=== PATIENT | female | born 2000 | race Caucasian/White ===

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

== ENCOUNTER 2021-07-29 11:03 | Emergency (ER) | payer MEDICAID, SELFPAY ==
[2021-07-29 11:08] VITALS: BP 126/81; PULSE 68; RESP 16; TEMP 36.6; O2SAT 97
--- NOTE | 2021-07-29 11:23 | ED.GENADUL_ITS ---
Discharge Plan Disposition Patient Disposition: HOME Condition: Stable Discharge Details Clinical Impression: Vomiting during Primary Care Provider: Lindsay Miranda V ED Provider: Oscar Beltran Home Meds and New Rx's Prescriptions: New doxylamine-pyridoxine (vit B6) [Diclegis] 10-10 mg tablet,delayed release (DR/EC) 1 tab PO BID PRN (Reason: nausea and vomiting) Qty: 10 RF: 0 Continued PreTAB 29-1 mg tablet 1 tab PO DAILY Qty: 90 RF: 4 venlafaxine [Effexor XR] 75 mg capsule,extended release 24hr 75 mg PO DAILY Qty: 90 RF: 0 albuterol sulfate [ProAir HFA] 200 PUFF HFA aerosol inhaler 2 puff Inhalation PRN PRNRF: 0 Discharge Instructions Instructions: Hyperemesis Gravidarum (ED) Additional Instructions: Please return if you have any new or worsening of your symptoms. otherwise keep you appt with OB next week. Medical Decision Making Patient here with N/V/D and states abdominal cramping type pain . Pt is aprox 9weeks and reported LMP 04/21/21 and CORINNA 03/06/22 reported by US results done on last OB visit with ongoing N/V x 3 weeks with no stated treatment. Pt nontoxic in appearance, vital signsWNL, and not tolerating PO. Pt?s presentation unlikely aortic in etiology as inconsistent with location or history, nonsmoker and no HTN. Cholecystitis inconsistent with history; not related to meals, negative espino?s, and no hx gall stones previously. SBO unlikely given no prior abd surgery and normal BMs. The location of pain is difuse and not typical of appendicitis, the patient has no rebound tenderness, mild anorexia due to nausea/vomiting. No history of renal stones, no CVA tenderness, and no hematuria. . Labs, including CBC, CMP, and urine were preformed Pending results patient was give NS bolus 1000ml and ODT zofran after discussion of risk vs benefits. Labs reviewed and show elevation of WBC and neutrophils otherwise no emergent findings. I feel the abnormalities are secondary to vomiting Pt reassessed after fluids and states some reduced nausea and overall improvement. With further discussion pt does state that this occurred during last and is the same. pt also states that BM only occurs with vomiting. Pt PO challenged. Review of UA shows Ketones. Reassessed patient and she continues to improve. Discussed further fluids and D5NS and pt states that she would rather continue home PO intake and hydration. Given that patient is improving and tolerating PO I am fine with DC to home with strict return precations. Pt states understanding of return and F/U precautions. Medical Records Medical records reviewed: Yes I reviewed the patient's medical records. Medical records narrative: Reviewed notes from last OB visit HPI General Mode of arrival: ambulatory . Date/Time Provider Initiated Documentation: 07/29/21 11:05 . Limitations to Documentation: no limitations . Information obtained by: patient . History of Present Illness 20 year old F presents to the emergency department with the chief complaint of Nausea and vomitting X 3 weeks and now worse over last 2 days, described as moderate and similar to prior episodes, with intensity rated at 7. Quality is described as other (Cramping), and is localized to the abdomen. Patient reports no radiation. Patient started experiencing this week(s) and it has been constant. No relieving factors improve symptom(s), No exacerbating factors reported . Patient notes no other symptoms.. Patient did receive the following treatments prior to arrival, none Related Data Home Medications Medication Instructions Recorded Confirmed albuterol sulfate [ProAir HFA] 2 puff INHALATION PRN PRN 06/11/15 07/29/21 vits,calcium no.78-iron 1 tab PO DAILY #90 tab 06/29/21 07/29/21 fumarate-folic acid 29 mg-1 mg tablet venlafaxine 75 mg capsule,extended 75 mg PO DAILY #90 cap 06/29/21 07/29/21 release 24 hr doxylamine-pyridoxine (vit B6) 1 tab PO BID PRN #10 tab 07/29/21 [Diclegis] Previous Rx's Medication Instructions Recorded vits,calcium no.78-iron 1 tab PO DAILY #90 tab 06/29/21 fumarate-folic acid 29 mg-1 mg tablet venlafaxine 75 mg capsule,extended 75 mg PO DAILY #90 cap 06/29/21 release 24 hr doxylamine-pyridoxine (vit B6) 1 tab PO BID PRN #10 tab 07/29/21 [Diclegis] Allergies Allergy/AdvReac Type Severity Reaction Status Date / Time sertraline Allergy Intermediate Verified 07/29/21 11:15 black flies Allergy Intermediate Uncoded 07/29/21 11:15 cats Allergy Intermediate Uncoded 07/29/21 11:15 General Stated Complaint: Nausea/Vomit/Diar ETHAN: 3 Review of Systems Constitutional Constitutional: Denies chills, Denies fever(s) and Reports poor appetite ENT Ears, Nose, Mouth, and Throat: Denies dizziness Cardiovascular Cardiovascular: Denies chest pain, Denies syncope and Denies dyspnea Respiratory Respiratory: Denies cough and Denies dyspnea Gastrointestinal Gastrointestinal: Reports as per HPI, Denies abdominal pain, Denies melena, Denies change in bowel habits, Denies constipation, Reports cramping, Reports diarrhea, Reports nausea, Reports vomiting and Denies hematemesis Genitourinary Genitourinary: Denies hematuria, Denies pelvic pain, Denies urinary incontinence, Denies urinary hesitancy, Denies urinary urgency and Denies vaginal discharge Comments: Currently LMP 04/21/21 Integumentary/Breasts Skin/Breast: Denies rash Neurologic Neurologic: Denies dizziness and Denies syncope PFSH All Active Problems Vomiting during (Acute) Posttraumatic stress disorder (Acute) History of migraine (Acute) (Acute) Depressed (Acute) Cannabis abuse (Acute) Amenorrhea (Acute) Medical History Adjustment reaction of adolescence Allergic rhinitis, unspecified Amenorrhea Asthma Attention deficit disorder with hyperactivity Bipolar disorder Chlamydia contact Chlamydia vaginitis/cervicitis Concussion without loss of consciousness, sequela Dizziness Exercise-induced asthma Headache Mood disorder due to known physiological condition with depressive features Pain of right hand RAD (reactive airway disease) Seasonal allergies Sleep disturbance Subacute thyroiditis Suicidal ideation Urinary tract infection Surgical History History of tonsillectomy Family History Paternal Grandfather Diabetes Maternal Grandfather Heart disease mi w/ double bypass Hypertension Mother Hypothyroid Social History Smoking/Tobacco Use Status: Never Smoking risk assessment performed?: Yes Alcohol Intake: never Substance use type: former substance user Date of last use: nanette Counseling provided: treatment program Details: pt. denies marijuana use at this time Sexually active: Yes Do you feel safe at home: Yes Do you feel safe in your relationship?: Yes Female Reproductive History Menstrual Age of Menarche: 12 Duration of menses: 3-5 days control method: pills History History 1 Para 1 Hx # Term Pregnancies 1 Multiple births 0 Hx # Pregnancies 0 Ectopic pregnancies 0 AB induced 0 Hx Number of Living Children 1 AB spontaneous 0 Past Pregnancies Del. Date GA/Weeks # Outcome Route Wgt Sex Labor Lgth Anesthes ia Location Prov [facility] 08/30/19 39 No Successful vaginal 2976.7 g Female Soledad Rodney CNM Delivery Date: 08/30/19 1st degree perineal laceration, repaired Ramona Soto Exam Const General: cooperative Orientation: alert, awake and oriented x3 Eyes General: appearance normal, both eyes and all related structures Resp Effort & Inspection: normal respiratory effort and able to speak in complete sentences Auscultation: clear to auscultation bilaterally Cardio Rate: regular rate Rhythm: regular rhythm Heart Sounds: S1 normal and S2 normal GI Palpation: soft, no hepatosplenomegaly, not firm, no guarding, no masses, no pulsatile masses, not rigid, no splenomegaly and tender other (difuse ); not at McBurney's point, not suprapubicly, Espino's sign negative, psoas sign negative and with no rebound tenderness Auscultation: normal bowel sounds Back/Spine/Pelvis Back: no CVA tenderness Neuro General: patient alert, patient awake, patient oriented x3, gait normal and moves all extremities Course Vital Signs Vital signs: Vital Signs Temperature 36.6 C 07/29/21 11:08 Pulse 68 07/29/21 11:08 Respiratory Rate 16 07/29/21 11:08 Blood Pressure 126/81 07/29/21 11:08 Pulse Oximetry 97 07/29/21 11:08 Temperature 36.6 C 07/29/21 11:08 Temperature Source Temporal Artery Scan 07/29/21 11:08 Pulse 68 07/29/21 11:08 Respiratory Rate 16 07/29/21 11:08 Respiratory Effort Non-Labored 07/29/21 11:13 Blood Pressure 126/81 07/29/21 11:08 Blood Pressure Position Sitting 07/29/21 11:08 Pulse Oximetry 97 07/29/21 11:08 Oxygen Delivery Method Room Air 07/29/21 11:08 Oxygen Flow Rate 0 07/29/21 11:08 Pain Level 0 07/29/21 11:08
[2021-07-29] MEDS: Normal Saline 1,000 ML 1000 ML IV (11:31)
[2021-07-29 11:36] LABS: Abs Immature Grans 0.05 10^3/uL (0.0-0.06); Absolute Basophil Count 0.04 10^3/uL (0.0-0.2); Absolute Lymphocyte Count 0.88 10^3/uL (1.2-3.4); Absolute Monocyte Count 0.54 10^3/uL (0.1-0.8); Basophils % 0.3; Eosinophils % 0.2; HCT 38.5 % (36.0-46.0); HGB 12.8 g/dL (11.2-15.7); Immature Grans % 0.4; Lymphocytes % 6.8; MCHC 33.2 % (32.0-36.0); MCV 87.1 fL (80-95); MPV 10.8 fL (8.0-11.0); Monocytes % 4.2; Neutrophils % 88.1; Nucleated RBC 0 %; Platelet Count 248 10^3/uL (130-400); RBC 4.42 10^6/uL (3.93-5.22); RDW 12.5 % (11.7-14.6); RDW-SD 40.2 fL; WBC 12.91 10^3/uL (4.4-10.8)
[2021-07-29] MEDS: Ondansetron O.D.T. 4 MG TABEF PO (11:36)
[2021-07-29 11:37] LABS: Absolute Eosinophil Count 0.03 10^3/uL (0.0-0.7); Absolute Neutrophil Count 11.37 10^3/uL (1.2-6.7)
[2021-07-29 11:48] LABS: ALT 37 U/L (14-59); AST 14 U/L (15-37); Albumin 4.5 g/dL (3.4-5.0); Alkaline Phosphatase 34 U/L (46-116); Anion Gap 11.7 mmol/L (3-11); BUN 6 mg/dL (7-18); Bilirubin, Total 0.4 mg/dL (0.2-1.0); CO2 25.3 mmol/L (21.0-32.0); CREATININE 0.6 mg/dL (0.55-1.02); Calcium 9.3 mg/dL (8.5-10.1); Chloride 103 mmol/L (98-107); Glucose 124 mg/dL (74-106); Magnesium 1.9 mg/dL (1.8-2.4); Potassium 3.5 mmol/L (3.5-5.1); Sodium 140 mmol/L (136-145); Total Protein 8.1 g/dL (6.4-8.2)
[2021-07-29 12:56] LABS: Bilirubin Negative (Negative); Blood Negative (Negative); Clarity Sl Cloudy (Clear); Glucose Negative (Negative); Ketones 80 mg/dL (Negative); Leukocyte Esterase Negative (Negative); Nitrite Negative (Negative); Specific Gravity 1.025 (1.005-1.025); Urobilinogen 0.2 EU/dL (Up TO 0.2)
[2021-07-29 13:13] VITALS: BP 138/88; PULSE 73; RESP 18; O2SAT 96
== END 2021-07-29 13:19 | disposition home or self-care (01) ==
PROVIDERS: Emergency Provider Nurse Practitioner Family; PCP Family Medicine
DX: O21.8 Other vomiting complicating pregnancy (principal); Z3A.09 9 weeks gestation of pregnancy; R10.9 Unspecified abdominal pain; O28.8 Other abnormal findings on antenatal screening of mother
CPT/HCPCS: 36415; 80053; 96360; 99284; 81003; 83735; 85025; 99283

== ENCOUNTER 2021-07-30 04:49 | Emergency (ER) | payer MEDICAID, SELFPAY ==
[2021-07-30 04:56] VITALS: BP 138/77; PULSE 73; RESP 18; TEMP 36.3; O2SAT 97
--- NOTE | 2021-07-30 05:11 | ED.GENADUL_ITS ---
Discharge Plan Disposition Patient Disposition: HOME Condition: Good Discharge Details Clinical Impression: Vomiting during , Acute hypokalemia, Hypomagnesemia Primary Care Provider: Lindsay Miranda V ED Provider: David Caceres Home Meds and New Rx's Prescriptions: Continued PreTAB 29-1 mg tablet 1 tab PO DAILY Qty: 90 RF: 4 venlafaxine [Effexor XR] 75 mg capsule,extended release 24hr 75 mg PO DAILY Qty: 90 RF: 0 albuterol sulfate [ProAir HFA] 200 PUFF HFA aerosol inhaler 2 puff Inhalation PRN PRNRF: 0 doxylamine-pyridoxine (vit B6) [Diclegis] 10-10 mg tablet,delayed release (DR/EC) 1 tab PO BID PRN (Reason: nausea and vomiting) Qty: 10 RF: 0 Discharge Instructions Instructions: Hyperemesis Gravidarum (ED) Additional Instructions: Please continue to take your Diclegis at home. Drink plenty of fluids. Follow- up closely with your OB doctor. If you notice any worsening of your symptoms, or any new symptoms such as vomiting, diarrhea, fever, chills, shortness of breath, chest pain, numbness, weakness, or fainting , please return immediately to the emergency department for reevaluation. Please follow up with your primary care provider as soon as possible for reassessment and reevaluation. As always, it was a pleasure participating in your medical care today. Referrals: Lindsay Miranda MD [Primary Care Provider] - Medical Decision Making <Alessandro Singh DO - Last Filed: 07/30/21 07:55> This is a 20-year-old female who is currently 9 weeks who is a G2, P1 who presents today for nausea and vomiting. Patient had notable morning sickness during her first , during this she has as well. Her symptoms got particularly worse about 18 to 20 hours ago, and she came to the ER, was rehydrated, had a reassuring work-up, and was discharged. She returns again today at 5 in the morning for continued vomiting and nausea. She denies any fever or chills. She admits to mild epigastric discomfort but no other pain. She states this feels similar to previous episodes of morning sickness. She denies any other complaints at this time. No other modifying factors. Physical exam demonstrates dry mucous membranes, mild epigastric tenderness. No evidence of an acute surgical abdomen. Negative Espino sign. Symptoms at this time appear consistent with mild morning sickness. We will treat with Zofran which she has had in the past, give pyridoxine, rehydrate, monitor closely and reassess. 7:24 AM Laboratory work-up is returned, potassium is 3.1, magnesium is slightly low at 1.7. Liver function is normal. Lipase is normal. On reassessment patient is feeling somewhat better. Still has some mild epigastric achiness. Mild nausea but has been able to tolerate ice chips. We will replace potassium and magnesium. Will give 20 mEq of IV potassium and 2 g of magnesium. Patient will be signed out to my colleague Dr. David Caceres for reassessment after medications. <David Caceres MD - Last Filed: 07/30/21 09:59> Received signout from Dr. Singh. Please see his note regarding details of the initial presentation, exam and plan of care. Following fluids and electrolyte replacement, the patient is improved and feeling better. She is stable and appropriate for outpatient management. HPI <Alessandro Singh DO - Last Filed: 07/30/21 07:55> General Date/Time Provider Initiated Documentation: 07/30/21 04:58 . HPI Narrative: This is a 20-year-old female who is currently 9 weeks who is a G2, P1 who presents today for nausea and vomiting. Patient had notable mo rning sickness during her first , during this she has as well. Her symptoms got particularly worse about 18 to 20 hours ago, and she came to the ER, was rehydrated, had a reassuring work-up, and was discharged. She returns again today at 5 in the morning for continued vomiting and nausea. She denies any fever or chills. She admits to mild epigastric discomfort but no other pain. She states this feels similar to previous episodes of morning sickness. She denies any other complaints at this time. No other modifying factors. Related Data Home Medications Medication Instructions Recorded Confirmed albuterol sulfate [ProAir HFA] 2 puff INHALATION PRN PRN 06/11/15 07/30/21 vits,calcium no.78-iron 1 tab PO DAILY #90 tab 11/09/21 12/10/21 fumarate-folic acid 29 mg-1 mg tablet venlafaxine 75 mg capsule,extended 75 mg PO DAILY #90 cap 06/29/21 07/30/21 release 24 hr doxylamine-pyridoxine (vit B6) 1 tab PO BID PRN #10 tab 07/29/21 07/30/21 [Diclegis] Previous Rx's Medication Instructions Recorded vits,calcium no.78-iron 1 tab PO DAILY #90 tab 06/29/21 fumarate-folic acid 29 mg-1 mg tablet venlafaxine 75 mg capsule,extended 75 mg PO DAILY #90 cap 06/29/21 release 24 hr doxylamine-pyridoxine (vit B6) 1 tab PO BID PRN #10 tab 07/29/21 [Diclegis] Allergies Allergy/AdvReac Type Severity Reaction Status Date / Time sertraline Allergy Intermediate Verified 07/30/21 04:59 black flies Allergy Intermediate Uncoded 07/30/21 04:59 cats Allergy Intermediate Uncoded 07/30/21 04:59 General Stated Complaint: Nausea/Vomit/Diar ETHAN: 3 Review of Systems <Alessandro Singh DO - Last Filed: 07/30/21 07:55> All systems reviewed & are unremarkable except as noted in HPI and below PFSH <Alessandro Singh DO - Last Filed: 07/30/21 07:55> All Active Problems (Updated 07/30/21 @ 07:26 by Alessandro Singh DO) Vomiting during (Acute) Acute hypokalemia (Acute) Hypomagnesemia (Acute) Posttraumatic stress disorder (Acute) History of migraine (Acute) (Acute) Depressed (Acute) Cannabis abuse (Acute) Amenorrhea (Acute) Medical History Adjustment reaction of adolescence Allergic rhinitis, unspecified Amenorrhea Asthma Attention deficit disorder with hyperactivity Bipolar disorder Chlamydia contact Chlamydia vaginitis/cervicitis Concussion without loss of consciousness, sequela Dizziness Exercise-induced asthma Headache Mood disorder due to known physiological condition with depressive features Pain of right hand RAD (reactive airway disease) Seasonal allergies Sleep disturbance Subacute thyroiditis Suicidal ideation Urinary tract infection Surgical History History of tonsillectomy Family History Paternal Grandfather Diabetes Maternal Grandfather Heart disease mi w/ double bypass Hypertension Mother Hypothyroid Social History Smoking/Tobacco Use Status: Never Smoking risk assessment performed?: Yes Alcohol Intake: never Substance use type: former substance user Date of last use: nanette Counseling provided: treatment program Details: pt. denies marijuana use at this time Sexually active: Yes Do you feel safe at home: Yes Do you feel safe in your relationship?: Yes Female Reproductive History Menstrual Age of Menarche: 12 Duration of menses: 3-5 days control method: pills History History 1 Para 1 Hx # Term Pregnancies 1 Multiple births 0 Hx # Pregnancies 0 Ectopic pregnancies 0 AB induced 0 Hx Number of Living Children 1 AB spontaneous 0 Past Pregnancies Del. Date GA/Weeks # Outcome Route Wgt Sex Labor Lgth Anesthes ia Location Prov [facility] 08/30/19 39 No Successful vaginal 2976.7 g Female Soledad Rodney CNM Delivery Date: 08/30/19 1st degree perineal laceration, repaired IsaelRamona giordano Exam <Alessandro Singh DO - Last Filed: 07/30/21 07:55> Narrative Exam Narrative: 1.Const: Well-nourished, Well-developed, appearing stated age 2.Eyes: PERRL, no conjunctival injection, and symmetrical lids. 3.ENT: Atraumatic external nose and ears. Notably dry MM. Neck: Symmetric, trachea midline, No thyromegaly. 4.CVS: +S1/S2, No murmurs or gallops. Peripheral pulses 2+ and equal in all extremities. Brisk capillary refill in all extremities. 5.RESP: Unlabored respiratory effort. Clear to auscultation bilaterally. No wheezes rales or rhonchi 6.GI: Soft, nondistended. Minimal epigastric tenderness, negative Espino sign, no pain at McBurney's point. 7.MSK: Normocephalic/Atraumatic, Extremities w/o deformity or ttp No cyanosis or clubbing, Normal movement of all extremities 8.Skin: Warm, Dry. No rashes or lesions. 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 Sensation grossly intact, no focal neurologic deficits. 10.Psych: (AAO) x3. Appropriate mood and affect Course <Alessandro Singh DO - Last Filed: 07/30/21 07:55> Vital Signs Vital signs: Vital Signs Temperature 36.3 C L 07/30/21 04:56 Pulse 73 07/30/21 04:56 Respiratory Rate 18 07/30/21 04:56 Blood Pressure 138/77 07/30/21 04:56 Pulse Oximetry 97 07/30/21 04:56 Temperature 36.3 C L 07/30/21 04:56 Temperature Source Skin 07/30/21 04:56 Pulse 73 07/30/21 04:56 Respiratory Rate 18 07/30/21 04:56 Respiratory Effort Non-Labored 07/30/21 05:00 Blood Pressure 138/77 07/30/21 04:56 Pulse Oximetry 97 07/30/21 04:56 Pain Level 6 07/30/21 04:56 Sign Out <Alessandro Singh DO - Last Filed: 07/30/21 07:55> Sign Out Data: Sign Out Comment: , morning sickness, reassess after potassium magnesium have been administered. Last updated by Alessandro Singh DO at 07/30/21 07:31
[2021-07-30] MEDS: Normal Saline 1,000 ML 1000 ML IV (05:16)
[2021-07-30] MEDS: Ondansetron 4 MG/2 ML VIAL IVP (05:16)
[2021-07-30 05:17] LABS: Abs Immature Grans 0.06 10^3/uL (0.0-0.06); Absolute Basophil Count 0.03 10^3/uL (0.0-0.2); Absolute Eosinophil Count 0.04 10^3/uL (0.0-0.7); Absolute Lymphocyte Count 1.11 10^3/uL (1.2-3.4); Absolute Monocyte Count 0.63 10^3/uL (0.1-0.8); Absolute Neutrophil Count 9.33 10^3/uL (1.2-6.7); Basophils % 0.3; Eosinophils % 0.4; HCT 34.5 % (36.0-46.0); HGB 11.8 g/dL (11.2-15.7); Immature Grans % 0.5; Lymphocytes % 9.9; MCH 29.1 pg (27.0-33.0); MCHC 34.2 % (32.0-36.0); MCV 85.2 fL (80-95); MPV 10.8 fL (8.0-11.0); Monocytes % 5.6; Neutrophils % 83.3; Nucleated RBC 0 %; Platelet Count 218 10^3/uL (130-400); RBC 4.05 10^6/uL (3.93-5.22); RDW 12.5 % (11.7-14.6); RDW-SD 38.6 fL
[2021-07-30 05:30] LABS: ALT 28 U/L (14-59); AST 12 U/L (15-37); Albumin 4.1 g/dL (3.4-5.0); Alkaline Phosphatase 31 U/L (46-116); Anion Gap 14.3 mmol/L (3-11); BUN 6 mg/dL (7-18); Bilirubin, Total 0.3 mg/dL (0.2-1.0); CO2 21.7 mmol/L (21.0-32.0); CREATININE 0.6 mg/dL (0.55-1.02); Calcium 8.7 mg/dL (8.5-10.1); Chloride 103 mmol/L (98-107); Glucose 124 mg/dL (74-106); Lipase 44 U/L (73-393); Potassium 3.1 mmol/L (3.5-5.1); Sodium 139 mmol/L (136-145); Total Protein 7.4 g/dL (6.4-8.2)
[2021-07-30 06:33] LABS: Magnesium 1.7 mg/dL (1.8-2.4)
[2021-07-30] MEDS: POTASSIUM CHLORIDE 20 MEQ/100 ML BAG 50 MEQ IVPB (06:57)
[2021-07-30] MEDS: MAGNESIUM SULFATE 2 GM/50 ML BAG IVPB (07:54)
[2021-07-30 10:00] VITALS: BP 133/75; PULSE 97; RESP 20; TEMP 37.1; O2SAT 100
[2021-07-30 10:10] VITALS: BP 133/75; PULSE 97; RESP 20; TEMP 37.1; O2SAT 100
== END 2021-07-30 10:10 | disposition home or self-care (01) ==
PROVIDERS: Student in an Organized Health Care Education/Training Program; Emergency Provider Emergency Medicine; PCP Family Medicine
DX: O21.8 Other vomiting complicating pregnancy (principal); E87.6 Hypokalemia; E83.42 Hypomagnesemia
CPT/HCPCS: 36415; 80048; 80053; 83690; 96361; 96365; 96366; 96368; 96374; 96375; 99284; 83735; 85025; 99283; J1200; J2405; J2765; J3480

== ENCOUNTER 2021-07-30 11:03 | Emergency (ER) | payer MEDICAID, SELFPAY ==
[2021-07-30 11:07] VITALS: BP 139/92; PULSE 75; RESP 18; TEMP 36.6; O2SAT 99
[2021-07-30] MEDS: Ondansetron O.D.T. 4 MG TABEF PO (11:17)
[2021-07-30] MEDS: Normal Saline 1,000 ML 1000 ML IV (12:44)
[2021-07-30] MEDS: Metoclopramide 10 MG/2 ML VIAL IVP (12:45)
[2021-07-30] MEDS: diphenhydrAMINE 50 MG/ML VIAL 25 MG IVP (12:45)
[2021-07-30] MEDS: FAMOTIDINE 20 MG/50 ML BAG 200 MG IVPB (12:46)
--- NOTE | 2021-07-30 12:52 | ED.GENADUL_ITS ---
Discharge Plan Disposition Patient Disposition: HOME Condition: Stable Discharge Details Clinical Impression: Acute hypokalemia, Vomiting during Primary Care Provider: Lindsay Miranda V ED Provider: Brielle Renee Home Meds and New Rx's Prescriptions: New ondansetron HCl [Zofran] 4 mg tablet 4 mg PO Q8H PRNQty: 10 RF: 0 Continued PreTAB 29-1 mg tablet 1 tab PO DAILY Qty: 90 RF: 4 venlafaxine [Effexor XR] 75 mg capsule,extended release 24hr 75 mg PO DAILY Qty: 90 RF: 0 albuterol sulfate [ProAir HFA] 200 PUFF HFA aerosol inhaler 2 puff Inhalation PRN PRNRF: 0 doxylamine-pyridoxine (vit B6) [Diclegis] 10-10 mg tablet,delayed release (DR/EC) 1 tab PO BID PRN (Reason: nausea and vomiting) Qty: 10 RF: 0 Discharge Instructions Instructions: Hypokalemia (ED) Additional Instructions: avoid an empty stomach, snack in AM (banana, saltines, toast, pretzels) peppermint tea or candies after small snack night snack of crackers and peanutbutter or cheese eat very small, frequent snacks fluids 30 min before eating, cold, clear, carbonated like lemonade, gingerale, and popsicles do not lay down after eating as this may worsening your nausea no iron containing vitamins while nauseous gustavo tea or lollipops may help vitamin B6 10-25 mg every 6 hours, you may purchase this otc (max dose of 200 mg/day) take 1/2 tablet of unisom (25 mg) (doxylamine tablet, 3-4 times a day) as needed for nausea Referrals: Lindsay Miranda MD [Primary Care Provider] - Medical Decision Making Patient is well in appearance Gave her ODT Zofran in an attempt to alleviate patient's symptoms but persistently nauseous and so 10 mg of Reglan and 25 mg of Benadryl was administered She is feeling marked improvement I rechecked a BMP which actually shows improvement in patient's have potassium at home Potassium 3.4 Gap has improved prior assessment Able to tolerate gustavo mckenzie in the emergency room Prescribed Zofran ODT for home and will take half a tablet of Unisom and 10 mg of B6 as discussed Have an appointment with WELL DRILL OPERATOR [facility] on Monday No abdominal tenderness on assessment Given low threshold to return should she have new or worsening complaints While this patient has had 3 visits, she has not taken any prescribed medications and I think giving patient a trial of home medication is important at this point She is discharged home in stable condition with stable vitals Patient feels comfortable discharge home Return precautions discussed Will need blood pressure rechecked by primary physician and WE[employer] DRILL OPERATOR [employer]RILL mildly elevated at this time Urinalysis without proteinuria Medical Records Medical records reviewed: Yes I reviewed the patient's medical records. Lab Data Lab results reviewed: Yes I reviewed the patient's lab results. HPI General Mode of arrival: ambulatory . Date/Time Provider Initiated Documentation: 07/30/21 11:09 . Limitations to Documentation: no limitations . Information obtained by: patient . HPI Narrative: This 20-year-old female presents for her third evaluation of nausea and vomiting in . She is approximately 9 weeks . She denies any blood in vomitus or stool. She states that she did not fill her not fill her prescription for Diclegis that was prescribed as it required a prior authorization. She denies any abdominal pain. She denies any chest pain or shortness of breath. She denies any dizziness or weakness. Related Data Home Medications Medication Instructions Recorded Confirmed albuterol sulfate [ProAir HFA] 2 puff INHALATION PRN PRN 06/11/15 07/30/21 vits,calcium no.78-iron 1 tab PO DAILY #90 tab 06/29/21 07/30/21 fumarate-folic acid 29 mg-1 mg tablet venlafaxine 75 mg capsule,extended 75 mg PO DAILY #90 cap 06/29/21 07/30/21 release 24 hr doxylamine-pyridoxine (vit B6) 1 tab PO BID PRN #10 tab 07/29/21 07/30/21 [Diclegis] ondansetron HCl [Zofran] 4 mg PO Q8H PRN #10 tab 07/30/21 Previous Rx's Medication Instructions Recorded vits,calcium no.78-iron 1 tab PO DAILY #90 tab 06/29/21 fumarate-folic acid 29 mg-1 mg tablet venlafaxine 75 mg capsule,extended 75 mg PO DAILY #90 cap 06/29/21 release 24 hr doxylamine-pyridoxine (vit B6) 1 tab PO BID PRN #10 tab 07/29/21 [Diclegis] ondansetron HCl [Zofran] 4 mg PO Q8H PRN #10 tab 07/30/21 Allergies Allergy/AdvReac Type Severity Reaction Status Date / Time sertraline Allergy Intermediate Verified 07/30/21 11:09 black flies Allergy Intermediate Uncoded 07/30/21 11:09 cats Allergy Intermediate Uncoded 07/30/21 11:09 General Stated Complaint: Nausea/Vomit/Diar ETHAN: 3 Review of Systems All systems reviewed & are unremarkable except as noted in HPI and below PFSH All Active Problems (Updated 07/30/21 @ 14:11 by RIKY Lassiter) Vomiting during (Acute) Acute hypokalemia (Acute) Hypomagnesemia (Acute) Posttraumatic stress disorder (Acute) History of migraine (Acute) (Acute) Depressed (Acute) Cannabis abuse (Acute) Amenorrhea (Acute) Medical History Adjustment reaction of adolescence Allergic rhinitis, unspecified Amenorrhea Asthma Attention deficit disorder with hyperactivity Bipolar disorder Chlamydia contact Chlamydia vaginitis/cervicitis Concussion without loss of consciousness, sequela Dizziness Exercise-induced asthma Headache Mood disorder due to known physiological condition with depressive features Pain of right hand RAD (reactive airway disease) Seasonal allergies Sleep disturbance Subacute thyroiditis Suicidal ideation Urinary tract infection Surgical History History of tonsillectomy Family History Paternal Grandfather Diabetes Maternal Grandfather Heart disease mi w/ double bypass Hypertension Mother Hypothyroid Social History Smoking/Tobacco Use Status: Never Smoking risk assessment performed?: Yes Alcohol Intake: never Substance use type: former substance user Date of last use: [place] Counseling provided: treatment program Details: pt. denies marijuana use at this time Sexually active: Yes Do you feel safe at home: Yes Do you feel safe in your relationship?: Yes Female Reproductive History Menstrual Age of Menarche: 12 Duration of menses: 3-5 days control method: pills History History 1 Para 1 Hx # Term Pregnancies 1 Multiple births 0 Hx # Pregnancies 0 Ectopic pregnancies 0 AB induced 0 Hx Number of Living Children 1 AB spontaneous 0 Past Pregnancies Del. Date GA/Weeks # Outcome Route Wgt Sex Labor Lgth Anesthes ia Location Prov Complic 08/30/19 39 No Successful vaginal 2976.7 g Female Soledad Rodney CNM Delivery Date: 08/30/19 1st degree perineal laceration, repaired Ramona Soto Exam Const General: cooperative and comfortable HENMT Other: Moist mucous membrane Eyes Pupils: PERRL Resp Effort & Inspection: normal respiratory effort Cardio Rate: regular rate GI Other: Nontender abdominal exam Skin General skin exam: no rashes or lesions noted Neuro General: patient alert Extrem Other: No peripheral edema Course Vital Signs Vital signs: Vital Signs Temperature 36.6 C 07/30/21 11:07 Pulse 75 07/30/21 11:07 Respiratory Rate 18 07/30/21 11:07 Blood Pressure 139/92 H 07/30/21 11:07 Pulse Oximetry 99 07/30/21 11:07 Temperature 36.6 C 07/30/21 11:07 Temperature Source Temporal Artery Scan 07/30/21 11:07 Pulse 75 07/30/21 11:07 Respiratory Rate 18 07/30/21 11:07 Respiratory Effort Non-Labored 07/30/21 11:11 Blood Pressure 139/92 H 07/30/21 11:07 Blood Pressure Position Sitting 07/30/21 11:07 Pulse Oximetry 99 07/30/21 11:07 Oxygen Delivery Method Room Air 07/30/21 11:07 Oxygen Flow Rate 0 07/30/21 11:07
[2021-07-30 12:56] LABS: Anion Gap 8.8 mmol/L (3-11); BUN 4 mg/dL (7-18); CO2 26.2 mmol/L (21.0-32.0); CREATININE 0.5 mg/dL (0.55-1.02); Calcium 8.2 mg/dL (8.5-10.1); Chloride 105 mmol/L (98-107); Glucose 103 mg/dL (74-106); Potassium 3.4 mmol/L (3.5-5.1); Sodium 140 mmol/L (136-145)
[2021-07-30 12:57] LABS: Lipase 39 U/L (73-393)
== END 2021-07-30 14:21 | disposition home or self-care (01) ==
PROVIDERS: Emergency Provider Physician Assistant; PCP Family Medicine
DX: O21.8 Other vomiting complicating pregnancy (principal); E87.6 Hypokalemia
CPT/HCPCS: 36415; 80048; 83690; 96361; 96374; 96375; 99284; 99283; J1200; J2765

== ENCOUNTER 2021-08-02 18:32 | Outpatient (REF) | payer MEDICAID, SELFPAY ==
[2021-08-02 20:44] LABS: *AMPHETAMINES SCREEN URINE Negative (Negative); *BARBITURATES SCREEN URINE Negative (Negative); *BENZODIAZEPINES SCREEN URINE Negative (Negative); Cannabinoids THC Positive (Negative); Cocaine Screen,Urine Negative (Negative); METHADONE URINE SCREEN Negative (Negative); OPIATES URINE SCREEN Negative (Negative)
[2021-08-02 20:57] LABS: Tricyclic Antidepressants Negative (Negative)
[2021-08-05 11:09] LABS: Chlamydia Result Negative (Negative); GC Result Negative (Negative)
[2021-08-06 14:21] LABS: Buprenorphine Negative ng/mL (Cutoff: 5.0); Norbuprenorphine Negative ng/mL (Cutoff: 2.5)
== END 2021-08-02 18:33 | disposition home or self-care (01) ==
LOC: NCHCN 18:32
PROVIDERS: PCP Family Medicine; Visit Provider Advanced Practice Midwife
DX: Z34.91 Encounter for supervision of normal pregnancy, unspecified, first trimester (principal)
CPT/HCPCS: 80307; 87491; 87591; 87086

== ENCOUNTER 2021-08-09 03:27 | Outpatient (CLI) | payer MEDICAID, SELFPAY ==
[2021-08-09 08:28] LABS: Abs Immature Grans 0.04 10^3/uL (0.0-0.06); Absolute Basophil Count 0.04 10^3/uL (0.0-0.2); Absolute Eosinophil Count 0.34 10^3/uL (0.0-0.7); Absolute Lymphocyte Count 1.91 10^3/uL (1.2-3.4); Absolute Monocyte Count 0.76 10^3/uL (0.1-0.8); Absolute Neutrophil Count 6.46 10^3/uL (1.2-6.7); Basophils % 0.4; Eosinophils % 3.6; HGB 12.1 g/dL (11.2-15.7); Immature Grans % 0.4; MCHC 32.7 % (32.0-36.0); MCV 88.7 fL (80-95); MPV 10.8 fL (8.0-11.0); Neutrophils % 67.6; Nucleated RBC 0 %; Platelet Count 197 10^3/uL (130-400); RBC 4.17 10^6/uL (3.93-5.22); RDW 12.5 % (11.7-14.6); WBC 9.55 10^3/uL (4.4-10.8)
[2021-08-09 08:38] LABS: Glucose,1 Hr (Glucola) 78 mg/dL (80-140)
[2021-08-09 09:04] LABS: TSH (W/Ref FT4) 0.82 uIU/mL (0.52-4.13)
[2021-08-10 09:41] LABS: Varicella IgG Antibody Negative (See Note)
[2021-08-10 09:46] LABS: Rubella IgG Ab (UVM) Positive (See Note)
[2021-08-10 10:31] LABS: Hepatitis B Surface Ag Negative (Negative)
[2021-08-10 10:44] LABS: HIV-1/2 Ag & Ab Screen Negative (Negative)
[2021-08-10 11:08] LABS: Hepatitis C Ab w Rflx HCV PCR Negative (Negative)
[2021-08-11 13:46] LABS: Syphilis Total Ab w/Reflex Nonreactive (Nonreactive)
== END 2021-08-09 03:28 | disposition home or self-care (01) ==
LOC: LBO 03:28
PROVIDERS: PCP Family Medicine; Visit Provider Advanced Practice Midwife
DX: Z34.91 Encounter for supervision of normal pregnancy, unspecified, first trimester (principal)
CPT/HCPCS: 36415; 82950; 86787; 86803; 86850; 86900; 86901; 87340; 87389; 84443; 85025; 86762; 86780

== ENCOUNTER 2021-08-14 16:20 | Emergency (ER) | payer MEDICAID, SELFPAY ==
[2021-08-14 16:30] VITALS: BP 117/75; PULSE 92; RESP 18; TEMP 36.7; O2SAT 97
--- NOTE | 2021-08-14 16:50 | W.ED.GENAD ---
Discharge Plan Disposition Patient Disposition: HOME Condition: Improving Discharge Details Clinical Impression: Vomiting during Primary Care Provider: Lindsay Miranda V ED Provider: Elif Barrios Home Meds and New Rx's Prescriptions: New metoclopramide HCl [Reglan] 5 mg tablet 5 mg PO Q4H PRN (Reason: nausea and vomiting) Qty: 14 RF: 0 No Action PreTAB 29-1 mg tablet 1 tab PO DAILY Qty: 90 RF: 4 venlafaxine [Effexor XR] 75 mg capsule,extended release 24hr 75 mg PO DAILY Qty: 90 RF: 0 ondansetron HCl [Zofran] 4 mg tablet 4 mg PO Q8H PRN (Reason: nausea and vomiting) Qty: 60 RF: 1 albuterol sulfate [ProAir HFA] 200 PUFF HFA aerosol inhaler 2 puff Inhalation PRN PRNRF: 0 doxylamine-pyridoxine (vit B6) [Diclegis] 10-10 mg tablet,delayed release (DR/EC) 1 tab PO BID PRN (Reason: nausea and vomiting) Qty: 10 RF: 0 Discharge Instructions Instructions: Hyperemesis Gravidarum (ED) Additional Instructions: Small frequent meals. Take the nausea medication 20 to 30 minutes prior to eating or drinking anything. Try lemon and gustavo. Peppermint helps. Cool compresses to the back of your neck. Follow-up with your women's wellness DIRECTOR STRATEGIC PLANNING within the next 3 to 5 days. Try to stay hydrated with electrolyte drinks, water, and or Sprite. Follow up with primary care provider in 3-5 days. Return to ED sooner if any worsening or concerns. Increase oral fluids. Referrals: Delmis Green NP [NURSE PRACTITIONER] - 5 days Medical Decision Making 20-year-old female 3 para 1 who is approximately 11 weeks presents to the ER with nausea vomiting diarrhea worse over the last 48 hours. She does endorse some lower abdominal cramping which is intermittent. She was seen for similar here in the emergency department on 07/30 and prescribed Zofran 4 mg tablet. She reports taking 8 mg approximately 2 PM today however was unable to keep them down. She reports intermittent constipation and loose stools. Denies any dysuria or trouble urinating no fever no chills. No back pain. She denies any vaginal bleeding. Patient has a past medical history of asthma, ADHD, bipolar, reactive airway disease. Labs including CBC, CMP,, magnesium, 1 L normal saline, 4 mg Zofran, and heart tones ordered. FHT 152 CBC shows no leukocytosis white blood cell count 10.64, absolute neutrophils 8.02, CMP shows sodium of 138, potassium 3.7, anion gap 11 6, GFR greater than 60, alk phos 28, urinalysis shows greater than 160 ketones. No leukocytes no nitrates. Covid is negative. 1807: Patient reevaluation, she reports still feeling poorly. Will order another liter of saline and some Reglan and attempt a p.o. challenge prior to discharge. Patient able to hold down liquids prior to discharge. Patient feels better. Sent with to go Zofran oral dissolvable tablets. Discussed follow-up and strict return instructions. This text was generated using [employer] system, please disregard any oddities of phrase or misspellings. HPI General Mode of arrival: ambulatory. Date/Time Provider Initiated Documentation: 08/14/21 16:28. Limitations to Documentation: no limitations. Information obtained by: patient, RN notes reviewed and old records reviewed. HPI Narrative: 20-year-old female 3 para 1 who is approximately 11 weeks presents to the ER with nausea vomiting diarrhea worse over the last 48 hours. She does endorse some lower abdominal cramping which is intermittent. She was seen for similar here in the emergency department on 07/30 and prescribed Zofran 4 mg tablet. She reports taking 8 mg approximately 2 PM today however was unable to keep them down. She reports intermittent constipation and loose stools. Denies any dysuria or trouble urinating no fever no chills. No back pain. She denies any vaginal bleeding. Patient has a past medical history of asthma, ADHD, bipolar, reactive airway disease. Related Data Home Medications Medication Instructions Recorded Confirmed albuterol sulfate [ProAir HFA] 2 puff INHALATION PRN PRN 06/11/15 08/14/21 vits,calcium no.78-iron 1 tab PO DAILY #90 tab 06/29/21 08/14/21 fumarate-folic acid 29 mg-1 mg tablet venlafaxine 75 mg capsule,extended 75 mg PO DAILY #90 cap 06/29/21 08/14/21 release 24 hr doxylamine-pyridoxine (vit B6) 1 tab PO BID PRN #10 tab 07/29/21 08/14/21 [Diclegis] ondansetron HCl 4 mg tablet 4 mg PO Q8H PRN #60 tab 08/05/21 08/14/21 metoclopramide HCl [Reglan] 5 mg PO Q4H PRN #14 tab 08/14/21 Previous Rx's Medication Instructions Recorded vits,calcium no.78-iron 1 tab PO DAILY #90 tab 06/29/21 fumarate-folic acid 29 mg-1 mg tablet venlafaxine 75 mg capsule,extended 75 mg PO DAILY #90 cap 06/29/21 release 24 hr doxylamine-pyridoxine (vit B6) 1 tab PO BID PRN #10 tab 07/29/21 [Diclegis] ondansetron HCl 4 mg tablet 4 mg PO Q8H PRN #60 tab 08/05/21 metoclopramide HCl [Reglan] 5 mg PO Q4H PRN #14 tab 08/14/21 Allergies Allergy/AdvReac Type Severity Reaction Status Date / Time sertraline Allergy Intermediate Verified 08/14/21 16:35 black flies Allergy Intermediate Uncoded 08/14/21 16:35 cats Allergy Intermediate Uncoded 08/14/21 16:35 General Stated Complaint: Nausea/Vomit/Diar ETHAN: 3 Review of Systems All systems reviewed & are unremarkable except as noted in HPI and below Gastrointestinal Gastrointestinal: Reports abdominal pain (Abdominal cramping), Reports loose stools, Reports nausea and Reports vomiting PFSH All Active Problems (Updated 08/14/21 @ 18:19 by Elif Barrios) Maternal varicella, non-immune (Acute) Vomiting during (Acute) Acute hypokalemia (Acute) Hypomagnesemia (Acute) Posttraumatic stress disorder (Acute) History of migraine (Acute) (Acute) Depressed (Acute) Cannabis abuse (Acute) Amenorrhea (Acute) Medical History Adjustment reaction of adolescence Allergic rhinitis, unspecified Amenorrhea Asthma Attention deficit disorder with hyperactivity Bipolar disorder Chlamydia contact Chlamydia vaginitis/cervicitis Concussion without loss of consciousness, sequela Dizziness Exercise-induced asthma Headache Mood disorder due to known physiological condition with depressive features Pain of right hand RAD (reactive airway disease) Seasonal allergies Sleep disturbance Subacute thyroiditis Suicidal ideation Urinary tract infection Surgical History History of tonsillectomy Family History Paternal Grandfather Diabetes Maternal Grandfather Heart disease mi w/ double bypass Hypertension Mother Hypothyroid Social History Smoking/Tobacco Use Status: Never Smoking risk assessment performed?: Yes Alcohol Intake: never Substance use type: former substance user Date of last use: nanette Counseling provided: treatment program Details: pt. denies marijuana use at this time Sexually active: Yes Do you feel safe at home: Yes Do you feel safe in your relationship?: Yes Female Reproductive History Menstrual Age of Menarche: 12 Duration of menses: 3-5 days control method: pills History History 3 Para 1 Hx # Term Pregnancies 1 Multiple births 0 Hx # Pregnancies 0 Ectopic pregnancies 0 AB induced 0 Hx Number of Living Children 1 AB spontaneous 1 Past Pregnancies Del. Date GA/Weeks # Outcome Route Wgt Sex Labor Lgth Anesthesia Location Prov Complic 08/30/19 39 No Successful vaginal 2976.7 g Female 5 [facility] Delivery Date: 08/30/19 1st degree perineal laceration, repaired Ramona Soto Exam Narrative Exam Narrative: Constitutional: Alert and oriented x3. Appears stated age. Normal body habitus. Head: Normocephalic, no trauma. Eyes: Pupils PERRL, Red reflex noted, EOM's intact. Eyelids symmetrical without lesions, discharge, or swelling. ENT: Bilateral TM's WNL, External ear normal to inspection, no mastoid TTP, swelling, or erythema, Nasal turbinates WNL, no nasal discharge. Normal dentition, Posterior pharynx WNL, no exudate. Chest: RRR, Normal S1, S2, distal pulses intact. Resp: Lungs clear to auscultation bilaterally, no wheezes, rales, or rhonchi. Abdomen: Soft, non-distended, Normoactive bowel sounds all 4 quads. Musculoskeletal: Normal gait, 5/5 strength to all four extremities. Skin: No suspicious rashes or lesions. Capillary refill less than 2 sec. Neurologic: Cranial nerves II-XII intact. Alert and oriented x 3. Motor: No deficits noted. Sensory: Intact bilaterally all 4 extremities. Reflexes: DTR's intact bilaterally.. Hematologic/Lymphatic: No ecchymosis, no lymphadenopathy. Course Vital Signs Vital signs: Vital Signs Temperature 36.7 C 08/14/21 16:30 Pulse 92 H 08/14/21 16:30 Respiratory Rate 18 08/14/21 16:30 Blood Pressure 117/75 08/14/21 16:30 Pulse Oximetry 97 08/14/21 16:30 Temperature 36.7 C 08/14/21 16:30 Temperature Source Temporal Artery Scan 08/14/21 16:30 Pulse 92 H 08/14/21 16:30 Respiratory Rate 18 08/14/21 16:30 Respiratory Effort Non-Labored 08/14/21 16:34 Blood Pressure 117/75 08/14/21 16:30 Blood Pressure Position Supine 08/14/21 16:30 Pulse Oximetry 97 08/14/21 16:30 Oxygen Delivery Method Room Air 08/14/21 16:30 Oxygen Flow Rate 0 08/14/21 16:30 Pain Level 4 08/14/21 16:30
[2021-08-14 16:52] LABS: Source Nasal/Nares
[2021-08-14] MEDS: Ondansetron 4 MG/2 ML VIAL IVP (17:01)
[2021-08-14] MEDS: Normal Saline 1,000 ML 1000 ML IV ×2 (17:01→18:08)
[2021-08-14 17:08] LABS: Abs Immature Grans 0.03 10^3/uL (0.0-0.06); Absolute Basophil Count 0.06 10^3/uL (0.0-0.2); Absolute Eosinophil Count 0.18 10^3/uL (0.0-0.7); Absolute Lymphocyte Count 1.44 10^3/uL (1.2-3.4); Absolute Monocyte Count 0.91 10^3/uL (0.1-0.8); Absolute Neutrophil Count 8.02 10^3/uL (1.2-6.7); Basophils % 0.6; Eosinophils % 1.7; HCT 35.3 % (36.0-46.0); HGB 11.8 g/dL (11.2-15.7); Immature Grans % 0.3; Lymphocytes % 13.5; MCH 29.1 pg (27.0-33.0); MCHC 33.4 % (32.0-36.0); MCV 86.9 fL (80-95); MPV 10.8 fL (8.0-11.0); Monocytes % 8.6; Neutrophils % 75.3; Nucleated RBC 0 %; Platelet Count 228 10^3/uL (130-400); RBC 4.06 10^6/uL (3.93-5.22); RDW 12.4 % (11.7-14.6); RDW-SD 39.5 fL; WBC 10.64 10^3/uL (4.4-10.8)
[2021-08-14 17:29] LABS: ALT 29 U/L (14-59); AST 16 U/L (15-37); Albumin 4.3 g/dL (3.4-5.0); Alkaline Phosphatase 28 U/L (46-116); Anion Gap 11.6 mmol/L (3-11); BUN 4 mg/dL (7-18); Bilirubin, Total 0.4 mg/dL (0.2-1.0); CO2 25.4 mmol/L (21.0-32.0); CREATININE 0.6 mg/dL (0.55-1.02); Chloride 101 mmol/L (98-107); Glucose 89 mg/dL (74-106); Potassium 3.7 mmol/L (3.5-5.1); Sodium 138 mmol/L (136-145); Total Protein 7.7 g/dL (6.4-8.2)
[2021-08-14 17:38] LABS: Bilirubin Negative (Negative); Blood Negative (Negative); Clarity Clear (Clear); Glucose Negative (Negative); Ketones >=160 mg/dL (Negative); Leukocyte Esterase Negative (Negative); Nitrite Negative (Negative); Specific Gravity >= 1.030 (1.005-1.025); Urobilinogen 0.2 EU/dL (Up TO 0.2); pH 6.5 (5-8)
[2021-08-14 17:54] LABS: COVID-19 PCR Negative (Negative)
[2021-08-14] MEDS: Metoclopramide 10 MG/2 ML VIAL IVP (18:09)
[2021-08-14] MEDS: Ondansetron O.D.T. 4 MG TABEF, 3 TABS/BTL PO (18:33)
[2021-08-14 19:04] VITALS: BP 113/72; PULSE 83; TEMP 36.6; O2SAT 97
== END 2021-08-14 19:07 | disposition home or self-care (01) ==
PROVIDERS: Emergency Provider Registered Nurse Emergency; PCP Family Medicine
DX: O21.8 Other vomiting complicating pregnancy (principal); Z3A.11 11 weeks gestation of pregnancy; R10.30 Lower abdominal pain, unspecified; R19.7 Diarrhea, unspecified
CPT/HCPCS: 36415; 80053; 87635; 96361; 96374; 96375; 99284; 81003; 83735; 85025; 99283; J2405; J2765

== ENCOUNTER 2021-08-29 08:41 | Emergency (ER) | payer MEDICAID, SELFPAY ==
--- NOTE | 2021-08-29 08:46 | W.ED.GENAD ---
Discharge Plan Disposition Patient Disposition: HOME Condition: Improving Discharge Details Clinical Impression: Vomiting during Primary Care Provider: Lindsay Miranda V ED Provider: Rupert Hedrick Home Meds and New Rx's Prescriptions: New metoclopramide HCl [Reglan] 5 mg tablet 5 mg PO Q6H Qty: 10 RF: 0 Continued PreTAB 29-1 mg tablet 1 tab PO DAILY Qty: 90 RF: 4 venlafaxine [Effexor XR] 75 mg capsule,extended release 24hr 75 mg PO DAILY Qty: 90 RF: 0 ondansetron HCl [Zofran] 4 mg tablet 4 mg PO Q8H PRN (Reason: nausea and vomiting) Qty: 60 RF: 1 albuterol sulfate [ProAir HFA] 200 PUFF HFA aerosol inhaler 2 puff Inhalation PRN PRNRF: 0 doxylamine-pyridoxine (vit B6) [Diclegis] 10-10 mg tablet,delayed release (DR/EC) 1 tab PO BID PRN (Reason: nausea and vomiting) Qty: 10 RF: 0 metoclopramide HCl [Reglan] 5 mg tablet 5 mg PO Q4H PRN (Reason: nausea and vomiting) Qty: 14 RF: 0 Discharge Instructions Instructions: Hyperemesis Gravidarum (ED) Additional Instructions: Laboratory values did not reveal any obvious emergent process. Zofran and Reglan as. Plenty of fluids to avoid dehydration. Please watch for new or worsening symptoms and return to the ER for any concerns. I strongly recommend that you contact your [facility] team tomorrow discuss your ongoing symptoms, multiple ER visits, need for outpatient reevaluation. Medical Decision Making This is a 20-year-old female G3, P1 approximately 13 weeks presenting for ongoing nausea and vomiting in her . Patient states that this is very typical for her. She took her Zofran but no other antiemetics that she is prescribed. Symptoms began around this morning. Denies any recent illness or trauma, abdominal pain, vaginal bleeding or discharge. Patient is concerned of dehydration. Clinically she appears well, nontoxic, hemodynamically stable. heart tones 152 Plan is to obtain IV access, give IV Reglan and IV fluid. Will obtain routine screening laboratory values. Laboratory values do not reveal any obvious emergent process. Minimal nonspecific leukocytosis of 11.09 which can be completely normal in . Electrolytes unremarkable. Renal function normal. Lipase 79. Urinalysis reveals 80 ketones but no signs of infection. Upon reevaluation patient reports that she is feeling significantly improved. Was able to tolerate p.o. gustavo mckenzie and crackers. Patient states that she still has plenty of Zofran at home but is running well on the other medication. She is comfortable with discharge. The plan is to provide her a prescription of Reglan, discussed the importance of adequate hydration and contacting her [facility] team tomorrow for her ongoing symptoms during . Standard discharge and return precautions were provided. This documentation was generated using [employer] system, please disregard any oddities of phrase or misspellings. Medical Records Medical records reviewed: Yes I reviewed the patient's medical records. Lab Data Lab results reviewed: Yes I reviewed the patient's lab results. Labs: Laboratory Tests Range/Units 08/29/21 08/29/21 08/29/21 09:06 09:06 09:30 WBC (4.4-10.8) 10^3/uL 11.09 H RBC (3.93-5.22) 10^6/uL 4.40 Hgb (11.2-15.7) g/dL 12.7 Hct (36.0-46.0) % 38.3 MCV (80-95) fL 87.0 MCH (27.0-33.0) pg 28.9 MCHC (32.0-36.0) % 33.2 RDW (11.7-14.6) % 12.2 Plt Count (130-400) 10^3/uL 216 MPV (8.0-11.0) fL 10.9 Immature Gran % 0.4 Neutrophils % 82.2 Lymphocytes % 10.7 Monocytes % 5.1 Eosinophils % 1.2 Basophils % 0.4 Nucleated RBC % % 0 Absolute Neutrophils (1.2-6.7) 10^3/uL 9.12 H Absolute Lymphocytes (1.2-3.4) 10^3/uL 1.19 L Absolute Monocytes (0.1-0.8) 10^3/uL 0.57 Absolute Eosinophils (0.0-0.7) 10^3/uL 0.13 Absolute Basophils (0.0-0.2) 10^3/uL 0.04 Sodium (136-145) mmol/L 139 Potassium (3.5-5.1) mmol/L 3.6 Chloride (98-107) mmol/L 102 Carbon Dioxide (21.0-32.0) mmol/L 26.7 Anion Gap (3-11) mmol/L 10.3 BUN (7-18) mg/dL 5 L Creatinine (0.55-1.02) mg/dL 0.7 Estimated GFR/1.73 m2 (mL/min/1.73m2) >= 60.00 Glucose (74-106) mg/dL 103 Calcium (8.5-10.1) mg/dL 9.2 Total Bilirubin (0.2-1.0) mg/dL 0.3 AST (15-37) U/L 11 L ALT (14-59) U/L 21 Alkaline Phosphatase (46-116) U/L 35 L Total Protein (6.4-8.2) g/dL 8.2 Albumin (3.4-5.0) g/dL 4.3 Lipase (73-393) U/L 79 Urine Color (Yellow) Yellow Urine Clarity (Clear) Cloudy Urine pH (5-8) 7.0 Ur Specific [place] (1.005-1.025) >= 1.030 H Urine Protein (Negative) mg/dL 30 H Urine Ketones (Negative) mg/dL 80 H Urine Blood (Negative) Negative Urine Nitrite (Negative) Negative Urine Bilirubin (Negative) Negative Urine Urobilinogen (Up TO 0.2) EU/dL 0.2 Ur Leukocyte Esterase (Negative) Negative Urine RBC (0-2) HPF 0-2 Urine WBC (0-5) HPF Negative Ur Epithelial Cells (Negative) HPF Few Urine Crystals (Negative) HPF Many Amorphous Urine Bacteria (Negative) HPF Few Urine Mucus (Negative) Trace Ur Culture Indicated? No Urine Glucose (Negative) mg/dL Negative HPI General Mode of arrival: ambulatory. Date/Time Provider Initiated Documentation: 08/29/21 08:44. Limitations to Documentation: no limitations. Information obtained by: patient. HPI Narrative: This is a 20-year-old female, G 3P1, approximately 13 weeks , past medical history that includes asthma, bipolar disorder, presenting to the ER for nausea and vomiting that began around 3:00 this morning. Patient states that she took a single Zofran without relief. She has another antiemetic but is unsure of the name and did not take this. She has no additional questions or concerns at this time. She denies recent illness or trauma, fever, chest pain, shortness of breath, abdominal pain, back pain, dysuria, vaginal bleeding or discharge, constipation or diarrhea. Patient states that she has been to the ER multiple times for this and she typically needs IV fluids to be sure that she is hydrated. Related Data Home Medications Medication Instructions Recorded Confirmed albuterol sulfate [ProAir HFA] 2 puff INHALATION PRN PRN 06/11/15 08/29/21 vits,calcium no.78-iron 1 tab PO DAILY #90 tab 06/29/21 08/29/21 fumarate-folic acid 29 mg-1 mg tablet venlafaxine 75 mg capsule,extended 75 mg PO DAILY #90 cap 06/29/21 08/29/21 release 24 hr doxylamine-pyridoxine (vit B6) 1 tab PO BID PRN #10 tab 07/29/21 08/29/21 [Diclegis] ondansetron HCl 4 mg tablet 4 mg PO Q8H PRN #60 tab 08/05/21 08/29/21 metoclopramide HCl [Reglan] 5 mg PO Q4H PRN #14 tab 08/14/21 08/29/21 metoclopramide HCl [Reglan] 5 mg PO Q6H #10 tab 08/29/21 Previous Rx's Medication Instructions Recorded vits,calcium no.78-iron 1 tab PO DAILY #90 tab 06/29/21 fumarate-folic acid 29 mg-1 mg tablet venlafaxine 75 mg capsule,extended 75 mg PO DAILY #90 cap 06/29/21 release 24 hr doxylamine-pyridoxine (vit B6) 1 tab PO BID PRN #10 tab 07/29/21 [Diclegis] ondansetron HCl 4 mg tablet 4 mg PO Q8H PRN #60 tab 08/05/21 metoclopramide HCl [Reglan] 5 mg PO Q4H PRN #14 tab 08/14/21 metoclopramide HCl [Reglan] 5 mg PO Q6H #10 tab 08/29/21 Allergies Allergy/AdvReac Type Severity Reaction Status Date / Time sertraline Allergy Intermediate Verified 08/29/21 08:57 black flies Allergy Intermediate Uncoded 08/29/21 08:57 cats Allergy Intermediate Uncoded 08/29/21 08:57 General ETHAN: 3 Review of Systems Constitutional Constitutional: Denies fever(s) and Denies weakness Cardiovascular Cardiovascular: Denies chest pain and Denies dyspnea Respiratory Respiratory: Denies dyspnea Gastrointestinal Gastrointestinal: Denies abdominal pain, Denies constipation, Denies diarrhea, Reports nausea and Reports vomiting Genitourinary Genitourinary: Denies abnormal vaginal bleeding, Denies dysuria and Denies vaginal discharge Musculoskeletal Musculoskeletal: Denies back pain Integumentary/Breasts Skin/Breast: Denies rash Neurologic Neurologic: Denies weakness PFSH All Active Problems (Updated 08/29/21 @ 10:32 by RIKY Blanco) Maternal varicella, non-immune (Acute) Vomiting during (Acute) Acute hypokalemia (Acute) Hypomagnesemia (Acute) Posttraumatic stress disorder (Acute) History of migraine (Acute) (Acute) Depressed (Acute) Cannabis abuse (Acute) Amenorrhea (Acute) Medical History Adjustment reaction of adolescence Allergic rhinitis, unspecified Amenorrhea Asthma Attention deficit disorder with hyperactivity Bipolar disorder Chlamydia contact Chlamydia vaginitis/cervicitis Concussion without loss of consciousness, sequela Dizziness Exercise-induced asthma Headache Mood disorder due to known physiological condition with depressive features Pain of right hand RAD (reactive airway disease) Seasonal allergies Sleep disturbance Subacute thyroiditis Suicidal ideation Urinary tract infection Surgical History History of tonsillectomy Family History Paternal Grandfather Diabetes Maternal Grandfather Heart disease mi w/ double bypass Hypertension Mother Hypothyroid Social History Smoking/Tobacco Use Status: Never Smoking risk assessment performed?: Yes Alcohol Intake: never Substance use type: former substance user Date of last use: nanette Counseling provided: treatment program Details: pt. denies marijuana use at this time Sexually active: Yes Do you feel safe at home: Yes Do you feel safe in your relationship?: Yes Female Reproductive History Menstrual Age of Menarche: 12 Duration of menses: 3-5 days control method: pills History History 3 Para 1 Hx # Term Pregnancies 1 Multiple births 0 Hx # Pregnancies 0 Ectopic pregnancies 0 AB induced 0 Hx Number of Living Children 1 AB spontaneous 1 Past Pregnancies Del. Date GA/Weeks # Outcome Route Wgt Sex Labor Lgth Anesthesia Location Prov Complic 08/30/19 39 No Successful vaginal 2976.7 g Female 5 Aneberry Rodney CNM Delivery Date: 08/30/19 1st degree perineal laceration, repaired Ramona Soto Exam Const General: cooperative, healthy appearing, comfortable and no acute distress Orientation: alert, awake and oriented x3 HENMT Head: normal to inspection, normocephalic and atraumatic Face and sinus: normal facial exam Mouth: moist mucous membranes Eyes General: appearance normal, both eyes and all related structures Conjunctivae: conjunctivae normal Neck Neck: normal visual inspection, trachea midline and supple Resp Effort & Inspection: normal respiratory effort and able to speak in complete sentences Auscultation: clear to auscultation bilaterally Cardio Rate: regular rate Rhythm: regular rhythm GI Inspection: normal to inspection Palpation: soft, not firm, no guarding, no pulsatile masses and nontender Auscultation: normal bowel sounds Other: Examination consistent with approximately 13 weeks Back/Spine/Pelvis Back: No back tenderness Skin General skin exam: no rashes or lesions noted Neuro General: patient alert, patient awake, moves all extremities and no focal motor deficits Cognition: normal cognition Speech: speech normal Gait: normal gait Sensory Exam: no sensory deficits noted Psych Appearance: grossly normal Mental Status: mental status grossly normal
[2021-08-29 08:51] VITALS: BP 130/79; PULSE 72; RESP 18; TEMP 36.4; O2SAT 100
[2021-08-29] MEDS: Normal Saline 1,000 ML 1000 ML IV (09:06)
[2021-08-29] MEDS: Metoclopramide 10 MG/2 ML VIAL IVP (09:07)
[2021-08-29 09:21] LABS: Abs Immature Grans 0.04 10^3/uL (0.0-0.06); Absolute Basophil Count 0.04 10^3/uL (0.0-0.2); Absolute Eosinophil Count 0.13 10^3/uL (0.0-0.7); Absolute Lymphocyte Count 1.19 10^3/uL (1.2-3.4); Absolute Monocyte Count 0.57 10^3/uL (0.1-0.8); Absolute Neutrophil Count 9.12 10^3/uL (1.2-6.7); Basophils % 0.4; Eosinophils % 1.2; HCT 38.3 % (36.0-46.0); HGB 12.7 g/dL (11.2-15.7); Immature Grans % 0.4; Lymphocytes % 10.7; MCH 28.9 pg (27.0-33.0); MCHC 33.2 % (32.0-36.0); MPV 10.9 fL (8.0-11.0); Monocytes % 5.1; Neutrophils % 82.2; Nucleated RBC 0 %; Platelet Count 216 10^3/uL (130-400); RDW 12.2 % (11.7-14.6); RDW-SD 39.2 fL; WBC 11.09 10^3/uL (4.4-10.8)
[2021-08-29 09:33] LABS: ALT 21 U/L (14-59); AST 11 U/L (15-37); Albumin 4.3 g/dL (3.4-5.0); Alkaline Phosphatase 35 U/L (46-116); Anion Gap 10.3 mmol/L (3-11); BUN 5 mg/dL (7-18); Bilirubin, Total 0.3 mg/dL (0.2-1.0); CO2 26.7 mmol/L (21.0-32.0); CREATININE 0.7 mg/dL (0.55-1.02); Calcium 9.2 mg/dL (8.5-10.1); Chloride 102 mmol/L (98-107); Glucose 103 mg/dL (74-106); Lipase 79 U/L (73-393); Potassium 3.6 mmol/L (3.5-5.1); Sodium 139 mmol/L (136-145); Total Protein 8.2 g/dL (6.4-8.2)
[2021-08-29 09:37] LABS: Bilirubin Negative (Negative); Blood Negative (Negative); Clarity Cloudy (Clear); Glucose Negative (Negative); Ketones 80 mg/dL (Negative); Leukocyte Esterase Negative (Negative); Nitrite Negative (Negative); Specific Gravity >= 1.030 (1.005-1.025); Urobilinogen 0.2 EU/dL (Up TO 0.2)
[2021-08-29 09:56] LABS: Bacteria Few HPF (Negative); C & S Indicated? No; Crystals Many Amorphous HPF (Negative); Epithelial Cells Few HPF (Negative); Mucus Trace (Negative); RBC 0-2 HPF (0-2); WBC Negative HPF (0-5)
[2021-08-29 10:40] VITALS: BP 106/68; PULSE 89; RESP 17; TEMP 36.8; O2SAT 98
== END 2021-08-29 10:44 | disposition home or self-care (01) ==
PROVIDERS: Emergency Provider Physician Assistant; PCP Family Medicine
DX: O21.8 Other vomiting complicating pregnancy (principal)
CPT/HCPCS: 36415; 80053; 83690; 96361; 96374; 99284; 81003; 81015; 85025; 99283; J2765

== ENCOUNTER 2021-08-29 23:37 | Observation (INO) | payer MEDICAID, SELFPAY ==
[2021-08-29 23:42] VITALS: BP 150/83; PULSE 77; RESP 18; TEMP 36.1; O2SAT 97
--- NOTE | 2021-08-29 23:52 | ED.GENADUL_ITS ---
Discharge Plan Disposition Patient Disposition: [facility] INPATIENT Condition: Stable Discharge Details Chief Complaint: Nausea/Vomit/Diar Clinical Impression: Vomiting during Primary Care Provider: Lindsay Miranda V ED Provider: Matt Green Home Meds and New Rx's Prescriptions: No Action PreTAB 29-1 mg tablet 1 tab PO DAILY Qty: 90 RF: 4 venlafaxine [Effexor XR] 75 mg capsule,extended release 24hr 75 mg PO DAILY Qty: 90 RF: 0 ondansetron HCl [Zofran] 4 mg tablet 4 mg PO Q8H PRN (Reason: nausea and vomiting) Qty: 60 RF: 1 albuterol sulfate [ProAir HFA] 200 PUFF HFA aerosol inhaler 2 puff Inhalation PRN PRNRF: 0 doxylamine-pyridoxine (vit B6) [Diclegis] 10-10 mg tablet,delayed release (DR/EC) 1 tab PO BID PRN (Reason: nausea and vomiting) Qty: 10 RF: 0 metoclopramide HCl [Reglan] 5 mg tablet 5 mg PO Q6H Qty: 10 RF: 0 metoclopramide HCl [Reglan] 5 mg tablet 5 mg PO Q4H PRN (Reason: nausea and vomiting) Qty: 14 RF: 0 Medical Decision Making 20 yo female with estimated date of deliver of 03/02 comes in with chief complaint of continued n/v. She has been having issues with n/v for about a month and was seen earlier today in the ED. Was given fluids and reglan and improved and was d/c'd. She states tonight n/v returned and could not keep the reglan or zofran down so came here. She is intermittently dry heaving during exam. She has no abdominal tenderness on exam. She states when she does vomit she has pain in the epigastric area. No chest pain or dyspnea, denies vaginal bleeding or discharge. Suspect n/v from , will treat with iv fluids and antiemetics and evaluate for electrolyte disorders and reasesss. mildly low K and mag, continued mild leukocytosis likely stress response. Does have bacteria in urine but has squamous contamination, will order urine culture. She is still not tolerating po and doesn't feel comfortable going home, will discuss with licensed midwife quotation clerk about observing in center and continued IVF until she can tolerate po Differential Diagnosis Differential Diagnosis: n/v of , hyperemesis gravidarum Medical Records Medical records reviewed: Yes I reviewed the patient's medical records. Lab Data Lab results reviewed: Yes I reviewed the patient's lab results. HPI General Mode of arrival: ambulatory . Date/Time Provider Initiated Documentation: 08/29/21 23:38 . Limitations to Documentation: no limitations . Information obtained by: patient . History of Present Illness 20 year old F presents to the emergency department with the chief complaint of nausea and vomit, described as moderate, Patient started experiencing this month(s) (1) and it has been intermittent. No relieving factors improve symptom(s), No exacerbating factors reported . Patient notes denies chest pain and fever/chills. Related Data Home Medications Medication Instructions Recorded Confirmed albuterol sulfate [ProAir HFA] 2 puff INHALATION PRN PRN 06/11/15 08/29/21 vits,calcium no.78-iron 1 tab PO DAILY #90 tab 06/29/21 08/29/21 fumarate-folic acid 29 mg-1 mg tablet venlafaxine 75 mg capsule,extended 75 mg PO DAILY #90 cap 06/29/21 08/29/21 release 24 hr doxylamine-pyridoxine (vit B6) 1 tab PO BID PRN #10 tab 07/29/21 08/29/21 [Diclegis] ondansetron HCl 4 mg tablet 4 mg PO Q8H PRN #60 tab 08/05/21 08/29/21 metoclopramide HCl [Reglan] 5 mg PO Q4H PRN #14 tab 08/14/21 08/29/21 metoclopramide HCl [Reglan] 5 mg PO Q6H #10 tab 08/29/21 08/29/21 Previous Rx's Medication Instructions Recorded vits,calcium no.78-iron 1 tab PO DAILY #90 tab 06/29/21 fumarate-folic acid 29 mg-1 mg tablet venlafaxine 75 mg capsule,extended 75 mg PO DAILY #90 cap 06/29/21 release 24 hr doxylamine-pyridoxine (vit B6) 1 tab PO BID PRN #10 tab 07/29/21 [Diclegis] ondansetron HCl 4 mg tablet 4 mg PO Q8H PRN #60 tab 08/05/21 metoclopramide HCl [Reglan] 5 mg PO Q4H PRN #14 tab 08/14/21 metoclopramide HCl [Reglan] 5 mg PO Q6H #10 tab 08/29/21 Allergies Allergy/AdvReac Type Severity Reaction Status Date / Time sertraline Allergy Intermediate Verified 08/29/21 23:55 black flies Allergy Intermediate Uncoded 08/29/21 23:55 cats Allergy Intermediate Uncoded 08/29/21 23:55 General Stated Complaint: Nausea/Vomit/Diar ETHAN: 3 Review of Systems All systems reviewed & are unremarkable except as noted in HPI and below Constitutional Constitutional: Denies chills and Denies fever(s) Cardiovascular Cardiovascular: Denies chest pain and Denies dyspnea Respiratory Respiratory: Denies cough and Denies dyspnea Musculoskeletal Musculoskeletal: Denies joint swelling PFSH All Active Problems (Updated 08/30/21 @ 00:51 by Matt Green MD) Maternal varicella, non-immune (Acute) Vomiting during (Acute) Acute hypokalemia (Acute) Hypomagnesemia (Acute) Posttraumatic stress disorder (Acute) History of migraine (Acute) (Acute) Depressed (Acute) Cannabis abuse (Acute) Amenorrhea (Acute) Medical History Adjustment reaction of adolescence Allergic rhinitis, unspecified Amenorrhea Asthma Attention deficit disorder with hyperactivity Bipolar disorder Chlamydia contact Chlamydia vaginitis/cervicitis Concussion without loss of consciousness, sequela Dizziness Exercise-induced asthma Headache Mood disorder due to known physiological condition with depressive features Pain of right hand RAD (reactive airway disease) Seasonal allergies Sleep disturbance Subacute thyroiditis Suicidal ideation Urinary tract infection Surgical History History of tonsillectomy Family History Paternal Grandfather Diabetes Maternal Grandfather Heart disease mi w/ double bypass Hypertension Mother Hypothyroid Social History Smoking/Tobacco Use Status: Never Smoking risk assessment performed?: Yes Alcohol Intake: never Substance use type: former substance user Date of last use: nanette Counseling provided: treatment program Details: pt. denies marijuana use at this time Sexually active: Yes Do you feel safe at home: Yes Do you feel safe in your relationship?: Yes Female Reproductive History Menstrual Age of Menarche: 12 Duration of menses: 3-5 days control method: pills History History 3 Para 1 Hx # Term Pregnancies 1 Multiple births 0 Hx # Pregnancies 0 Ectopic pregnancies 0 AB induced 0 Hx Number of Living Children 1 AB spontaneous 1 Past Pregnancies Del. Date GA/Weeks # Outcome Route Wgt Sex Labor Lgth Anesthes ia Location Prov Complic 08/30/19 39 No Successful vaginal 2976.7 g Female 5 Soledad Rodney CNM Delivery Date: 08/30/19 1st degree perineal laceration, repaired MelindaradhagiulianaRamona Exam Const General: no acute distress Orientation: alert HENAR Head: normal to inspection Ears: external ears normal General nose exam: external nose normal Mouth: moist mucous membranes Eyes General: appearance normal, both eyes and all related structures Neck Neck: normal visual inspection Resp Effort & Inspection: normal respiratory effort and able to speak in complete sentences Cardio Rate: regular rate GI Palpation: soft and nontender Skin General skin exam: no rashes or lesions noted Neuro General: patient alert and patient oriented x3 Extrem General: normal to inspection Psych Mental Status: mental status grossly normal Course Vital Signs Vital signs: Vital Signs Temperature 36.1 C L 08/29/21 23:42 Pulse 77 08/29/21 23:42 Respiratory Rate 18 08/29/21 23:42 Blood Pressure 150/83 H 08/29/21 23:42 Pulse Oximetry 97 08/29/21 23:42 Temperature 36.1 C L 08/29/21 23:42 Pulse 77 08/29/21 23:42 Respiratory Rate 18 08/29/21 23:42 Blood Pressure 150/83 H 08/29/21 23:42 Pulse Oximetry 97 08/29/21 23:42 Pain Level 6 08/29/21 23:42
[2021-08-29] MEDS: Metoclopramide 10 MG/2 ML VIAL 20 MG IVP (23:57)
[2021-08-29] MEDS: Normal Saline 1,000 ML 1000 ML IV (23:57)
[2021-08-29 23:59] LABS: Abs Immature Grans 0.05 10^3/uL (0.0-0.06); Absolute Basophil Count 0.03 10^3/uL (0.0-0.2); Absolute Eosinophil Count 0.05 10^3/uL (0.0-0.7); Absolute Lymphocyte Count 1.37 10^3/uL (1.2-3.4); Absolute Monocyte Count 0.83 10^3/uL (0.1-0.8); Basophils % 0.2; Eosinophils % 0.4; HCT 34.6 % (36.0-46.0); HGB 11.9 g/dL (11.2-15.7); Immature Grans % 0.4; Lymphocytes % 10.5; MCH 29.1 pg (27.0-33.0); MCHC 34.4 % (32.0-36.0); MCV 84.6 fL (80-95); MPV 10.7 fL (8.0-11.0); Monocytes % 6.4; Neutrophils % 82.1; Nucleated RBC 0 %; Platelet Count 242 10^3/uL (130-400); RBC 4.09 10^6/uL (3.93-5.22); RDW 12.2 % (11.7-14.6); RDW-SD 37.3 fL; WBC 13.03 10^3/uL (4.4-10.8)
[2021-08-30 00:17] LABS: Lipase 65 U/L (73-393)
[2021-08-30 00:21] LABS: ALT 17 U/L (14-59); AST 10 U/L (15-37); Albumin 4.2 g/dL (3.4-5.0); Alkaline Phosphatase 34 U/L (46-116); Anion Gap 14.2 mmol/L (3-11); BUN 4 mg/dL (7-18); Bilirubin, Total 0.3 mg/dL (0.2-1.0); CO2 21.8 mmol/L (21.0-32.0); CREATININE 0.6 mg/dL (0.55-1.02); Calcium 9.2 mg/dL (8.5-10.1); Chloride 103 mmol/L (98-107); Glucose 120 mg/dL (74-106); Magnesium 1.7 mg/dL (1.8-2.4); Potassium 3.3 mmol/L (3.5-5.1); Sodium 139 mmol/L (136-145); Total Protein 7.6 g/dL (6.4-8.2)
[2021-08-30 00:29] LABS: Bilirubin Negative (Negative); Blood Negative (Negative); Clarity Sl Cloudy (Clear); Glucose Negative (Negative); Ketones 80 mg/dL (Negative); Leukocyte Esterase Negative (Negative); Nitrite Negative (Negative); Specific Gravity >= 1.030 (1.005-1.025); Urobilinogen 0.2 EU/dL (Up TO 0.2)
[2021-08-30 00:38] LABS: Bacteria Moderate HPF (Negative); C & S Indicated? No/Sq. Contamination; Casts Negative LPF (Negative); Crystals Negative HPF (Negative); Epithelial Cells Many HPF (Negative); Mucus Moderate (Negative); RBC 0-2 HPF (0-2)
[2021-08-30 01:05] VITALS: BP 134/90; PULSE 78; RESP 18; O2SAT 99
[2021-08-30] MEDS: DEXTROSE 5%-0.9% SALINE 1,000 ML 150 ML IV ×2 (01:08→07:28)
[2021-08-30 01:12] LABS: Source Nasal/Nares
[2021-08-30 01:39] VITALS: BP 125/60; PULSE 84; RESP 16; TEMP 37.6; O2SAT 97
[2021-08-30 01:43] VITALS: BP 125/60; PULSE 84; RESP 16; TEMP 37.6; O2SAT 97
[2021-08-30 01:50] LABS: COVID-19 PCR Negative (Negative)
[2021-08-30] MEDS: Pantoprazole 40 MG VIAL IVP (02:38)
--- NOTE | 2021-08-30 07:41 | W.PM.OBHPL1 ---
Date of service: 08/30/21 Time of Service: 07:41 Assessment and Plan Assessment and plan (1) Vomiting during : Start date: 08/30/21 Start time: 07:48 Status: Acute Assessment and plan: 1. outpatient observation 2. IV hydration and IV antiemetic as well as IV Protonix 3. will monitor for tolerating PO hydration and diet 4. will consult with MD in relation to mild hypokalemia and hypomagnesemia. 5. Will get FHR by doppler daily.KH OB-HPI Labor/Delivery History of Present Illness Reason for Visit: Nausea/Vomiting in Chief Complaint: Other (antepartum admit to observation for N&V at 13 weeks). CORINNA Calculator Estimated Delivery Date Method Current WG Current Estimate 03/06/22 Ultrasound #1 13w 1d Other Estimates 01/26/22 LMP (Certain) 18w 5d Comments: Patient was seen in ED times 2 in 24 hours for nausea and vomiting at 13 weeks gestation. She was successfully treated in am of 08/29 with IV fluids and medications and was discharged to home. Symptoms returned quickly and patient was seen again in ED at 2300 on 08/29 and then admitted to outpatient observation for continued rest and hydration. She has slept well overnight with one episode of emesis. She is not having pain or bleeding. WU History of Present Expected Delivery Route/Plan - CNM FOB - Mitul (his first child) Varicella Non-Immune, offer vaccine Specific Issues/Plan 1. H/O suicidal ideation, PTSD and depression. 1a. Enrolled in [employer] 2. History of marijuana use; UDS is THC+, repeat @ 28 wks, may need POSC____ 3. History Migraine 4. History of gestational HTN; advised to start low dose ASA @ 12 wks 5. Declines flu vaccine 6. Varicella Non-Immune, offer vaccine Assessment: History Reviewed & Current Review of Systems All systems reviewed & are unremarkable except as noted in HPI and below PFSH All Active Problems (Updated 08/30/21 @ 00:51 by Matt Green MD) Maternal varicella, non-immune (Acute) Vomiting during (Acute) Acute hypokalemia (Acute) Hypomagnesemia (Acute) Posttraumatic stress disorder (Acute) History of migraine (Acute) (Acute) Depressed (Acute) Cannabis abuse (Acute) Amenorrhea (Acute) Medical History Adjustment reaction of adolescence Allergic rhinitis, unspecified Amenorrhea Asthma Attention deficit disorder with hyperactivity Bipolar disorder Chlamydia contact Chlamydia vaginitis/cervicitis Concussion without loss of consciousness, sequela Dizziness Exercise-induced asthma Headache Mood disorder due to known physiological condition with depressive features Pain of right hand RAD (reactive airway disease) Seasonal allergies Sleep disturbance Subacute thyroiditis Suicidal ideation Urinary tract infection Surgical History History of tonsillectomy Family History Paternal Grandfather Diabetes Maternal Grandfather Heart disease mi w/ double bypass Hypertension Mother Hypothyroid Social History Smoking/Tobacco Use Status: Never Smoking risk assessment performed?: Yes Alcohol Intake: never Substance use type: former substance user Date of last use: nanette Counseling provided: treatment program Details: pt. denies marijuana use at this time Sexually active: Yes Do you feel safe at home: Yes Do you feel safe in your relationship?: Yes Female Reproductive History Menstrual Age of Menarche: 12 Duration of menses: 3-5 days control method: pills History History 3 Para 1 Hx # Term Pregnancies 1 Multiple births 0 Hx # Pregnancies 0 Ectopic pregnancies 0 AB induced 0 Hx Number of Living Children 1 AB spontaneous 1 Past Pregnancies Del. Date GA/Weeks # Outcome Route Wgt Sex Labor Lgth Anesthesia Location Prov Complic 08/30/19 39 No Successful vaginal 6 lb 9 oz Female 5 Aneberry Rodney CNM Delivery Date: 08/30/19 1st degree perineal laceration, repaired Ramona Soto Allergies and Home Medications Allergies Allergy/AdvReac Type Severity Reaction Status Date / Time sertraline Allergy Intermediate Verified 08/30/21 07:45 black flies Allergy Intermediate Uncoded 08/30/21 07:45 cats Allergy Intermediate Uncoded 08/30/21 07:45 Home Medications Medication Instructions Recorded Confirmed Type albuterol sulfate [ProAir HFA] 2 puff INHALATION PRN PRN 06/11/15 08/29/21 History vits,calcium no.78-iron 1 tab PO DAILY #90 tab 06/29/21 08/29/21 Rx fumarate-folic acid 29 mg-1 mg tablet venlafaxine 75 mg capsule,extended 75 mg PO DAILY #90 cap 06/29/21 08/29/21 Rx release 24 hr doxylamine-pyridoxine (vit B6) 1 tab PO BID PRN #10 tab 07/29/21 08/29/21 Rx [Diclegis] ondansetron HCl 4 mg tablet 4 mg PO Q8H PRN #60 tab 08/05/21 08/29/21 Rx metoclopramide HCl [Reglan] 5 mg PO Q4H PRN #14 tab 08/14/21 08/29/21 Rx metoclopramide HCl [Reglan] 5 mg PO Q6H #10 tab 08/29/21 08/29/21 Rx Exam Physical Exam Vital signs: Temp Pulse Resp BP Pulse Ox 99.7 F H 84 16 125/60 97 08/30/21 01:43 08/30/21 01:43 08/30/21 01:43 08/30/21 01:43 08/30/21 01:43 Vital Signs Reviewed: Yes Constitutional Constitutional: no acute distress and obese Detailed Labor and Delivery Exam Ng Score: Cervical Points Exam 0 1 2 3 Dilation Closed 1-2cm 3-4 cm 5-6cm Effacement 0-30% 40-50% 60-70% 80% Consistency Firm Medium Soft Station -3 -2 -1,0 +1,+2 Position Posterior Mid Anterior Comments: labor exam deferred as it is not indicated by patient presenting concern. HEENT Exam HEENT Exam: Normal Neck Exam Neck Exam: Not Done Chest/Brest/Axilla Exam Chest Exam: Not Done Breast Exam Breast Exam: Not Done Respiratory Exam Respiratory Exam: Normal Cardiovascular Exam Cardiovascular Exam: Normal Abdominal Exam Abdominal Exam: Normal Rectal Exam Rectal Exam: Not Done Exam Exam: Not Done Extremities Exam Extremities Exam: Normal Back/Spine/Pelvis Exam Back Exam: Not Done Skin Exam Skin Exam: Normal Neurological Exam Neurological Exam: Normal Psychiatric Exam Psychiatric Exam: Normal Results Results Group Beta Strep: N/A Blood Type: A+ Rubella Status: Immune Varicella Immunity: Nonimmune Abnormal Lab Findings: Abnormal Labs 08/29/21 08/29/21 08/30/21 23:55 23:55 00:20 WBC 13.03 H Hct 34.6 L Absolute Neutrophils 10.70 H Absolute Monocytes 0.83 H Potassium 3.3 L Anion Gap 14.2 H BUN 4 L Glucose 120 H Magnesium 1.7 L AST 10 L Alkaline Phosphatase 34 L Ur Specific [place] >= 1.030 H Urine Protein 30 H Urine Ketones 80 H Risk Assessment Risk for Shoulder Dystocia Historical/Initial OB: POSITIVE FOR: Pre- BMI>30; NEGATIVE FOR: Pelvic Abnormality, Previous Shoulder Dystocia or Previous Macrosomia Date/Initial: 08/02/21 WU Risk for Pre-Eclampsia Date Initiated/Initials: 01/22/19 al Yes, if one or more: POSTIVE FOR: Hx Pre-E/Gest HTN; NEGATIVE FOR: Chronic HTN, Multiple Gestation, Pre-gestational DM, Renal Disease, Systemic Lupus or APA Syndrome Yes, if 2 or more: POSITIVE FOR: BMI>30; NEGATIVE FOR: Nulliparity, Age>= 35 yrs, >10yr btwn pregnancies, ethinicty, Mother/Sister w/ Pre-E or Previous IUGR Risk for Post- Hemorrhage Initial: NEGATIVE FOR: Multiple Gestation, Previous PPH, Known Clotting Deficiency, Grand Multiparity or Anticoagulation Interventions: at first ob low risk al Date/Initials: 08/02/21: WU Risks Reviewed Risks Reviewed Upon Admission: Yes (due to antepartum status, 13 weeks, no labor risks identified.WU)
[2021-08-30 08:23] VITALS: BP 109/68; PULSE 81; RESP 18; TEMP 37.5; O2SAT 98
[2021-08-30] MEDS: Lactated Ringers 1,000 ML 150 ML IV (08:30)
[2021-08-30] MEDS: Ondansetron 4 MG/2 ML VIAL IVP (08:35)
[2021-08-30] MEDS: Metoclopramide 10 MG/2 ML VIAL 20 MG IVP (08:39)
--- NOTE | 2021-08-30 09:50 | PGE_ITS ---
Date of Service Date of service: 08/30/21 Time of Service: 09:51 Assessment and Plan Assessment and plan (1) Vomiting during : Status: Acute Assessment and plan: 1. Will allow patient to take effexor and discontinue Reglan at this time. Dr. Rob has been consulted and if patient is responding better to IV Reglan we can continue that medication but we will try to change back to PO. 2. Will reassess this afternoon for potential discharge vs admission for further treatment. Subjective Subjective Patient reports: tolerating liquids well Interval history since last seen: was able to eat some crackers and keep gingerale down. She is resting at this time. Will try to change to Ondansteron ODT and discontinue IV medication Reglan at this time. Will add back her Effexor as she may have some N&V from withdrawal if she is unable to tolerate that. If able to eat well and can be controlled on PO medications will allow discharge to home later today. Exam Narrative Exam Narrative: No additional exam at this time, patient is sleeping and has not had emesis this morning. Objective Last Vital Signs Temp 99.5 F 08/30/21 08:23 Pulse 81 08/30/21 08:23 Resp 18 08/30/21 08:23 BP 109/68 08/30/21 08:23 Pulse Ox 98 08/30/21 08:23 Laboratory Results - last 24 hr 08/29/21 08/29/21 08/29/21 23:55 23:55 23:55 WBC 13.03 H RBC 4.09 Hgb 11.9 Hct 34.6 L MCV 84.6 MCH 29.1 MCHC 34.4 RDW 12.2 Plt Count 242 MPV 10.7 Immature Gran % 0.4 Neutrophils % 82.1 Lymphocytes % 10.5 Monocytes % 6.4 Eosinophils % 0.4 Basophils % 0.2 Nucleated RBC % 0 Absolute Neutrophils 10.70 H Absolute Lymphocytes 1.37 Absolute Monocytes 0.83 H Absolute Eosinophils 0.05 Absolute Basophils 0.03 Sodium 139 Potassium 3.3 L Chloride 103 Carbon Dioxide 21.8 Anion Gap 14.2 H BUN 4 L Creatinine 0.6 Estimated GFR/1.73 m2 >= 60.00 Glucose 120 H Calcium 9.2 Magnesium 1.7 L Total Bilirubin 0.3 AST 10 L ALT 17 Alkaline Phosphatase 34 L Total Protein 7.6 Albumin 4.2 Lipase 65 Urine Color Urine Clarity Urine pH Ur Specific [place] Urine Protein Urine Ketones Urine Blood Urine Nitrite Urine Bilirubin Urine Urobilinogen Ur Leukocyte Esterase Urine RBC Urine WBC Ur Epithelial Cells Urine Crystals Urine Bacteria Urine Casts Urine Mucus Ur Culture Indicated? Urine Glucose COVID-19 Source SARS-CoV-2 (PCR) 08/30/21 08/30/21 00:20 01:05 WBC RBC Hgb Hct MCV MCH MCHC RDW Plt Count MPV Immature Gran % Neutrophils % Lymphocytes % Monocytes % Eosinophils % Basophils % Nucleated RBC % Absolute Neutrophils Absolute Lymphocytes Absolute Monocytes Absolute Eosinophils Absolute Basophils Sodium Potassium Chloride Carbon Dioxide Anion Gap BUN Creatinine Estimated GFR/1.73 m2 Glucose Calcium Magnesium Total Bilirubin AST ALT Alkaline Phosphatase Total Protein Albumin Lipase Urine Color Yellow Urine Clarity Sl Cloudy Urine pH 6.0 Ur Specific [place] >= 1.030 H Urine Protein 30 H Urine Ketones 80 H Urine Blood Negative Urine Nitrite Negative Urine Bilirubin Negative Urine Urobilinogen 0.2 Ur Leukocyte Esterase Negative Urine RBC 0-2 Urine WBC 3-5 Ur Epithelial Cells Many Urine Crystals Negative Urine Bacteria Moderate Urine Casts Negative Urine Mucus Moderate Ur Culture Indicated? No/Sq. Contamination Urine Glucose Negative COVID-19 Source Nasal/Nares SARS-CoV-2 (PCR) Negative
[2021-08-30] MEDS: Venlafaxine 37.5 MG CAPCR 75 MG PO (11:18)
--- NOTE | 2021-08-30 14:19 | W.PM.OBDISCH ---
Date of service: 08/30/21 Time of Service: 14:19 DS: Diagnosis Discharge Diagnosis (1) Vomiting during : Status: Acute Asessment and Plan: stable at this time with PO intake and PO medications for management. Discharge Plan Disposition Patient Disposition: HOME Condition: Stable Discharge Details Reason For Visit: Nausea/Vomiting in Admit Date/Time: 08/30/21 01:19 Admit Provider: Brenda Medrano Attending Provider: Brenda Medrano Primary Care Provider: Lindsay Miranda V Hospital Course Hospital Course: ED to for observation for nausea and vomiting in first trimester at 13 weeks. Vomiting stopped after Reglan and Protonix IV. She has been able to tolerate ondansterone 8 mg ODT and PO intake this afternoon without difficulty. She requests discharge to home. Home Meds and New Rx's Prescriptions: Continued PreTAB 29-1 mg tablet 1 tab PO DAILY Qty: 90 RF: 4 venlafaxine [Effexor XR] 75 mg capsule,extended release 24hr 75 mg PO DAILY Qty: 90 RF: 0 albuterol sulfate [ProAir HFA] 200 PUFF HFA aerosol inhaler 2 puff Inhalation PRN PRNRF: 0 doxylamine-pyridoxine (vit B6) [Diclegis] 10-10 mg tablet,delayed release (DR/EC) 1 tab PO BID PRN (Reason: nausea and vomiting) Qty: 10 RF: 0 Discontinued ondansetron HCl [Zofran] 4 mg tablet 4 mg PO Q8H PRN (Reason: nausea and vomiting) Qty: 60 RF: 1 metoclopramide HCl [Reglan] 5 mg tablet 5 mg PO Q6H Qty: 10 RF: 0 metoclopramide HCl [Reglan] 5 mg tablet 5 mg PO Q4H PRN (Reason: nausea and vomiting) Qty: 14 RF: 0 Discharge Instructions Activity:: Activity as Tolerated Equipment/Supplies:: No Equipment Needed Diet:: As Tolerated Discharge Orders Discharge Orders: Discharge Order (Routine); Ordered 08/30/21 Ordered By: Brenda Medrano OB:DS Summary Contraception Discussed Contraception Discussed: No, Status at Discharge Functional status at discharge: independent ambulation Overall status at discharge: patient is back to baseline Mental Status: mental status grossly normal Speech and Movement: speech and movement normal Mood: congruent mood Affect: normal affect Exam Physical Exam Vital signs: Temp Pulse Resp BP Pulse Ox 99.5 F 81 18 109/68 98 08/30/21 08:23 08/30/21 08:23 08/30/21 08:23 08/30/21 08:23 08/30/21 08:23 Vital Signs Reviewed: Yes Constitutional Constitutional: no acute distress HEENT Exam HEENT Exam: Normal Neck Exam Neck Exam: Not Done Respiratory Exam Respiratory Exam: Normal Cardiovascular Exam Cardiovascular Exam: Normal Abdominal Exam Comments: antepartum patient at 13 weeks gestation, fundus above symphisis, FHR auscultated by doppler, see RN record. KH Rectal Exam Rectal Exam: Not Done Extremities Exam Extremity Exam: Normal Back/Spine/Pelvis Exam Back Exam: Not Done Skin Exam Skin Exam: Normal Neurological Exam Neurological Exam: Normal Psychiatric Exam Psychiatric Exam: Normal PFSH All Active Problems Maternal varicella, non-immune (Acute) Vomiting during (Acute) Acute hypokalemia (Acute) Hypomagnesemia (Acute) Posttraumatic stress disorder (Acute) History of migraine (Acute) (Acute) Depressed (Acute) Cannabis abuse (Acute) Amenorrhea (Acute) Medical History Adjustment reaction of adolescence Allergic rhinitis, unspecified Amenorrhea Asthma Attention deficit disorder with hyperactivity Bipolar disorder Chlamydia contact Chlamydia vaginitis/cervicitis Concussion without loss of consciousness, sequela Dizziness Exercise-induced asthma Headache Mood disorder due to known physiological condition with depressive features Pain of right hand RAD (reactive airway disease) Seasonal allergies Sleep disturbance Subacute thyroiditis Suicidal ideation Urinary tract infection Surgical History History of tonsillectomy Family History Paternal Grandfather Diabetes Maternal Grandfather Heart disease mi w/ double bypass Hypertension Mother Hypothyroid Social History Smoking/Tobacco Use Status: Never Smoking risk assessment performed?: Yes Alcohol Intake: never Substance use type: former substance user Date of last use: nanette Counseling provided: treatment program Details: pt. denies marijuana use at this time Sexually active: Yes Do you feel safe at home: Yes Do you feel safe in your relationship?: Yes Female Reproductive History Menstrual Age of Menarche: 12 Duration of menses: 3-5 days control method: pills History History 3 Para 1 Hx # Term Pregnancies 1 Multiple births 0 Hx # Pregnancies 0 Ectopic pregnancies 0 AB induced 0 Hx Number of Living Children 1 AB spontaneous 1 Past Pregnancies Del. Date GA/Weeks # Outcome Route Wgt Sex Labor Lgth Anesthesia Location Prov Complic 08/30/19 39 No Successful vaginal 6 lb 9 oz Female 5 [place] [facility] Delivery Date: 08/30/19 1st degree perineal laceration, repaired Ramona Soto DS: Data Vitals/I&O Vitals and I&O: Vital Signs Temperature 99.5 F 08/30/21 08:23 Pulse 81 08/30/21 08:23 Pulse Rhythm Regular 08/30/21 08:24 Respiratory Rate 18 08/30/21 08:23 Respiratory Effort Non-Labored 08/30/21 01:43 Respiratory Depth Normal 08/30/21 01:43 Respiratory Pattern Normal 08/30/21 01:43 Blood Pressure 109/68 08/30/21 08:23 Blood Pressure Mean 81 08/30/21 08:23 Pulse Oximetry 98 08/30/21 08:23 Oxygen Delivery Method Room Air 08/30/21 01:43 Oxygen Flow Rate 0 08/30/21 01:43 Pain Level 7 08/30/21 01:05 Intake & Output 08/29/21 08/30/21 08/30/21 23:59 11:59 23:59 Intake Total 2104 Output Total 50 / 50 Balance 2054 Weight 176 lb 9.444 oz 185 lb Intake: IV 2104 Output: Urine 50 / 50 Other: Urine Color Yellow Light Brianne Urine Appearance Cloudy Urine Odor None Emesis Description Retching Bile Data Completed and Pending Labs on day of discharge: Labs from last 24 hours 08/30/21 08/30/21 08/29/21 01:05 00:20 23:55 WBC RBC Hgb Hct MCV MCH MCHC RDW Plt Count MPV Immature Gran % Neutrophils % Lymphocytes % Monocytes % Eosinophils % Basophils % Nucleated RBC % Absolute Neutrophils Absolute Lymphocytes Absolute Monocytes Absolute Eosinophils Absolute Basophils Sodium Potassium Chloride Carbon Dioxide Anion Gap BUN Creatinine Estimated GFR/1.73 m2 Glucose Calcium Magnesium Total Bilirubin AST ALT Alkaline Phosphatase Total Protein Albumin Lipase 65 Urine Color Yellow Urine Clarity Sl Cloudy Urine pH 6.0 Ur Specific [place] >= 1.030 H Urine Protein 30 H Urine Ketones 80 H Urine Blood Negative Urine Nitrite Negative Urine Bilirubin Negative Urine Urobilinogen 0.2 Ur Leukocyte Esterase Negative Urine RBC 0-2 Urine WBC 3-5 Ur Epithelial Cells Many Urine Crystals Negative Urine Bacteria Moderate Urine Casts Negative Urine Mucus Moderate Ur Culture Indicated? No/Sq. Contamination Urine Glucose Negative COVID-19 Source Nasal/Nares SARS-CoV-2 (PCR) Negative 08/29/21 08/29/21 23:55 23:55 WBC 13.03 H RBC 4.09 Hgb 11.9 Hct 34.6 L MCV 84.6 MCH 29.1 MCHC 34.4 RDW 12.2 Plt Count 242 MPV 10.7 Immature Gran % 0.4 Neutrophils % 82.1 Lymphocytes % 10.5 Monocytes % 6.4 Eosinophils % 0.4 Basophils % 0.2 Nucleated RBC % 0 Absolute Neutrophils 10.70 H Absolute Lymphocytes 1.37 Absolute Monocytes 0.83 H Absolute Eosinophils 0.05 Absolute Basophils 0.03 Sodium 139 Potassium 3.3 L Chloride 103 Carbon Dioxide 21.8 Anion Gap 14.2 H BUN 4 L Creatinine 0.6 Estimated GFR/1.73 m2 >= 60.00 Glucose 120 H Calcium 9.2 Magnesium 1.7 L Total Bilirubin 0.3 AST 10 L ALT 17 Alkaline Phosphatase 34 L Total Protein 7.6 Albumin 4.2 Lipase Urine Color Urine Clarity Urine pH Ur Specific [place] Urine Protein Urine Ketones Urine Blood Urine Nitrite Urine Bilirubin Urine Urobilinogen Ur Leukocyte Esterase Urine RBC Urine WBC Ur Epithelial Cells Urine Crystals Urine Bacteria Urine Casts Urine Mucus Ur Culture Indicated? Urine Glucose COVID-19 Source SARS-CoV-2 (PCR)
== END 2021-08-30 15:05 | disposition home or self-care (01) ==
LOC: ER 08-30 01:24 → OBS 08-30 01:27
PROVIDERS: Admitting Provider Advanced Practice Midwife; Emergency Provider Emergency Medicine; PCP Family Medicine; Visit Provider Advanced Practice Midwife
DX: O21.8 Other vomiting complicating pregnancy (principal); O99.321 Drug use complicating pregnancy, first trimester; F12.90 Cannabis use, unspecified, uncomplicated; O99.341 Other mental disorders complicating pregnancy, first trimester; O99.511 Diseases of the respiratory system complicating pregnancy, first trimester; Z3A.13 13 weeks gestation of pregnancy; J45.990 Exercise induced bronchospasm; F31.9 Bipolar disorder, unspecified; F90.9 Attention-deficit hyperactivity disorder, unspecified type
CPT/HCPCS: 80053; 83690; 87635; 96360; 96361; 96374; 99285; 81003; 81015; 83735; 85025; 87086; G0378; J2405; J2765; J7042

== ENCOUNTER 2021-09-08 14:49 | Observation (INO) | payer MEDICAID, SELFPAY ==
--- NOTE | 2021-09-08 14:56 | HPE_ITS ---
Date of service: 09/08/21 Time of Service: 14:56 Assessment and Plan Assessment and plan (1) Vomiting during : Status: Acute Assessment and plan: A: 14+3 wks 20 yo dehydration and ketonuria Hx multiple ED visits for nausea/vomiting & dehydration P: Rehydrate with D5LR IVF until ketones are cleared COVID swab (negative) Anti-emetics & antacids IV route that she usually takes daily Plan for discharge when can tolerate PO fluid intake OB-HPI Labor/Delivery History of Present Illness Reason for Visit: NST? Chief Complaint: Illness , Associated Signs and Symptoms of Illness: nausea with uncontrolled vomiting since 299 today, no diarrhea. Has not been able to keep her meds down, nor food or water. Indicates pain in epigastric area of upper abd quadrants.. CORINNA Calculator Estimated Delivery Date Method Current WG Current Estimate 03/06/22 Ultrasound #1 14w 3d Other Estimates 01/26/22 LMP (Certain) 20w 0d History of Present Expected Delivery Route/Plan - CNM FOB - Mitul (his first child) Varicella Non-Immune, offer vaccine Specific Issues/Plan 1. H/O suicidal ideation, PTSD and depression. 1a. Enrolled in [employer] 2. History of marijuana use; UDS is THC+, repeat @ 28 wks, may need POSC____ 3. History Migraine 4. History of gestational HTN; advised to start low dose ASA @ 12 wks 5. Declines flu vaccine 6. Varicella Non-Immune, offer vaccine Assessment: History Reviewed & Current Review of Systems All systems reviewed & are unremarkable except as noted in HPI and below Constitutional Constitutional: Reports as per HPI and Reports poor appetite Cardiovascular Cardiovascular: Reports system reviewed and no additional complaints, except as documented Respiratory Respiratory: Reports system reviewed and no additional complaints, except as documented Gastrointestinal Gastrointestinal: Reports abdominal pain, Reports bloating, Reports cramping, Reports dyspepsia, Reports heartburn, Reports nausea and Reports vomiting Genitourinary Genitourinary: Reports system reviewed and no additional complaints, except as documented Musculoskeletal Musculoskeletal: Reports system reviewed and no additional complaints, except as documented Integumentary/Breasts Skin/Breast: Reports system reviewed and no additional complaints, except as documented Neurologic Neurologic: Reports system reviewed and no additional complaints, except as documented Psychiatric Psychiatric: Reports depression PFSH All Active Problems (Updated 09/08/21 @ 14:54 by Ros Fagan) Maternal varicella, non-immune (Acute) Vomiting during (Acute) Acute hypokalemia (Acute) Hypomagnesemia (Acute) Posttraumatic stress disorder (Acute) History of migraine (Acute) (Acute) Depressed (Acute) Cannabis abuse (Acute) Medical History (Updated 09/08/21 @ 14:54 by Ros Fagan) Adjustment reaction of adolescence Allergic rhinitis, unspecified Amenorrhea Amenorrhea Asthma Attention deficit disorder with hyperactivity Bipolar disorder Chlamydia contact Chlamydia vaginitis/cervicitis Concussion without loss of consciousness, sequela Dizziness Exercise-induced asthma Headache Mood disorder due to known physiological condition with depressive features Pain of right hand RAD (reactive airway disease) Seasonal allergies Sleep disturbance Subacute thyroiditis Suicidal ideation Urinary tract infection Surgical History History of tonsillectomy Family History Paternal Grandfather Diabetes Maternal Grandfather Heart disease mi w/ double bypass Hypertension Mother Hypothyroid Social History Smoking/Tobacco Use Status: Never Smoking risk assessment performed?: Yes Alcohol Intake: never Substance use type: former substance user Date of last use: nanette and kalani hortensia Counseling provided: treatment program Details: pt. denies marijuana use at this time Sexually active: Yes Do you feel safe at home: Yes Do you feel safe in your relationship?: Yes Additional Social history: Apartment issues -hole in ceiling with black mold Female Reproductive History Menstrual Age of Menarche: 12 Duration of menses: 3-5 days control method: pills History History 3 Para 1 Hx # Term Pregnancies 1 Multiple births 0 Hx # Pregnancies 0 Ectopic pregnancies 0 AB induced 0 Hx Number of Living Children 1 AB spontaneous 1 Past Pregnancies Del. Date GA/Weeks # Outcome Route Wgt Sex Labor Lgth Anesthes ia Location Prov Complic 08/30/19 39 No Successful vaginal 6 lb 9 oz Female 5 Soledad Rodney CNM Delivery Date: 08/30/19 1st degree perineal laceration, repaired Ramona Soto Allergies and Home Medications Allergies Allergy/AdvReac Type Severity Reaction Status Date / Time sertraline Allergy Intermediate Verified 08/30/21 07:45 black flies Allergy Intermediate Uncoded 08/30/21 07:45 cats Allergy Intermediate Uncoded 08/30/21 07:45 Home Medications Medication Instructions Recorded Confirmed Type albuterol sulfate [ProAir HFA] 2 puff INHALATION PRN PRN 06/11/15 08/29/21 History vits,calcium no.78-iron 1 tab PO DAILY #90 tab 06/29/21 08/29/21 Rx fumarate-folic acid 29 mg-1 mg tablet venlafaxine 75 mg capsule,extended 75 mg PO DAILY #90 cap 06/29/21 08/29/21 Rx release 24 hr doxylamine-pyridoxine (vit B6) 1 tab PO BID PRN #10 tab 07/29/21 08/29/21 Rx [Diclegis] ondansetron 8 mg disintegrating 8 mg PO Q8H #90 tab 08/30/21 Rx tablet pantoprazole 40 mg tablet,delayed 40 mg PO DAILY #30 tab 08/30/21 Rx release Exam Physical Exam Vital Signs Reviewed: Yes Constitutional Constitutional: mild distress Detailed Labor and Delivery Exam Ng Score: Cervical Points Exam 0 1 2 3 Dilation Closed 1-2cm 3-4 cm 5-6cm Effacement 0-30% 40-50% 60-70% 80% Consistency Firm Medium Soft Station -3 -2 -1,0 +1,+2 Position Posterior Mid Anterior Amniotic Membrane Status: Intact Fetus A Heart Rate Baseline: 140 HEENT Exam HEENT Exam: Normal Neck Exam Neck Exam: Normal Chest/Brest/Axilla Exam Chest Exam: Normal Breast Exam Breast Exam: Not Done Respiratory Exam Respiratory Exam: Normal Cardiovascular Exam Cardiovascular Exam: Normal Abdominal Exam Abdominal Exam: Normal Rectal Exam Rectal Exam: Not Done Exam Exam: Not Done Extremities Exam Extremities Exam: Normal Back/Spine/Pelvis Exam Back Exam: Normal Skin Exam Skin Exam: Normal Neurological Exam Neurological Exam: Normal Psychiatric Exam Psychiatric Exam: Normal Risk Assessment Risk for Shoulder Dystocia Historical/Initial OB: POSITIVE FOR: Pre- BMI>30; NEGATIVE FOR: Pelvic Abnormality, Previous Shoulder Dystocia or Previous Macrosomia Date/Initial: 08/02/21 Risk for Pre-Eclampsia Yes, if one or more: POSTIVE FOR: Hx Pre-E/Gest HTN; NEGATIVE FOR: Chronic HTN, Multiple Gestation, Pre-gestational DM, Renal Disease, Systemic Lupus or APA Syndrome Yes, if 2 or more: POSITIVE FOR: BMI>30; NEGATIVE FOR: Nulliparity, Age>= 35 yrs, >10yr btwn pregnancies, ethinicty, Mother/Sister w/ Pre-E or Previous IUGR Risk for Post- Hemorrhage Initial: NEGATIVE FOR: Multiple Gestation, Previous PPH, Known Clotting Deficiency, Grand Multiparity or Anticoagulation Interventions: at first ob low risk al Date/Initials: 08/02/21: [facility] Risks Reviewed Risks Reviewed Upon Admission: Yes
[2021-09-08 15:05] VITALS: BP 117/71; PULSE 75; RESP 20; TEMP 36.9; O2SAT 98
[2021-09-08 15:06] LABS: Source Nasal/Nares
[2021-09-08] MEDS: Normal Saline Flush 10 ML SYR IVP ×4 (15:25→18:20)
[2021-09-08] MEDS: DEXTROSE 5%-LACTATED RINGERS 1,000 ML 999 ML IV ×2 (15:39→16:46)
[2021-09-08 15:42] VITALS: BP 117/71; PULSE 75; RESP 20; TEMP 36.9; O2SAT 98
[2021-09-08 15:45] LABS: COVID-19 PCR Negative (Negative)
[2021-09-08] MEDS: Ondansetron 4 MG/2 ML VIAL 8 MG IVP (16:47)
[2021-09-08] MEDS: Pantoprazole 40 MG VIAL IVP (17:06)
[2021-09-08] MEDS: Metoclopramide 10 MG/2 ML VIAL IVP (18:20)
[2021-09-08 19:14] VITALS: BP 119/76; PULSE 73; RESP 18; TEMP 36.8; O2SAT 100
--- NOTE | 2021-09-10 10:52 | DSE_ITS ---
Date of service: 09/08/21 Time of Service: 20:30 DS: Diagnosis Discharge Diagnosis (1) Vomiting during : Status: Acute Discharge Plan Disposition Patient Disposition: HOME Condition: Good Discharge Details Reason For Visit: Dehydration,Ketonuria Admit Date/Time: 09/08/21 14:49 Admit Provider: Ros Fagan Attending Provider: Ros Fagan Primary Care Provider: Lindsay Miranda V Hospital Course Hospital Course: rehydration with 2 liters D5LR IV until ketones were clear Home Meds and New Rx's Prescriptions: No Action PreTAB 29-1 mg tablet 1 tab PO DAILY Qty: 90 RF: 4 venlafaxine [Effexor XR] 75 mg capsule,extended release 24hr 75 mg PO DAILY Qty: 90 RF: 0 ondansetron 8 mg tablet,disintegrating 8 mg PO Q8H Qty: 90 RF: 0 pantoprazole [Protonix] 40 mg tablet,delayed release (DR/EC) 40 mg PO DAILY Qty: 30 RF: 1 metoclopramide HCl [Reglan] 10 mg tablet 10 mg PO Q6H PRN (Reason: nausea and vomiting) Qty: 60 RF: 1 albuterol sulfate [ProAir HFA] 200 PUFF HFA aerosol inhaler 2 puff Inhalation PRN PRNRF: 0 doxylamine-pyridoxine (vit B6) [Diclegis] 10-10 mg tablet,delayed release (DR/EC) 1 tab PO BID PRN (Reason: nausea and vomiting) Qty: 10 RF: 0 Discharge Instructions Additional Instructions: Take medications on time as scheduled, focus on drinking fluids, eat only foods that you really want to eat. Activity:: Activity as Tolerated Equipment/Supplies:: No Equipment Needed Diet:: Normal Diet Discharge Orders Discharge Orders: Discharge Order (Routine); Ordered 09/08/21 Ordered By: Ros Fagan Discharge Data Discharge Date/Time-TO BE ENTERED AT DEPARTURE: 09/08/21 19:40 OB:DS Summary Contraception Discussed Contraception Discussed: No, Status at Discharge Functional status at discharge: independent ambulation Overall status at discharge: patient is back to baseline Mental Status: mental status grossly normal Speech and Movement: speech and movement normal and speech clear Mood: congruent mood Affect: normal affect Exam Physical Exam Vital signs: Temp Pulse Resp BP Pulse Ox 98.2 F 73 18 119/76 100 09/08/21 19:14 09/08/21 19:14 09/08/21 19:14 09/08/21 19:14 09/08/21 19:14 Vital Signs Reviewed: Yes Constitutional Constitutional: no acute distress HEENT Exam HEENT Exam: Normal Neck Exam Neck Exam: Normal Respiratory Exam Respiratory Exam: Normal Cardiovascular Exam Cardiovascular Exam: Normal Abdominal Exam Abdomen: Other (soft) Rectal Exam Rectal Exam: Not Done Extremities Exam Extremity Exam: Normal Back/Spine/Pelvis Exam Back Exam: Normal Skin Exam Skin Exam: Normal Neurological Exam Neurological Exam: Normal Psychiatric Exam Psychiatric Exam: Normal PFSH All Active Problems (Updated 09/08/21 @ 14:54 by Ros Fagan) Maternal varicella, non-immune (Acute) Vomiting during (Acute) Acute hypokalemia (Acute) Hypomagnesemia (Acute) Posttraumatic stress disorder (Acute) History of migraine (Acute) (Acute) Depressed (Acute) Cannabis abuse (Acute) Medical History (Updated 09/08/21 @ 14:54 by Ros Fagan) Adjustment reaction of adolescence Allergic rhinitis, unspecified Amenorrhea Amenorrhea Asthma Attention deficit disorder with hyperactivity Bipolar disorder Chlamydia contact Chlamydia vaginitis/cervicitis Concussion without loss of consciousness, sequela Dizziness Exercise-induced asthma Headache Mood disorder due to known physiological condition with depressive features Pain of right hand RAD (reactive airway disease) Seasonal allergies Sleep disturbance Subacute thyroiditis Suicidal ideation Urinary tract infection Surgical History History of tonsillectomy Family History Paternal Grandfather Diabetes Maternal Grandfather Heart disease mi w/ double bypass Hypertension Mother Hypothyroid Social History Smoking/Tobacco Use Status: Never Smoking risk assessment performed?: Yes Alcohol Intake: never Substance use type: former substance user Date of last use: marajuana and marijuana Counseling provided: treatment program Details: pt. denies marijuana use at this time Sexually active: Yes Do you feel safe at home: Yes Do you feel safe in your relationship?: Yes Additional Social history: Apartment issues -hole in ceiling with black mold Female Reproductive History Menstrual Age of Menarche: 12 Duration of menses: 3-5 days control method: pills History History 3 Para 1 Hx # Term Pregnancies 1 Multiple births 0 Hx # Pregnancies 0 Ectopic pregnancies 0 AB induced 0 Hx Number of Living Children 1 AB spontaneous 1 Past Pregnancies Del. Date GA/Weeks # Outcome Route Wgt Sex Labor Lgth Anesthes ia Location Prov Complic 08/30/19 39 No Successful vaginal 6 lb 9 oz Female 5 Anea Zoraidang, CNM Delivery Date: 08/30/19 1st degree perineal laceration, repaired Ramona Soto DS: Data Vitals/I&O Vitals and I&O: Vital Signs Temperature 98.2 F 09/08/21 19:14 Pulse 73 09/08/21 19:14 Pulse Rhythm Regular 09/08/21 19:13 Respiratory Rate 18 09/08/21 19:14 Blood Pressure 119/76 09/08/21 19:14 Blood Pressure Mean 90 09/08/21 19:14 Pulse Oximetry 100 09/08/21 19:14 Oxygen Delivery Method Room Air 09/08/21 15:42 Oxygen Flow Rate 0 09/08/21 15:42 Pain Level 6 09/08/21 15:05
== END 2021-09-08 19:40 | disposition home or self-care (01) ==
LOC: OBS 15:05 → BCD 17:25
PROVIDERS: Admitting Provider Advanced Practice Midwife; PCP Family Medicine; Visit Provider Advanced Practice Midwife
DX: O21.1 Hyperemesis gravidarum with metabolic disturbance (principal); Z3A.14 14 weeks gestation of pregnancy; Z20.822 Contact with and (suspected) exposure to COVID-19; E87.6 Hypokalemia; E83.42 Hypomagnesemia
CPT/HCPCS: 87635; G0378; J2405; J2765

== ENCOUNTER 2021-09-23 03:09 | Outpatient (CLI) | payer MEDICAID, SELFPAY ==
[2021-09-23 13:22] LABS: Glucose,1 Hr (Glucola) 110 mg/dL (80-140)
== END 2021-09-23 03:10 | disposition home or self-care (01) ==
LOC: LBO 03:09
PROVIDERS: PCP Family Medicine; Visit Provider Advanced Practice Midwife
DX: Z34.92 Encounter for supervision of normal pregnancy, unspecified, second trimester (principal); Z87.59 Personal history of other complications of pregnancy, childbirth and the puerperium
CPT/HCPCS: 36415; 82950

== ENCOUNTER 2021-09-29 10:29 | Emergency (ER) | payer MEDICAID, SELFPAY ==
[2021-09-29] VITALS (21 sets, daily range): BP systolic 104–150; BP diastolic 57–112; PULSE 69–126; RESP 12–42; TEMP 36.8; O2SAT 98–100
--- NOTE | 2021-09-29 10:30 | RT.EKG_ITS ---
APPROVED REPORT Exam: Resting ECG Reason for Exam: chest pain Patient Location: E HR:111 bpm ECG Measurements Heart Rate 111 AXIS IN 139 P 56 QRSd 86 QRS 43 QT 334 T 48 QTc 455 Conclusion Sinus tachycardia...rate> 99 Physician: Rate 111, sinus tachycardia, intervals unremarkable, no significant ST elevations or depre ssions. No T wave inversions. No [id number]. No signs of heart strain. No STEMI
[2021-09-29] MEDS: Normal Saline 1,000 ML 1000 ML IV (10:46)
--- NOTE | 2021-09-29 10:46 | ED.GENADUL_ITS ---
Discharge Plan Disposition Patient Disposition: HOME Condition: Good Discharge Details Clinical Impression: Acute dehydration Primary Care Provider: Lindsay Miranda V ED Provider: Alessandro Singh Home Meds and New Rx's Prescriptions: Continued PreTAB 29-1 mg tablet 1 tab PO DAILY Qty: 90 RF: 4 venlafaxine [Effexor XR] 75 mg capsule,extended release 24hr 75 mg PO DAILY Qty: 90 RF: 0 aspirin 81 mg tablet,delayed release (DR/EC) 81 mg PO DAILY Qty: 90 RF: 4 ondansetron 8 mg tablet,disintegrating 8 mg PO Q8H Qty: 90 RF: 0 pantoprazole [Protonix] 40 mg tablet,delayed release (DR/EC) 40 mg PO DAILY Qty: 30 RF: 1 metoclopramide HCl [Reglan] 10 mg tablet 10 mg PO Q6H PRN (Reason: nausea and vomiting) Qty: 60 RF: 1 albuterol sulfate [ProAir HFA] 200 PUFF HFA aerosol inhaler 2 puff Inhalation PRN PRNRF: 0 doxylamine-pyridoxine (vit B6) [Diclegis] 10-10 mg tablet,delayed release (DR/EC) 1 tab PO BID PRN (Reason: nausea and vomiting) Qty: 10 RF: 0 Discharge Instructions Instructions: Chest Pain (ED), Dehydration (ED) Additional Instructions: At this time. Laboratory work-up is very reassuring. Your electrolyte are stable. Your heart markers are normal. Your thyroid function is excellent. Your ultrasound shows no evidence of lungs. Your EKG shows no signs of heart problems. I suspect that a component of your symptoms may be from dehydration, and potentially worsened with . Please continue to drink plenty of fluids, rest and relax for the next 24 hours. If you notice any worsening of your symptoms, or any new symptoms such as vomiting, diarrhea, fever, chills, shortness of breath, chest pain, numbness, weakness, or fainting , please return immediately to the emergency department for reevaluation. Please follow up with your primary care provider as soon as possible for reassessment and reevaluation. As always, it was a pleasure participating in your medical care today. Referrals: Lindsay Miranda MD [Primary Care Provider] - Medical Decision Making 20-year-old female who is 17 weeks with a past medical history of notable morning sickness during , as well as ADHD, asthma, bipolar, previous tonsillectomy who presents today for evaluation of chest pain shortness of breath. Patient states that when she woke up this morning she was somewhat short of breath, but denied any chest pain. She states that when she was going up a flight of stairs at about 10 AM she suddenly felt more short of breath, noted that her heart rate went up, and had some mild generalized chest pain somewhat more focal to the left. Pain was made worse with breathing. She came to the ER for further assessment. She denies any recent vomiting or diarrhea. She denies any history of blood clots or PEs or family history of blood clot or PEs. She denies any recent long trips, surgeries or procedures. She denies any trauma to the chest. She did have intercourse last night, and denies any unexpected tachycardia, pain, bleeding or discomfort. She has no other complaints at this time. No other modifying factors Physical exam demonstrates a well-appearing female. Patient does have mild tachycardia, blood pressure is stable. EKG shows sinus rhythm, no evidence of STEMI or heart strain. Mucous membranes are dry. Bedside ultrasound demonstrates no signs of significant right heart strain, no pericardial effusion. Lungs demonstrate excellent lung sliding bilaterally. No evidence of pneumothorax. Lung sounds are notably clear. Bedside ultrasound demonstrates good movements. Differential at this time includes dehydration, mild bronchitis, but PE is on the differential though less likely. We will evaluate for signs of heart strain via labs, D-dimer, rehydrate, monitor closely and reassess. We will hold off on imaging for the time being secondary to the 12:38 PM Laboratory work-up is returned, CBC unremarkable and stable. Electrolytes stable, anion gap minimally elevated at 12. Thyroid function normal, proBNP normal suggesting no signs of heart strain, troponin normal. Covid test negative. D-dimer is slightly elevated at 619, however adjusted D- dimer level as noted in the emergency pulmonary embolism prior to diagnostic approach, does place this within normal limits for this stage of . On reassessment the patient's heart rate is in the 80s, her chest pain is notably improved without intervention aside for IV fluids. Blood pressure remained stable. On reassessment the patient shows no signs of respiratory distress whatsoever, no significant chest pain, no signs of duress. Patient feels well comfortable going home. I did discuss imaging options for the patient and at this time through notable discussion, weighing the risks and benefits, and a shared decision making process the patient has requested to hold off on imaging at this time. Patient is of an appropriate age to make decisions. The patient is of sound mind, appears clinically sober, and has capacity to make decisions by my clinical exam. Respecting the patient's wishes we will hold off on imaging. I also had a long discussion with the patient regarding the importance of close OB follow-up, as well as the importance of prompt return if she has any worsening of her symptom. Suspect symptoms are likely secondary to precordial catch syndrome, mild asthma, or other nonlife-threatening etiology at this time based on clinical assessment approach. Symptoms at this time appear clinically inconsistent for massive PE with a normal proBNP, normal adjusted D- dimer, a stable EKG, no other signs of abnormality including a stable bedside lung ultrasound and stable bedside limited cardiac echo. I have extensively reviewed the treatment plan and discharge instructions with the patient. I have addressed all patient concerns at this time. The patient was made aware of what symptoms to monitor for that would warrant a return to the emergency department. Discussed the plan with the patient, they demonstrate verbal understanding and agreement with our assessment and plan at this time. The documentation in this chart was dictated using [employer] dictation software. Please excuse any dictation errors. EKG 10: 42 Rate 111, sinus tachycardia, intervals unremarkable, no significant ST elevations or depressions. No T wave inversions. No S1Q3T3. No signs of heart strain. No STEMI. HPI General Date/Time Provider Initiated Documentation: 09/29/21 10:30 . HPI Narrative: 20-year-old female who is 17 weeks with a past medical history of notable morning sickness during , as well as ADHD, asthma, bipolar, previous tonsillectomy who presents today for evaluation of chest pain shortness of breath. Patient states that when she woke up this morning she was somewhat short of breath, but denied any chest pain. She states that when she was going up a flight of stairs at about 10 AM she suddenly felt more short of breath, noted that her heart rate went up, and had some mild generalized chest pain somewhat more focal to the left. Pain was made worse with breathing. She came to the ER for further assessment. She denies any recent vomiting or diarrhea. She denies any history of blood clots or PEs or family history of blood clot or PEs. She denies any recent long trips, surgeries or procedures. She denies any trauma to the chest. She did have intercourse last night, and denies any unexpected tachycardia, pain, bleeding or discomfort. She has no other complaints at this time. No other modifying factors Related Data Home Medications Medication Instructions Recorded Confirmed albuterol sulfate [ProAir HFA] 2 puff INHALATION PRN PRN 06/11/15 09/29/21 vits,calcium no.78-iron 1 tab PO DAILY #90 tab 06/29/21 09/29/21 fumarate-folic acid 29 mg-1 mg tablet venlafaxine 75 mg capsule,extended 75 mg PO DAILY #90 cap 06/29/21 09/29/21 release 24 hr doxylamine-pyridoxine (vit B6) 1 tab PO BID PRN #10 tab 07/29/21 09/29/21 [Diclegis] ondansetron 8 mg disintegrating 8 mg PO Q8H #90 tab 08/30/21 09/29/21 tablet pantoprazole 40 mg tablet,delayed 40 mg PO DAILY #30 tab 08/30/21 09/29/21 release metoclopramide HCl 10 mg tablet 10 mg PO Q6H PRN #60 tab 09/10/21 09/29/21 aspirin 81 mg tablet,delayed 81 mg PO DAILY #90 tab 09/17/21 09/29/21 release Previous Rx's Medication Instructions Recorded vits,calcium no.78-iron 1 tab PO DAILY #90 tab 06/29/21 fumarate-folic acid 29 mg-1 mg tablet venlafaxine 75 mg capsule,extended 75 mg PO DAILY #90 cap 06/29/21 release 24 hr doxylamine-pyridoxine (vit B6) 1 tab PO BID PRN #10 tab 07/29/21 [Diclegis] ondansetron 8 mg disintegrating 8 mg PO Q8H #90 tab 08/30/21 tablet pantoprazole 40 mg tablet,delayed 40 mg PO DAILY #30 tab 08/30/21 release metoclopramide HCl 10 mg tablet 10 mg PO Q6H PRN #60 tab 09/10/21 aspirin 81 mg tablet,delayed 81 mg PO DAILY #90 tab 09/17/21 release Allergies Allergy/AdvReac Type Severity Reaction Status Date / Time sertraline Allergy Intermediate Verified 09/29/21 10:44 black flies Allergy Intermediate Uncoded 09/29/21 10:44 cats Allergy Intermediate Uncoded 09/29/21 10:44 General Stated Complaint: SOB ETHAN: 2 Review of Systems All systems reviewed & are unremarkable except as noted in HPI and below PFSH All Active Problems (Updated 09/29/21 @ 11:46 by Alessandro Singh DO) Acute dehydration (Acute) History of gestational hypertension (Acute) Maternal varicella, non-immune (Acute) Vomiting during (Acute) Posttraumatic stress disorder (Acute) History of migraine (Acute) (Acute) Depressed (Acute) Cannabis abuse (Acute) Medical History Acute hypokalemia Adjustment reaction of adolescence Allergic rhinitis, unspecified Amenorrhea Amenorrhea Asthma Attention deficit disorder with hyperactivity Bipolar disorder Chlamydia contact Chlamydia vaginitis/cervicitis Concussion without loss of consciousness, sequela Dizziness Exercise-induced asthma Headache Hypomagnesemia Laceration of labia minora Mood disorder due to known physiological condition with depressive features Pain of right hand RAD (reactive airway disease) Seasonal allergies Sleep disturbance Subacute thyroiditis Suicidal ideation Urinary tract infection Surgical History History of tonsillectomy Family History Paternal Grandfather Diabetes Maternal Grandfather Heart disease mi w/ double bypass Hypertension Mother Hypothyroid Social History Smoking/Tobacco Use Status: Never Smoking risk assessment performed?: Yes Alcohol Intake: never Substance use type: former substance user Date of last use: marajuana and marijuana Counseling provided: treatment program Details: pt. denies marijuana use at this time Sexually active: Yes Do you feel safe at home: Yes Do you feel safe in your relationship?: Yes Additional Social history: Apartment issues -hole in ceiling with black mold Female Reproductive History Menstrual Age of Menarche: 12 Duration of menses: 3-5 days control method: pills History History 3 Para 1 Hx # Term Pregnancies 1 Multiple births 0 Hx # Pregnancies 0 Ectopic pregnancies 0 AB induced 0 Hx Number of Living Children 1 AB spontaneous 1 Past Pregnancies Del. Date GA/Weeks # Outcome Route Wgt Sex Labor Lgth Anesthes ia Loc ation Prov Complic 08/30/19 39 No Successful vaginal 2976.7 g Female 5 hr labor the day before scheduled induction for gHTN Soledad Rodney CNM Delivery Date: 08/30/19 No meds in labor, stayed in tub. Nitrous for 1st degree lac repair. gHTN, BP improved after . Heavy bleeding per pt. Ros Fagan Exam Narrative Exam Narrative: 1.Const: Well-nourished, Well-developed, appearing stated age 2.Eyes: PERRL, no conjunctival injection, and symmetrical lids. 3.ENT: Atraumatic external nose and ears. Dry MM. Neck: Symmetric, trachea midline, No thyromegaly. 4.CVS: +S1/S2, No murmurs or gallops. Peripheral pulses 2+ and equal in all extremities. Brisk capillary refill in all extremities. 5.RESP: Unlabored respiratory effort. Clear to auscultation bilaterally. No wheezes rales or rhonchi 6.GI: Soft, Nontender/Nondistended, No hepatosplenomegaly. No guarding or rebound. 7.MSK: Normocephalic/Atraumatic, Extremities w/o deformity or ttp No cyanosis or clubbing, Normal movement of all extremities 8.Skin: Warm, Dry. No rashes or lesions. 9.Neuro: canal structure operator II-XII grossly intact. Sensation grossly intact, no focal neurologic deficits. 10.Psych: (AAO) x3. Appropriate mood and affect Course Vital Signs Vital signs: Vital Signs Temperature 36.8 C 09/29/21 10:37 Pulse 111 H 09/29/21 10:37 Respiratory Rate 16 09/29/21 10:37 Blood Pressure 150/112 H 09/29/21 10:37 Pulse Oximetry 100 09/29/21 10:37 Temperature 36.8 C 09/29/21 10:37 Pulse 111 H 09/29/21 10:37 Respiratory Rate 16 09/29/21 10:37 Respiratory Effort 09/29/21 10:37 Blood Pressure 150/112 H 09/29/21 10:37 Blood Pressure Position Supine 09/29/21 10:37 Pulse Oximetry 100 09/29/21 10:37 Oxygen Delivery Method Room Air 09/29/21 10:37 Oxygen Flow Rate 0 09/29/21 10:37 Pain Level 8 09/29/21 10:37
[2021-09-29 10:56] LABS: Abs Immature Grans 0.04 10^3/uL (0.0-0.06); Absolute Basophil Count 0.05 10^3/uL (0.0-0.2); Absolute Eosinophil Count 0.35 10^3/uL (0.0-0.7); Absolute Lymphocyte Count 2.02 10^3/uL (1.2-3.4); Absolute Monocyte Count 0.85 10^3/uL (0.1-0.8); Absolute Neutrophil Count 6.42 10^3/uL (1.2-6.7); Basophils % 0.5; Eosinophils % 3.6; HCT 37.9 % (36.0-46.0); HGB 12.8 g/dL (11.2-15.7); Immature Grans % 0.4; Lymphocytes % 20.8; MCHC 33.8 % (32.0-36.0); MCV 85.9 fL (80-95); MPV 10.8 fL (8.0-11.0); Monocytes % 8.7; Nucleated RBC 0 %; Platelet Count 235 10^3/uL (130-400); RBC 4.41 10^6/uL (3.93-5.22); RDW 12.5 % (11.7-14.6); RDW-SD 39.2 fL; WBC 9.73 10^3/uL (4.4-10.8)
[2021-09-29 10:56] LABS: Source Nasal/Nares
[2021-09-29 11:17] LABS: ALT 30 U/L (14-59); AST 15 U/L (15-37); Albumin 3.9 g/dL (3.4-5.0); Alkaline Phosphatase 39 U/L (46-116); BUN 4 mg/dL (7-18); Bilirubin, Total 0.3 mg/dL (0.2-1.0); CREATININE 0.6 mg/dL (0.55-1.02); Calcium 9.5 mg/dL (8.5-10.1); Chloride 103 mmol/L (98-107); Glucose 81 mg/dL (74-106); NT-proBNP 11 pg/mL (<300); Potassium 3.5 mmol/L (3.5-5.1); Sodium 137 mmol/L (136-145)
[2021-09-29 11:18] LABS: Troponin I < 50 ng/L (<or=60)
[2021-09-29 11:30] LABS: D-Dimer 619 ng/mlFEU (<500)
[2021-09-29 11:39] LABS: COVID-19 PCR Negative (Negative)
[2021-09-29] MEDS: Normal Saline 500 ML IV (11:53)
[2021-09-29] MEDS: Acetaminophen 500 MG TAB 1000 MG PO (12:40)
== END 2021-09-29 12:45 | disposition home or self-care (01) ==
PROVIDERS: Emergency Provider Student in an Organized Health Care Education/Training Program; PCP Family Medicine
DX: O26.892 Other specified pregnancy related conditions, second trimester (principal); E86.0 Dehydration; Z3A.17 17 weeks gestation of pregnancy
CPT/HCPCS: 36415; 80053; 87635; 93005; 96360; 96361; 99283; 99284; 83880; 84443; 84484; 85025; 85379; 93010

== ENCOUNTER 2021-10-06 02:01 | Outpatient (CLI) | payer MEDICAID, SELFPAY ==
--- NOTE | 2021-10-06 | DI.US_ITS ---
Exam(s) US OB 2-3 TRIMESTER EXAM: US OB 2-3 TRIMESTER CLINICAL HISTORY: anatomy,Z34.92. TECHNIQUE: Transabdominal obstetrical ultrasound performed. COMPARISON: No previous for comparison. FINDINGS: Transabdominal obstetrical ultrasound performed. FINDINGS: Number of fetuses: One. position: Breech heart rate: 139 bpm. Placental location: There is a grade 1 posterior placenta. The placental tip is 1.3 cm from the inte rnal os. No evidence of previa. Amniotic fluid index: Amount of fluid is within normal limits. ANATOMICAL SURVEY: Within normal limits. BIOMETRIC DATA: BPD: 4.2cm consistent with 18 weeks 5 days. HC: 16cm consistent with 18 weeks 6 days. AC: 12.5cm consistent with 18 weeks 1 day. FL: 2.7cm consistent with 18 weeks 1 day. Cisterna Magna: 4.6 mm Cerebellum: 1.82 cm EFW: 230 grms 33% Composite Age: 18 weeks 3 days EDC by US: 03/06/2022 Heart Rate: 139BPM IMPRESSION: 1. Single live intrauterine gestation as above. 2. Low-lying placenta. No evidence of previa. 3. Normal anatomic survey. DATA REPOSITORY:
== END 2021-10-06 02:21 ==
PROVIDERS: PCP Family Medicine; Visit Provider Advanced Practice Midwife
DX: Z34.92 Encounter for supervision of normal pregnancy, unspecified, second trimester (principal)
CPT/HCPCS: 76805

== ENCOUNTER 2021-10-14 09:47 | Emergency (ER) | payer MEDICAID, SELFPAY ==
[2021-10-14] VITALS (14 sets, daily range): BP systolic 114–133; BP diastolic 67–86; PULSE 66–92; RESP 14–30; TEMP 36.3–36.8; O2SAT 97–100
--- NOTE | 2021-10-14 09:45 | RT.EKG_ITS ---
APPROVED REPORT Exam: Resting ECG Reason for Exam: chest pain Patient Location: E HR:77 bpm ECG Measurements Heart Rate 77 AXIS UT 142 P 48 QRSd 87 QRS 43 QT 398 T 45 QTc 449 Conclusion Sinus rhythm...normal P axis, V-rate 60- 99. Sinus. Normal axis. No STEMI. I have reviewed and interpreted ECG and agree with software generated interpretation.
--- NOTE | 2021-10-14 09:52 | ED.GENADUL_ITS ---
Discharge Plan Disposition Patient Disposition: HOME Condition: Improving Discharge Details Clinical Impression: Vomiting during Primary Care Provider: Lindsay Miranda V ED Provider: Ester Ramirez Home Meds and New Rx's Prescriptions: New ondansetron 4 mg tablet,disintegrating 4 mg PO TID PRN (Reason: nausea and vomiting) Qty: 6 0RF Continued PreTAB 29-1 mg tablet 1 tab PO DAILY Qty: 90 4RF venlafaxine [Effexor XR] 75 mg capsule,extended release 24hr 75 mg PO DAILY Qty: 90 0RF aspirin 81 mg tablet,delayed release (DR/EC) 81 mg PO DAILY Qty: 90 4RF Rx Instructions: take one tablet daily, alternating with two tablets every other day ondansetron 8 mg tablet,disintegrating 8 mg PO Q8H Qty: 90 0RF pantoprazole [Protonix] 40 mg tablet,delayed release (DR/EC) 40 mg PO DAILY Qty: 30 1RF metoclopramide HCl [Reglan] 10 mg tablet 10 mg PO Q6H PRN (Reason: nausea and vomiting) Qty: 60 1RF albuterol sulfate [ProAir HFA] 200 PUFF HFA aerosol inhaler 2 puff Inhalation PRN PRN0RF doxylamine-pyridoxine (vit B6) [Diclegis] 10-10 mg tablet,delayed release (DR /EC) 1 tab PO BID PRN (Reason: nausea and vomiting) Qty: 10 0RF Discharge Instructions Instructions: Nausea and Vomiting in (ED) Additional Instructions: Drink plenty of fluids and get plenty of rest. Continue to alternate your Zofran and Reglan as needed and directed for nausea and vomiting. You are being sent home with an additional prescription for Zofran as needed. Call women's wellness today to schedule a follow-up appointment for reevaluation and for continued management of your nausea and vomiting. Return immediately to the emergency department if you develop any worsening or new concerning symptoms. Referrals: [facility] [Provider Group] Discharge Data Discharge Date/Time-TO BE ENTERED AT DEPARTURE: 10/14/21 12:07 Discharge Physician: Ester Ramirez Medical Decision Making 20-year-old female G3, L1 currently 18 weeks presents for vomiting since 2 AM. Review of records note that patient has been seen in the ED 8 times for vomiting during this . She was also admitted twice to OB last month for vomiting. ED records from 2 weeks ago note that she complained of shortness of breath at that time with a age-adjusted D-dimer which was reported to be within normal range. Her vitals are within normal limits on my exam. Her left chest is tender to palpation. Her lung sounds are clear. She has normal heart and respiratory rate and oxygen saturation on my evaluation. Her EKG notes a rate 77, sinus, normal axis and no STEMI. Suspect her chest tightness is likely secondary to heartburn and chest wall strain with vomiting. Considering the patient has felt the symptoms with her previous episodes of vomiting, history does not appear consistent with PE. Will hold on obtaining a D-dimer as it would likely be elevated in addition to holding on CT imaging due to risk of radiation and patient is agreeable. Will check screening labs, place an IV, give bolus IV fluids, IV Pepcid, IV Zofran and GI cocktail and reassess. Labs reviewed and unremarkable. White blood cell count 12 which is likely a stress response in the setting of nausea and vomiting. Normal electrolytes. Normal troponin and lipase. Urinalysis negative for infection. Patient reassessed and she feels much better. She was able to take p.o. without any further nausea or vomiting. She denies any abdominal pain. Her heart rate and oxygen saturation were monitored and remained within normal limits and she denies any significant chest pain or shortness of breath. Case discussed with OB on-call --as her symptoms are consistent with her usual vomiting with an unremarkable work-up and EKG, would rather hold on CT imaging as the likelihood of PE is low --plan will be for discharge with follow-up with women's wellness. Patient advised to call women's wellness with any further nausea and vomiting as she can be treated with IV fluids there to avoid potential Covid exposure during in the ED. Patient was given a prescription for Zofran to go. Usual and customary return precautions given prior to discharge. Medical Records Medical records reviewed: Yes I reviewed the patient's medical records. Lab Data Lab results reviewed: Yes I reviewed the patient's lab results. Labs: Laboratory Tests Range/Units 10/14/21 10/14/21 10/14/21 10:20 10:20 10:20 WBC (4.4-10.8) 10^3/uL 12.78 H RBC (3.93-5.22) 10^6/uL 4.18 Hgb (11.2-15.7) g/dL 12.2 Hct (36.0-46.0) % 36.7 MCV (80-95) fL 87.8 MCH (27.0-33.0) pg 29.2 MCHC (32.0-36.0) % 33.2 RDW (11.7-14.6) % 12.7 Plt Count (130-400) 10^3/uL 231 MPV (8.0-11.0) fL 10.3 Immature Gran % 0.6 Neutrophils % 80.6 Lymphocytes % 10.9 Monocytes % 6.0 Eosinophils % 1.6 Basophils % 0.3 Nucleated RBC % % 0 Absolute Neutrophils (1.2-6.7) 10^3/uL 10.30 H Absolute Lymphocytes (1.2-3.4) 10^3/uL 1.39 Absolute Monocytes (0.1-0.8) 10^3/uL 0.77 Absolute Eosinophils (0.0-0.7) 10^3/uL 0.20 Absolute Basophils (0.0-0.2) 10^3/uL 0.04 Sodium (136-145) mmol/L 138 Potassium (3.5-5.1) mmol/L 3.7 Chloride (98-107) mmol/L 102 Carbon Dioxide (21.0-32.0) mmol/L 26.0 Anion Gap (3-11) mmol/L 10.0 BUN (7-18) mg/dL 5 L Creatinine (0.55-1.02) mg/dL 0.6 Estimated GFR/1.73 m2 (mL/min/1.73m2) >= 60.00 Glucose (74-106) mg/dL 90 Calcium (8.5-10.1) mg/dL 9.0 Magnesium (1.8-2.4) mg/dL 1.9 Total Bilirubin (0.2-1.0) mg/dL 0.2 AST (15-37) U/L 16 ALT (14-59) U/L 37 Alkaline Phosphatase (46-116) U/L 44 L Troponin I (<or=60) ng/L < 50 Total Protein (6.4-8.2) g/dL 8.1 Albumin (3.4-5.0) g/dL 3.7 Lipase (73-393) U/L 78 Urine Color (Yellow) Yellow Urine Clarity (Clear) Cloudy Urine pH (5-8) 7.5 Ur Specific [place] (1.005-1.025) 1.020 Urine Protein (Negative) mg/dL Trace H Urine Ketones (Negative) mg/dL Negative Urine Blood (Negative) Negative Urine Nitrite (Negative) Negative Urine Bilirubin (Negative) Negative Urine Urobilinogen (Up TO 0.2) EU/dL 0.2 Ur Leukocyte Esterase (Negative) Negative Urine RBC (0-2) HPF Negative Urine WBC (0-5) HPF 0-2 Ur Epithelial Cells (Negative) HPF Rare Urine Crystals (Negative) HPF Many Amorphous Urine Bacteria (Negative) HPF Negative Urine Mucus (Negative) Negative Ur Culture Indicated? No Urine Glucose (Negative) mg/dL Negative HPI General Mode of arrival: ambulatory . Date/Time Provider Initiated Documentation: 10/14/21 09:47 . Limitations to Documentation: no limitations . Information obtained by: patient . HPI Narrative: Patient is a 20-year-old female G 3P1 a 1 L1 currently 18 weeks presents for vomiting since 2 AM. Patient states she has had vomiting throughout this and with her previous . She states she has b een prescribed Reglan and Zofran and took both of these at home this morning at 4 AM without relief. Patient states the vomitus is mainly bile. She last vomited in the car on the way here. She states she did not call women's wellness this morning for her symptoms. Patient states after an episode of vomiting today started substernal chest tightness. She does admit to occasional shortness of breath that occurs at the time of her vomiting. She denies any fever, abdominal pain, urinary symptoms, vaginal bleeding or diarrhea. Of note, patient's daughter was seen here yesterday for vomiting in the ED and also states her daughter is feeling better. Related Data Home Medications Medication Instructions Recorded Confirmed albuterol sulfate 90 mcg/actuation 2 puff INHALATION PRN PRN 06/11/15 10/14/21 aerosol inhaler (ProAir HFA) vits,calcium no.78-iron 1 tab PO DAILY #90 tab 06/29/21 10/14/21 fumarate-folic acid 29 mg-1 mg tablet (PreTAB) venlafaxine 75 mg capsule,extended 75 mg PO DAILY #90 cap 06/29/21 10/14/21 release 24 hr (Effexor XR) doxylamine 10 mg-pyridoxine (vit 1 tab PO BID PRN #10 tab 07/29/21 10/14/21 B6) 10 mg tablet,delayed release (Diclegis) ondansetron 8 mg disintegrating 8 mg PO Q8H #90 tab 08/30/21 10/14/21 tablet pantoprazole 40 mg tablet,delayed 40 mg PO DAILY #30 tab 08/30/21 10/14/21 release (Protonix) metoclopramide HCl 10 mg tablet 10 mg PO Q6H PRN #60 tab 09/10/21 10/14/21 (Reglan) aspirin 81 mg tablet,delayed 81 mg PO DAILY #90 tab 09/17/21 10/14/21 release ondansetron 4 mg disintegrating 4 mg PO TID PRN #6 tab 10/14/21 tablet Previous Rx's Medication Instructions Recorded vits,calcium no.78-iron 1 tab PO DAILY #90 tab 06/29/21 fumarate-folic acid 29 mg-1 mg tablet (PreTAB) venlafaxine 75 mg capsule,extended 75 mg PO DAILY #90 cap 06/29/21 release 24 hr (Effexor XR) doxylamine 10 mg-pyridoxine (vit 1 tab PO BID PRN #10 tab 07/29/21 B6) 10 mg tablet,delayed release (Diclegis) ondansetron 8 mg disintegrating 8 mg PO Q8H #90 tab 08/30/21 tablet pantoprazole 40 mg tablet,delayed 40 mg PO DAILY #30 tab 08/30/21 release (Protonix) metoclopramide HCl 10 mg tablet 10 mg PO Q6H PRN #60 tab 09/10/21 (Reglan) aspirin 81 mg tablet,delayed 81 mg PO DAILY #90 tab 09/17/21 release ondansetron 4 mg disintegrating 4 mg PO TID PRN #6 tab 10/14/21 tablet Allergies Allergy/AdvReac Type Severity Reaction Status Date / Time sertraline Allergy Intermediate Verified 10/14/21 09:58 black flies Allergy Intermediate Uncoded 10/14/21 09:58 cats Allergy Intermediate Uncoded 10/14/21 09:58 General ETHAN: 2 Review of Systems All systems reviewed & are unremarkable except as noted in HPI and below Constitutional Constitutional: Reports as per HPI, Denies chills and Denies fever(s) Eyes Eyes: Denies blurry vision ENT Ears, Nose, Mouth, and Throat: Denies dizziness, Denies sore throat and Denies throat swelling Cardiovascular Cardiovascular: Reports chest pain (chest tightness) and Denies dyspnea Respiratory Respiratory: Denies cough and Denies dyspnea Gastrointestinal Gastrointestinal: Denies abdominal pain, Denies diarrhea and Reports vomiting Genitourinary Genitourinary: Denies hematuria and Denies dysuria Musculoskeletal Musculoskeletal: Denies back pain and Denies numbness Integumentary/Breasts Skin/Breast: Denies lesions and Denies rash Neurologic Neurologic: Denies dizziness, Denies localized weakness and Denies numbness Allergic/Immunologic Allergic/Immunologic: Denies throat swelling PFSH All Active Problems (Updated 10/14/21 @ 11:54 by Ester Ramirez DO) Vomiting during (Acute) Low lying placenta nos or without hemorrhage, second trimester (Acute) Acute dehydration (Acute) History of gestational hypertension (Acute) Maternal varicella, non-immune (Acute) Vomiting during (Acute) Posttraumatic stress disorder (Acute) History of migraine (Acute) (Acute) Depressed (Acute) Cannabis abuse (Acute) Medical History Acute hypokalemia Adjustment reaction of adolescence Allergic rhinitis, unspecified Amenorrhea Amenorrhea Asthma Attention deficit disorder with hyperactivity Bipolar disorder Chlamydia contact Chlamydia vaginitis/cervicitis Concussion without loss of consciousness, sequela Dizziness Exercise-induced asthma Headache Hypomagnesemia Laceration of labia minora Mood disorder due to known physiological condition with depressive features Pain of right hand RAD (reactive airway disease) Seasonal allergies Sleep disturbance Subacute thyroiditis Suicidal ideation Urinary tract infection Surgical History History of tonsillectomy Family History Paternal Grandfather Diabetes Maternal Grandfather Heart disease mi w/ double bypass Hypertension Mother Hypothyroid Social History (Reviewed 09/29/21 @ 10:46 by JUAN Aleman Smoking/Tobacco Use Status: Never Smoking risk assessment performed?: Yes Alcohol Intake: never Substance use type: former substance user Date of last use: [place] and m fredo Counseling provided: treatment program Details: pt. denies marijuana use at this time Sexually active: Yes Do you feel safe at home: Yes Do you feel safe in your relationship?: Yes Additional Social history: Apartment issues -hole in ceiling with black mold state came to visit today Female Reproductive History Menstrual Age of Menarche: 12 Duration of menses: 3-5 days control method: pills History History 3 Para 1 Hx # Term Pregnancies 1 Multiple births 0 Hx # Pregnancies 0 Ectopic pregnancies 0 AB induced 0 Hx Number of Living Children 1 AB spontaneous 1 Past Pregnancies Del. Date GA/Weeks # Outcome Route Wgt Sex Labor Lgth Anesthes ia Location Prov Compl 08/30/19 39 No Successful vaginal 2976.7 g Female 5 hr labor the day before scheduled induction for gHTN Soledad Rodney CNM Delivery Date: 08/30/19 Last Updated by: Ros Fagan No meds in labor, stayed in tub. Nitrous for 1st degree lac repair. gHTN, BP improved after . Heavy bleeding per pt. Exam Const General: cooperative, healthy appearing and no acute distress Orientation: alert, awake and oriented x3 HENMT Head: normal to inspection Mouth: oral mucosae normal Eyes General: appearance normal, both eyes and all related structures Neck Neck: normal visual inspection Chest Chest/axillae images: 1. Reproducible tenderness to palpation to left medial chest wall. There is no crepitus, rash, lesions, erythema or ecchymoses. Resp Effort & Inspection: normal respiratory effort and able to speak in complete sentences Cardio Rate: regular rate Rhythm: regular rhythm GI Inspection: normal to inspection and obesity Palpation: soft, not firm, no guarding, not rigid and nontender Skin General skin exam: no rashes or lesions noted Neuro General: patient alert, patient awake and patient oriented x3 Motor: muscle tone normal throughout Extrem General: normal to inspection and full ROM Psych Appearance: grossly normal Affect: normal affect
[2021-10-14] MEDS: Normal Saline 1,000 ML 1000 ML IV (10:20)
[2021-10-14 10:29] LABS: Bilirubin Negative (Negative); Blood Negative (Negative); Clarity Cloudy (Clear); Glucose Negative (Negative); Ketones Negative (Negative); Leukocyte Esterase Negative (Negative); Nitrite Negative (Negative); Urobilinogen 0.2 EU/dL (Up TO 0.2); pH 7.5 (5-8)
[2021-10-14 10:31] LABS: Abs Immature Grans 0.08 10^3/uL (0.0-0.06); Absolute Basophil Count 0.04 10^3/uL (0.0-0.2); Absolute Lymphocyte Count 1.39 10^3/uL (1.2-3.4); Absolute Monocyte Count 0.77 10^3/uL (0.1-0.8); Basophils % 0.3; Eosinophils % 1.6; HCT 36.7 % (36.0-46.0); HGB 12.2 g/dL (11.2-15.7); Immature Grans % 0.6; Lymphocytes % 10.9; MCH 29.2 pg (27.0-33.0); MCHC 33.2 % (32.0-36.0); MCV 87.8 fL (80-95); MPV 10.3 fL (8.0-11.0); Neutrophils % 80.6; Nucleated RBC 0 %; Platelet Count 231 10^3/uL (130-400); RBC 4.18 10^6/uL (3.93-5.22); RDW 12.7 % (11.7-14.6); RDW-SD 40.8 fL; WBC 12.78 10^3/uL (4.4-10.8)
[2021-10-14 10:36] LABS: RBC Negative HPF (0-2); WBC 0-2 HPF (0-5)
[2021-10-14 10:37] LABS: Bacteria Negative HPF (Negative); C & S Indicated? No; Crystals Many Amorphous HPF (Negative); Epithelial Cells Rare HPF (Negative); Mucus Negative (Negative)
[2021-10-14] MEDS: Ondansetron 4 MG/2 ML VIAL IVP (10:40)
[2021-10-14] MEDS: Normal Saline 50 ML 200 ML (10:43)
[2021-10-14] MEDS: Famotidine 20 MG/2 ML VIAL IVP (10:43)
[2021-10-14 10:47] LABS: ALT 37 U/L (14-59); AST 16 U/L (15-37); Albumin 3.7 g/dL (3.4-5.0); Alkaline Phosphatase 44 U/L (46-116); BUN 5 mg/dL (7-18); Bilirubin, Total 0.2 mg/dL (0.2-1.0); CREATININE 0.6 mg/dL (0.55-1.02); Chloride 102 mmol/L (98-107); Glucose 90 mg/dL (74-106); Lipase 78 U/L (73-393); Magnesium 1.9 mg/dL (1.8-2.4); Potassium 3.7 mmol/L (3.5-5.1); Sodium 138 mmol/L (136-145); Total Protein 8.1 g/dL (6.4-8.2); Troponin I < 50 ng/L (<or=60)
--- NOTE | 2021-10-14 11:22 | NUR.NOTE ---
pt feel somewhat better, PO challenge gustavo mckenzie and saltine crackers Nursing Note:
== END 2021-10-14 12:07 | disposition home or self-care (01) ==
PROVIDERS: Emergency Provider Physician Assistant; PCP Family Medicine
DX: O21.8 Other vomiting complicating pregnancy (principal); Z3A.18 18 weeks gestation of pregnancy; R07.89 Other chest pain
CPT/HCPCS: 80053; 83690; 93005; 96361; 96374; 96375; 99284; 81003; 81015; 83735; 84484; 85025; 93010; 99283; J2405

== ENCOUNTER 2021-10-18 07:04 | Emergency (ER) | payer MEDICAID, SELFPAY ==
[2021-10-18 07:10] VITALS: BP 135/86; PULSE 83; RESP 16; TEMP 37; O2SAT 99
[2021-10-18] MEDS: Normal Saline 1,000 ML 1000 ML IV ×2 (07:13→08:04)
--- NOTE | 2021-10-18 07:30 | W.ED.GENAD ---
Discharge Plan Disposition Patient Disposition: HOME Condition: Improving Discharge Details Clinical Impression: Vomiting during Primary Care Provider: Lindsay Miranda V ED Provider: Ester Ramirez Home Meds and New Rx's Prescriptions: Continued PreTAB 29-1 mg tablet 1 tab PO DAILY Qty: 90 4RF venlafaxine [Effexor XR] 75 mg capsule,extended release 24hr 75 mg PO DAILY Qty: 90 0RF aspirin 81 mg tablet,delayed release (DR/EC) 81 mg PO DAILY Qty: 90 4RF Rx Instructions: take one tablet daily, alternating with two tablets every other day ondansetron 8 mg tablet,disintegrating 8 mg PO Q8H Qty: 90 0RF pantoprazole [Protonix] 40 mg tablet,delayed release (DR/EC) 40 mg PO DAILY Qty: 30 1RF metoclopramide HCl [Reglan] 10 mg tablet 10 mg PO Q6H PRN (Reason: nausea and vomiting) Qty: 60 1RF albuterol sulfate [ProAir HFA] 200 PUFF HFA aerosol inhaler 2 puff Inhalation PRN PRN0RF doxylamine-pyridoxine (vit B6) [Diclegis] 10-10 mg tablet,delayed release (DR/EC) 1 tab PO BID PRN (Reason: nausea and vomiting) Qty: 10 0RF ondansetron 4 mg tablet,disintegrating 4 mg PO TID PRN (Reason: nausea and vomiting) Qty: 6 0RF Discharge Instructions Instructions: Nausea and Vomiting in (ED) Additional Instructions: Drink plenty of fluids and get plenty of rest. Continue to alternate your Zofran and Reglan that you have at home as needed and directed for nausea and vomiting. [facility] 1 PM. Return immediately to the emergency department if you develop any worsening or new concerning symptoms. Referrals: [facility] [place]] Discharge Data Discharge Physician: Ester Ramirez Medical Decision Making 20yo F [id number] at 20-weeks of who presents for nausea and vomiting since 3 AM. This is patient's 9th visit to the ED for this for nausea and vomiting. Vitals within normal limits. Patient appears uncomfortable and she admits to nausea at this time but otherwise nontoxic appearing. Her abdomen is soft and nontender. Screening labs, urinalysis, Zofran and fluids started on arrival. She admits to continued nausea, will give another liter of fluids and a dose of Reglan IV and reassess. Labs reviewed. White blood cell count 12. Anion gap 13. Urinalysis notes trace, 3-5 wbc, negative nitrite, with moderate epis and appears contaminated. Case discussed with Roslyn from [facility]. As she has negative nitrites in UA, will hold on treating with antibiotics. Patient has a 1 PM appointment at [facility] today. If she is able to tolerate p.o. and has no abdominal pain or vaginal symptoms, can plan for discharge to to home with follow-up with [facility] at 1 PM. They can recheck UA with another clean catch urine today. Patient reassessed and she feels much better. She was able to take p.o. with no further nausea and vomiting. She denies any abdominal pain. She has her Zofran and Reglan at home. Advised to follow-up with her scheduled appointment with [facility] at 1 PM today. Medical Records Medical records reviewed: Yes I reviewed the patient's medical records. Lab Data Lab results reviewed: Yes I reviewed the patient's lab results. Labs: Laboratory Tests Range/Units 10/18/21 10/18/21 10/18/21 07:13 07:13 07:38 WBC (4.4-10.8) 10^3/uL 12.25 H RBC (3.93-5.22) 10^6/uL 3.92 L Hgb (11.2-15.7) g/dL 11.4 Hct (36.0-46.0) % 33.7 L MCV (80-95) fL 86.0 MCH (27.0-33.0) pg 29.1 MCHC (32.0-36.0) % 33.8 RDW (11.7-14.6) % 12.8 Plt Count (130-400) 10^3/uL 222 MPV (8.0-11.0) fL 10.8 Immature Gran % 0.5 Neutrophils % 74.5 Lymphocytes % 14.0 Monocytes % 7.3 Eosinophils % 3.2 Basophils % 0.5 Nucleated RBC % % 0 Absolute Neutrophils (1.2-6.7) 10^3/uL 9.13 H Absolute Lymphocytes (1.2-3.4) 10^3/uL 1.72 Absolute Monocytes (0.1-0.8) 10^3/uL 0.89 H Absolute Eosinophils (0.0-0.7) 10^3/uL 0.39 Absolute Basophils (0.0-0.2) 10^3/uL 0.06 Sodium (136-145) mmol/L 138 Potassium (3.5-5.1) mmol/L 3.5 Chloride (98-107) mmol/L 103 Carbon Dioxide (21.0-32.0) mmol/L 22.0 Anion Gap (3-11) mmol/L 13.0 H BUN (7-18) mg/dL 5 L Creatinine (0.55-1.02) mg/dL 0.5 L Estimated GFR/1.73 m2 (mL/min/1.73m2) >= 60.00 Glucose (74-106) mg/dL 103 Calcium (8.5-10.1) mg/dL 8.6 Total Bilirubin (0.2-1.0) mg/dL 0.3 AST (15-37) U/L 12 L ALT (14-59) U/L 27 Alkaline Phosphatase (46-116) U/L 38 L Total Protein (6.4-8.2) g/dL 7.4 Albumin (3.4-5.0) g/dL 3.5 Urine Color (Yellow) Yellow Urine Clarity (Clear) Sl Cloudy Urine pH (5-8) 7.0 Ur Specific Brandon (1.005-1.025) 1.020 Urine Protein (Negative) mg/dL Negative Urine Ketones (Negative) mg/dL Negative Urine Blood (Negative) Negative Urine Nitrite (Negative) Negative Urine Bilirubin (Negative) Negative Urine Urobilinogen (Up TO 0.2) EU/dL 0.2 Ur Leukocyte Esterase (Negative) Trace H Urine RBC (0-2) HPF 0-2 Urine WBC (0-5) HPF 3-5 Ur Epithelial Cells (Negative) HPF Moderate Urine Crystals (Negative) HPF Moderate Amorphous Urine Bacteria (Negative) HPF Few Urine Casts (Negative) LPF Negative Urine Mucus (Negative) Negative Ur Culture Indicated? No/Sq. Contamination Urine Glucose (Negative) mg/dL Negative HPI General Mode of arrival: ambulatory. Date/Time Provider Initiated Documentation: 10/18/21 07:05. Limitations to Documentation: no limitations. Information obtained by: patient. HPI Narrative: Patient is a [id number] at 20-weeks of who presents for nausea and vomiting since 3 AM. This is patient's ninth visit for this for nausea and vomiting. She was last seen here 4 days ago for the same complaint. She states she has been taking Zofran and Reglan at 4am without relief. Patient states she called [facility] and was advised to come here for evaluation of fluids. She has also been admitted twice for IV fluids to [facility] last month. She denies any fever, chest pain, shortness of breath, abdominal pain, diarrhea or urinary symptoms. Related Data Home Medications Medication Instructions Recorded Confirmed albuterol sulfate 90 mcg/actuation 2 puff INHALATION PRN PRN 06/11/15 10/18/21 aerosol inhaler (ProAir HFA) vits,calcium no.78-iron 1 tab PO DAILY #90 tab 06/29/21 10/18/21 fumarate-folic acid 29 mg-1 mg tablet (PreTAB) venlafaxine 75 mg capsule,extended 75 mg PO DAILY #90 cap 06/29/21 10/18/21 release 24 hr (Effexor XR) doxylamine 10 mg-pyridoxine (vit 1 tab PO BID PRN #10 tab 07/29/21 10/18/21 B6) 10 mg tablet,delayed release (Diclegis) ondansetron 8 mg disintegrating 8 mg PO Q8H #90 tab 08/30/21 10/18/21 tablet pantoprazole 40 mg tablet,delayed 40 mg PO DAILY #30 tab 08/30/21 10/18/21 release (Protonix) metoclopramide HCl 10 mg tablet 10 mg PO Q6H PRN #60 tab 09/10/21 10/18/21 (Reglan) aspirin 81 mg tablet,delayed 81 mg PO DAILY #90 tab 09/17/21 10/18/21 release ondansetron 4 mg disintegrating 4 mg PO TID PRN #6 tab 10/14/21 10/18/21 tablet Previous Rx's Medication Instructions Recorded vits,calcium no.78-iron 1 tab PO DAILY #90 tab 06/29/21 fumarate-folic acid 29 mg-1 mg tablet (PreTAB) venlafaxine 75 mg capsule,extended 75 mg PO DAILY #90 cap 06/29/21 release 24 hr (Effexor XR) doxylamine 10 mg-pyridoxine (vit 1 tab PO BID PRN #10 tab 07/29/21 B6) 10 mg tablet,delayed release (Diclegis) ondansetron 8 mg disintegrating 8 mg PO Q8H #90 tab 08/30/21 tablet pantoprazole 40 mg tablet,delayed 40 mg PO DAILY #30 tab 08/30/21 release (Protonix) metoclopramide HCl 10 mg tablet 10 mg PO Q6H PRN #60 tab 09/10/21 (Reglan) aspirin 81 mg tablet,delayed 81 mg PO DAILY #90 tab 09/17/21 release ondansetron 4 mg disintegrating 4 mg PO TID PRN #6 tab 10/14/21 tablet Allergies Allergy/AdvReac Type Severity Reaction Status Date / Time sertraline Allergy Intermediate Verified 10/18/21 07:12 black flies Allergy Intermediate Uncoded 10/18/21 07:12 cats Allergy Intermediate Uncoded 10/18/21 07:12 General Stated Complaint: Nausea/Vomit/Diar ETHAN: 3 Review of Systems All systems reviewed & are unremarkable except as noted in HPI and below Constitutional Constitutional: Reports as per HPI, Denies chills and Denies fever(s) Eyes Eyes: Denies blurry vision ENT Ears, Nose, Mouth, and Throat: Denies dizziness, Denies sore throat and Denies throat swelling Cardiovascular Cardiovascular: Denies chest pain and Denies dyspnea Respiratory Respiratory: Denies cough and Denies dyspnea Gastrointestinal Gastrointestinal: Denies abdominal pain, Denies diarrhea, Reports nausea and Reports vomiting Genitourinary Genitourinary: Denies hematuria and Denies dysuria Musculoskeletal Musculoskeletal: Denies back pain and Denies numbness Integumentary/Breasts Skin/Breast: Denies lesions and Denies rash Neurologic Neurologic: Denies dizziness, Denies localized weakness and Denies numbness Allergic/Immunologic Allergic/Immunologic: Denies throat swelling PFSH All Active Problems (Updated 10/18/21 @ 09:31 by Ester Ramirez DO) Vomiting during (Acute) Vomiting during (Acute) Low lying placenta nos or without hemorrhage, second trimester (Acute) Acute dehydration (Acute) History of gestational hypertension (Acute) Maternal varicella, non-immune (Acute) Vomiting during (Acute) Posttraumatic stress disorder (Acute) History of migraine (Acute) (Acute) Depressed (Acute) Cannabis abuse (Acute) Medical History Acute hypokalemia Adjustment reaction of adolescence Allergic rhinitis, unspecified Amenorrhea Amenorrhea Asthma Attention deficit disorder with hyperactivity Bipolar disorder Chlamydia contact Chlamydia vaginitis/cervicitis Concussion without loss of consciousness, sequela Dizziness Exercise-induced asthma Headache Hypomagnesemia Laceration of labia minora Mood disorder due to known physiological condition with depressive features Pain of right hand RAD (reactive airway disease) Seasonal allergies Sleep disturbance Subacute thyroiditis Suicidal ideation Urinary tract infection Surgical History History of tonsillectomy Family History Paternal Grandfather Diabetes Maternal Grandfather Heart disease mi w/ double bypass Hypertension Mother Hypothyroid Social History Smoking/Tobacco Use Status: Never Smoking risk assessment performed?: Yes Alcohol Intake: never Substance use type: former substance user Date of last use: marajuana and marijuana Counseling provided: treatment program Details: pt. denies marijuana use at this time Sexually active: Yes Do you feel safe at home: Yes Do you feel safe in your relationship?: Yes Additional Social history: Apartment issues -hole in ceiling with black mold state came to visit today Female Reproductive History Menstrual Age of Menarche: 12 Duration of menses: 3-5 days control method: pills History History 3 Para 1 Hx # Term Pregnancies 1 Multiple births 0 Hx # Pregnancies 0 Ectopic pregnancies 0 AB induced 0 Hx Number of Living Children 1 AB spontaneous 1 Past Pregnancies Del. Date GA/Weeks # Outcome Route Wgt Sex Labor Lgth Anesthesia Location Prov Complic 08/30/19 39 No Successful vaginal 2976.7 g Female 5 hr labor the day before scheduled induction for gHTN Soledad Rodney CNM Delivery Date: 08/30/19 Last Updated by: Ros Fagan No meds in labor, stayed in tub. Nitrous for 1st degree lac repair. gHTN, BP improved after . Heavy bleeding per pt. Exam Const General: cooperative, healthy appearing and no acute distress Orientation: alert, awake and oriented x3 HENMT Head: normal to inspection Mouth: oral mucosae normal Eyes General: appearance normal, both eyes and all related structures Neck Neck: normal visual inspection Resp Effort & Inspection: normal respiratory effort and able to speak in complete sentences Auscultation: clear to auscultation bilaterally Cardio Rate: regular rate Rhythm: regular rhythm GI Inspection: normal to inspection Palpation: soft, not firm, no guarding, not rigid and nontender Auscultation: no hypoactive bowel sounds Other: Uterus palpable just below umbilicus. Skin General skin exam: no rashes or lesions noted Neuro General: patient alert, patient awake and patient oriented x3 Motor: muscle tone normal throughout Extrem General: normal to inspection and full ROM Psych Appearance: grossly normal Affect: normal affect Course Vital Signs Vital signs: Vital Signs Temperature 98.6 F 10/18/21 07:10 Pulse 83 10/18/21 07:10 Respiratory Rate 16 10/18/21 07:10 Blood Pressure 135/86 10/18/21 07:10 Pulse Oximetry 99 10/18/21 07:10 Temperature 98.6 F 10/18/21 07:10 Temperature Source Skin 10/18/21 07:10 Pulse 83 10/18/21 07:10 Respiratory Rate 16 10/18/21 07:10 Respiratory Effort 10/18/21 07:10 Blood Pressure 135/86 10/18/21 07:10 Blood Pressure Position Supine 10/18/21 07:10 Pulse Oximetry 99 10/18/21 07:10 Oxygen Delivery Method Room Air 10/18/21 07:10 Oxygen Flow Rate 0 10/18/21 07:10 Pain Level 5 10/18/21 07:10
[2021-10-18 07:37] LABS: Abs Immature Grans 0.06 10^3/uL (0.0-0.06); Absolute Basophil Count 0.06 10^3/uL (0.0-0.2); Absolute Eosinophil Count 0.39 10^3/uL (0.0-0.7); Absolute Lymphocyte Count 1.72 10^3/uL (1.2-3.4); Basophils % 0.5; Eosinophils % 3.2; HCT 33.7 % (36.0-46.0); HGB 11.4 g/dL (11.2-15.7); Immature Grans % 0.5; MCH 29.1 pg (27.0-33.0); MCHC 33.8 % (32.0-36.0); MPV 10.8 fL (8.0-11.0); Monocytes % 7.3; Neutrophils % 74.5; Nucleated RBC 0 %; Platelet Count 222 10^3/uL (130-400); RBC 3.92 10^6/uL (3.93-5.22); RDW 12.8 % (11.7-14.6); RDW-SD 39.7 fL; WBC 12.25 10^3/uL (4.4-10.8)
[2021-10-18] MEDS: Ondansetron 4 MG/2 ML VIAL IVP (07:37)
[2021-10-18 07:38] LABS: Absolute Monocyte Count 0.89 10^3/uL (0.1-0.8); Absolute Neutrophil Count 9.13 10^3/uL (1.2-6.7)
[2021-10-18 07:51] LABS: Bilirubin Negative (Negative); Blood Negative (Negative); Clarity Sl Cloudy (Clear); Glucose Negative (Negative); Ketones Negative (Negative); Leukocyte Esterase Trace (Negative); Nitrite Negative (Negative); Urobilinogen 0.2 EU/dL (Up TO 0.2)
[2021-10-18 07:57] LABS: Bacteria Few HPF (Negative); C & S Indicated? No/Sq. Contamination; Casts Negative LPF (Negative); Crystals Moderate Amorphous HPF (Negative); Epithelial Cells Moderate HPF (Negative); Mucus Negative (Negative); RBC 0-2 HPF (0-2)
[2021-10-18] MEDS: Metoclopramide 10 MG/2 ML VIAL IVP (08:04)
[2021-10-18 08:11] LABS: ALT 27 U/L (14-59); AST 12 U/L (15-37); Albumin 3.5 g/dL (3.4-5.0); Alkaline Phosphatase 38 U/L (46-116); BUN 5 mg/dL (7-18); Bilirubin, Total 0.3 mg/dL (0.2-1.0); CREATININE 0.5 mg/dL (0.55-1.02); Calcium 8.6 mg/dL (8.5-10.1); Chloride 103 mmol/L (98-107); Glucose 103 mg/dL (74-106); Potassium 3.5 mmol/L (3.5-5.1); Sodium 138 mmol/L (136-145); Total Protein 7.4 g/dL (6.4-8.2)
[2021-10-18 09:09] LABS: Anion Gap 8.5 mmol/L (3-11); BUN 4 mg/dL (7-18); CO2 23.5 mmol/L (21.0-32.0); CREATININE 0.4 mg/dL (0.55-1.02); Calcium 7.5 mg/dL (8.5-10.1); Chloride 106 mmol/L (98-107); Glucose 93 mg/dL (74-106); Potassium 3.6 mmol/L (3.5-5.1); Sodium 138 mmol/L (136-145)
[2021-10-18 09:26] VITALS: BP 116/58; PULSE 71; RESP 16; TEMP 36.5; O2SAT 100
[2021-10-18 09:31] VITALS: BP 116/58; PULSE 71; RESP 16; TEMP 36.5; O2SAT 100
== END 2021-10-18 09:35 | disposition home or self-care (01) ==
PROVIDERS: Emergency Provider Physician Assistant; PCP Family Medicine
DX: O21.8 Other vomiting complicating pregnancy (principal); Z3A.20 20 weeks gestation of pregnancy
CPT/HCPCS: 36415; 80048; 80053; 96361; 96374; 96375; 99284; 81003; 81015; 85025; 99283; J2405; J2765

== ENCOUNTER 2021-11-09 06:27 | Observation (INO) | payer MEDICAID, SELFPAY ==
[2021-11-09 10:20] VITALS: BP 124/79; PULSE 76; RESP 16; TEMP 36.7; O2SAT 98
[2021-11-09] MEDS: Ondansetron O.D.T. 4 MG TABEF 8 MG PO (10:30)
[2021-11-09 10:38] LABS: Source Nasal/Nares
--- NOTE | 2021-11-09 10:50 | W.PM.OBHPL1 ---
Date of service: 11/09/21 Time of Service: 10:50 Assessment and Plan Assessment and plan (1) Vomiting during : Status: Acute Assessment and plan: Admit to the center. IV hydration x 500 cc LR. PO zofran 8 mg ODT. Consider additional medications if vomiting persists. OB-HPI Labor/Delivery History of Present Illness Reason for Visit: Nauseau and Vomiting Chief Complaint: Other (nausea and vomiting). CORINNA Calculator Estimated Delivery Date Method Current WG Current Estimate 03/06/22 Ultrasound #1 23w 2d Other Estimates 01/26/22 LMP (Certain) 28w 6d Comments: Mynor called at 0600 this morning and reported vomiting x 2 hours. She has had repeated admissions to the ED for this. She has prescriptions for reglan and zofran ODT. She took the reglan this morning and vomited it. She also reported diarrhea this morning. Mynor did not have a ride to the hospital and arrived at 1030. She reported on arrival that she did not take the zofran as prescribed because she couldn't find the box of zofran. When I asked her where it might be she said , I don't know, maybe my two year old has the box. She was given zofran 8 mg ODT on admission and we discussed starting an IV for hydration due to the large ketones in her urine. She also reports that she has swollen ankles. History of Present Expected Delivery Route/Plan - CNM FOB/byfrnd - Mitul Kelly (his first child) BB yes to circ Dandre Varicella Non-Immune, offer vaccine Specific Issues/Plan 1. H/O suicidal ideation, PTSD and depression. Enrolled in [employer] 1a. Takes Effexor 75 ER, needs q-visit check in on mood 1b. Has hx of housing issues, offer resources via [facility] if needed 1c. Enrolled in [employer], discussed pt situation 3/3; will be referred for home visits, & appt's w/[facility] 2. History of marijuana use; UDS is THC+, repeat @ 28 wks ____ 3. History Migraine 4. History of gestational HTN; advised to start low dose ASA @ 12 wks 4a. recommended pt do early glucola d/t hx gHTN: done 2=110 5. Declines flu vaccine; declines COVID vaccine. FOB had first vaccine 08/22/21, 2nd one for 10/02 6. Varicella Non-Immune, offer vaccine 7. Declines genetic screening tests 8. Low lying placenta, consider follow up 32 weeks (1.3cm from OS at 19 weeks) PFSH All Active Problems (Updated 11/09/21 @ 12:13 by Brenda Mcmullen CNM) Vomiting during (Acute) Low lying placenta nos or without hemorrhage, second trimester (Acute) History of gestational hypertension (Acute) Maternal varicella, non-immune (Acute) Posttraumatic stress disorder (Acute) History of migraine (Acute) (Acute) Depressed (Acute) Cannabis abuse (Acute) Medical History (Updated 11/09/21 @ 12:13 by Brenda Mcmullen CNM) Allergic rhinitis, unspecified Asthma Attention deficit disorder with hyperactivity Bipolar disorder Concussion without loss of consciousness, sequela Dizziness Exercise-induced asthma Headache Laceration of labia minora Mood disorder due to known physiological condition with depressive features RAD (reactive airway disease) Seasonal allergies Sleep disturbance Subacute thyroiditis Suicidal ideation Surgical History History of tonsillectomy Family History Paternal Grandfather Diabetes Maternal Grandfather Heart disease mi w/ double bypass Hypertension Mother Hypothyroid Social History Smoking/Tobacco Use Status: Never Smoking risk assessment performed?: Yes Alcohol Intake: never Substance use type: former substance user Date of last use: marajuana and marijuana Counseling provided: treatment program Details: pt. denies marijuana use at this time Sexually active: Yes Do you feel safe at home: Yes Do you feel safe in your relationship?: Yes Additional Social history: Apartment issues -hole in ceiling with black mold state came to visit today Female Reproductive History Menstrual Age of Menarche: 12 Duration of menses: 3-5 days control method: pills History History 3 Para 1 Hx # Term Pregnancies 1 Multiple births 0 Hx # Pregnancies 0 Ectopic pregnancies 0 AB induced 0 Hx Number of Living Children 1 AB spontaneous 1 Past Pregnancies Del. Date GA/Weeks # Outcome Route Wgt Sex Labor Lgth Anesthesia Location Prov Complic 08/30/19 39 No Successful vaginal 6 lb 9 oz Female 5 hr labor the day before scheduled induction for gHTN Soledad Rodney CNM Delivery Date: 08/30/19 Last Updated by: Ros Fagan No meds in labor, stayed in tub. Nitrous for 1st degree lac repair. gHTN, BP improved after . Heavy bleeding per pt. Meds Allergies and Home Medications Allergies Allergy/AdvReac Type Severity Reaction Status Date / Time sertraline Allergy Intermediate Verified 10/18/21 13:11 black flies Allergy Intermediate Uncoded 10/18/21 13:11 cats Allergy Intermediate Uncoded 10/18/21 13:11 Home Medications Medication Instructions Recorded Confirmed Type albuterol sulfate 90 mcg/actuation 2 puff INHALATION PRN PRN 06/11/15 10/18/21 History aerosol inhaler (ProAir HFA) vits,calcium no.78-iron 1 tab PO DAILY #90 tab 06/29/21 10/18/21 Rx fumarate-folic acid 29 mg-1 mg tablet (PreTAB) venlafaxine 75 mg capsule,extended 75 mg PO DAILY #90 cap 06/29/21 10/18/21 Rx release 24 hr (Effexor XR) ondansetron 8 mg disintegrating 8 mg PO Q8H #90 tab 08/30/21 10/18/21 Rx tablet pantoprazole 40 mg tablet,delayed 40 mg PO DAILY #30 tab 08/30/21 10/18/21 Rx release (Protonix) metoclopramide HCl 10 mg tablet 10 mg PO Q6H PRN #60 tab 09/10/21 10/18/21 Rx (Reglan) aspirin 81 mg tablet,delayed 81 mg PO DAILY #90 tab 09/17/21 10/18/21 Rx release Exam Physical Exam Vital signs: Temp Pulse Resp BP Pulse Ox 98.1 F 76 16 124/79 98 11/09/21 10:20 11/09/21 10:20 11/09/21 10:20 11/09/21 10:20 11/09/21 10:20 Detailed Labor and Delivery Exam Ng Score: Cervical Points Exam 0 1 2 3 Dilation Closed 1-2cm 3-4 cm 5-6cm Effacement 0-30% 40-50% 60-70% 80% Consistency Firm Medium Soft Station -3 -2 -1,0 +1,+2 Position Posterior Mid Anterior Fetus A Assessment Note: Heart tones 145 by doppler Respiratory Exam Respiratory Exam: Normal Cardiovascular Exam Cardiovascular Exam: Normal Extremities Exam Extremities Exam: Normal (no edema. ) Risk Assessment Risk for Shoulder Dystocia Historical/Initial OB: POSITIVE FOR: Pre- BMI>30; NEGATIVE FOR: Pelvic Abnormality, Previous Shoulder Dystocia or Previous Macrosomia Date/Initial: 08/02/21 [facility]U Risk for Pre-Eclampsia Date Initiated/Initials: is indicated, as of 15 wks had not started, re-counseled to begin 09/17 Yes, if one or more: POSTIVE FOR: Hx Pre-E/Gest HTN; NEGATIVE FOR: Chronic HTN, Multiple Gestation, Pre-gestational DM, Renal Disease, Systemic Lupus or APA Syndrome Yes, if 2 or more: POSITIVE FOR: BMI>30; NEGATIVE FOR: Nulliparity, Age>= 35 yrs, >10yr btwn pregnancies, ethinicty, Mother/Sister w/ Pre-E or Previous IUGR Risk for Post- Hemorrhage Initial: NEGATIVE FOR: Multiple Gestation, Previous PPH, Known Clotting Deficiency, Grand Multiparity or Anticoagulation Interventions: at first ob low risk al Date/Initials: 08/02/21: [facility] Risks Reviewed Risks Reviewed Upon Admission: Yes
[2021-11-09] MEDS: Lactated Ringers 500 ML IV (11:05)
[2021-11-09 11:23] LABS: *AMPHETAMINES SCREEN URINE Negative (Negative); *BARBITURATES SCREEN URINE Negative (Negative); *BENZODIAZEPINES SCREEN URINE Negative (Negative); Cannabinoids THC Positive (Negative); Cocaine Screen,Urine Negative (Negative); METHADONE URINE SCREEN Negative (Negative); OPIATES URINE SCREEN Negative (Negative); Tricyclic Antidepressants Negative (Negative)
[2021-11-09 12:15] LABS: COVID-19 PCR Negative (Negative)
--- NOTE | 2021-11-09 12:17 | NUTRITION ---
pt sleeping, 500 cc bolus done. When pt wakes up will have her try to take sips of gingerale.
--- NOTE | 2021-11-09 12:44 | NUR.NOTE ---
pt awake from nap, states she's feeling better, taking sips of gingerale Nursing Note:
--- NOTE | 2021-11-09 13:00 | DSE_ITS ---
DS: Diagnosis Discharge Diagnosis (1) Vomiting during : Status: Acute Asessment and Plan: Mynor took ondansetron 8 mg ODT and slept for a few hours. When she awoke, she felt well and had gustavo mckenzie and berhane crackers. Wendy called her boyfriend who located her zofran prescription on her bureau. Mynor has not been taking it because she doen't feel nauseated during the day. She reports that she only takes reglan when she feels ill and it makes her feel drowsy. We discussed taking zofran 8 mg ODT every night at bedtime and again in the morning if she awakes feeling nauseated. She agreed to try that. We discussed side effect of constipation with zofran and she would like to try colace and that was ordered. She requests to go home and is discharged at this time. Discharge Plan Discharge Details Reason For Visit: [place] and Vomiting Admit Date/Time: 11/09/21 06:27 Admit Provider: Brenda Mcmullen Attending Provider: Brenda Mcmullen Primary Care Provider: Lindsay Miranda V Home Meds and New Rx's Prescriptions: New docusate sodium [Colace] 100 mg capsule 100 mg PO BID Qty: 30 4RF Continued venlafaxine [Effexor XR] 75 mg capsule,extended release 24hr 75 mg PO DAILY Qty: 90 0RF aspirin 81 mg tablet,delayed release (DR/EC) 81 mg PO DAILY Qty: 90 4RF Rx Instructions: take one tablet daily, alternating with two tablets every other day ondansetron 8 mg tablet,disintegrating 8 mg PO Q8H Qty: 90 0RF pantoprazole [Protonix] 40 mg tablet,delayed release (DR/EC) 40 mg PO DAILY Qty: 30 1RF metoclopramide HCl [Reglan] 10 mg tablet 10 mg PO Q6H PRN (Reason: nausea and vomiting) Qty: 60 1RF albuterol sulfate [ProAir HFA] 200 PUFF HFA aerosol inhaler 2 puff Inhalation PRN PRN0RF No Action PreTAB 29-1 mg tablet 1 tab PO DAILY Qty: 90 4RF Discharge Instructions Activity:: Activity as Tolerated Activity:: Activity as Tolerated Equipment/Supplies:: No Equipment Needed Diet:: As Tolerated OB:DS Summary Contraception Discussed Contraception Discussed: No, Status at Discharge Functional status at discharge: independent ambulation Overall status at discharge: patient is back to baseline Mental Status: mental status grossly normal Speech and Movement: speech and movement normal Mood: congruent mood Affect: normal affect Exam Physical Exam Vital signs: Temp Pulse Resp BP Pulse Ox 98.1 F 76 16 124/79 98 11/09/21 10:20 11/09/21 10:20 11/09/21 10:20 11/09/21 10:20 11/09/21 10:20 PFSH All Active Problems (Updated 11/09/21 @ 12:13 by Brenda Mcmullen CNM) Vomiting during (Acute) Low lying placenta nos or without hemorrhage, second trimester (Acute) History of gestational hypertension (Acute) Maternal varicella, non-immune (Acute) Posttraumatic stress disorder (Acute) History of migraine (Acute) (Acute) Depressed (Acute) Cannabis abuse (Acute) Medical History (Updated 11/09/21 @ 12:13 by Brenda Mcmullen CNM) Allergic rhinitis, unspecified Asthma Attention deficit disorder with hyperactivity Bipolar disorder Concussion without loss of consciousness, sequela Dizziness Exercise-induced asthma Headache Laceration of labia minora Mood disorder due to known physiological condition with depressive features RAD (reactive airway disease) Seasonal allergies Sleep disturbance Subacute thyroiditis Suicidal ideation Surgical History History of tonsillectomy Family History Paternal Grandfather Diabetes Maternal Grandfather Heart disease mi w/ double bypass Hypertension Mother Hypothyroid Social History Smoking/Tobacco Use Status: Never Smoking risk assessment performed?: Yes Alcohol Intake: never Substance use type: former substance user Date of last use: marajuana and marijuana Counseling provided: treatment program Details: pt. denies marijuana use at this time Sexually active: Yes Do you feel safe at home: Yes Do you feel safe in your relationship?: Yes Additional Social history: Apartment issues -hole in ceiling with black mold state came to visit today Female Reproductive History Menstrual Age of Menarche: 12 Duration of menses: 3-5 days control method: pills History History 3 Para 1 Hx # Term Pregnancies 1 Multiple births 0 Hx # Pregnancies 0 Ectopic pregnancies 0 AB induced 0 Hx Number of Living Children 1 AB spontaneous 1 Past Pregnancies Del. Date GA/Weeks # Outcome Route Wgt Sex Labor Lgth Anesthes ia Location [facility] 08/30/19 39 No Successful vaginal 6 lb 9 oz Female 5 hr labor the day before scheduled induction for gHTN Soledad Rodney CNM Delivery Date: 08/30/19 Last Updated by: Ros Fagan No meds in labor, stayed in tub. Nitrous for 1st degree lac repair. gHTN, BP improved after . Heavy bleeding per pt. DS: Data Vitals/I&O Vitals and I&O: Vital Signs Temperature 98.1 F 11/09/21 10:20 Pulse 76 11/09/21 10:20 Pulse Rhythm Regular 11/09/21 10:20 Respiratory Rate 16 11/09/21 10:20 Blood Pressure 124/79 11/09/21 10:20 Blood Pressure Mean 94 11/09/21 10:20 Pulse Oximetry 98 11/09/21 10:20 Oxygen Delivery Method Room Air 11/09/21 10:20 Oxygen Flow Rate 0 11/09/21 10:20 Pain Level 2 11/09/21 10:20 Intake & Output 11/08/21 11/09/21 11/09/21 23:59 11:59 23:59 Output Total 150 / 150 Balance -150 / -150 Output: Urine 150 / 150 Data Completed and Pending Labs on day of discharge: Labs from last 24 hours 11/09/21 11/09/21 10:31 10:25 Urine Opiates Screen Negative Urine Methadone Screen Negative Ur Barbiturates Screen Negative Ur Tricyclics Screen Negative Ur Amphetamines Screen Negative U Benzodiazepines Scrn Negative Urine Cocaine Screen Negative Ur THC Screen Positive A COVID-19 Source Nasal/Nares SARS-CoV-2 (PCR) Negative
== END 2021-11-09 13:14 | disposition home or self-care (01) ==
LOC: OBS 10:24
PROVIDERS: Admitting Provider Advanced Practice Midwife; PCP Family Medicine; Visit Provider Advanced Practice Midwife
DX: O21.2 Late vomiting of pregnancy (principal); O44.42 Low lying placenta NOS or without hemorrhage, second trimester; O99.322 Drug use complicating pregnancy, second trimester; O99.342 Other mental disorders complicating pregnancy, second trimester; F32.A Depression, unspecified; O99.352 Diseases of the nervous system complicating pregnancy, second trimester; Z3A.23 23 weeks gestation of pregnancy; G43.909 Migraine, unspecified, not intractable, without status migrainosus; F43.10 Post-traumatic stress disorder, unspecified; F12.10 Cannabis abuse, uncomplicated; Z20.822 Contact with and (suspected) exposure to COVID-19
CPT/HCPCS: 80307; 87635; 96360; G0378

== ENCOUNTER 2021-12-13 05:02 | Outpatient (CLI) | payer MEDICAID, SELFPAY ==
[2021-12-13 14:02] LABS: HCT 31.3 % (36.0-46.0); HGB 10.2 g/dL (11.2-15.7); MCH 27.8 pg (27.0-33.0); MCHC 32.6 % (32.0-36.0); MCV 85.3 fL (80-95); MPV 10.7 fL (8.0-11.0); Platelet Count 222 10^3/uL (130-400); RBC 3.67 10^6/uL (3.93-5.22); RDW 13.2 % (11.7-14.6); RDW-SD 41.2 fL; WBC 12.65 10^3/uL (4.4-10.8)
[2021-12-13 14:11] LABS: Glucose,1 Hr (Glucola) 88 mg/dL (80-140)
== END 2021-12-13 05:03 | disposition home or self-care (01) ==
LOC: LBO 05:02
PROVIDERS: PCP Family Medicine; Visit Provider Advanced Practice Midwife
DX: Z34.93 Encounter for supervision of normal pregnancy, unspecified, third trimester (principal); Z3A.28 28 weeks gestation of pregnancy
CPT/HCPCS: 36415; 82950; 85027

== ENCOUNTER 2021-12-13 19:18 | Outpatient (REF) | payer MEDICAID, SELFPAY | END 2021-12-13 19:19 | disposition home or self-care (01) | LOC: LBN 19:18 | PROVIDERS: PCP Family Medicine; Visit Provider Advanced Practice Midwife | DX: N89.8 Other specified noninflammatory disorders of vagina (principal) | CPT/HCPCS: 87480; 87510; 87660 ==

== ENCOUNTER 2021-12-27 18:25 | Outpatient (REF) | payer MEDICAID, SELFPAY ==
[2021-12-27 17:18] LABS: *AMPHETAMINES SCREEN URINE Negative (Negative); *BARBITURATES SCREEN URINE Negative (Negative); *BENZODIAZEPINES SCREEN URINE Negative (Negative); Cannabinoids THC Positive (Negative); Cocaine Screen,Urine Negative (Negative); METHADONE URINE SCREEN Negative (Negative); OPIATES URINE SCREEN Negative (Negative)
[2021-12-27 17:20] LABS: Tricyclic Antidepressants Negative (Negative)
[2022-01-01 13:05] LABS: Buprenorphine Negative ng/mL (Cutoff: 5.0); Norbuprenorphine Negative ng/mL (Cutoff: 2.5)
== END 2021-12-27 18:26 | disposition home or self-care (01) ==
LOC: LBN 18:25
PROVIDERS: PCP Family Medicine; Visit Provider Advanced Practice Midwife
DX: Z34.93 Encounter for supervision of normal pregnancy, unspecified, third trimester (principal); Z3A.30 30 weeks gestation of pregnancy
CPT/HCPCS: 80307

== ENCOUNTER 2022-01-02 10:18 | Outpatient (CLI) | payer MEDICAID, SELFPAY ==
[2022-01-02 10:54] VITALS: BP 126/73; PULSE 122; TEMP 36.9
[2022-01-02 10:55] VITALS: BP 126/73; PULSE 122
[2022-01-02 12:17] LABS: ROM Plus Negative
[2022-01-02 12:32] VITALS: BP 126/73; PULSE 122; TEMP 36.9
--- NOTE | 2022-01-02 12:37 | PDOC.NST_ITS ---
Date of service: 01/02/22 Time of Service: 12:20 NST Evaluation Reason for NST Reasons for Nonstress Test: FALSE LABOR Gestational Age Gestational Age in Weeks and Days: 31 Weeks and 0Days Test and Monitor Explained Test/Monitor Explained: Test Explained, Monitor Explained and Patient Verbalized Understanding Vital Signs Blood Pressure: 126/73 Pulse: 122 Temperature: 98.5 F Urine Results Urine Protein: Negative Urine Ketones: Negative Urine Glucose: Negative Urine Blood: Negative NST Information Date on Monitor: 01/02/22 Time on Monitor: 10:51 Date off Monitor: 01/02/22 Time off Monitor: 11:48 Total Time on Monitor: 57 NST Interventions: PO Hydration Contraction Frequency: 0 NST Evaluation Patient States Movement: Present FHR Baseline: 140 Variability: Moderate 6-25 bpm Accelerations: 15x15 Decelerations: None NST Results: Reactive Note NST Note Note: 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 No bright red bleeding or active contractions. She brought picture of discharge that was consistent with o ld blood. SSE done and is negative for ferning, nitrazine negative and ROM plus negative. She denies having had recent intercourse. She reports that once she was here and resting she was feeling much better. Cervix thick and closed. Patient is reassured. NST is reactive and reassuring. We reviewed signs or ROM or labor to report. Has next appointment and US on 01/10/22. Discharged to home in satisfactory condition. WU NST Reviewed and Verified by: Brenda Medrano
[2022-01-02 12:40] VITALS: BP 126/73; PULSE 122; TEMP 36.9
== END 2022-01-02 12:36 | disposition home or self-care (01) ==
LOC: BCD 10:20 → OBS 10:24
PROVIDERS: PCP Family Medicine; Visit Provider Advanced Practice Midwife
DX: O47.03 False labor before 37 completed weeks of gestation, third trimester (principal)
CPT/HCPCS: 59025; 84112

== ENCOUNTER 2022-01-09 09:08 | Outpatient (CLI) | payer MEDICAID, SELFPAY ==
[2022-01-09] VITALS (18 sets, daily range): BP systolic 111–117; BP diastolic 70–74; PULSE 108–153; RESP 18; TEMP 36.6–36.7; O2SAT 96–98
--- NOTE | 2022-01-09 11:22 | W.PM.OBHPL1 ---
Date of service: 01/09/22 Time of Service: :22 Assessment and Plan Assessment and plan (1) Encounter for suspected PROM, with rupture of membranes not found: Status: Acute Assessment and plan: Mynor' urine was very concentrated. trace of blood. No ketones. UDS sent and GBS swab. ROM plus pending. Await ROM plus results OB-HPI Labor/Delivery History of Present Illness Reason for Visit: NST Chief Complaint: Suspected Rupture of Membranes , Associated Signs and Symptoms of Suspected ROM: pain in abdomen. CORINNA Calculator Estimated Delivery Date Method Current WG Current Estimate 03/06/22 Ultrasound #1 32w 0d Other Estimates 01/26/22 LMP (Certain) 37w 4d Comments: Mynor called yesterday and reported that she thought she might have heat stroke. She was outside in 80 degree weather and she became dizzy and vomited. I encourage her to rest and drink fluids and try ice packs for comfort . When i called her back she was feeling better and drinking powerade without difficulty. She called back at 2130 to say that she had gotten out of a chair and experienced a small amount of leaking fluid. She did not have a ride to the hospital at that time. I encourahge her to come in this morning. I cole her at 0950 and she was at home but said she would come in. Upon arrival, her heart rate was elevated but it did come down with rest. FHTs 130 with average variability. She also complains of a sharp pain in her lower right quadrant of her abdomen which she has had for 3 days. It is worse with movement and rolling over in bed History of Present Expected Delivery Route/Plan - CNM FOB/byfrnd - Mitul Leticia (his first child) BB yes to circ Dandre Varicella Non-Immune, offer vaccine IUD 6 weeks PP had expulsion with last one done immediately PP Specific Issues/Plan 1. H/O suicidal ideation, PTSD and depression. Enrolled in [employer] 1a. Takes Effexor 75 ER, needs q-visit check in on mood 1b. Has hx of housing issues, offer resources via [facility] if needed 1c. Enrolled in [employer], discussed pt situation 3/3; will be referred for home visits, & appt's w/ [facility] 2. History of marijuana use; UDS is THC+, THC remains + at 23 weeks and @ 28 wks, complete POSC ____ 3. History Migraine 4. History of gestational HTN; advised to start low dose ASA @ 12 wks 4a. recommended pt do early glucola d/t hx gHTN: done 2=110 5. Declines flu vaccine; declines COVID vaccine. FOB had first vaccine 08/22/21, 2nd one for 10/02 6. Varicella Non-Immune, offer vaccine 7. Declines genetic screening tests 8. Low lying placenta, consider follow up 32 weeks (1.3cm from OS at 19 weeks) PFSH All Active Problems (Updated 01/09/22 @ 11:37 by Brenda Mcmullen CNM) Encounter for suspected PROM, with rupture of membranes not found (Acute) Vaginal discharge (Acute) Mild anemia (Acute) related hip pain, antepartum (Acute) Low lying placenta nos or without hemorrhage, second trimester (Acute) History of gestational hypertension (Acute) Maternal varicella, non-immune (Acute) Posttraumatic stress disorder (Acute) History of migraine (Acute) (Acute) Depressed (Acute) Cannabis abuse (Acute) Medical History (Updated 01/09/22 @ 11:37 by Brenda Mcmullen CNM) Allergic rhinitis, unspecified Asthma Attention deficit disorder with hyperactivity Bipolar disorder Concussion without loss of consciousness, sequela Dizziness Exercise-induced asthma Headache Laceration of labia minora Mood disorder due to known physiological condition with depressive features RAD (reactive airway disease) Seasonal allergies Sleep disturbance Subacute thyroiditis Suicidal ideation Surgical History History of tonsillectomy Family History Paternal Grandfather Diabetes Maternal Grandfather Heart disease mi w/ double bypass Hypertension Mother Hypothyroid Social History Smoking/Tobacco Use Status: Never Smoking risk assessment performed?: Yes Alcohol Intake: never Substance use type: former substance user Date of last use: marajuana and marijuana Counseling provided: treatment program Details: pt. denies marijuana use at this time Sexually active: Yes Do you feel safe at home: Yes Do you feel safe in your relationship?: Yes Additional Social history: Apartment issues -hole in ceiling with black mold state came to visit today Female Reproductive History Menstrual Age of Menarche: 12 Duration of menses: 3-5 days control method: pills History History 3 Para 1 Hx # Term Pregnancies 1 Multiple births 0 Hx # Pregnancies 0 Ectopic pregnancies 0 AB induced 0 Hx Number of Living Children 1 AB spontaneous 1 Past Pregnancies Del. Date GA/Weeks # Outcome Route Wgt Sex Labor Lgth Anesthesia Location Prov Complic 08/30/19 39 No Successful vaginal 6 lb 9 oz Female 5 hr labor the day before scheduled induction for gHTN Soledad Rodney CNM Delivery Date: 08/30/19 Last Updated by: Ros Fagan No meds in labor, stayed in tub. Nitrous for 1st degree lac repair. gHTN, BP improved after . Heavy bleeding per pt. Meds Allergies and Home Medications Allergies Allergy/AdvReac Type Severity Reaction Status Date / Time sertraline Allergy Intermediate Verified 12/27/21 12:53 black flies Allergy Intermediate Uncoded 12/27/21 12:53 cats Allergy Intermediate Uncoded 12/27/21 12:53 Home Medications Medication Instructions Recorded Confirmed Type albuterol sulfate 90 mcg/actuation 2 puff inhalation PRN PRN 06/11/15 12/27/21 History aerosol inhaler (ProAir HFA) vits,calcium no.78-iron 1 tab PO DAILY #90 tabs 06/29/21 12/27/21 Rx fumarate-folic acid 29 mg-1 mg tablet (PreTAB) ondansetron 8 mg disintegrating 8 mg PO Q8H #90 tabs 08/30/21 12/27/21 Rx tablet aspirin 81 mg tablet,delayed 81 mg PO DAILY #90 tabs 09/17/21 12/27/21 Rx release docusate sodium 100 mg capsule 100 mg PO BID #30 caps 11/09/21 12/27/21 Rx (Colace) pantoprazole 40 mg tablet,delayed 40 mg PO DAILY #30 tabs 11/15/21 12/27/21 Rx release (Protonix) venlafaxine 75 mg capsule,extended See Rx Instructions .Route 11/16/21 12/27/21 Rx release 24 hr .COMPLEX #90 caps ferrous sulfate 324 mg (65 mg 324 mg PO DAILY #90 tabs 12/13/21 12/27/21 Rx iron) tablet,delayed release Exam Physical Exam Vital signs: Pulse BP Pulse Ox 117 H 114/70 96 01/09/22 10:47 01/09/22 10:12 01/09/22 10:47 Constitutional Comments: Mynor appears to be in no distress after resting for a few minutes, Her HR came down to 100-120, Detailed Labor and Delivery Exam Ng Score: Cervical Points Exam 0 1 2 3 Dilation Closed 1-2cm 3-4 cm 5-6cm Effacement 0-30% 40-50% 60-70% 80% Consistency Firm Medium Soft Station -3 -2 -1,0 +1,+2 Position Posterior Mid Anterior Contraction Frequency(min): none Comments: cervical exam deferred Fetus A Heart Rate Baseline: 130 Monitor Accelerations: 15 X 15 Monitor Decelerations: None Variability: Moderate (6-25 BPM) Presentation: Cephalic Categories: Category I Respiratory Exam Respiratory Exam: Normal Cardiovascular Exam Cardiovascular Exam: Normal Abdominal Exam Abdominal Exam: Normal Exam Exam: Normal Extremities Exam Extremities Exam: Normal Skin Exam Skin Exam: Normal Psychiatric Exam Psychiatric Exam: Normal Risk Assessment Risk for Shoulder Dystocia Historical/Initial OB: POSITIVE FOR: Pre- BMI>30; NEGATIVE FOR: Pelvic Abnormality, Previous Shoulder Dystocia or Previous Macrosomia Date/Initial: 08/02/21 WU Risk for Pre-Eclampsia Date Initiated/Initials: is indicated, as of 15 wks had not started, re-counseled to begin 09/17 Yes, if one or more: POSTIVE FOR: Hx Pre-E/Gest HTN; NEGATIVE FOR: Chronic HTN, Multiple Gestation, Pre-gestational DM, Renal Disease, Systemic Lupus or APA Syndrome Yes, if 2 or more: POSITIVE FOR: BMI>30; NEGATIVE FOR: Nulliparity, Age>= 35 yrs, >10yr btwn pregnancies, ethinicty, Mother/Sister w/ Pre-E or Previous IUGR Risk for Post- Hemorrhage Initial: NEGATIVE FOR: Multiple Gestation, Previous PPH, Known Clotting Deficiency, Grand Multiparity or Anticoagulation Interventions: at first ob low risk al Date/Initials: 08/02/21: Risks Reviewed Risks Reviewed Upon Admission: Yes
[2022-01-09 11:27] LABS: Bilirubin Negative (Negative); Blood Trace-intact (Negative); Clarity Sl Cloudy (Clear); Glucose Negative (Negative); Ketones Negative (Negative); Leukocyte Esterase Small (Negative); Nitrite Negative (Negative)
--- NOTE | 2022-01-09 11:43 | DSE_ITS ---
Date of service: 01/09/22 Time of Service: 10:44 DS: Diagnosis Discharge Diagnosis (1) Encounter for suspected PROM, with rupture of membranes not found: Status: Acute Asessment and Plan: Mynor rested comfortably. The tracing is category 1. She has had a snack and 3 glasses of fluid. ROM plus is neg. She is living in a motel without AC and it is very hot today. She was encouraged to stay in the shade and continue drinking fluids. UDS sent and urine culture. Mynor has an US tomorrow and will add a renal US. Follow up at [facility] tomorrow. reviewed sign of labor. Discharge Plan Discharge Details Reason For Visit: NST Attending Provider: Brenda Mcmullen Primary Care Provider: Lindsay Miranda V Home Meds and New Rx's Prescriptions: No Action PreTAB 29-1 mg tablet 1 tab PO DAILY Qty: 90 4RF aspirin 81 mg tablet,delayed release (DR/EC) 81 mg PO DAILY Qty: 90 4RF Rx Instructions: take one tablet daily, alternating with two tablets every other day pantoprazole [Protonix] 40 mg tablet,delayed release (DR/EC) 40 mg PO DAILY Qty: 30 1RF ondansetron 8 mg tablet,disintegrating 8 mg PO Q8H Qty: 90 0RF venlafaxine 75 mg capsule,extended release 24hr See Rx Instructions .ROUTE .COMPLEX Qty: 90 0RF Dose Instruction: TAKE ONE CAPSULE BY MOUTH EVERY DAY Rx Instructions: TAKE ONE CAPSULE BY MOUTH EVERY DAY ferrous sulfate 324 mg (65 mg iron) tablet,delayed release (DR/EC) 324 mg PO DAILY Qty: 90 0RF albuterol sulfate [ProAir HFA] 200 PUFF HFA aerosol inhaler 2 puff Inhalation PRN PRN docusate sodium [Colace] 100 mg capsule 100 mg PO BID Qty: 30 4RF OB:DS Summary Contraception Discussed Contraception Discussed: No, Status at Discharge Functional status at discharge: independent ambulation Overall status at discharge: patient is back to baseline Mental Status: mental status grossly normal Speech and Movement: speech and movement normal Mood: congruent mood Affect: normal affect Exam Physical Exam Vital signs: Pulse BP Pulse Ox 117 H 114/70 96 01/09/22 10:47 01/09/22 10:12 01/09/22 10:47 PFSH All Active Problems (Updated 01/09/22 @ 11:52 by Brenda Mcmullen CNM) Abdominal pain (Acute) Hematuria (Acute) Encounter for suspected PROM, with rupture of membranes not found (Acute) Vaginal discharge (Acute) Mild anemia (Acute) related hip pain, antepartum (Acute) Low lying placenta nos or without hemorrhage, second trimester (Acute) History of gestational hypertension (Acute) Maternal varicella, non-immune (Acute) Posttraumatic stress disorder (Acute) History of migraine (Acute) (Acute) Depressed (Acute) Cannabis abuse (Acute) Medical History (Updated 01/09/22 @ 11:52 by Brenda Mcmullne CNM) Allergic rhinitis, unspecified Asthma Attention deficit disorder with hyperactivity Bipolar disorder Concussion without loss of consciousness, sequela Dizziness Exercise-induced asthma Headache Laceration of labia minora Mood disorder due to known physiological condition with depressive features RAD (reactive airway disease) Seasonal allergies Sleep disturbance Subacute thyroiditis Suicidal ideation Surgical History History of tonsillectomy Family History Paternal Grandfather Diabetes Maternal Grandfather Heart disease mi w/ double bypass Hypertension Mother Hypothyroid Social History Smoking/Tobacco Use Status: Never Smoking risk assessment performed?: Yes Alcohol Intake: never Substance use type: former substance user Date of last use: marajuana and marijuana Counseling provided: treatment program Details: pt. denies marijuana use at this time Sexually active: Yes Do you feel safe at home: Yes Do you feel safe in your relationship?: Yes Additional Social history: Apartment issues -hole in ceiling with black mold state came to visit today Female Reproductive History Menstrual Age of Menarche: 12 Duration of menses: 3-5 days control method: pills History History 3 Para 1 Hx # Term Pregnancies 1 Multiple births 0 Hx # Pregnancies 0 Ectopic pregnancies 0 AB induced 0 Hx Number of Living Children 1 AB spontaneous 1 Past Pregnancies Del. Date GA/Weeks # Outcome Route Wgt Sex Labor Lgth Anesthes ia Location Prov Complic 08/30/19 39 No Successful vaginal 6 lb 9 oz Female 5 hr labor the day before scheduled induction for gHTN Soledad Rodney CNM Delivery Date: 08/30/19 Last Updated by: Ros Fagan No meds in labor, stayed in tub. Nitrous for 1st degree lac repair. gHTN, BP improved after . Heavy bleeding per pt. DS: Data Vitals/I&O Vitals and I&O: Vital Signs Pulse 117 H 01/09/22 10:47 Blood Pressure 114/70 01/09/22 10:12 Pulse Oximetry 96 01/09/22 10:47 Data Completed and Pending Labs on day of discharge: Labs from last 24 hours 01/09/22 01/09/22 01/09/22 11:00 10:55 10:55 Urine Color Yellow Urine Clarity Sl Cloudy Urine pH 7.0 Ur Specific [place] 1.020 Urine Protein Negative Urine Ketones Negative Urine Blood Trace-intact H Urine Nitrite Negative Urine Bilirubin Negative Urine Urobilinogen 1.0 H Ur Leukocyte Esterase Small H Urine Glucose Negative Membranes Rupture Pending Urine Opiates Screen Pending Ur Barbiturates Screen Pending Ur Tricyclics Screen Pending Ur Amphetamines Screen Pending U Benzodiazepines Scrn Pending Urine Cocaine Screen Pending Ur THC Screen Pending 01/09/22 11:17 Vaginal/Rectal Group B Streptococcus Culture - Pending Preliminary micro results at discharge 01/09/22 11:17 Group B Streptococcus Culture - Pending Vaginal/Rectal
[2022-01-09 11:47] LABS: ROM Plus Negative
[2022-01-09 11:47] LABS: *AMPHETAMINES SCREEN URINE Negative (Negative); *BARBITURATES SCREEN URINE Negative (Negative); *BENZODIAZEPINES SCREEN URINE Negative (Negative); Cannabinoids THC Positive (Negative); Cocaine Screen,Urine Negative (Negative); METHADONE URINE SCREEN Negative (Negative); OPIATES URINE SCREEN Negative (Negative); Tricyclic Antidepressants Negative (Negative)
--- NOTE | 2022-01-11 08:37 | W.OBNST ---
Date of service: 01/09/22 Time of Service: 12:00 NST Evaluation Reason for NST Reasons for Nonstress Test: LABOR Gestational Age Gestational Age in Weeks and Days: 32 Weeks and 0Days Test and Monitor Explained Test/Monitor Explained: Test Explained, Monitor Explained and Patient Verbalized Understanding Vital Signs Blood Pressure: 117/74 Pulse: 108 Temperature: 98.1 F Urine Results Urine Protein: Negative Urine Ketones: Negative Urine Glucose: Negative Urine Blood: Positive NST Information Date on Monitor: 01/09/22 Time on Monitor: 11:01 Date off Monitor: 01/09/22 Time off Monitor: 11:48 Total Time on Monitor: 47 NST Interventions: PO Hydration, Meal Given and Notify Provider Contraction Frequency: 0 NST Evaluation Patient States Movement: Present FHR Baseline: 140 Variability: Moderate 6-25 bpm Accelerations: 15x15 Decelerations: None NST Results: Reactive Note NST Note Note: Seeen for possible ROM. reactive NST. See note re: admission NST Reviewed and Verified by: Brenda Mcmullen
[2022-01-11 08:40] VITALS: BP 117/74; PULSE 108; TEMP 36.7
== END 2022-01-09 11:55 | disposition home or self-care (01) ==
LOC: BCD 09:09 → OBS 09:26
PROVIDERS: PCP Family Medicine; Visit Provider Advanced Practice Midwife
DX: O60.14X0 Preterm labor third trimester with preterm delivery third trimester, not applicable or unspecified (principal)
CPT/HCPCS: 59025; 80307; 84112; 81003; 87081; 87086

== ENCOUNTER 2022-01-10 02:19 | Outpatient (CLI) | payer MEDICAID, SELFPAY ==
--- NOTE | 2022-01-10 10:45 | DI.US_ITS ---
Exam(s) US RENAL EXAM: US RENAL CLINICAL HISTORY: LRQ pain, , hematuria, R31.9, R10.0. TECHNIQUE: Huertas scale, color and spectral Doppler were used. COMPARISON: No exams were available for comparison FINDINGS: Renal size in cm: Right: 11.6 left: 10.6 Echogenicity: Normal Hydronephrosis: No Cyst or mass: No Nephrolithiasis: Question 5 millimeter stone versus artifact lower pole left kidney. Bladder:Normal. Both ureteral jets were seen. Prevoid vol: 58 Postvoid vol:0 IMPRESSION: Question 5 millimeter stone lower pole left kidney versus artifact. DATA REPOSITORY:
--- NOTE | 2022-01-10 10:45 | DI.US_ITS ---
Exam(s) US OB LUCY WEIGHT EXAM: US OB LUCY WEIGHT CLINICAL HISTORY: f/up placenta, rt lower abd pain eval,O44.42,R10.9,wt/lucy, include ovaries. TECHNIQUE: Transabdominal obstetrical ultrasound performed. COMPARISON: US US OB 2-3 TRIMESTER from 10/06/2021 FINDINGS:: Number of fetuses: One. position: Vertex. Placental location: Posterior. No evidence of previa. BIOMETRIC DATA: BPD: 81mm = 32+2 weeks HC: 300mm = 33+1 weeks AC: 280mm = 32+1 weeks FL: 62 mm = 32 weeks EFW: 1924 Gms = 41 % Composite Age: 32+3 weeks EDC: 04 March 2022 Heart Rate: 141BPM Amniotic fluid: Amount of fluid is visually within normal limits. Ovaries normal in size and appearance. No cyst, mass or evidence of torsion. IMPRESSION: size and weight are within the expected range. Normal ovaries. DATA REPOSITORY:
== END 2022-01-10 02:39 ==
PROVIDERS: PCP Family Medicine; Visit Provider Advanced Practice Midwife
DX: O44.43 Low lying placenta NOS or without hemorrhage, third trimester (principal); R10.32 Left lower quadrant pain; R31.9 Hematuria, unspecified; R10.31 Right lower quadrant pain; N28.89 Other specified disorders of kidney and ureter; O26.893 Other specified pregnancy related conditions, third trimester
CPT/HCPCS: 76770; 76816

== ENCOUNTER 2022-01-23 02:27 | Observation (INO) | payer MEDICAID, SELFPAY ==
[2022-01-23 02:47] VITALS: BP 126/78; PULSE 105
[2022-01-23 02:56] VITALS: BP 126/78; PULSE 105; RESP 16; TEMP 36.8
--- NOTE | 2022-01-23 03:23 | HPE_ITS ---
Date of service: 01/23/22 Time of Service: 03:15 Assessment and Plan Assessment and plan (1) Vaginal discharge: Status: Acute Assessment and plan: 1. SSE done and there is no pooling or ferning observed on slide. Normal appearing vaginal discharge. 2. Low risk for STI as she has not been sexually active since early . (2) Abdominal pain: Status: Acute Assessment and plan: 1. Observing Mynor while she has pain, she is holding in lower right abdomen for quick stabbing pain that appears to be coordinated with audible movement. She denies active contractions. 2. No cervical dilation, cervix is 70% effaced and anterior in position but only fingertip can be inserted into external os, does not go through internal os. 3. I obtained ROM+ and GBS. 4. I reviewed with Mynor that if she were to go into labor under 35 weeks gestation that we would do our best to get her to [facility] [place] for delivery due to status. I do not believe she is in labor today and she appears relieved that she is not but is also uncomfortable and ready to be done 5. I will defer any further interventions such as betamethasone at this time. OB-HPI Labor/Delivery History of Present Illness Reason for Visit: Rule out labor Chief Complaint: Suspected Rupture of Membranes (had discharge but unsure if just urinating) , Associated Signs and Symptoms of Suspected ROM: reported fluid leaking while having BM but was unsure if it was urine ; Other (intermittent pain in lower right quad of abdomen). CORINNA Calculator Estimated Delivery Date Method Current WG Current Estimate 03/06/22 Ultrasound #1 34w 0d Other Estimates 01/26/22 LMP (Certain) 39w 4d Comments: Mynor reports that she was in the bathroom at 2030 on 01/22/22 and voided but then had BM and voided more so she wasn't sure if she might be leaking fluid. She has not had to wear a pad or change her underwear due to this since that time. She is feeling sharp pain in lower right quadrant of abdomen which appears to coincide with movement audible on monitor. Fundus is soft and there are no palpable contractions but there is frequent movement. SSE done no pooling or fluid in vaginal, Ferning negative. ROM + and GBS obtained as precaution. Patient has not had intercourse in over 4 months and denies any vaginal bleeding. Cervix appeared closed on speculum exam and confirmed to be fingertip/70%/-3 cephalic on digital exam. We discussed that if she were to have SROM confirmed or had labor in the next 1-2 weeks she is at risk for needing to be delivered at [facility] [place] due to status. Verbalizes understanding. WU History of Present Expected Delivery Route/Plan - CNM FOB/byfrnd - Miutl Kelly (his first child) BB yes to circ Dandre Varicella Non-Immune, offer vaccine IUD 6 weeks PP had expulsion with last one done immediately PP GBS pos. - prophylaxis in labor Specific Issues/Plan 1. H/O suicidal ideation, PTSD and depression. Enrolled in [employer] 1a. Takes Effexor 75 ER, needs q-visit check in on mood 1b. Has hx of housing issues, offer resources via [facility] if needed 1c. Enrolled in [employer], discussed pt situation 3/3; will be referred for home visits, & appt's w/ [facility] 2. History of marijuana use; UDS is THC+, THC remains + at 23 weeks and @ 28 wks, complete POSC ____ 3. History Migraine 4. History of gestational HTN; advised to start low dose ASA @ 12 wks 4a. recommended pt do early glucola d/t hx gHTN: done 09/23=110 5. Declines flu vaccine; declines COVID vaccine. FOB had first vaccine 08/22/21, 2nd one for 10/02 6. Varicella Non-Immune, offer vaccine 7. Declines genetic screening tests 8. Low lying placenta, consider follow up 32 weeks (1.3cm from OS at 19 weeks) 8a. resolved >7 cm from OS 01/10 9. US demonstrates possible 5mm non obstructing stone in left kidney vs artifact. Patient had right side pain 01/09. Assessment: History Reviewed & Current Informed Consent Informed Consent: Other (Sterile speculum exam) Review of Systems All systems reviewed & are unremarkable except as noted in HPI and below PFSH All Active Problems (Updated 01/10/22 @ 00:05 by SANDRA COLEMAN) Abdominal pain (Acute) Hematuria (Acute) Vaginal discharge (Acute) Mild anemia (Acute) related hip pain, antepartum (Acute) Low lying placenta nos or without hemorrhage, second trimester (Acute) History of gestational hypertension (Acute) Maternal varicella, non-immune (Acute) Posttraumatic stress disorder (Acute) History of migraine (Acute) (Acute) Depressed (Acute) Cannabis abuse (Acute) Medical History (Updated 01/10/22 @ 00:05 by SANDRA COLEMAN) Allergic rhinitis, unspecified Asthma Attention deficit disorder with hyperactivity Bipolar disorder Concussion without loss of consciousness, sequela Dizziness Exercise-induced asthma Headache Laceration of labia minora Mood disorder due to known physiological condition with depressive features RAD (reactive airway disease) Seasonal allergies Sleep disturbance Subacute thyroiditis Suicidal ideation Surgical History History of tonsillectomy Family History Paternal Grandfather Diabetes Maternal Grandfather Heart disease mi w/ double bypass Hypertension Mother Hypothyroid Social History Smoking/Tobacco Use Status: Never Smoking risk assessment performed?: Yes Alcohol Intake: never Substance use type: former substance user Date of last use: marajuana and marijuana Counseling provided: treatment program Details: pt. denies marijuana use at this time Sexually active: Yes Do you feel safe at home: Yes Do you feel safe in your relationship?: Yes Additional Social history: Apartment issues -hole in ceiling with black mold state came to visit today Female Reproductive History Menstrual Age of Menarche: 12 Duration of menses: 3-5 days control method: pills History History 3 Para 1 Hx # Term Pregnancies 1 Multiple births 0 Hx # Pregnancies 0 Ectopic pregnancies 0 AB induced 0 Hx Number of Living Children 1 AB spontaneous 1 Past Pregnancies Del. Date GA/Weeks # Outcome Route Wgt Sex Labor Lgth Anesthes ia Location Prov Complic 08/30/19 39 No Successful vaginal 6 lb 9 oz Female 5 hr labor the day before scheduled induction for gHTN Soledad Rodney CNM Delivery Date: 08/30/19 Last Updated by: Ros Fagan No meds in labor, stayed in tub. Nitrous for 1st degree lac repair. gHTN, BP improved after . Heavy bleeding per pt. Meds Allergies and Home Medications Allergies Allergy/AdvReac Type Severity Reaction Status Date / Time sertraline Allergy Intermediate Verified 01/10/22 14:48 black flies Allergy Intermediate Uncoded 01/10/22 14:48 cats Allergy Intermediate Uncoded 01/10/22 14:48 Home Medications Medication Instructions Recorded Confirmed Type albuterol sulfate 90 mcg/actuation 2 puff inhalation PRN PRN 06/11/15 01/10/22 History aerosol inhaler (ProAir HFA) vits,calcium no.78-iron 1 tab PO DAILY #90 tabs 06/29/21 01/10/22 Rx fumarate-folic acid 29 mg-1 mg tablet (PreTAB) ondansetron 8 mg disintegrating 8 mg PO Q8H #90 tabs 08/30/21 01/10/22 Rx tablet aspirin 81 mg tablet,delayed 81 mg PO DAILY #90 tabs 09/17/21 01/10/22 Rx release docusate sodium 100 mg capsule 100 mg PO BID #30 caps 11/09/21 01/10/22 Rx (Colace) pantoprazole 40 mg tablet,delayed 40 mg PO DAILY #30 tabs 11/15/21 01/10/22 Rx release (Protonix) venlafaxine 75 mg capsule,extended See Rx Instructions .Route 11/16/21 01/10/22 Rx release 24 hr .COMPLEX #90 caps ferrous sulfate 324 mg (65 mg 324 mg PO DAILY #90 tabs 12/13/21 01/10/22 Rx iron) tablet,delayed release Exam Physical Exam Vital signs: Temp Pulse Resp BP 98.2 F 105 H 16 126/78 01/23/22 02:56 01/23/22 02:56 01/23/22 02:56 01/23/22 02:56 Vital Signs Reviewed: Yes Constitutional Constitutional: no acute distress and obese Detailed Labor and Delivery Exam Dilation: 0 Effacement (%): 70 station: -3 Cervix position: anterior Consistency: medium Cerrato Score: Cervical Points Exam 0 1 2 3 Dilation Closed 1-2cm 3-4 cm 5-6cm Effacement 0-30% 40-50% 60-70% 80% Consistency Firm Medium Soft Station -3 -2 -1,0 +1,+2 Position Posterior Mid Anterior CERRATO Score(Cervical Ripeness Score): 5 Pooling: Negative Ferning: Absent Monitor Mode: External Contraction Frequency(min): none Fetus A Heart Rate Baseline: 125 Monitor Accelerations: 15 X 15 Monitor Decelerations: None Variability: Moderate (6-25 BPM) Categories: Category I HEENT Exam HEENT Exam: Normal Neck Exam Neck Exam: Normal Chest/Brest/Axilla Exam Chest Exam: Not Done Breast Exam Breast Exam: Not Done Respiratory Exam Respiratory Exam: Normal Cardiovascular Exam Cardiovascular Exam: Normal Abdominal Exam Abdominal Exam: Normal (non tender to palpation, no uterine contractions) Rectal Exam Rectal Exam: Not Done Exam Exam: Normal (no fluid in vagina or on bed or underwear, no blood, cervix closed) Back/Spine/Pelvis Exam Pelvis Adequate: Yes Skin Exam Skin Exam: Normal Neurological Exam Neurological Exam: Normal Psychiatric Exam Psychiatric Exam: Normal Risk Assessment Risk for Shoulder Dystocia Historical/Initial OB: POSITIVE FOR: Pre- BMI>30; NEGATIVE FOR: Pelvic Abnormality, Previous Shoulder Dystocia or Previous Macrosomia Date/Initial: 08/02/21 WU Risk for Pre-Eclampsia Date Initiated/Initials: is indicated, as of 15 wks had not started, re- counseled to begin 09/17 Yes, if one or more: POSTIVE FOR: Hx Pre-E/Gest HTN; NEGATIVE FOR: Chronic HTN, Multiple Gestation, Pre-gestational DM, Renal Disease, Systemic Lupus or APA Syndrome Yes, if 2 or more: POSITIVE FOR: BMI>30; NEGATIVE FOR: Nulliparity, Age>= 35 yrs, >10yr btwn pregnancies, ethinicty, Mother/Sister w/ Pre-E or Previous IUGR Risk for Post- Hemorrhage Initial: NEGATIVE FOR: Multiple Gestation, Previous PPH, Known Clotting Deficiency, Grand Multiparity or Anticoagulation Interventions: at first ob low risk al Date/Initials: 08/02/21: WU Risks Reviewed Risks Reviewed Upon Admission: Yes
[2022-01-23 03:34] LABS: ROM Plus Negative
--- NOTE | 2022-01-23 03:56 | DSE_ITS ---
Date of service: 01/23/22 Time of Service: 02:56 DS: Diagnosis Discharge Diagnosis (1) Vaginal discharge: Status: Acute Asessment and Plan: 1. ROM + and ferning negative and there is no observed signs or ROM with SSE 2. Reviewed signs of ROM and PTL and to call 3. Will follow up in office 01/24 as scheduled. 4. I reviewed that GBS would need to be repeated at 39 weeks if she is still at that time. (2) Abdominal pain: Status: Acute Asessment and Plan: 1. Mynor is aware that her pain in her lower right abdomen is occurring with movement and is reassured that she is not having active labor contractions. Feels she can go home and sleep a this point. I offered continued observation due to status and she declines. 2. Reviewed signs of PTL. 3. RTO 01/24/22 as scheduled. Discharge Plan Disposition Patient Disposition: HOME Condition: Good Discharge Details Reason For Visit: Rule out labor Admit Date/Time: 01/23/22 02:27 Admit Provider: Brenda Medrano Attending Provider: Brenda Medrano Primary Care Provider: Lindsay Miranda V Hospital Course Hospital Course: SSE and assessment done. Negative for rupture of membranes and dilation. She is requesting to go home vs. staying for observation. She has appointment in office 01/24/22. Home Meds and New Rx's Prescriptions: Continued PreTAB 29-1 mg tablet 1 tab PO DAILY Qty: 90 4RF aspirin 81 mg tablet,delayed release (DR/EC) 81 mg PO DAILY Qty: 90 4RF Rx Instructions: take one tablet daily, alternating with two tablets every other day pantoprazole [Protonix] 40 mg tablet,delayed release (DR/EC) 40 mg PO DAILY Qty: 30 1RF ondansetron 8 mg tablet,disintegrating 8 mg PO Q8H Qty: 90 0RF venlafaxine 75 mg capsule,extended release 24hr See Rx Instructions .ROUTE .COMPLEX Qty: 90 0RF Dose Instruction: TAKE ONE CAPSULE BY MOUTH EVERY DAY Rx Instructions: TAKE ONE CAPSULE BY MOUTH EVERY DAY ferrous sulfate 324 mg (65 mg iron) tablet,delayed release (DR/EC) 324 mg PO DAILY Qty: 90 0RF albuterol sulfate [ProAir HFA] 200 PUFF HFA aerosol inhaler 2 puff Inhalation PRN PRN docusate sodium [Colace] 100 mg capsule 100 mg PO BID Qty: 30 4RF Discharge Instructions Activity:: Activity as Tolerated Equipment/Supplies:: No Equipment Needed Diet:: As Tolerated Discharge Orders Discharge Orders: Discharge Order (Routine); Ordered 01/23/22 Ordered By: Brenda Medrano OB:DS Summary Contraception Discussed Contraception Discussed: No (antepartum patient), Status at Discharge Functional status at discharge: independent ambulation Overall status at discharge: patient is back to baseline Mental Status: mental status grossly normal Speech and Movement: speech and movement normal Mood: congruent mood Affect: normal affect Exam Physical Exam Vital signs: Temp Pulse Resp BP 98.2 F 105 H 16 126/78 01/23/22 02:56 01/23/22 02:56 01/23/22 02:56 01/23/22 02:56 PFSH All Active Problems (Updated 01/10/22 @ 00:05 by SANDRA COLEMAN) Abdominal pain (Acute) Hematuria (Acute) Vaginal discharge (Acute) Mild anemia (Acute) related hip pain, antepartum (Acute) Low lying placenta nos or without hemorrhage, second trimester (Acute) History of gestational hypertension (Acute) Maternal varicella, non-immune (Acute) Posttraumatic stress disorder (Acute) History of migraine (Acute) (Acute) Depressed (Acute) Cannabis abuse (Acute) Medical History (Updated 01/10/22 @ 00:05 by SANDRA COLEMAN) Allergic rhinitis, unspecified Asthma Attention deficit disorder with hyperactivity Bipolar disorder Concussion without loss of consciousness, sequela Dizziness Exercise-induced asthma Headache Laceration of labia minora Mood disorder due to known physiological condition with depressive features RAD (reactive airway disease) Seasonal allergies Sleep disturbance Subacute thyroiditis Suicidal ideation Surgical History History of tonsillectomy Family History Paternal Grandfather Diabetes Maternal Grandfather Heart disease mi w/ double bypass Hypertension Mother Hypothyroid Social History Smoking/Tobacco Use Status: Never Smoking risk assessment performed?: Yes Alcohol Intake: never Substance use type: former substance user Date of last use: marajuana and marijuana Counseling provided: treatment program Details: pt. denies marijuana use at this time Sexually active: Yes Do you feel safe at home: Yes Do you feel safe in your relationship?: Yes Additional Social history: Apartment issues -hole in ceiling with black tim state came to visit today Female Reproductive History Menstrual Age of Menarche: 12 Duration of menses: 3-5 days control method: pills History History 3 Para 1 Hx # Term Pregnancies 1 Multiple births 0 Hx # Pregnancies 0 Ectopic pregnancies 0 AB induced 0 Hx Number of Living Children 1 AB spontaneous 1 Past Pregnancies Del. Date GA/Weeks # Outcome Route Wgt Sex Labor Lgth Anesthes ia Location Prov Complic 08/30/19 39 No Successful vaginal 6 lb 9 oz Female 5 hr labor the day before scheduled induction for gHTN Soledad Rodney CNM Delivery Date: 08/30/19 Last Updated by: Ros Fagan No meds in labor, stayed in tub. Nitrous for 1st degree lac repair. gHTN, BP improved after . Heavy bleeding per pt. DS: Data Vitals/I&O Vitals and I&O: Vital Signs Temperature 98.2 F 01/23/22 02:56 Pulse 105 H 01/23/22 02:56 Respiratory Rate 16 01/23/22 02:56 Blood Pressure 126/78 01/23/22 02:56 Oxygen Delivery Method Room Air 01/23/22 02:56 Oxygen Flow Rate 0 01/23/22 02:56 Data Completed and Pending Labs on day of discharge: Labs from last 24 hours 01/23/22 03:10 Membranes Rupture Negative 01/23/22 03:10 Vaginal/Rectal Group B Streptococcus Culture - Pending Preliminary micro results at discharge 01/23/22 03:10 Group B Streptococcus Culture - Pending Vaginal/Rectal
--- NOTE | 2022-01-23 03:59 | W.OBNST ---
Date of service: 01/23/22 Time of Service: 03:30 NST Evaluation Reason for NST Reasons for Nonstress Test: FALSE LABOR and LABOR Gestational Age Gestational Age in Weeks and Days: 32 Weeks and 0Days Test and Monitor Explained Test/Monitor Explained: Test Explained, Monitor Explained and Patient Verbalized Understanding Vital Signs Blood Pressure: 126/78 Pulse: 98 NST Information Date on Monitor: 01/23/22 Time on Monitor: 02:44 Date off Monitor: 01/23/22 Time off Monitor: 03:52 Total Time on Monitor: 68 NST Interventions: None Contraction Frequency: none NST Evaluation Patient States Movement: Present FHR Baseline: 120 Variability: Moderate 6-25 bpm Accelerations: 15x15 Decelerations: Variable (single variable deceleration during monitoring) NST Results: Reactive Note NST Note Note: See H&P for this visit. Negative for ROM and labor exam. Discharged to home in satisfactory condition. Will follow up in office 01/24/22. NST reactive and reassuring. NST Reviewed and Verified by: Brenda Medrano
[2022-01-23 04:03] VITALS: BP 126/78; PULSE 98
== END 2022-01-23 04:00 | disposition home or self-care (01) ==
PROVIDERS: Admitting Provider Advanced Practice Midwife; PCP Family Medicine; Visit Provider Advanced Practice Midwife
DX: O26.893 Other specified pregnancy related conditions, third trimester (principal); N89.8 Other specified noninflammatory disorders of vagina; O99.343 Other mental disorders complicating pregnancy, third trimester; Z3A.34 34 weeks gestation of pregnancy; O99.013 Anemia complicating pregnancy, third trimester; D64.9 Anemia, unspecified; O99.323 Drug use complicating pregnancy, third trimester; F12.10 Cannabis abuse, uncomplicated; O99.353 Diseases of the nervous system complicating pregnancy, third trimester; O99.513 Diseases of the respiratory system complicating pregnancy, third trimester; O99.213 Obesity complicating pregnancy, third trimester; E66.9 Obesity, unspecified; G43.909 Migraine, unspecified, not intractable, without status migrainosus; J45.990 Exercise induced bronchospasm; F90.9 Attention-deficit hyperactivity disorder, unspecified type; F31.9 Bipolar disorder, unspecified
CPT/HCPCS: 84112; 87081; G0378

== ENCOUNTER 2022-02-10 18:16 | Outpatient (REF) | payer MEDICAID, SELFPAY ==
[2022-02-10 17:44] LABS: *AMPHETAMINES SCREEN URINE Negative (Negative); *BARBITURATES SCREEN URINE Negative (Negative); *BENZODIAZEPINES SCREEN URINE Negative (Negative); Cannabinoids THC Positive (Negative); Cocaine Screen,Urine Negative (Negative); METHADONE URINE SCREEN Negative (Negative); OPIATES URINE SCREEN Negative (Negative)
[2022-02-10 17:45] LABS: Tricyclic Antidepressants Negative (Negative)
[2022-02-17 15:44] LABS: Buprenorphine Negative ng/mL (Cutoff: 5.0); Norbuprenorphine Negative ng/mL (Cutoff: 2.5)
== END 2022-02-10 18:17 | disposition home or self-care (01) ==
LOC: LBN 18:16
PROVIDERS: PCP Family Medicine; Visit Provider Advanced Practice Midwife
DX: Z34.93 Encounter for supervision of normal pregnancy, unspecified, third trimester (principal); Z3A.36 36 weeks gestation of pregnancy
CPT/HCPCS: 80307

== ENCOUNTER 2022-02-21 11:47 | Outpatient (CLI) | payer MEDICAID, SELFPAY ==
[2022-02-21 13:19] VITALS: BP 130/76; PULSE 108
[2022-02-21 13:25] VITALS: BP 130/76; PULSE 108; TEMP 36.6
[2022-02-21 13:36] VITALS: BP 123/70; PULSE 96
--- NOTE | 2022-02-21 19:57 | W.OBNST ---
Date of service: 02/21/22 Time of Service: 16:00 NST Evaluation Reason for NST Reasons for Nonstress Test: DECREASED MOVEMENT Gestational Age Gestational Age in Weeks and Days: 38 Weeks and 1Days Test and Monitor Explained Test/Monitor Explained: Test Explained, Monitor Explained and Patient Verbalized Understanding Vital Signs Blood Pressure: 130/76 Pulse: 108 Temperature: 97.9 F Urine Results Urine Protein: Negative Urine Ketones: Negative Urine Glucose: Negative Urine Blood: Positive NST Information Date on Monitor: 02/21/22 Time on Monitor: 13:12 Date off Monitor: 02/21/22 Time off Monitor: 13:49 Total Time on Monitor: 37 NST Interventions: PO Hydration and Reposition Patient Contraction Frequency: 6-11min NST Evaluation Patient States Movement: Present and Decreased FHR Baseline: 135 Variability: Minimal <6 bpm Decelerations: None NST Results: Reactive Note NST Note Note: Mynor reported contractions every 25 minutes and decreased movement.Fetus active during exam. Cervix 2 cmss/75%. Signs of active labor reviewed. NST Reviewed and Verified by: Brenda Mcmullen
[2022-02-21 19:59] VITALS: BP 130/76; PULSE 108; TEMP 36.6
== END 2022-02-21 14:03 | disposition home or self-care (01) ==
LOC: BCD 11:55 → OBS 12:00
PROVIDERS: PCP Family Medicine; Visit Provider Advanced Practice Midwife
DX: O36.8130 Decreased fetal movements, third trimester, not applicable or unspecified (principal); Z3A.38 38 weeks gestation of pregnancy
CPT/HCPCS: 59025

== ENCOUNTER 2022-02-21 19:55 | Inpatient (IN) | payer MEDICAID, SELFPAY ==
[2022-02-21] VITALS (8 sets, daily range): BP systolic 121–135; BP diastolic 66–88; PULSE 78–94; RESP 18; TEMP 37–37.1; O2SAT 98–99
--- NOTE | 2022-02-21 20:51 | W.PM.OBHPL1 ---
Date of service: 02/21/22 Time of Service: 20:51 Assessment and Plan Assessment and plan (1) Group B streptococcal carriage complicating : Status: Acute Assessment and plan: Will initiate GBS prophylaxis when active labor is confirmed. (2) Spontaneous onset of labor: Status: Acute Assessment and plan: Admit to the center. Will plan to re-examine in 2 hours for cervical change and signs of acive labor. Mynor hopes to use the tub for comfort.Admit to Center. Covid- 19 test. Anticipate . OB-HPI Labor/Delivery History of Present Illness Reason for Visit: Labor Chief Complaint: Uterine Contractions. CORINNA Calculator Estimated Delivery Date Method Current WG Current Estimate 03/06/22 Ultrasound #1 38w 1d Other Estimates 01/26/22 LMP (Certain) 43w 5d Comments: Mynor was evaluated earlier today for decreased movement and contractions. Cervix was 2 cms/75% earlier and she called at 1930 and reported contractions were every 3-5 minutes. She presented for rule out labor. History of Present Expected Delivery Route/Plan - CNM FOB/byfrnd - Mitul Leticia (his first child) BB yes to shirley Amos GBS + done at 34 weeks due to contractions Varicella Non-Immune, offer vaccine IUD 6 weeks PP had expulsion with last one done immediately PP GBS pos. - prophylaxis in labor Hoping to use the tub, support team, her Dad Misael, and Mitul Specific Issues/Plan 1. H/O suicidal ideation, PTSD and depression. Enrolled in [employer] 1a. Takes Effexor 75 ER, needs q-visit check in on mood 1b. Has hx of housing issues, offer resources via [facility] if needed 1c. Enrolled in [employer], discussed pt situation 3/3; will be referred for home visits, & appt's w/[facility] 2. History of marijuana use; UDS is THC+, THC remains + at 23 weeks and @ 28 wks, complete POSC ____ 3. History Migraine 4. History of gestational HTN; advised to start low dose ASA @ 12 wks 4a. recommended pt do early glucola d/t hx gHTN: done 2=110 5. Declines flu vaccine; declines COVID vaccine. FOB had first vaccine 08/22/21, 2nd one for 10/02 6. Varicella Non-Immune, offer vaccine 7. Declines genetic screening tests 8. Low lying placenta, consider follow up 32 weeks (1.3cm from OS at 19 weeks) 8a. resolved >7 cm from OS 01/10 9. US demonstrates possible 5mm non obstructing stone in left kidney vs artifact. Patient had right side pain 01/09. [facility] 10. GBS done at 34 weeks +/ consider repeat at 39 weeks if still , repeated 02/18/22 11. Unvaccinated for covid and does not intend to be. 12. Mild anemia - Hgb 10.6 at 36 weeks - discussed with patient and recommended increasing iron to BID PFSH All Active Problems (Updated 02/21/22 @ 20:55 by Brenda Mcmullen CNM) Spontaneous onset of labor (Acute) Group B streptococcal carriage complicating (Acute) Hematuria (Acute) Mild anemia (Acute) related hip pain, antepartum (Acute) History of gestational hypertension (Acute) Maternal varicella, non-immune (Acute) Posttraumatic stress disorder (Acute) History of migraine (Acute) (Acute) Depressed (Acute) Cannabis abuse (Acute) Medical History (Updated 02/21/22 @ 20:55 by Brenda Mcmullen CNM) Allergic rhinitis, unspecified Asthma Attention deficit disorder with hyperactivity Bipolar disorder Concussion without loss of consciousness, sequela Crushing injury of right middle finger, initial encounter (09/25/15) Dizziness Exercise-induced asthma Headache Laceration of labia minora Low lying placenta nos or without hemorrhage, second trimester Mood disorder due to known physiological condition with depressive features RAD (reactive airway disease) Seasonal allergies Sleep disturbance Subacute thyroiditis Suicidal ideation Surgical History History of tonsillectomy Family History Paternal Grandfather Diabetes Maternal Grandfather Heart disease mi w/ double bypass Hypertension Mother Hypothyroid Social History Smoking/Tobacco Use Status: Never Smoking risk assessment performed?: Yes Alcohol Intake: never Substance use type: former substance user Date of last use: marajuana and marijuana Counseling provided: treatment program Details: pt. denies marijuana use at this time Sexually active: Yes Do you feel safe at home: Yes Do you feel safe in your relationship?: Yes Additional Social history: Apartment issues -hole in ceiling with black mold state came to visit today Female Reproductive History Menstrual Age of Menarche: 12 Duration of menses: 3-5 days control method: pills History History 3 Para 1 Hx # Term Pregnancies 1 Multiple births 0 Hx # Pregnancies 0 Ectopic pregnancies 0 AB induced 0 Hx Number of Living Children 1 AB spontaneous 1 Past Pregnancies Del. Date GA/Weeks # Preg Succ Route Wgt Sex Labor Lgth Anesthesia Location Prov Complic 08/30/19 39 No vaginal 6 lb 9 oz Female 5 hr labor the day before scheduled induction for gHTN Soledad ESTEBAN Rodney Delivery Date: 08/30/19 Last Updated by: Ros Fagan No meds in labor, stayed in tub. Nitrous for 1st degree lac repair. gHTN, BP improved after . Heavy bleeding per pt. Meds Allergies and Home Medications Allergies Allergy/AdvReac Type Severity Reaction Status Date / Time sertraline AdvReac Intermediate pt reports Verified 02/18/22 13:20 she got ugly black flies AdvReac Intermediate red and Uncoded 02/18/22 13:20 swollen cats AdvReac Intermediate sneezing Uncoded 02/18/22 13:20 a lot, runny nose Home Medications Medication Instructions Recorded Confirmed Type albuterol sulfate 90 mcg/actuation 2 puff inhalation PRN PRN 06/11/15 02/18/22 History aerosol inhaler (ProAir HFA) vits,calcium no.78-iron 1 tab PO DAILY #90 tabs 06/29/21 02/18/22 Rx fumarate-folic acid 29 mg-1 mg tablet (PreTAB) ondansetron 8 mg disintegrating 8 mg PO Q8H #90 tabs 08/30/21 02/18/22 Rx tablet aspirin 81 mg tablet,delayed 81 mg PO DAILY #90 tabs 09/17/21 02/18/22 Rx release docusate sodium 100 mg capsule 100 mg PO BID #30 caps 11/09/21 02/18/22 Rx (Colace) loperamide 2 mg capsule 2 mg PO Q6H PRN loose stool #30 01/24/22 02/18/22 Rx caps pantoprazole 40 mg tablet,delayed 40 mg PO DAILY #90 tabs 01/24/22 02/18/22 Rx release (Protonix) ferrous sulfate 324 mg (65 mg 324 mg PO BID #90 tabs 02/10/22 02/18/22 Rx iron) tablet,delayed release venlafaxine 75 mg capsule,extended See Rx Instructions .Route 02/14/22 02/18/22 Rx release 24 hr .COMPLEX #90 caps Exam Physical Exam Vital signs: Temp Pulse Resp BP 98.8 F 90 18 135/77 02/21/22 20:09 02/21/22 20:09 02/21/22 20:09 02/21/22 20:09 Detailed Labor and Delivery Exam Dilation: 3 Effacement (%): 80 station: -1 Cervix position: mid Consistency: soft Ng Score: Cervical Points Exam 0 1 2 3 Dilation Closed 1-2cm 3-4 cm 5-6cm Effacement 0-30% 40-50% 60-70% 80% Consistency Firm Medium Soft Station -3 -2 -1,0 +1,+2 Position Posterior Mid Anterior Monitor Mode: External Contraction Frequency(min): every 4-5 Contraction Duration(sec): 50 Contraction Intensity: Mild Fetus A Heart Rate Baseline: 120 Monitor Accelerations: 15 X 15 Monitor Decelerations: Variable Variability: Moderate (6-25 BPM) Presentation: Vertex Categories: Category I Est. Weight: 7 lb Respiratory Exam Respiratory Exam: Normal Cardiovascular Exam Cardiovascular Exam: Normal Exam Exam: Normal Extremities Exam Extremities Exam: Abnormal (1+ pitting edema) Skin Exam Skin Exam: Normal Psychiatric Exam Psychiatric Exam: Normal Risk Assessment Risk for Shoulder Dystocia Historical/Initial OB: POSITIVE FOR: Pre- BMI>30; NEGATIVE FOR: Pelvic Abnormality, Previous Shoulder Dystocia or Previous Macrosomia Date/Initial: 08/02/21 K[facility] Delivery Plan @ 40 wks: Risk for Pre-Eclampsia Daily Dose ASA Indicated: Yes Date Initiated/Initials: is indicated, as of 15 wks had not started, re-counseled to begin 09/17 Yes, if one or more: POSTIVE FOR: Hx Pre-E/Gest HTN; NEGATIVE FOR: Chronic HTN, Multiple Gestation, Pre-gestational DM, Renal Disease, Systemic Lupus or APA Syndrome Yes, if 2 or more: POSITIVE FOR: BMI>30; NEGATIVE FOR: Nulliparity, Age>= 35 yrs, >10yr btwn pregnancies, ethinicty, Mother/Sister w/ Pre-E or Previous IUGR Risk for Post- Hemorrhage Initial: NEGATIVE FOR: Multiple Gestation, Previous PPH, Known Clotting Deficiency, Grand Multiparity or Anticoagulation At Risk?: No Date/Initials: 08/02/21: [facility] Risks Reviewed Risks Reviewed Upon Admission: Yes
[2022-02-21 21:20] LABS: HCT 30.2 % (36.0-46.0); HGB 9.7 g/dL (11.2-15.7); MCH 25.9 pg (27.0-33.0); MCHC 32.1 % (32.0-36.0); MCV 81 fL (80-95); MPV 11.9 fL (8.0-11.0); Platelet Count 193 10^3/uL (130-400); RBC 3.75 10^6/uL (3.93-5.22); RDW 15.6 % (11.7-14.6); RDW-SD 45.1 fL; WBC 11.64 10^3/uL (4.4-10.8)
[2022-02-21 21:23] LABS: Source Nasal/Nares
[2022-02-21 22:14] LABS: COVID-19 PCR Negative (Negative)
--- NOTE | 2022-02-21 23:25 | W.PM.OBNL1 ---
Date of service: 02/21/22 Time of Service: 23:25 Pelvic Exam Dilation: 5 Effacement (%): 100 station: -1 Cervix Position: mid Consistency: soft Contractions Monitor Mode: External Contraction Frequency(min): evefy 3 minutes Contraction Duration(sec): 60 Intensity: Moderate/Strong Fetus A Monitor: External (US) Heart Rate Baseline: 130 Variability: Moderate (6-25 BPM) Categories: Category I FHR Rhythm: Regular Characteristics: Normal Accelerations: 15 X 15 Decelerations: None Assessment and Plan Assessment and plan (1) Spontaneous onset of labor: Status: Acute Assessment and plan: anticipate . Will prepare the tub. (2) Group B streptococcal carriage complicating : Status: Acute Assessment and plan: IV antibiotic escribed for GBS prophylaxis Objective Abnormal lab results 02/21/22 Range/Units 21:10 WBC 11.64 H (4.4-10.8) 10^3/uL RBC 3.75 L (3.93-5.22) 10^6/uL Hgb 9.7 L (11.2-15.7) g/dL Hct 30.2 L (36.0-46.0) % MCH 25.9 L (27.0-33.0) pg RDW 15.6 H (11.7-14.6) % MPV 11.9 H (8.0-11.0) fL Temp Pulse Resp BP Pulse Ox 98.6 F 83 18 128/88 99 02/21/22 23:24 02/21/22 23:25 02/21/22 23:24 02/21/22 23:25 02/21/22 23:24 Laboratory Results WBC 11.64 10^3/uL (4.4-10.8) H 02/21/22 21:10 RBC 3.75 10^6/uL (3.93-5.22) L 02/21/22 21:10 Hgb 9.7 g/dL (11.2-15.7) L 02/21/22 21:10 Hct 30.2 % (36.0-46.0) L 02/21/22 21:10 MCV 81 fL (80-95) 02/21/22 21:10 MCH 25.9 pg (27.0-33.0) L 02/21/22 21:10 MCHC 32.1 % (32.0-36.0) 02/21/22 21:10 RDW 15.6 % (11.7-14.6) H 02/21/22 21:10 Plt Count 193 10^3/uL (130-400) 02/21/22 21:10 MPV 11.9 fL (8.0-11.0) H 02/21/22 21:10 COVID-19 Source Nasal/Nares 02/21/22 20:50 SARS-CoV-2 (PCR) Negative (Negative) 02/21/22 20:50 Patient ABO/Rh A Positive 02/21/22 21:10 Antibody Screen NEGATIVE 02/21/22 21:10 Subjective Interval history since last seen: Mynor reports that her contractions are stronger. SVE performed and cervix is now 5 cms. She used the shower and now requests to use the tub for comfort Results Hemoglobin/Hematocrit: Hgb 9.7 g/dL (11.2-15.7) L 02/21/22 21:10 Hct 30.2 % (36.0-46.0) L 02/21/22 21:10 Abnormal Lab Findings: Abnormal Labs 02/21/22 21:10 WBC 11.64 H RBC 3.75 L Hgb 9.7 L Hct 30.2 L MCH 25.9 L RDW 15.6 H MPV 11.9 H
[2022-02-21] MEDS: Penicillin G POT. 5,000,000 UNITS in Normal Saline 100 ML 200 UNITS IVPB (23:40)
[2022-02-22] VITALS (10 sets, daily range): BP systolic 120–140; BP diastolic 64–95; PULSE 65–104; RESP 17–18; TEMP 36.6–37.1; O2SAT 97–100
--- NOTE | 2022-02-22 01:22 | OBVDS_ITS ---
Date of service: 02/22/22 Time of Service: : OB Labor/ Delivery Information Baby A Delivery Delivery Method: Spontaneaous Presentation: Vertex Vertex Position: Left Occipital Anterior Amniotic Fluid: Clear Estimated Blood Loss: 350 Delivery Outcome: Liveborn Infant Complications: none Providers Nurse Office Machine Servicer Apprentice: Brenda Mcmullen Nurse: Latanya Tang Nurse: Cami Wan Labor/Delivery Information Steroids Given: None Reason Steroids Not Administered: N/A Group Beta Strep: Positive Antibiotics Administered: Yes Rubella Status: Immune Blood Type: A+ Varicella Immunity: Nonimmune Shoulder Dystocia: No Note: Mynor received one dose of penicillin prior to delivery. she used the tub briefly and began experiencing an urge to push. FHTs 120s during first stage of labor. She left the tub and was examined and was 9 cms dilated with intact bag of water. She began bearing down and SROM occurred, The baby's head was visible at the introitus after bearing down FHTs 110s in second stage. Spontaneous delivery of infant delivered in KENZIE position. Baby was placed on mother's abdomen and dried and stimulated. There was a spontaneous cry. Cord was clamped and cut by the baby's father. The placenta delivered spontaneously and appears to by intact with a three vessel cord. Pitocin 30 units IV was administered after delivery of the placenta. The uterus was massaged after delivery of the placenta and approximately 100 cc of clots were expelled with massage. The perineum was inspected and a small second degree laceration and a right labial laceration were repaired under local anesthetic which Mynor tolerated well. The baby did breastfeed. After delivery, Mother and baby and father of the baby were stable and bonding well in the delivery room and there were no complications. Stages of Labor Onset of Labor Date: 02/21/22 Onset of Labor Time: 05:00 Complete Dilatation Date: 02/22/22 Complete Dilatation Time: 00:15 Labor - Stage 1 Duration: 24 hours and 0 minutes ROM Baby A: 02/22/22 ROM Baby A: 00:31 ROM Total Time- Baby A: [email or web address] Delivery Date-Baby A: 02/22/22 Infant Delivery Time-Baby A: 00:32 Labor Stage 2 Duration: 17 minutes Placenta Delivery Date-Baby A: 02/22/22 Placenta Delivery Time-Baby A: 00:37 Labor-Stage 3 Duration: 5 minutes Total Length of Labor-Baby A: 19 hours and 32 minutes Placenta Status: Delivered Baby A Gender: Male Gestational Status: Early Term (37-38.6 wks) Gestational Age in Weeks/Days: 38 Weeks and 2 Days Score-1 Minute Interval(Baby A) Heart Rate-1 minute: 100 BPM or Greater Respiratory Effort- 1 minute: Spontaneous/Strong Cry Muscle Tone-1 minute: Active Movement Reflex Response-1 minute: Prompt Response Color-1 minute: Bluish Hands or Feet Total Score-1 minute: 9 Score-5 Minute Interval(Baby A) Heart Rate- 5 minute: 100 BPM or Greater Respiratory Effort-5 minute: Spontaneous/Strong Cry Muscle Tone-5 minute: Active Movement Reflex Response-5 minute: Prompt Response Color-5 minute: Bluish Hands or Feet Total Score- 5 minute: 9 Interventions Repair of Laceration (repaired withh 3-0 and 4-0 vicryl suture under local anesthetic. ) Type: Perineal and Other (right labial), Laceration Extension: Second Degree. Sponge Count Correct: No Sponges Placed in Vagina, Sharp Count Correct: Yes.
[2022-02-22] MEDS: Hamamelis Leaf/Glycerin 100 EACH BOX PR (01:55)
[2022-02-22] MEDS: Acetaminophen 325 MG TAB 650 MG PO ×4 (01:56→19:38)
[2022-02-22] MEDS: Ibuprofen 600 MG TAB PO ×3 (01:56→19:38)
[2022-02-22] MEDS: miSOPROStol 200 MCG TAB 400 MCG SL (02:02)
[2022-02-22] MEDS: Docusate Sodium 100 MG CAP PO (13:45)
[2022-02-23 06:00] LABS: HCT 29.4 % (36.0-46.0); HGB 9.4 g/dL (11.2-15.7); MCH 25.8 pg (27.0-33.0); MCV 81 fL (80-95); MPV 11.7 fL (8.0-11.0); Platelet Count 194 10^3/uL (130-400); RBC 3.65 10^6/uL (3.93-5.22); RDW 15.7 % (11.7-14.6); RDW-SD 45.4 fL; WBC 10.69 10^3/uL (4.4-10.8)
[2022-02-23 07:30] VITALS: BP 117/76; PULSE 56; RESP 12; TEMP 37.2
--- NOTE | 2022-02-23 07:57 | W.PM.OBPNV1 ---
Date of service: 02/23/22 Time of Service: 07:58 Assessment and Plan Assessment and plan (1) Term delivered: Status: Acute Assessment and plan: A: Nml PPD#1 off to a good start P: Likely release at 48 hrs (tomorrow) d/t GBS status Circumcision planned Continue support & routine PP care Give Varicella vaccine prior to discharge Continue Effexor XR 75 mg daily Resume Fe supplement daily Medication list updated Pt desires Mirena IUD @ 6 wks (2) Mild anemia: Status: Acute Assessment and plan: Hgb stable at 9.4, pt is asymptomatic, HR <100 Restart oral iron supplement (3) Maternal varicella, non-immune: Status: Acute Assessment and plan: 1st vaccine prior to discharge, 2nd at 6 wks PP Subjective Subjective Patient comments: No complaints, Pain well controlled, Tolerating diet, Flatus present and Bowel Movement Exam Physical Exam Vital signs: Temp Pulse Resp BP Pulse Ox 98.1 F 65 18 129/95 H 97 02/22/22 20:14 02/22/22 20:14 02/22/22 20:14 02/22/22 20:14 02/22/22 20:14 Vital Signs Reviewed: Yes Constitutional Constitutional: no acute distress and obese HEENT Exam HEENT Exam: Normal Neck Exam Neck Exam: Normal Breast Exam Bilateral: Breast Exam: Normal and Soft Nipple Exam: Normal and Uninjured Respiratory Exam Respiratory Exam: Normal Cardiovascular Exam Cardiovascular Exam: Normal Abdominal Exam Abdomen: Other (soft, nontender) Fundal Exam Fundus: Below Umbilicus and Firm Rectal Exam Rectal Exam: Normal Exam Perineum: Normal and Repair Intact Extremities Exam Extremity Exam: Normal, Full ROM, Normal Capillary Refill and Warm to Touch Back/Spine/Pelvis Exam Back Exam: Normal Skin Exam Skin Exam: Normal Neurological Exam Neurological Exam: Normal Psychiatric Exam Psychiatric Exam: Normal Results Hemoglobin/Hematocrit: Hgb 9.4 g/dL (11.2-15.7) L 02/23/22 05:46 Hct 29.4 % (36.0-46.0) L 02/23/22 05:46
[2022-02-23] MEDS: Venlafaxine 75 MG CAPCR PO (08:43)
[2022-02-23] MEDS: Ferrous Sulfate 325 MG TAB PO (08:43)
[2022-02-23] MEDS: Ibuprofen 600 MG TAB PO (12:25)
[2022-02-23] MEDS: Acetaminophen 325 MG TAB 650 MG PO (12:25)
[2022-02-23 16:34] VITALS: BP 119/83; PULSE 56; RESP 18; TEMP 36.8; O2SAT 98
[2022-02-23 19:31] VITALS: BP 114/80; PULSE 88; RESP 18; TEMP 37; O2SAT 97
[2022-02-24 07:45] VITALS: BP 117/80; PULSE 91; RESP 12; TEMP 37
[2022-02-24] MEDS: Varicella Virus Vaccine (Live) 0.5 ML SC (08:39)
--- NOTE | 2022-02-24 08:54 | W.PM.OBPNV1 ---
Date of service: 02/24/22 Time of Service: 08:54 Assessment and Plan Assessment and plan (1) Term delivered: Status: Acute Assessment and plan: A: Nml PPD#2 going well, milk is in P: Discharge today Pt desires Mirena IUD @ 6 wks F/up at 2 & 6 wks 2nd Varicella vaccine to be given at 6 wks Written instructions reviewed and given to pt (2) Mild anemia: Status: Acute Assessment and plan: Hgb stable at 9.4, pt is asymptomatic, HR <100 Restart oral iron supplement (3) Maternal varicella, non-immune: Status: Acute Assessment and plan: 1st vaccine prior to discharge, 2nd at 6 wks PP Subjective Subjective Patient comments: No complaints, Pain well controlled, Tolerating diet and Bowel Movement Patient's Mood: tired, pleased baby status: Nursing well, Rooming in and Strong Bonding Observed feeding status: Exclusively breast feeding Exam Physical Exam Vital signs: Temp Pulse Resp BP Pulse Ox 98.6 F 91 H 12 117/80 97 02/24/22 07:45 02/24/22 07:45 02/24/22 07:45 02/24/22 07:45 02/23/22 19:31 Vital Signs Reviewed: Yes Constitutional Constitutional: no acute distress and obese HEENT Exam HEENT Exam: Normal Neck Exam Neck Exam: Normal Breast Exam Bilateral: Breast Exam: Normal and Soft Respiratory Exam Respiratory Exam: Normal Cardiovascular Exam Cardiovascular Exam: Normal Abdominal Exam Abdomen: Other (soft, nontender) Fundal Exam Fundus: Below Umbilicus and Firm Rectal Exam Rectal Exam: Normal Exam Perineum: Normal and Repair Intact Extremities Exam Extremity Exam: Normal, Full ROM, Normal Capillary Refill and Warm to Touch Back/Spine/Pelvis Exam Back Exam: Normal Skin Exam Skin Exam: Normal Neurological Exam Neurological Exam: Normal Psychiatric Exam Psychiatric Exam: Normal Hemorrrhage Note IV Site Right Antecubital: IV Catheter Gauge: 20
--- NOTE | 2022-02-24 08:57 | DSE_ITS ---
Date of service: 02/24/22 Time of Service: 08:57 DS: Diagnosis Discharge Diagnosis (1) Term delivered: Status: Acute (2) Mild anemia: Status: Acute (3) Maternal varicella, non-immune: Status: Acute Discharge Plan Disposition Patient Disposition: HOME Condition: Good Discharge Details Reason For Visit: Labor Admit Date/Time: 02/22/22 08:50 Admit Provider: Brenda Mcmullen Attending Provider: Brenda Mcmullen Primary Care Provider: Lindsay Miranda V Hospital Course Hospital Course: , nml PP course Home Meds and New Rx's Prescriptions: No Action PreTAB 29-1 mg tablet 1 tab PO DAILY Qty: 90 4RF venlafaxine 75 mg capsule,extended release 24hr See Rx Instructions .ROUTE .COMPLEX Qty: 90 0RF Dose Instruction: TAKE ONE CAPSULE BY MOUTH EVERY DAY Rx Instructions: TAKE ONE CAPSULE BY MOUTH EVERY DAY docusate sodium [Colace] 100 mg capsule 100 mg PO DAILY PRN (Reason: constipation) Qty: 30 4RF ferrous sulfate 324 mg (65 mg iron) tablet,delayed release (DR/EC) 324 mg PO DAILY Qty: 90 0RF albuterol sulfate [ProAir HFA] 200 PUFF HFA aerosol inhaler 2 puff Inhalation PRN PRN Discharge Instructions Additional Instructions: Please keep your 2 & 6 week appointments, plan for a separate IUD insertion visit just before or after the 6 week appointment. Your 2nd Varicella vaccine will be given at your 6 week appointment. Call for any questions or concerns. Stand Alone Forms: Instructions, BC Post Vaginal Deliver Activity:: Activity as Tolerated Equipment/Supplies:: No Equipment Needed Diet:: Normal Diet Discharge Orders Discharge Orders: Discharge Order (Routine); Ordered 02/24/22 Ordered By: Ros Fagan OB:DS Summary Summary Vaginal Delivery Method: Spontaneaous Laceration Description: Perineal and Other (right labial) Laceration Extension: Second Degree Contraception Discussed Contraception Discussed: Yes Contraceptive Plan: IUD, Dexter Gender-Baby A: Male weight: 6 lb 10.527 oz Status at Discharge Functional status at discharge: independent ambulation Overall status at discharge: patient is progressing back to baseline Mental Status: mental status grossly normal Speech and Movement: speech and movement normal and speech clear Mood: congruent mood Affect: normal affect Exam Physical Exam Vital signs: Temp Pulse Resp BP Pulse Ox 98.6 F 91 H 12 117/80 97 02/24/22 07:45 02/24/22 07:45 02/24/22 07:45 02/24/22 07:45 02/23/22 19:31 Vital Signs Reviewed: Yes Constitutional Constitutional: no acute distress and obese HEENT Exam HEENT Exam: Normal Neck Exam Neck Exam: Normal Breast Exam Bilateral: Breast Exam: Normal and Soft Respiratory Exam Respiratory Exam: Normal Cardiovascular Exam Cardiovascular Exam: Normal Abdominal Exam Abdomen: Other (soft, nontender) Fundal Exam Fundus: Below Umbilicus and Firm Rectal Exam Rectal Exam: Normal Exam Perineum: Normal and Repair Intact Extremities Exam Extremity Exam: Normal, Full ROM, Normal Capillary Refill and Warm to Touch Back/Spine/Pelvis Exam Back Exam: Normal Skin Exam Skin Exam: Normal Neurological Exam Neurological Exam: Normal Psychiatric Exam Psychiatric Exam: Normal PFSH All Active Problems (Updated 02/23/22 @ 07:40 by Ros Fagan) Term delivered (Acute) Mild anemia (Acute) Maternal varicella, non-immune (Acute) Posttraumatic stress disorder (Acute) History of migraine (Acute) Depressed (Acute) Cannabis abuse (Acute) Medical History (Updated 02/23/22 @ 07:40 by Ros Fagan) Allergic rhinitis, unspecified Asthma Attention deficit disorder with hyperactivity Bipolar disorder Concussion without loss of consciousness, sequela Crushing injury of right middle finger, initial encounter (09/25/15) Dizziness Exercise-induced asthma Group B streptococcal carriage complicating Headache Hematuria History of gestational hypertension Laceration of labia minora Low lying placenta nos or without hemorrhage, second trimester 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 denies marijuana use at this time Sexually active: Yes Do you feel safe at home: Yes Do you feel safe in your relationship?: Yes Additional Social history: Apartment issues -hole in ceiling with black tim state came to visit today Female Reproductive History Menstrual Age of Menarche: 12 Duration of menses: 3-5 days control method: pills History History 3 Para 1 Hx # Term Pregnancies 1 Multiple births 0 Hx # Pregnancies 0 Ectopic pregnancies 0 AB induced 0 Hx Number of Living Children 1 AB spontaneous 1 Past Pregnancies Del. Date GA/Weeks # Preg Succ Route Wgt Sex Labor Lgth Anesth esia Location Prov Complic 08/30/19 39 No vaginal 6 lb 9 oz Female 5 hr labor th e day before scheduled induction for gHTN Soledad Rodney CNM Delivery Date: 08/30/19 Last Updated by: Ros Fagan No meds in labor, stayed in tub. Nitrous for 1st degree lac repair. gHTN, BP improved after . Heavy bleeding per pt. DS: Data Vitals/I&O Vitals and I&O: Vital Signs Temperature 98.6 F 02/24/22 07:45 Pulse 91 H 02/24/22 07:45 Pulse Rhythm Regular 02/24/22 07:45 Respiratory Rate 12 02/24/22 07:45 Respiratory Depth Normal 02/22/22 07:38 Blood Pressure 117/80 02/24/22 07:45 Blood Pressure Mean 92 02/24/22 07:45 Pulse Oximetry 97 02/23/22 19:31 Oxygen Delivery Method Room Air 02/21/22 20:09 Oxygen Flow Rate 0 02/21/22 20:09 Pain Level 7 02/23/22 12:25 Comment 02/22/22 00:59
[2022-02-24 18:06] VITALS: BP 139/82; PULSE 96
== END 2022-02-24 09:25 | disposition home or self-care (01) | DRG 807 ==
PROVIDERS: Admitting Provider Advanced Practice Midwife; PCP Family Medicine; Visit Provider Advanced Practice Midwife
DX: O99.824 Streptococcus B carrier state complicating childbirth (principal); Z37.0 Single live birth; Z3A.38 38 weeks gestation of pregnancy; O70.1 Second degree perineal laceration during delivery; O99.02 Anemia complicating childbirth; D64.9 Anemia, unspecified; O99.344 Other mental disorders complicating childbirth; O99.324 Drug use complicating childbirth; F12.10 Cannabis abuse, uncomplicated; O99.52 Diseases of the respiratory system complicating childbirth; O99.354 Diseases of the nervous system complicating childbirth; G43.909 Migraine, unspecified, not intractable, without status migrainosus; F31.9 Bipolar disorder, unspecified; J45.909 Unspecified asthma, uncomplicated
CPT/HCPCS: 36415; 85027; 86850; 86900; 86901; 87635; J2540

== ENCOUNTER 2022-04-23 14:20 | Emergency (ER) | payer MEDICAID, SELFPAY ==
[2022-04-23 14:35] VITALS: BP 120/70; PULSE 100; RESP 16; TEMP 36.7; O2SAT 97
--- NOTE | 2022-04-23 14:45 | DI.CT_ITS ---
Exam(s) CT ABDOMEN PELVIS W EXAM: CT ABDOMEN PELVIS W CLINICAL HISTORY: RLQ abd Pain, R/o APPY. TECHNIQUE: Imaging Protocol: Axial computed tomography images with coronal and sagittal reformatted images were created and reviewed CONTRAST MATERIAL: Intravenous: Omnipaque 350 Contrast volume:100 ml Oral: no COMPARISON: No exams were available for comparison FINDINGS: ABDOMEN: Lung Bases: Normal where visualized. Liver: Normal density. No measurable mass. Gallbladder and biliary tract: Gallbladder somewhat contracted. No radiodense calculus or dilation. Pancreas: Normal density, no abnormal calcifications or inflammatory process. Spleen: Normal. Kidneys: Normal size, contour and axis. No radiodense stones or obstructive uropathy. No masses seen. Adrenal glands: No masses seen. Abdominal Aorta: Abdominal portion non-dilated. PELVIS: Bladder: No gross wall thickening. No calculi.No focal mass. Bowel: No obstruction or bowel wall thickening. Appendix normal. Peritoneal cavity: No ascites, collection or mesenteric inflammatory response. Bones: Within normal limits for age. Reproductive organs: IUD noted. Tampon present. Otherwise within normal limits. Lymph nodes: Unremarkable. Impression: Unremarkable CT scan of the abdomen and pelvis. RADIATION DOSE DELIVERED: 1,057.64mGy.cm Total DLP DATA REPOSITORY: All CT scans at this facility are submitted to the National Radiology Data Registry (NRDR) Dose Index Registry (DIR) with the [employer] (A[employer]). RADIATION OPTIMIZATION: All CT scans at this facility use at least one of these dose optimization te chniques: automated exposure control; mA and/or kV adjustment per patient size (includes targeted exa ms where dose is matched to clinical indication); or iterative reconstruction.
--- NOTE | 2022-04-23 14:47 | ED.GENADUL_ITS ---
Discharge Plan Disposition Patient Disposition: HOME Condition: Stable Discharge Details Clinical Impression: Abdominal pain Primary Care Provider: Lindsay Miranda V ED Provider: Oscar Beltran Home Meds and New Rx's Prescriptions: Continued PreTAB 29-1 mg tablet 1 tab PO DAILY Qty: 90 4RF venlafaxine 75 mg capsule,extended release 24hr See Rx Instructions .ROUTE .COMPLEX Qty: 90 0RF Dose Instruction: TAKE ONE CAPSULE BY MOUTH EVERY DAY Rx Instructions: TAKE ONE CAPSULE BY MOUTH EVERY DAY docusate sodium [Colace] 100 mg capsule 100 mg PO DAILY PRN (Reason: constipation) Qty: 30 4RF ferrous sulfate 324 mg (65 mg iron) tablet,delayed release (DR/EC) 324 mg PO DAILY Qty: 90 0RF albuterol sulfate [ProAir HFA] 200 PUFF HFA aerosol inhaler 2 puff Inhalation PRN PRN Discharge Instructions Instructions: Abdominal Pain (ED) Additional Instructions: It is recommended that you start with a clear liquid diet and slowly advance your diet over the next 24 to 48 hours as tolerated. If you develop any new or significant worsening of symptoms as discussed please return immediately to the emergency department for reassessment. Otherwise if you are not improving in the next week please follow-up with your primary care provider for further evaluation and testing as needed. Referrals: Lindsay Miranda MD [Primary Care Provider] - 1 week (If not improving) Medical Decision Making <Elif Barrios NP - Last Filed: 04/23/22 15:39> 21-year-old female presents to the ER with chief complaint of right lower quadrant abdominal pain which is been ongoing for approximately a week. Patient reports originally had some vomiting and diarrhea which has since subsided. She states that starting yesterday the pain returned. CBC, CMP, urinalysis ordered. Will consider CT abdomen pelvis rule out appendicitis. CBC shows no leukocytosis, no chronic appearing anemia noted. Urinalysis negative for UTI. Care is to be handed off to oncoming provider Simon Beltran NP pending lab results and CT abdomen pelvis. <Oscar Beltran NP - Last Filed: 04/23/22 16:23> 21-year-old female presents to the ER with chief complaint of right lower quadrant abdominal pain which is been ongoing for approximately a week. Patient reports originally had some vomiting and diarrhea which has since subsided. She states that starting yesterday the pain returned. CBC, CMP, urinalysis ordered. Will consider CT abdomen pelvis rule out appendicitis. CBC shows no leukocytosis, no chronic appearing anemia noted. Urinalysis negative for UTI. Care is to be handed off to oncoming provider Simon Beltran NP pending lab results and CT abdomen pelvis. 1600-assumed care from Elif Barrios NP. Patient pending review of labs and CT imaging. Reviewed labs and patient has no significant leukocytosis but does show this slight anemia. CMP is also unremarkable, urinalysis also shows no signs of infection. Reviewed CT imaging and radiologist interpretation which shows no acute abnormalities. Discussed findings with patient. Did discuss any additional vaginal symptoms with patient and she states that she has been bleeding since her Mirena was put in but denies any vaginal discharge odor or other symptoms. Patient did state that recently her daughter did come home from daycare with similar GI symptoms so I suspect potential viral etiology. Will discharge patient with close monitoring and follow-up precautions discussed. After discussion of diagnosis and plan of care patient has no further needs, questions, or concerns and states clear understanding to return to the emergency department for any worsening symptoms. This documentation was generated using [employer] dictation system, please disregard any oddities of phrase or misspellings. Imaging Data Radiologic Study: Attestation: I personally reviewed and interpreted this imaging study as follows: Imaging: CT Scan Radiologist's impression: FINDINGS: Liver: Normal. No mass. Gallbladder and bile ducts: Gallbladder partially contracted. Pancreas: Normal. No ductal dilation. Spleen: Normal. No splenomegaly. Adrenal glands: Normal. No mass. Kidneys and ureters: Normal. No hydronephrosis. Stomach and bowel: Unremarkable. No obstruction. No mucosal thickening. Appendix: The appendix is well seen, within normal limits. Intraperitoneal space: Unremarkable. No free air. No significant fluid collection. Vasculature: Unremarkable. No abdominal aortic aneurysm. Lymph nodes: Unremarkable. No enlarged lymph nodes. Urinary bladder: Bladder not well distended. Reproductive: IUD in place. Tampon noted. Bones/joints: Unremarkable. No acute fracture. Soft tissues: Unremarkable. IMPRESSION: No acute abnormality seen to account for symptoms. Lab Data Lab results reviewed: Yes I reviewed the patient's lab results. HPI <Elif Barrios NP - Last Filed: 04/23/22 15:39> General Mode of arrival: ambulatory . Date/Time Provider Initiated Documentation: 04/23/22 14:20 . Limitations to Documentation: no limitations . Information obtained by: patient, RN notes reviewed and old records reviewed . HPI Narrative: 21-year-old female presents to the ER with chief complaint of right lower quadrant abdominal pain which is been ongoing for approximately a week. Patient reports originally had some vomiting and diarrhea which has since subsided. She states that starting yesterday the pain returned. She is 1 month status post vaginal delivery she is no longer breast-feeding. She denies any fever chills denies any vaginal bleeding or dysuria. Past medical history includes PTSD, anemia. She does have an IUD. Related Data Home Medications Medication Instructions Recorded Confirmed albuterol sulfate 90 mcg/actuation 2 puff inhalation PRN PRN 06/11/15 04/23/22 aerosol inhaler (ProAir HFA) vits,calcium no.78-iron 1 tab PO DAILY #90 tabs 06/29/21 04/23/22 fumarate-folic acid 29 mg-1 mg tablet (PreTAB) venlafaxine 75 mg capsule,extended See Rx Instructions .Route 02/14/22 04/23/22 release 24 hr .COMPLEX #90 caps docusate sodium 100 mg capsule 100 mg PO DAILY PRN constipation 02/23/22 0 04/23/22 (Colace) #30 caps ferrous sulfate 324 mg (65 mg 324 mg PO DAILY #90 tabs 02/23/22 04/23/22 iron) tablet,delayed release Previous Rx's Medication Instructions Recorded vits,calcium no.78-iron 1 tab PO DAILY #90 tabs 06/29/21 fumarate-folic acid 29 mg-1 mg tablet (PreTAB) venlafaxine 75 mg capsule,extended See Rx Instructions .Route 02/14/22 release 24 hr .COMPLEX #90 caps docusate sodium 100 mg capsule 100 mg PO DAILY PRN constipation 02/23/22 (Colace) #30 caps ferrous sulfate 324 mg (65 mg 324 mg PO DAILY #90 tabs 02/23/22 iron) tablet,delayed release Allergies Allergy/AdvReac Type Severity Reaction Status Date / Time sertraline AdvReac Intermediate pt reports Verified 04/23/22 14:37 she got ugly black flies AdvReac Intermediate red and Uncoded 04/23/22 14:37 swollen cats AdvReac Intermediate sneezing Uncoded 04/23/22 14:37 a lot, runny nose General Stated Complaint: Abd Prob ETHAN: 3 Review of Systems <Elif Barrios NP - Last Filed: 04/23/22 15:39> All systems reviewed & are unremarkable except as noted in HPI and below Gastrointestinal Gastrointestinal: Reports abdominal pain PFSH <Elif Barrios NP - Last Filed: 04/23/22 15:39> All Active Problems (Updated 04/23/22 @ 16:21 by Oscar Beltran NP) Abdominal pain (Acute) Encounter for insertion of mirena IUD (Acute) care and examination (Acute) Term delivered (Acute) Mild anemia (Acute) Maternal varicella, non-immune (Acute) Posttraumatic stress disorder (Acute) History of migraine (Acute) Depressed (Acute) Cannabis abuse (Acute) Medical History Allergic rhinitis, unspecified Asthma Attention deficit disorder with hyperactivity Bipolar disorder Concussion without loss of consciousness, sequela Crushing injury of right middle finger, initial encounter (09/25/15) Dizziness Exercise-induced asthma Group B streptococcal carriage complicating Headache Hematuria History of gestational hypertension Laceration of labia minora Low lying placenta nos or without hemorrhage, second trimester 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 denies marijuana use at this time Sexually active: Yes Do you feel safe at home: Yes Do you feel safe in your relationship?: Yes Additional Social history: Apartment issues -hole in ceiling with black mold state came to visit today Female Reproductive History Menstrual Age of Menarche: 12 Duration of menses: 3-5 days control method: pills History History 3 Para 2 Hx # Term Pregnancies 2 Multiple births 0 Hx # Pregnancies 0 Ectopic pregnancies 0 AB induced 0 Hx Number of Living Children 2 AB spontaneous 1 Past Pregnancies Del. Date GA/Weeks # Preg Succ Route Wgt Sex Labor Lgth Anesth esia Location Prov Complic 08/30/19 39 No vaginal 2976.7 g Female 5 hr labor the day before scheduled induction for gHTN Soledad Rodney CNM 02/22/22 38 No Yes vaginal 3019.224 g Male 5 hours Helen Mcmullen CNM Delivery Date: 08/30/19 Last Updated by: Ros Fagan No meds in labor, stayed in tub. Nitrous for 1st degree lac repair. gHTN, BP improved after . Heavy bleeding per pt. Delivery Date: 02/22/22 Last Updated by: SONI Ellis;GBS positive, one dose PCN prior to delivery; Small second degree laceration and right labial laceration, repaired under local anesthesia Exam <Elif Barrios NP - Last Filed: 04/23/22 15:39> Narrative Exam Narrative: Constitutional: Alert and oriented x3. Appears stated age. Normal body habitus. Head: Normocephalic, no trauma. Eyes: Pupils PERRL, Red reflex noted, EOM's intact. Eyelids symmetrical without lesions, discharge, or swelling. Chest: RRR, Normal S1, S2, distal pulses intact. Resp: Lungs clear to auscultation bilaterally, no wheezes, rales, or rhonchi. Abdomen: Soft, non-distended, Normoactive bowel sounds all 4 quads. Right lower quadrant abdominal pain with palpation. Musculoskeletal: Normal gait, 5/5 strength to all four extremities. Skin: No suspicious rashes or lesions. Capillary refill less than 2 sec. Neurologic: Cranial nerves II-XII intact. Alert and oriented x 3. Motor: No deficits noted. Sensory: Intact bilaterally all 4 extremities. Reflexes: DTR's intact bilaterally.. Hematologic/Lymphatic: No ecchymosis, no lymphadenopathy. Course <Elif Barrios NP - Last Filed: 04/23/22 15:39> Vital Signs Vital signs: Vital Signs Temperature 36.7 C 04/23/22 14:35 Pulse 100 H 04/23/22 14:35 Respiratory Rate 16 04/23/22 14:35 Blood Pressure 120/70 04/23/22 14:35 Pulse Oximetry 97 04/23/22 14:35 Temperature 36.7 C 04/23/22 14:35 Temperature Source Temporal Artery Scan 04/23/22 14:35 Pulse 100 H 04/23/22 14:35 Respiratory Rate 16 04/23/22 14:35 Respiratory Effort Non-Labored 04/23/22 14:39 Blood Pressure 120/70 04/23/22 14:35 Blood Pressure Position Sitting 04/23/22 14:35 Pulse Oximetry 97 04/23/22 14:35 Oxygen Delivery Method Room Air 04/23/22 14:35 Oxygen Flow Rate 0 04/23/22 14:35 Pain Level 8 04/23/22 14:35 Sign Out <Elif Barrios NP - Last Filed: 04/23/22 15:39> Sign Out Data: Sign Out Comment: 1 month . Pending labs and CT abd/pelvis. R/O Appy versus Ovarian cyst. Last updated by lEif Barrios NP at 04/23/22 15:17
[2022-04-23 15:23] LABS: Abs Immature Grans 0.01 10^3/uL (0.0-0.06); Absolute Basophil Count 0.09 10^3/uL (0.0-0.2); Absolute Eosinophil Count 0.43 10^3/uL (0.0-0.7); Absolute Lymphocyte Count 2.37 10^3/uL (1.2-3.4); Absolute Monocyte Count 0.64 10^3/uL (0.1-0.8); Absolute Neutrophil Count 4.34 10^3/uL (1.2-6.7); Basophils % 1.1; Eosinophils % 5.5; HCT 33.8 % (36.0-46.0); HGB 11.1 g/dL (11.2-15.7); Immature Grans % 0.1; Lymphocytes % 30.1; MCH 25.8 pg (27.0-33.0); MCHC 32.8 % (32.0-36.0); MCV 79 fL (80-95); MPV 11.5 fL (8.0-11.0); Monocytes % 8.1; Neutrophils % 55.1; Platelet Count 226 10^3/uL (130-400); RDW 15.3 % (11.7-14.6); RDW-SD 43.8 fL; WBC 7.88 10^3/uL (4.4-10.8)
[2022-04-23 15:26] LABS: Bilirubin Negative (Negative); Blood Negative (Negative); Clarity Clear (Clear); Glucose Negative (Negative); Ketones Negative (Negative); Leukocyte Esterase Negative (Negative); Nitrite Negative (Negative); Urobilinogen 0.2 EU/dL (Up TO 0.2)
[2022-04-23 15:36] LABS: ALT 46 U/L (14-59); AST 24 U/L (15-37); Albumin 3.9 g/dL (3.4-5.0); Alkaline Phosphatase 57 U/L (46-116); Anion Gap 8.3 mmol/L (3-11); BUN 9 mg/dL (7-18); Bilirubin, Total 0.3 mg/dL (0.2-1.0); CO2 27.7 mmol/L (21.0-32.0); Calcium 8.8 mg/dL (8.5-10.1); Chloride 105 mmol/L (98-107); Estimated GFR 82.71 (mL/min/1.73m2); Glucose 108 mg/dL (74-106); Magnesium 1.9 mg/dL (1.8-2.4); Potassium 4.3 mmol/L (3.5-5.1); Sodium 141 mmol/L (136-145); Total Protein 7.2 g/dL (6.4-8.2)
[2022-04-23] MEDS: Omnipaque 350 MG/ML 100 ML BTL IJ (15:41)
[2022-04-23] MEDS: Normal Saline Flush 10 ML SYR IVP (15:42)
--- NOTE | 2022-04-23 16:05 | DI.VRAD_ITS ---
PROCEDURE INFORMATION: Exam: CT Abdomen And Pelvis With Contrast Exam date and time: 04/23/2022 3:37 PM Age: 21 years old Clinical indication: Other: Rlq abd pain, R/O appy TECHNIQUE: Imaging protocol: Computed tomography of the abdomen and pelvis with contrast. Contrast material: OMNIPAQUE 350; Contrast volume: 100 ml; Contrast route: INTRAVENOUS (IV); COMPARISON: CT ABD PELVIS WITH CONTRAST 05/26/2017 7:41 PM FINDINGS: Liver: Normal. No mass. Gallbladder and bile ducts: Gallbladder partially contracted. Pancreas: Normal. No ductal dilation. Spleen: Normal. No splenomegaly. Adrenal glands: Normal. No mass. Kidneys and ureters: Normal. No hydronephrosis. Stomach and bowel: Unremarkable. No obstruction. No mucosal thickening. Appendix: The appendix is well seen, within normal limits. Intraperitoneal space: Unremarkable. No free air. No significant fluid collection. Vasculature: Unremarkable. No abdominal aortic aneurysm. Lymph nodes: Unremarkable. No enlarged lymph nodes. Urinary bladder: Bladder not well distended. Reproductive: IUD in place. Tampon noted. Bones/joints: Unremarkable. No acute fracture. Soft tissues: Unremarkable. IMPRESSION: No acute abnormality seen to account for symptoms. Dictated and Authenticated by: Nancy Howard MD. Ordering:JUSTINE Asencio MD
== END 2022-04-23 16:37 | disposition home or self-care (01) ==
PROVIDERS: Registered Nurse Emergency; Emergency Provider Nurse Practitioner Family; PCP Family Medicine
DX: O90.89 Other complications of the puerperium, not elsewhere classified (principal); R10.31 Right lower quadrant pain; D64.9 Anemia, unspecified; J45.909 Unspecified asthma, uncomplicated
CPT/HCPCS: 36415; 80053; 81025; 99285; 74177; 81003; 83735; 85025; 99284; J3490

== ENCOUNTER 2022-06-15 15:59 | Emergency (ER) | payer MEDICAID, SELFPAY ==
--- NOTE | 2022-06-15 16:00 | DI.RAD_ITS ---
Exam(s) XR FOOT LT COMPLETE EXAM: XR FOOT LT COMPLETE CLINICAL HISTORY: kicked a chair TECHNIQUE: COMPARISON: CR XR foot LT complete from 12/29/2018 FINDINGS: Three views were obtained. There is no evidence of acute fracture or dislocation. IMPRESSION: RADIATION DOSE DELIVERED: Total DLP
[2022-06-15 16:02] VITALS: BP 134/81; PULSE 98; RESP 17; TEMP 37; O2SAT 97
--- NOTE | 2022-06-15 16:12 | ED.GENADUL_ITS ---
Discharge Plan Disposition Patient Disposition: HOME Condition: Stable Discharge Details Clinical Impression: Contusion of foot, left Primary Care Provider: Lindsay Miranda V ED Provider: Rupert Hedrick Home Meds and New Rx's Prescriptions: Continued PreTAB 29-1 mg tablet 1 tab PO DAILY Qty: 90 4RF venlafaxine 75 mg capsule,extended release 24hr See Rx Instructions .ROUTE .COMPLEX Qty: 90 0RF Dose Instruction: TAKE ONE CAPSULE BY MOUTH EVERY DAY Rx Instructions: TAKE ONE CAPSULE BY MOUTH EVERY DAY docusate sodium [Colace] 100 mg capsule 100 mg PO DAILY PRN (Reason: constipation) Qty: 30 4RF ferrous sulfate 324 mg (65 mg iron) tablet,delayed release (DR/EC) 324 mg PO DAILY Qty: 90 0RF albuterol sulfate [ProAir HFA] 200 PUFF HFA aerosol inhaler 2 puff Inhalation PRN PRN Discharge Instructions Instructions: Foot Contusion (ED) Additional Instructions: Wear postop shoe and use crutches as needed, advance activity as tolerated. Rest, elevate, cool compresses every 2 hours for 20 minutes. [id number] Tylenol and/or Motrin as directed for discomfort. Please watch for new or worsening symptoms and return to the ER for any concerns. If symptoms not impr oving in 1 week with conservative measures then please follow-up with your primary care provider. Medical Decision Making 21-year-old female was wearing soft, got excited, and accidentally kicked a wooden chair. Denies any other injuries. Clinically appears to be a contusion will obtain x-ray to rule out bony involvement X-ray unremarkable. Patient placed into a postop shoe and crutches given with teaching Standard discharge and return precautions were provided. Patient understands, is agreeable to this plan, and has no additional questions or concerns upon discharge. This documentation was generated using [email or web address] dictation system, please disregard any oddities of phrase or misspellings. Medical Records Medical records reviewed: Yes I reviewed the patient's medical records. Imaging Data Radiologic Study: Attestation: I personally reviewed and interpreted this imaging study as follows: Imaging: X-Ray Radiologist's impression: Exam(s) XR FOOT LT COMPLETE EXAM: XR FOOT LT COMPLETE CLINICAL HISTORY: kicked a chair TECHNIQUE: COMPARISON: CR XR foot LT complete from 12/29/2018 FINDINGS: Three views were obtained. There is no evidence of acute fracture or dislocation. HPI General Mode of arrival: ambulatory . Date/Time Provider Initiated Documentation: 06/15/22 16:06 . Limitations to Documentation: no limitations . Information obtained by: patient . History of Present Illness 21 year old F presents to the emergency department with the chief complaint of L foot injury, described as moderate, with intensity rated at 4. Quality is described as aching, and is localized to the left and lower extremity. Patient reports no radiation. Patient started experiencing this hour(s) (2) and it has been constant. Immobilization improves symptom(s), Movement worsens symptoms . Patient notes no other symptoms.. Patient did receive the following treatments prior to arrival, none Related Data Home Medications Medication Instructions Recorded Confirmed albuterol sulfate 90 mcg/actuation 2 puff inhalation PRN PRN 06/11/15 06/15/22 aerosol inhaler (ProAir HFA) vits,calcium no.78-iron 1 tab PO DAILY #90 tabs 06/29/21 06/15/22 fumarate-folic acid 29 mg-1 mg tablet (PreTAB) venlafaxine 75 mg capsule,extended See Rx Instructions .Route 02/14/22 06/15/22 release 24 hr .COMPLEX #90 caps docusate sodium 100 mg capsule 100 mg PO DAILY PRN constipation 02/23/22 06/15/22 (Colace) #30 caps ferrous sulfate 324 mg (65 mg 324 mg PO DAILY #90 tabs 02/23/22 06/15/22 iron) tablet,delayed release Previous Rx's Medication Instructions Recorded vits,calcium no.78-iron 1 tab PO DAILY #90 tabs 06/29/21 fumarate-folic acid 29 mg-1 mg tablet (PreTAB) venlafaxine 75 mg capsule,extended See Rx Instructions .Route 02/14/22 release 24 hr .COMPLEX #90 caps docusate sodium 100 mg capsule 100 mg PO DAILY PRN constipation 02/23/22 (Colace) #30 caps ferrous sulfate 324 mg (65 mg 324 mg PO DAILY #90 tabs 02/23/22 iron) tablet,delayed release Allergies Allergy/AdvReac Type Severity Reaction Status Date / Time sertraline AdvReac Intermediate pt reports Verified 06/15/22 16:06 she got ugly black flies AdvReac Intermediate red and Uncoded 06/15/22 16:06 swollen cats AdvReac Intermediate sneezing Uncoded 06/15/22 16:06 a lot, runny nose General Stated Complaint: Orthopedic ETHAN: 4 Review of Systems Constitutional Constitutional: Denies weakness Musculoskeletal Musculoskeletal: Denies deformity, Reports arthralgias, Denies numbness, Reports stiffness and Reports tingling Integumentary/Breasts Skin/Breast: Denies erythema Neurologic Neurologic: Denies numbness, Reports tingling and Denies weakness PFS All Active Problems (Updated 06/15/22 @ 16:59 by RIKY Blanco) Contusion of foot, left (Acute) Encounter for insertion of mirena IUD (Acute) care and examination (Acute) Term delivered (Acute) Mild anemia (Acute) Maternal varicella, non-immune (Acute) Posttraumatic stress disorder (Acute) History of migraine (Acute) Depressed (Acute) Cannabis abuse (Acute) Medical History Allergic rhinitis, unspecified Asthma Attention deficit disorder with hyperactivity Bipolar disorder Concussion without loss of consciousness, sequela Crushing injury of right middle finger, initial encounter (09/25/15) Dizziness Exercise-induced asthma Group B streptococcal carriage complicating Headache Hematuria History of gestational hypertension Laceration of labia minora Low lying placenta nos or without hemorrhage, second trimester 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 denies marijuana use at this time Sexually active: Yes Do you feel safe at home: Yes Do you feel safe in your relationship?: Yes Additional Social history: Apartment issues -hole in ceiling with black mold state came to visit today Female Reproductive History Menstrual Age of Menarche: 12 Duration of menses: 3-5 days control method: pills History History 3 Para 2 Hx # Term Pregnancies 2 Multiple births 0 Hx # Pregnancies 0 Ectopic pregnancies 0 AB induced 0 Hx Number of Living Children 2 AB spontaneous 1 Past Pregnancies Del. Date GA/Weeks # Preg Succ Route Wgt Sex Labor Lgth Anesth esia Location Prov [facility] 08/30/19 39 No vaginal 2976.7 g Female 5 hr labor the day before scheduled induction for gHTN Soledad Rodney CNM 02/22/22 38 No Yes vaginal 3019.224 g Male 5 hours Helen Mcmullen CNM Delivery Date: 08/30/19 Last Updated by: Ros Fagan No meds in labor, stayed in tub. Nitrous for 1st degree lac repair. gHTN, BP improved after . Heavy bleeding per pt. Delivery Date: 02/22/22 Last Updated by: SONI Ellis;GBS positive, one dose PCN prior to delivery; Small second degree laceration and right labial laceration, repaired under local anesthesia Exam Const General: cooperative, healthy appearing, comfortable and no acute distress Orientation: alert and awake [facility] Head: normal to inspection, normocephalic and atraumatic Eyes Conjunctivae: conjunctivae normal Neck Neck: normal visual inspection, full ROM, trachea midline and supple Resp Effort & Inspection: normal respiratory effort and able to speak in complete sentences Cardio Rate: regular rate Rhythm: regular rhythm Skin General skin exam: no rashes or lesions noted Neuro General: patient alert, patient awake, moves all extremities and no focal motor deficits Cognition: normal cognition Speech: speech normal Gait: antalgic Motor: muscle tone normal throughout Sensory Exam: no sensory deficits noted Extrem General: full ROM and capillary refill normal Ankle/foot/toe images: 1. Diffuse mild tenderness, swelling, ecchymosis, worse over the base of the fourth digit. Skin intact. No deformity. Neuro, vascular, tendon intact. Psych Appearance: grossly normal Mental Status: mental status grossly normal Course Vital Signs Vital signs: Vital Signs Temperature 37.0 C 06/15/22 16:02 Pulse 98 H 06/15/22 16:02 Respiratory Rate 17 06/15/22 16:02 Blood Pressure 134/81 06/15/22 16:02 Pulse Oximetry 97 06/15/22 16:02 Temperature 37.0 C 06/15/22 16:02 Temperature Source Oral 06/15/22 16:02 Pulse 98 H 06/15/22 16:02 Respiratory Rate 17 06/15/22 16:02 Respiratory Effort Non-Labored 06/15/22 16:04 Blood Pressure 134/81 06/15/22 16:02 Blood Pressure Position Sitting 06/15/22 16:02 Pulse Oximetry 97 06/15/22 16:02 Oxygen Delivery Method Room Air 06/15/22 16:02 Oxygen Flow Rate 0 06/15/22 16:02 Pain Level 9 06/15/22 16:04
== END 2022-06-15 17:06 | disposition home or self-care (01) ==
PROVIDERS: Emergency Provider Physician Assistant; PCP Family Medicine
DX: S90.32XA Contusion of left foot, initial encounter (principal); W22.03XA Walked into furniture, initial encounter; Y93.89 Activity, other specified
CPT/HCPCS: 99283; 73630; 99282

== ENCOUNTER 2022-08-01 16:35 | Emergency (ER) | payer MEDICAID, SELFPAY ==
[2022-08-01 16:39] VITALS: BP 137/85; PULSE 133; RESP 16; TEMP 36.4; O2SAT 97
--- NOTE | 2022-08-01 18:15 | DI.RAD_ITS ---
Exam(s) XR HUMERUS RT EXAM: XR HUMERUS RT CLINICAL HISTORY: fall. TECHNIQUE: 2D digital imaging was performed of the right humerus. Two images were obtained. AP and lateral views were obtained. COMPARISON: No exams were available for comparison FINDINGS: BONES: No acute fracture is present. No bony destructive lesion is seen. Visualized portion of elbow and shoulder joints are unremarkable. SOFT TISSUE: Normal. IMPRESSION: Unremarkable radiographs of the right humerus. DATA REPOSITORY: RADIATION DOSE DELIVERED:
--- NOTE | 2022-08-01 18:15 | DI.RAD_ITS ---
Exam(s) XR ELBOW RT COMPLETE EXAM: XR ELBOW RT COMPLETE CLINICAL HISTORY: fall. TECHNIQUE: 2D digital imaging was performed of the left elbow. Three images were obtained. AP, lat eral and oblique views were obtained. COMPARISON: No exams were available for comparison FINDINGS: BONES: No acute fracture is present. No bony destructive lesion is seen. JOINTS: The elbow is normally aligned. No joint effusion is seen. SOFT TISSUE: Normal. IMPRESSION: Unremarkable radiographs of the right elbow. DATA REPOSITORY: RADIATION DOSE DELIVERED:
--- NOTE | 2022-08-01 18:15 | DI.RAD_ITS ---
Exam(s) XR SHOULDER RT COMPLETE 2+V EXAM: XR SHOULDER RT COMPLETE 2+V CLINICAL HISTORY: fall. TECHNIQUE: 2D digital imaging was performed of the right shoulder. Five images were obtained. AP, Grashey, Y-view and axillary views were obtained. COMPARISON: No exams were available for comparison FINDINGS: BONES: No acute fracture is present. No bony destructive lesion is seen. JOINTS: No dislocation present. SOFT TISSUE: Normal. IMPRESSION: Unremarkable radiographs of the right shoulder. DATA REPOSITORY: RADIATION DOSE DELIVERED:
[2022-08-01] MEDS: Ketorolac 30 MG/ML VIAL IM (18:43)
--- NOTE | 2022-08-01 19:25 | DI.VRAD_ITS ---
PROCEDURE INFORMATION: Exam: XR Right Humerus Exam date and time: 08/01/2022 6:46 PM Age: 21 years old Clinical indication: Other: Fall TECHNIQUE: Imaging protocol: Radiologic exam of the Right humerus. Views: 2 or more views. COMPARISON: CR CHEST 2 VIEWS PA,LAT 12/08/2017 4:13 PM FINDINGS: Bones/joints: Normal. Soft tissues: Normal. IMPRESSION: No acute findings. Dictated and Authenticated by: Carlos Enrique Esteban MD. Ordering:VALERIE Moore MD
--- NOTE | 2022-08-01 19:26 | DI.VRAD_ITS ---
PROCEDURE INFORMATION: Exam: XR Right Elbow Exam date and time: 08/01/2022 6:55 PM Age: 21 years old Clinical indication: Other: Fall TECHNIQUE: Imaging protocol: Radiologic exam of the Right elbow. Views: 3 or more views. COMPARISON: CR XR SHOULDER RT COMPLETE 2+V 08/01/2022 6:50 PM FINDINGS: Bones/joints: Normal. Soft tissues: Normal. IMPRESSION: No acute findings. Dictated and Authenticated by: Carlos Enrique Esteban MD. Ordering:VALERIE Moore MD
--- NOTE | 2022-08-01 19:26 | DI.VRAD_ITS ---
PROCEDURE INFORMATION: Exam: XR Right Shoulder Exam date and time: 08/01/2022 6:50 PM Age: 21 years old Clinical indication: Other: Fall TECHNIQUE: Imaging protocol: Radiologic exam of the Right shoulder. Views: 2 or more views. COMPARISON: No relevant prior studies available. FINDINGS: Bones/joints: Normal. Soft tissues: Normal. IMPRESSION: No acute findings. Dictated and Authenticated by: Carlos Enrique Esteban MD. Ordering:VALERIE Moore MD
--- NOTE | 2022-08-01 20:08 | ED.GENADUL_ITS ---
Discharge Plan Disposition Patient Disposition: Home Condition: Stable Discharge Details Clinical Impression: Contusion of multiple sites of right arm Primary Care Provider: Lindsay Miranda V ED Provider: Oscar Beltran Home Meds and New Rx's Prescriptions: Continued venlafaxine 75 mg capsule,extended release 24hr See Rx Instructions .ROUTE .COMPLEX Qty: 90 0RF Dose Instruction: TAKE ONE CAPSULE BY MOUTH EVERY DAY Rx Instructions: TAKE ONE CAPSULE BY MOUTH EVERY DAY ferrous sulfate 324 mg (65 mg iron) tablet,delayed release (DR/EC) 324 mg PO DAILY Qty: 90 0RF albuterol sulfate [ProAir HFA] 200 PUFF HFA aerosol inhaler 2 puff Inhalation PRN PRN Discharge Instructions Instructions: Contusion in Adults (ED) Additional Instructions: At this time we are seeing no acute fracture or injury that was apparent on x- ray imaging. Please continue to use [id number] Tylenol and Motrin as needed for discomfort and if not improving in the next week please follow-up with your primary care provider for reassessment. Referrals: Lindsay Miranda MD [Primary Care Provider] - 1 week (If not improving) Discharge Data Discharge Date/Time-TO BE ENTERED AT DEPARTURE: 08/01/22 20:15 Medical Decision Making Patient presenting to the emergency department for chief complaint of right shoulder and arm injury secondary to fall. Approximately 2 hours prior to arrival patient states that she slipped and fell landing on shoulder arm and elbow. Patient has diffuse tenderness to palpation of right upper extremity. No obvious deformity or contusion is noted but due to diffuse pain and trauma will perform imaging. Pending results we will give patient IM Toradol. Review of imaging shows no acute findings. Patient diagnosed with multiple contusions. Discussed with patient conservative management of symptoms. After discussion of diagnosis and plan of care patient has no further needs, questions, or concerns and states clear understanding to return to the emergency department for any worsening symptoms. This documentation was generated using [employer] system, please disregard any oddities of phrase or misspellings. Sign Out No HPI General Mode of arrival: ambulatory . Date/Time Provider Initiated Documentation: 08/01/22 17:00 . Limitations to Documentation: no limitations . Information obtained by: patient and RN notes reviewed . History of Present Illness 21 year old F presents to the emergency department with the chief complaint of fall with right arm injury, described as moderate, with intensi ty rated at 8. Quality is described as sharp, and is localized to the right and upper extremity. Patient reports no radiation. Patient started experiencing this hour(s) (1) and it has been constant. No relieving factors improve symptom(s), Patient notes no other symptoms.. Patient did receive the following treatments prior to arrival, none Related Data Home Medications Medication Instructions Recorded Confirmed albuterol sulfate 90 mcg/actuation 2 puff inhalation PRN PRN 06/11/15 08/01/22 aerosol inhaler (ProAir HFA) venlafaxine 75 mg capsule,extended See Rx Instructions .Route 02/14/22 08/01/22 release 24 hr .COMPLEX #90 caps ferrous sulfate 324 mg (65 mg 324 mg PO DAILY #90 tabs 02/23/22 08/01/22 iron) tablet,delayed release Previous Rx's Medication Instructions Recorded venlafaxine 75 mg capsule,extended See Rx Instructions .Route 02/14/22 release 24 hr .COMPLEX #90 caps ferrous sulfate 324 mg (65 mg 324 mg PO DAILY #90 tabs 02/23/22 iron) tablet,delayed release Allergies Allergy/AdvReac Type Severity Reaction Status Date / Time sertraline AdvReac Intermediate pt reports Verified 08/01/22 16:42 she got ugly black flies AdvReac Intermediate red and Uncoded 08/01/22 16:42 swollen cats AdvReac Intermediate sneezing Uncoded 08/01/22 16:42 a lot, runny nose General Stated Complaint: Trauma ETHAN: 3 Review of Systems Narrative: 6 systems reviewed and unremarkable except what is marked below. Constitutional Constitutional: Denies headache(s) ENT Ears, Nose, Mouth, and Throat: Denies headache(s) Cardiovascular Cardiovascular: Denies syncope Musculoskeletal Musculoskeletal: Reports as per HPI, Reports arthralgias and Reports limited range of motion Integumentary/Breasts Skin/Breast: Denies wounds Neurologic Neurologic: Denies syncope and Denies headache(s) [facility] All Active Problems (Updated 07/16/22 @ 00:01 by SANDRA COLEMAN) Encounter for insertion of mirena IUD (Acute) care and examination (Acute) Term delivered (Acute) Mild anemia (Acute) Maternal varicella, non-immune (Acute) Posttraumatic stress disorder (Acute) History of migraine (Acute) Depressed (Acute) Cannabis abuse (Acute) Medical History Allergic rhinitis, unspecified Asthma Attention deficit disorder with hyperactivity Bipolar disorder Concussion without loss of consciousness, sequela Crushing injury of right middle finger, initial encounter (09/25/15) Dizziness Exercise-induced asthma Group B streptococcal carriage complicating Headache Hematuria History of gestational hypertension Laceration of labia minora Low lying placenta nos or without hemorrhage, second trimester 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 denies marijuana use at this time Sexually active: Yes Do you feel safe at home: Yes Do you feel safe in your relationship?: Yes Additional Social history: Apartment issues -hole in ceiling with black mold state came to visit today Female Reproductive History Menstrual Age of Menarche: 12 Duration of menses: 3-5 days control method: pills History History 3 Para 2 Hx # Term Pregnancies 2 Multiple births 0 Hx # Pregnancies 0 Ectopic pregnancies 0 AB induced 0 Hx Number of Living Children 2 AB spontaneous 1 Past Pregnancies Del. Date GA/Weeks # Preg Succ Route Wgt Sex Labor Lgth Anesth esia Location Prov Complic 08/30/19 39 No vaginal 2976.7 g Female 5 hr labor the day before scheduled induction for gHTN Soledad Rodney CNM 02/22/22 38 No Yes vaginal 3019.224 g Male 5 hours Helen Mcmullen CNM Delivery Date: 08/30/19 Last Updated by: Ros Fagan No meds in labor, stayed in tub. Nitrous for 1st degree lac repair. gHTN, BP improved after . Heavy bleeding per pt. Delivery Date: 02/22/22 Last Updated by: SONI Ellis;GBS positive, one dose PCN prior to delivery; Small second degree laceration and right labial laceration, repaired under local anesthesia Exam Const General: cooperative, no acute distress and not ill appearing Orientation: alert, awake and oriented x3 HENMT Head: normocephalic and atraumatic Resp Effort & Inspection: normal respiratory effort, able to speak in complete sentences and no respiratory distress Cardio Rate: regular rate Rhythm: regular rhythm Pulses: normal peripheral pulses Skin General skin exam: no rashes or lesions noted Neuro General: patient alert, patient awake, patient oriented x3, moves all extremities and no focal motor deficits Sensory Exam: no sensory deficits noted Extrem General: normal exam except as noted Right upper extremity: shoulder/upper arm Details: normal to inspection, tenderness Location: of the mid-shaft humerus, over the subacromial bursa and over the deltoid bursa, axillary nerve sensory function normal and abnormal ROM Details: pain with active ROM; no crepitus and no deformity, elbow/forearm Details: tenderness Location: of the distal humerus and of the olecranon; Negative for proximal forearm, wrist Details: normal to inspection, normal ROM and radial pulse present; no tenderness and hand Details: normal to inspection Course Vital Signs Vital signs: Vital Signs Temperature 36.4 C L 08/01/22 16:39 Pulse 133 H 08/01/22 16:39 Respiratory Rate 16 08/01/22 16:39 Blood Pressure 137/85 08/01/22 16:39 Pulse Oximetry 97 08/01/22 16:39 Temperature 36.4 C L 08/01/22 16:39 Temperature Source Temporal Artery Scan 08/01/22 16:39 Pulse 133 H 08/01/22 16:39 Respiratory Rate 16 08/01/22 16:39 Respiratory Effort 08/01/22 18:39 Respiratory Depth Normal 08/01/22 18:39 Respiratory Pattern Normal 08/01/22 18:39 Blood Pressure 137/85 08/01/22 16:39 Blood Pressure Position Sitting 08/01/22 16:39 Pulse Oximetry 97 08/01/22 16:39 Oxygen Delivery Method Room Air 08/01/22 16:39 Oxygen Flow Rate 0 08/01/22 16:39 Pain Level 10 08/01/22 18:39 Lab/Test Results Lab/Test Results: POC- Test(urine) Negative
== END 2022-08-01 20:15 | disposition home or self-care (01) ==
PROVIDERS: Emergency Provider Nurse Practitioner Family; PCP Family Medicine
DX: S40.021A Contusion of right upper arm, initial encounter (principal); J45.909 Unspecified asthma, uncomplicated; F31.9 Bipolar disorder, unspecified; W01.0XXA Fall on same level from slipping, tripping and stumbling without subsequent striking against object, initial encounter
CPT/HCPCS: 81025; 96372; 99284; 73030; 73060; 73080; J1885

== ENCOUNTER 2022-11-13 22:17 | Emergency (ER) | payer MEDICAID, SELFPAY ==
[2022-11-13 22:19] VITALS: BP 121/84; PULSE 117; RESP 18; TEMP 36.6; O2SAT 98
--- NOTE | 2022-11-13 22:19 | ED.GENADUL_ITS ---
Discharge Plan Disposition Patient Disposition: Home Condition: Improving Discharge Details Clinical Impression: Colitis Primary Care Provider: Lindsay Miranda V ED Provider: Ester Ramirez Home Meds and New Rx's Prescriptions: Continued venlafaxine 75 mg capsule,extended release 24hr See Rx Instructions .ROUTE .COMPLEX Qty: 90 0RF Dose Instruction: TAKE ONE CAPSULE BY MOUTH EVERY DAY Rx Instructions: TAKE ONE CAPSULE BY MOUTH EVERY DAY ferrous sulfate 324 mg (65 mg iron) tablet,delayed release (DR/EC) 324 mg PO DAILY Qty: 90 0RF albuterol sulfate [ProAir HFA] 200 PUFF HFA aerosol inhaler 2 puff Inhalation PRN PRN Discharge Instructions Instructions: Colitis (ED) Additional Instructions: Your blood work today is reassuring and shows no evidence of acute concerning or significant findings. Your CT scan today showed evidence of colitis which is an inflammation of your bowel wall which is usually viral in nature. Drink plenty of fluids and get plenty of rest. Alternate tylenol and motrin as needed and directed for pain. Take the Zofran as needed and directed for nausea and vomiting. Follow-up with your primary care doctor in 1 week. Return to the emergency department with any worsening or new concerning symptoms such as fever, persistent vomiting, worsening pain or any other concerns. Discharge Data Discharge Date/Time-TO BE ENTERED AT DEPARTURE: 11/14/22 00:35 Discharge Physician: Ester Ramirez Medical Decision Making 2229 -- 22-year-old female with a history of asthma, anxiety, depression, PTSD and cannabis abuse presents for right lower quadrant abdominal pain, nausea and diarrhea since this afternoon. Urine test here negative. Heart rate elevated into the 110s. Remainder of vitals within normal limits. Her abdomen is obese and soft but tender in the right lower quadrant. No rebound or guarding. Positive heel jar sign. Negative obturator sign. Differential diagnosis includes acute appendicitis, ovarian cyst or torsion, colitis, ureterolithiasis. We will place an IV, bolus IV fluids, screening labs, urinalysis, CT abdomen and pelvis and give a dose of IV Toradol, IV Tylenol, IV Zofran and reassess. 0030 --labs and imaging reviewed. Normal white blood cell count. Normal electrolytes. Urinalysis negative. CT reviewed and notes IMPRESSION: 1. ? Normal appendix. 2. ? Apparent mural thickening through the collapsed well evacuated ascending and transverse colonic segment. Artifact of incomplete distention is suspected although acute segmental colitis could probably also have this appearance. Clinical correlation is recommended. If colitis is suspected clinically, infectious or inflammatory causes would be favored in a young patient. Patient reassessed and she is initially sleeping. Patient awoken and she feels much better and feels comfortable going home. Discussed with patient that her symptoms appear likely consistent with colitis which is usually a viral process. She is advised to increase fluids, rest, alternate Tylenol and ibuprofen. She was given Zofran for home for nausea. Advised to follow up with the primary care doctor for re-evaluation. Usual and customary return precautions given prior to discharge. Medical Records Medical records reviewed: Yes I reviewed the patient's medical records. Imaging Data Radiologic Study: Radiologist's impression: CT Abdomen And Pelvis With Contrast Exam date and time: 11/13/2022 11:04 PM Age: 22 years old Clinical indication: Abdominal pain; Localized; Right lower quadrant (rlq); Patient HX: Rlq abd pain, nausea, diarrhea, pushing to urinate; Additional info: R/O appendicitis, kidney stone, ovarian cyst, colitis TECHNIQUE: Imaging protocol: Computed tomography of the abdomen and pelvis with contrast. Radiation optimization: All CT scans at this facility use at least one of these dose optimization techniques: automated exposure control; mA and/or kV adjustment per patient size (includes targeted exams where dose is matched to clinical indication); or iterative reconstruction. Contrast material: OMNIPAQUE 350; Contrast volume: 100 ml; Contrast route: INTRAVENOUS (IV);? COMPARISON: CT ABDOMEN PELVIS W 04/23/2022 3:37 PM FINDINGS: Lungs: Lung bases clear. Liver: Normal appearing liver. Gallbladder and bile ducts: Gallbladder partially collapsed. No calcified gallstones seen. No biliary dilatation. Pancreas: Normal appearing pancreas. Spleen: Normal appearing spleen. Adrenal glands: Normal appearing adrenal glands. Kidneys and ureters: Normal appearing kidneys. No hydronephrosis. Stomach and bowel: No oral contrast. Stomach moderately distended with ingested material. No small bowel dilatation to suggest obstruction. Apparent mural thickening through the collapsed well evacuated distal ascending and proximal transverse colon. Artifact of incomplete distention suspected. Colitis not excluded. No evidence of diverticulitis. Appendix: Normal appendix. Intraperitoneal space: No gross ascites. No free air. Vasculature: Normal caliber abdominal aorta. Lymph nodes: Scattered small mesenteric lymph nodes, nonspecific. Urinary bladder: Urinary bladder partially collapsed but grossly unremarkable, as seen. Reproductive: Anteverted uterus, normal in size. T-shaped intrauterine device in-situ. Normal-sized ovaries, not well evaluated. Bones/joints: No acute fracture seen among the bones of the abdomen or pelvis. Soft tissues: Small fat containing ventral hernia at the umbilicus. IMPRESSION: 1. ? Normal appendix. 2. ? Apparent mural thickening through the collapsed well evacuated ascending and transverse colonic segment. Artifact of incomplete distention is suspected although acute segmental colitis could probably also have this appearance. Clinical correlation is recommended. If colitis is suspected clinically, infectious or inflammatory causes would be favored in a young patient. Lab Data Lab results reviewed: Yes I reviewed the patient's lab results. Labs: Laboratory Tests Range/Units 11/13/22 11/13/22 11/13/22 22:30 22:50 22:50 WBC (4.4-10.8) 10^3/uL 10.12 RBC (3.93-5.22) 10^6/uL 4.26 Hgb (11.2-15.7) g/dL 11.7 Hct (36.0-46.0) % 35.3 L MCV (80-95) fL 83 MCH (27.0-33.0) pg 27.5 MCHC (32.0-36.0) % 33.1 RDW (11.7-14.6) % 14.1 Plt Count (130-400) 10^3/uL 222 MPV (8.0-11.0) fL 11.5 H Immature Gran % 0.3 Neutrophils % 55.2 Lymphocytes % 31.0 Monocytes % 7.8 Eosinophils % 4.9 Basophils % 0.8 Nucleated RBC % (0.0-0.3) % 0.0 Absolute Neutrophils (1.2-6.7) 10^3/uL 5.58 Absolute Lymphocytes (1.2-3.4) 10^3/uL 3.14 Absolute Monocytes (0.1-0.8) 10^3/uL 0.79 Absolute Eosinophils (0.0-0.7) 10^3/uL 0.50 Absolute Basophils (0.0-0.2) 10^3/uL 0.08 Sodium (136-145) mmol/L 139 Potassium (3.5-5.1) mmol/L 3.8 Chloride (98-107) mmol/L 105 Carbon Dioxide (21.0-32.0) mmol/L 26.7 Anion Gap (3-11) mmol/L 7.3 BUN (7-18) mg/dL 14 Creatinine (0.55-1.02) mg/dL 0.8 Est GFR (CKD-EPI 2020) (mL/min/1.73m2) 107.44 Glucose (74-106) mg/dL 106 Calcium (8.5-10.1) mg/dL 8.8 Total Bilirubin (0.2-1.0) mg/dL 0.2 AST (15-37) U/L 18 ALT (14-59) U/L 37 Alkaline Phosphatase (46-116) U/L 48 Total Protein (6.4-8.2) g/dL 7.0 Albumin (3.4-5.0) g/dL 3.8 Lipase (16-77) U/L 26 Urine Color (Yellow) Yellow Urine Clarity (Clear) Clear Urine pH (5-8) 6.5 Ur Specific Taylor (1.005-1.025) 1.010 Urine Protein (Negative) mg/dL Negative Urine Ketones (Negative) mg/dL Negative Urine Blood (Negative) Negative Urine Nitrite (Negative) Negative Urine Bilirubin (Negative) Negative Urine Urobilinogen (Up to 0.2) mg/dL 0.2 Ur Leukocyte Esterase (Negative) Negative Urine Glucose (Negative) mg/dL Negative HPI General Mode of arrival: ambulatory . Date/Time Provider Initiated Documentation: 11/13/22 22:18 . Limitations to Documentation: no limitations . Information obtained by: patient . HPI Narrative: Patient is a 22-year-old female with a history of cannabis abuse, anxiety, depression, PTSD presents for complaint of lower abdominal pain since this afternoon. Patient states she was walking around when she noted sharp and crampy right lower quadrant abdominal pain. She states that initially was i ntermittent and has now become more constant. She states she took 400 mg of ibuprofen within the last few hours without relief. Patient admits to nausea and dry heaving but denies any vomiting. She states she is also noted that she has been needing to push to urinate but denies any urinary frequency, urgency, hesitancy, dysuria or hematuria. Patient also admits to 1 episode of watery brown diarrhea this morning. She denies any fever, vaginal discharge, genital lesions. She states she has not been sexually active for the past month and denies any known exposure to STDs. She denies any known history of and states her last menstrual period was 6 days ago. She states her period has been regular and is usually short in duration. She also states she has a Mirena. Related Data Home Medications Medication Instructions Recorded Confirmed albuterol sulfate 90 mcg/actuation 2 puff inhalation PRN PRN 06/11/15 08/01/22 aerosol inhaler (ProAir HFA) venlafaxine 75 mg capsule,extended See Rx Instructions .Route 02/14/22 08/01/22 release 24 hr .COMPLEX #90 caps ferrous sulfate 324 mg (65 mg 324 mg PO DAILY #90 tabs 02/23/22 08/01/22 iron) tablet,delayed release Previous Rx's Medication Instructions Recorded venlafaxine 75 mg capsule,extended See Rx Instructions .Route 02/14/22 release 24 hr .COMPLEX #90 caps ferrous sulfate 324 mg (65 mg 324 mg PO DAILY #90 tabs 02/23/22 iron) tablet,delayed release Allergies Allergy/AdvReac Type Severity Reaction Status Date / Time sertraline AdvReac Intermediate pt reports Verified 08/01/22 16:42 she got ugly black flies AdvReac Intermediate red and Uncoded 08/01/22 16:42 swollen cats AdvReac Intermediate sneezing Uncoded 08/01/22 16:42 a lot, runny nose General Stated Complaint: Abd Prob ETHAN: 3 Review of Systems All systems reviewed & are unremarkable except as noted in HPI and below Constitutional Constitutional: Reports as per HPI, Denies chills and Denies fever(s) Eyes Eyes: Denies blurry vision ENT Ears, Nose, Mouth, and Throat: Denies dizziness, Denies sore throat and Denies throat swelling Cardiovascular Cardiovascular: Denies chest pain and Denies dyspnea Respiratory Respiratory: Denies cough and Denies dyspnea Gastrointestinal Gastrointestinal: Reports abdominal pain, Reports diarrhea, Reports nausea and Denies vomiting Genitourinary Genitourinary: Denies hematuria and Denies dysuria Musculoskeletal Musculoskeletal: Denies back pain and Denies numbness Integumentary/Breasts Skin/Breast: Denies lesions and Denies rash Neurologic Neurologic: Denies dizziness, Denies localized weakness and Denies numbness Allergic/Immunologic Allergic/Immunologic: Denies throat swelling PFSH All Active Problems (Updated 11/14/22 @ 00:19 by Ester Ramirez DO) Colitis (Acute) Encounter for insertion of mirena IUD (Acute) care and examination (Acute) Term delivered (Acute) Mild anemia (Acute) Maternal varicella, non-immune (Acute) Posttraumatic stress disorder (Acute) History of migraine (Acute) Depressed (Acute) Cannabis abuse (Acute) Medical History Allergic rhinitis, unspecified Asthma Attention deficit disorder with hyperactivity Bipolar disorder Concussion without loss of consciousness, sequela Crushing injury of right middle finger, initial encounter (09/25/15) Dizziness Exercise-induced asthma Group B streptococcal carriage complicating Headache Hematuria History of gestational hypertension Laceration of labia minora Low lying placenta nos or without hemorrhage, second trimester 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 denies marijuana use at this time Sexually active: Yes Do you feel safe at home: Yes Do you feel safe in your relationship?: Yes Additional Social history: Apartment issues -hole in ceiling with black mold state came to visit today Female Reproductive History Menstrual Age of Menarche: 12 Duration of menses: 3-5 days control method: pills History History 3 Para 2 Hx # Term Pregnancies 2 Multiple births 0 Hx # Pregnancies 0 Ectopic pregnancies 0 AB induced 0 Hx Number of Living Children 2 AB spontaneous 1 Past Pregnancies Del. Date GA/Weeks # Preg Succ Route Wgt Sex Labor Lgth Anesth esia Location Prov [facility] 08/30/19 39 No vaginal 2976.7 g Female 5 hr labor the day before scheduled induction for gHTN Soledad Rodney CNM 02/22/22 38 No Yes vaginal 3019.224 g Male 5 hours Helen Mcmullen CNM Delivery Date: 08/30/19 Last Updated by: Ros Fagan No meds in labor, stayed in tub. Nitrous for 1st degree lac repair. gHTN, BP improved after . Heavy bleeding per pt. Delivery Date: 02/22/22 Last Updated by: SONI Ellis;GBS positive, one dose PCN prior to delivery; Small second degree laceration and right labial laceration, repaired under local anesthesia Exam Const General: cooperative and no acute distress Orientation: alert, awake and oriented x3 HENMT Head: normal to inspection Face and sinus: normal facial exam Eyes General: appearance normal, both eyes and all related structures Pupils: PERRL EOM: EOM intact bilaterally Neck Neck: normal visual inspection and No submandibular swelling Lymphatic: no lymphadenopathy noted Chest Chest: normal inspection of the chest and no tenderness Resp Effort & Inspection: normal respiratory effort and able to speak in complete sentences Auscultation: clear to auscultation bilaterally Cardio Rate: regular rate Rhythm: regular rhythm GI Inspection: normal to inspection Palpation: soft, not firm, not rigid and tender in the RLQ Auscultation: hypoactive bowel sounds Back/Spine/Pelvis Thoracic/Lumbar Spine: thoracic and lumbar spine normal to inspection Skin General skin exam: no rashes or lesions noted Neuro General: patient alert, patient awake and patient oriented x3 Cognition: normal cognition Speech: speech normal Motor: muscle tone normal throughout Sensory Exam: no sensory deficits noted Extrem General: normal to inspection, full ROM, capillary refill normal, no calf tenderness bilaterally and no edema Psych Appearance: grossly normal Mental Status: mental status grossly normal Speech and Movement: speech and movement normal Affect: normal affect
--- NOTE | 2022-11-13 22:30 | DI.CT_ITS ---
Exam(s) CT ABDOMEN PELVIS W EXAM: CT ABDOMEN PELVIS W CLINICAL HISTORY: RLQ abd pain, nausea, diarrhea, pushing to urinate. TECHNIQUE: Imaging Protocol: Axial computed tomography images with coronal and sagittal reformatted images were created and reviewed CONTRAST MATERIAL: Intravenous: Omnipaque 350 Contrast volume:100 ml Oral: no COMPARISON: CT CT ABDOMEN PELVIS W from 04/23/2022 FINDINGS: ABDOMEN: Lung Bases: Normal where visualized. Liver: Normal density. No measurable mass. Gallbladder and biliary tract: No radiodense calculus or dilation. Pancreas: Normal density, no abnormal calcifications or inflammatory process. Spleen: Normal. Kidneys: Normal size, contour and axis. No radiodense stones or obstructive uropathy. No suspicious m asses seen. Adrenal glands: No masses seen. Abdominal Aorta: Abdominal portion non-dilated. Soft tissues: Tiny amount of fat at the umbilicus. PELVIS: Bladder: No gross wall thickening. No calculi.No focal mass. Bowel: No obstruction. No bowel wall thickening. Appendix normal. Peritoneal cavity: No ascites, collection or mesenteric inflammatory response. Bones: Within normal limits for age. Reproductive organs: Within normal limits. Lymph nodes: Unremarkable. AD in place. Impression: Unremarkable CT scan of the abdomen and pelvis. RADIATION DOSE DELIVERED: 1,213.68mGy.cm Total DLP DATA REPOSITORY: All CT scans at this facility are submitted to the National Radiology Data Registry (NRDR) Dose Index Registry (DIR) with the [employer] (A[employer]). RADIATION OPTIMIZATION: All CT scans at this facility use at least one of these dose optimization te chniques: automated exposure control; mA and/or kV adjustment per patient size (includes targeted exa ms where dose is matched to clinical indication); or iterative reconstruction.
[2022-11-13 22:41] LABS: Bilirubin Negative (Negative); Blood Negative (Negative); Clarity Clear (Clear); Glucose Negative (Negative); Ketones Negative (Negative); Leukocyte Esterase Negative (Negative); Nitrite Negative (Negative); Urobilinogen 0.2 mg/dL (Up to 0.2); pH 6.5 (5-8)
[2022-11-13] MEDS: Ondansetron 4 MG/2 ML VIAL IVP (22:52)
[2022-11-13] MEDS: ACETAMINOPHEN 1,000 MG/100 ML BTL 400 MG IVPB (22:52)
[2022-11-13] MEDS: Ketorolac 15 MG/ML VIAL IVP (22:52)
[2022-11-13] MEDS: Omnipaque 350 MG/ML 100 ML BTL IJ (22:55)
[2022-11-13 23:02] LABS: Abs Immature Grans 0.03 10^3/uL (0.0-0.06); Absolute Basophil Count 0.08 10^3/uL (0.0-0.2); Absolute Lymphocyte Count 3.14 10^3/uL (1.2-3.4); Absolute Monocyte Count 0.79 10^3/uL (0.1-0.8); Absolute Neutrophil Count 5.58 10^3/uL (1.2-6.7); Basophils % 0.8; Eosinophils % 4.9; HCT 35.3 % (36.0-46.0); HGB 11.7 g/dL (11.2-15.7); Immature Grans % 0.3; MCH 27.5 pg (27.0-33.0); MCHC 33.1 % (32.0-36.0); MCV 83 fL (80-95); MPV 11.5 fL (8.0-11.0); Monocytes % 7.8; Neutrophils % 55.2; Platelet Count 222 10^3/uL (130-400); RBC 4.26 10^6/uL (3.93-5.22); RDW 14.1 % (11.7-14.6); RDW-SD 42.5 fL; WBC 10.12 10^3/uL (4.4-10.8)
[2022-11-13] MEDS: Normal Saline - Diluent 50 ML VIAL IJ (23:02)
[2022-11-13] MEDS: Normal Saline 1,000 ML 1000 ML IV (23:03)
[2022-11-13 23:18] LABS: ALT 37 U/L (14-59); AST 18 U/L (15-37); Albumin 3.8 g/dL (3.4-5.0); Alkaline Phosphatase 48 U/L (46-116); Anion Gap 7.3 mmol/L (3-11); BUN 14 mg/dL (7-18); Bilirubin, Total 0.2 mg/dL (0.2-1.0); CO2 26.7 mmol/L (21.0-32.0); CREATININE 0.8 mg/dL (0.55-1.02); Calcium 8.8 mg/dL (8.5-10.1); Chloride 105 mmol/L (98-107); Estimated GFR 107.44 (mL/min/1.73m2); Glucose 106 mg/dL (74-106); Lipase 26 U/L (16-77); Potassium 3.8 mmol/L (3.5-5.1); Sodium 139 mmol/L (136-145)
--- NOTE | 2022-11-13 23:51 | DI.VRAD_ITS ---
PROCEDURE INFORMATION: Exam: CT Abdomen And Pelvis With Contrast Exam date and time: 11/13/2022 11:04 PM Age: 22 years old Clinical indication: Abdominal pain; Localized; Right lower quadrant (rlq); Patient HX: Rlq abd pain, nausea, diarrhea, pushing to urinate; Additional info: R/O appendicitis, kidney stone, ovarian cyst, colitis TECHNIQUE: Imaging protocol: Computed tomography of the abdomen and pelvis with contrast. Radiation optimization: All CT scans at this facility use at least one of these dose optimization techniques: automated exposure control; mA and/or kV adjustment per patient size (includes targeted exams where dose is matched to clinical indication); or iterative reconstruction. Contrast material: OMNIPAQUE 350; Contrast volume: 100 ml; Contrast route: INTRAVENOUS (IV); COMPARISON: CT ABDOMEN PELVIS W 04/23/2022 3:37 PM FINDINGS: Lungs: Lung bases clear. Liver: Normal appearing liver. Gallbladder and bile ducts: Gallbladder partially collapsed. No calcified gallstones seen. No biliary dilatation. Pancreas: Normal appearing pancreas. Spleen: Normal appearing spleen. Adrenal glands: Normal appearing adrenal glands. Kidneys and ureters: Normal appearing kidneys. No hydronephrosis. Stomach and bowel: No oral contrast. Stomach moderately distended with ingested material. No small bowel dilatation to suggest obstruction. Apparent mural thickening through the collapsed well evacuated distal ascending and proximal transverse colon. Artifact of incomplete distention suspected. Colitis not excluded. No evidence of diverticulitis. Appendix: Normal appendix. Intraperitoneal space: No gross ascites. No free air. Vasculature: Normal caliber abdominal aorta. Lymph nodes: Scattered small mesenteric lymph nodes, nonspecific. Urinary bladder: Urinary bladder partially collapsed but grossly unremarkable, as seen. Reproductive: Anteverted uterus, normal in size. T-shaped intrauterine device in-situ. Normal-sized ovaries, not well evaluated. Bones/joints: No acute fracture seen among the bones of the abdomen or pelvis. Soft tissues: Small fat containing ventral hernia at the umbilicus. IMPRESSION: 1. Normal appendix. 2. Apparent mural thickening through the collapsed well evacuated ascending and transverse colonic segment. Artifact of incomplete distention is suspected although acute segmental colitis could probably also have this appearance. Clinical correlation is recommended. If colitis is suspected clinically, infectious or inflammatory causes would be favored in a young patient. Dictated and Authenticated by: Ash Mendoza MD. Ordering:BEKAH Norman MD
[2022-11-14 00:34] VITALS: BP 123/82; PULSE 103; RESP 17; O2SAT 99
== END 2022-11-14 00:35 | disposition home or self-care (01) ==
PROVIDERS: Emergency Provider Physician Assistant; PCP Family Medicine
DX: K52.9 Noninfective gastroenteritis and colitis, unspecified (principal); J45.909 Unspecified asthma, uncomplicated; R00.0 Tachycardia, unspecified
CPT/HCPCS: 80053; 81025; 83690; 96361; 96374; 96375; 99285; 74177; 81003; 85025; 99284; J0131; J1885; J2405; J3490

== ENCOUNTER 2022-11-17 16:24 | Emergency (ER) | payer MEDICAID, SELFPAY ==
[2022-11-17 16:27] VITALS: BP 145/97; PULSE 100; RESP 18; TEMP 36.6; O2SAT 99
[2022-11-17] MEDS: Ondansetron O.D.T. 4 MG TABEF PO (16:59)
--- NOTE | 2022-11-17 17:01 | ED.GENADUL_ITS ---
Discharge Plan Disposition Patient Disposition: Home Discharge Details Clinical Impression: Colitis, Diarrhea Primary Care Provider: Lindsay Miranda V ED Provider: Brielle Renee Home Meds and New Rx's Prescriptions: New dicyclomine 20 mg tablet 20 mg PO QID Qty: 10 0RF prochlorperazine maleate [Compazine] 10 mg tablet 10 mg PO Q6H PRNQty: 14 0RF Continued venlafaxine 75 mg capsule,extended release 24hr See Rx Instructions .ROUTE .COMPLEX Qty: 90 0RF Dose Instruction: TAKE ONE CAPSULE BY MOUTH EVERY DAY Rx Instructions: TAKE ONE CAPSULE BY MOUTH EVERY DAY ferrous sulfate 324 mg (65 mg iron) tablet,delayed release (DR/EC) 324 mg PO DAILY Qty: 90 0RF albuterol sulfate [ProAir HFA] 200 PUFF HFA aerosol inhaler 2 puff Inhalation PRN PRN venlafaxine 37.5 mg capsule,extended release 24hr 37.5 mg PO DAILY Patient Comments: TAKE ONE CAPSULE BY MOUTH EVERY DAY WITH 75MG Discharge Instructions Instructions: Acute Diarrhea (ED) Additional Instructions: You may take Bentyl as needed for cramping, this will likely cause constipation so take it sparingly as needed Ibuprofen and Tylenol as needed for pain Keep yourself hydrated, Gatorade, fluids Sharon diet as tolerated, bananas, rice, applesauce, toast Return earlier with new or worsening complaints If you continue to have loose watery stool, diarrhea, please bring a sample back to the hospital at your earliest ability Referrals: Lindsay Miranda MD [Primary Care Provider] - 1 day Medical Decision Making Patient unable to supply a stool sample here in the emergency department, appears well, vital stable Given stool sample supplies for home Placed on Bentyl, Zofran, able to tolerate p.o. Will not repeat labs at this time Reviewed CT from 4 days prior to arrival today and medical chart Return precautions reviewed and patient expressed understanding HPI General Date/Time Provider Initiated Documentation: 11/17/22 16:24 . HPI Narrative: This 22-year-old female presents with report of abdominal cramping and persistent diarrhea. She states she was evaluated several days ago and had CT scan and blood work and was diagnosed with colitis. She presents today secondary to persistent diarrhea throughout the day. Denies any blood in her stool. Has not taken any tdgd-xrc-troudgb medications. Denies any fever or chills. Denies chance of . Denies change of pain or fever. Denies any recent antibiotic use. Related Data Home Medications Medication Instructions Recorded Confirmed albuterol sulfate 90 mcg/actuation 2 puff inhalation PRN PRN 06/11/15 11/17/22 aerosol inhaler (ProAir HFA) venlafaxine 75 mg capsule,extended See Rx Instructions .Route 02/14/22 11/17/22 release 24 hr .COMPLEX #90 caps ferrous sulfate 324 mg (65 mg 324 mg PO DAILY #90 tabs 02/23/22 08/01/22 iron) tablet,delayed release dicyclomine 20 mg tablet 20 mg PO QID #10 tabs 11/17/22 prochlorperazine maleate 10 mg 10 mg PO Q6H PRN #14 tabs 11/17/22 tablet (Compazine) venlafaxine 37.5 mg 37.5 mg PO DAILY 11/17/22 11/17/22 capsule,extended release 24 hr Previous Rx's Medication Instructions Recorded venlafaxine 75 mg capsule,extended See Rx Instructions .Route 02/14/22 release 24 hr .COMPLEX #90 caps ferrous sulfate 324 mg (65 mg 324 mg PO DAILY #90 tabs 02/23/22 iron) tablet,delayed release dicyclomine 20 mg tablet 20 mg PO QID #10 tabs 11/17/22 prochlorperazine maleate 10 mg 10 mg PO Q6H PRN #14 tabs 11/17/22 tablet (Compazine) Allergies Allergy/AdvReac Type Severity Reaction Status Date / Time sertraline AdvReac Intermediate pt reports Verified 11/17/22 16:30 she got ugly black flies AdvReac Intermediate red and Uncoded 11/17/22 16:30 swollen cats AdvReac Intermediate sneezing Uncoded 11/17/22 16:30 a lot, runny nose General Stated Complaint: Nausea/Vomit/Diar ETHAN: 3 PFSH All Active Problems (Updated 11/17/22 @ 17:52 by RIKY Lassiter) Colitis (Acute) Diarrhea (Acute) Encounter for insertion of mirena IUD (Acute) care and examination (Acute) Term delivered (Acute) Mild anemia (Acute) Maternal varicella, non-immune (Acute) Posttraumatic stress disorder (Acute) History of migraine (Acute) Depressed (Acute) Cannabis abuse (Acute) Medical History Allergic rhinitis, unspecified Asthma Attention deficit disorder with hyperactivity Bipolar disorder Concussion without loss of consciousness, sequela Crushing injury of right middle finger, initial encounter (09/25/15) Dizziness Exercise-induced asthma Group B streptococcal carriage complicating Headache Hematuria History of gestational hypertension Laceration of labia minora Low lying placenta nos or without hemorrhage, second trimester Mood disorder due to known physiological condition with depressive features related hip pain, antepartum RAD (reactive airway disease) Seasonal allergies Sleep disturbance Spontaneous onset of labor Subacute thyroiditis Suicidal ideation Surgical History History of tonsillectomy Family History Paternal Grandfather Diabetes Maternal Grandfather Heart disease mi w/ double bypass Hypertension Mother Hypothyroid Social History Smoking/Tobacco Use Status: Current every day Tobacco Type: cigarettes Smoking risk assessment performed?: Yes Alcohol Intake: never Substance use type: former substance user Date of last use: marajuana and marijuana Counseling provided: treatment program Details: pt. denies marijuana use at this time Sexually active: Yes Do you feel safe at home: Yes Do you feel safe in your relationship?: Yes Additional Social history: Apartment issues -hole in ceiling with black mold state came to visit today Female Reproductive History Menstrual Age of Menarche: 12 Duration of menses: 3-5 days control method: pills History History 3 Para 2 Hx # Term Pregnancies 2 Multiple births 0 Hx # Pregnancies 0 Ectopic pregnancies 0 AB induced 0 Hx Number of Living Children 2 AB spontaneous 1 Past Pregnancies Del. Date GA/Weeks # Preg Succ Route Wgt Sex Labor Lgth Anesth esia Location Prov Compl 08/30/19 39 No vaginal 2976.7 g Female 5 hr labor the day before scheduled induction for gHTN Soledad Rodney CNM 02/22/22 38 No Yes vaginal 3019.224 g Male 5 hours Helen Mcmullen CNM Delivery Date: 08/30/19 Last Updated by: Ros Fagan No meds in labor, stayed in tub. Nitrous for 1st degree lac repair. gHTN, BP improved after . Heavy bleeding per pt. Delivery Date: 02/22/22 Last Updated by: SONI Ellis;GBS positive, one dose PCN prior to delivery; Small second degree laceration and right labial laceration, repaired under local anesthesia Exam Narrative Exam Narrative: Patient in no acute distress, laughing, mild abdominal tenderness, no rebound or guarding, no scleral icterus or jaundice Course Vital Signs Vital signs: Vital Signs Temperature 36.6 C 11/17/22 16:27 Pulse 100 H 11/17/22 16:27 Respiratory Rate 18 11/17/22 16:27 Blood Pressure 145/97 H 11/17/22 16:27 Pulse Oximetry 99 11/17/22 16:27 Temperature 36.6 C 11/17/22 16:27 Temperature Source Temporal Artery Scan 11/17/22 16:27 Pulse 100 H 11/17/22 16:27 Respiratory Rate 18 11/17/22 16:27 Respiratory Effort Normal 11/17/22 16:29 Blood Pressure 145/97 H 11/17/22 16:27 Blood Pressure Position Sitting 11/17/22 16:27 Pulse Oximetry 99 11/17/22 16:27 Oxygen Delivery Method Room Air 11/17/22 16:27 Oxygen Flow Rate 0 11/17/22 16:27 Pain Level 4 11/17/22 16:27
[2022-11-17] MEDS: Dicyclomine 20 MG TAB PO (17:53)
[2022-11-17 17:57] VITALS: BP 106/76; PULSE 74; RESP 15; TEMP 36.7; O2SAT 100
== END 2022-11-17 18:01 | disposition home or self-care (01) ==
PROVIDERS: Emergency Provider Physician Assistant; PCP Family Medicine
DX: K52.9 Noninfective gastroenteritis and colitis, unspecified (principal); R19.7 Diarrhea, unspecified
CPT/HCPCS: 99283; 99284

== ENCOUNTER 2023-10-05 13:06 | Emergency (ER) | payer MEDICAID, SELFPAY ==
[2023-10-05 13:10] VITALS: TEMP 36.1
[2023-10-05 13:22] VITALS: BP 126/78; PULSE 81; RESP 18; O2SAT 97
--- NOTE | 2023-10-05 13:27 | ED.GENADUL_ITS ---
HPI General Date/Time Provider Initiated Documentation: 10/05/23 13:19 . HPI Narrative: 22 year-old female presents to ED today by POV/ambulating with a chief complaint of nausea/vomiting/diarrhea with onset around 0200 this morning- vomiting every couple hours or so, no PO intake of food today, able to keep down fluids. Quality described as generalized abdominal cramping, nausea/vomiting, diarrhea, no radiation to fever, shortness of breath, coughing, hematemesis, melena, hematochezia. Severity is described as moderate. Palliating factors include nothing specific. Provoking factors include nothing specific. Patient denies . Patient not anticoagulated. Related Data Home Medications Medication Instructions Recorded Confirmed albuterol sulfate 90 mcg/actuation 2 puff inhalation PRN PRN 06/11/15 01/17/23 aerosol inhaler (ProAir HFA) venlafaxine 75 mg capsule,extended See Rx Instructions .Route 02/14/22 01/17/23 release 24 hr .COMPLEX #90 caps dicyclomine 20 mg tablet 20 mg PO QID #10 tabs 11/17/22 01/17/23 lidocaine 4 % topical cream 1 applic topical BID #28 grams 11/17/22 01/17/23 prochlorperazine maleate 10 mg 10 mg PO Q6H PRN #14 tabs 11/17/22 01/17/23 tablet (Compazine) venlafaxine 37.5 mg 37.5 mg PO DAILY 11/17/22 01/17/23 capsule,extended release 24 hr L norgest/E estradiol-E estrad 1 tab PO DAILY #182 dose pk 03/27/23 0.15 mg-30 mcg (84)/10 mcg(7) tabs,3mos (Seasonique) Previous Rx's Medication Instructions Recorded venlafaxine 75 mg capsule,extended See Rx Instructions .Route 02/14/22 release 24 hr .COMPLEX #90 caps dicyclomine 20 mg tablet 20 mg PO QID #10 tabs 11/17/22 lidocaine 4 % topical cream 1 applic topical BID #28 grams 11/17/22 prochlorperazine maleate 10 mg 10 mg PO Q6H PRN #14 tabs 11/17/22 tablet (Compazine) L norgest/E estradiol-E estrad 1 tab PO DAILY #182 dose pk 03/27/23 0.15 mg-30 mcg (84)/10 mcg(7) tabs,3mos (Seasonique) Allergies Allergy/AdvReac Type Severity Reaction Status Date / Time sertraline AdvReac Intermediate pt reports Verified 01/17/23 13:19 she got ugly black flies AdvReac Intermediate red and Uncoded 01/17/23 13:19 swollen cats AdvReac Intermediate sneezing Uncoded 01/17/23 13:19 a lot, runny nose General Stated Complaint: Nausea/Vomit/Diar ETHAN: 3 Review of Systems All systems reviewed & are unremarkable except as noted in HPI and below Exam Narrative Exam Narrative: GENERAL APPEARANCE: Well-nourished, non-toxic, awake and alert, atraumatic, no acute distress. SKIN: Warm, pink, dry, intact, without rashes/lesions/ulcerations. HEAD: Normocephalic, atraumatic, normal hair distribution for gender/age. EYES: Pupils PERRLA, EOMs intact without nystagmus, normal conjunctiva, no exudates on lids/lashes. ENT: Nares patent, no circumoral cyanosis, no facial swelling NECK: Supple, trachea midline, painless cervical ROM. LUNGS/CHEST: Lungs CTA bilaterally, non-labored respirations, normal A/P diameter, symmetrical expansion, no chest wall deformity HEART (CV/PV): Regular rate and rhythm without murmur, no peripheral edema, no JVD. ABDOMEN: Soft, non-distended, no guarding, mild LLQ tenderness without rebound tenderness, no Rovsing's, no CVA tenderness bilaterally. MSK: Normal ROM, no swelling/deformity to bilateral UEs or LEs, moving all extremities without weakness, no cyanosis, spine midline without tenderness, normal curvature. NEURO: Mental Status AAOx4 - alert to person, place, time, events No facial droop, no forehead involvement. Motor: No focal weakness - strength 5/5 in bilateral UEs and LEs, proximal and distal, symmetric. Sensory: sensation intact to light touch globally. Gait normal: patient ambulated without ataxia into ED room. PSYCH: euthymic, cooperative, pleasant, appropriate speech Course Vital Signs Vital signs: Vital Signs Temperature 36.1 C L 10/05/23 13:10 Temperature 36.1 C L 10/05/23 13:10 Pulse 81 10/05/23 13:22 Respiratory Rate 18 10/05/23 13:22 Respiratory Effort Normal 10/05/23 13:15 Blood Pressure 126/78 10/05/23 13:22 Pulse Oximetry 97 10/05/23 13:22 Oxygen Delivery Method Room Air 10/05/23 13:22 Oxygen Flow Rate 0 10/05/23 13:22 Comment denies pain 10/05/23 13:10 Medical Decision Making This dictation utilizes [id number] dictation software and may contain unedited grammatical errors. 22 y/o F presents to ED today with a chief complaint of NVD since 0200 this morning, tolerating fluid intake, denies severe abdominal pain. Patient denies recent URI, denies fever. Patients' medical history: Mild anemia, hematuria, reactive airway, mood disorder, cannabis abuse. Family and social history: two children had GI bug last week. Pertinent exam findings / vital signs include LLQ mild tenderness without peritoneal signs, nontoxic vitals, benign CP exam. Differential / pathologies of concern include gastroenteritis, colitis, dehydration/RONNI, gastritis. Diagnostic studies of: -CBC, CMP, Lactate, Lipase, Mg++, UA, Upreg, CRP/ESR. -CBC benign -CMP benign, no RONNI -Mg wnl -not -no UTI -mild elev CRP -patient was comfortable with discharge with lipase pending, lab equipment problem- no RUQ/epigastric tenderness, vomiting resolved with 1 dose zofran. Interventions of: -1L NS IVF, IV APAP/NSAID/Zofran. ED Course/Assessment/Plan: Patient has nausea and vomiting since 2 AM this morning with a few episodes of vomiting, states mild left-sided stomach cramps and diarrhea. Tolerating p.o. intake after 1 dose of Zofran, was provided IV fluids as well as IV Tylenol and Toradol. Labs are completely benign without any signs of major electrolyte disturbance or dehydration, no leukocytosis, UA not suspicious for UTI, patient is not , mild elevation of CRP, suspect gastroenteritis, counseled the patient on to go pack of Zofran and slow intake of nutrition and hydration at home. Findings not consistent with intractable nausea or vomiting, peritoneal abdomen, sepsis, severe electrolyte disturbance, dehydration. Disposition of gastroenteritis. Patient verbalized understanding of the plan and return to ED criteria and engaged in shared decision making. Medical Records Medical records reviewed: Yes I reviewed the patient's medical records. Lab Data Lab results reviewed: Yes I reviewed the patient's lab results. Labs: Laboratory Tests Range/Units 10/05/23 10/05/23 10/05/23 13:17 13:45 14:12 WBC (4.4-10.8) 10^3/uL 9.83 RBC (3.93-5.22) 10^6/uL 4.73 Hgb (11.2-15.7) g/dL 13.1 Hct (36.0-46.0) % 40.2 MCV (80-95) fL 85 MCH (27.0-33.0) pg 27.7 MCHC (32.0-36.0) % 32.6 RDW (11.7-14.6) % 12.8 Plt Count (130-400) 10^3/uL 224 MPV (8.0-11.0) fL 11.8 H Immature Gran % 0.3 Neutrophils % 81.3 Lymphocytes % 7.5 Monocytes % 5.9 Eosinophils % 4.5 Basophils % 0.5 Nucleated RBC % (0.0-0.3) % 0.0 Absolute Neutrophils (1.2-6.7) 10^3/uL 7.99 H Absolute Lymphocytes (1.2-3.4) 10^3/uL 0.74 L Absolute Monocytes (0.1-0.8) 10^3/uL 0.58 Absolute Eosinophils (0.0-0.7) 10^3/uL 0.44 Absolute Basophils (0.0-0.2) 10^3/uL 0.05 ESR (0-20) mm/hr 5 VBG Lactate Cancelled Sodium (136-145) mmol/L 142 Potassium (3.5-5.1) mmol/L 4.1 Chloride (98-107) mmol/L 106 Carbon Dioxide (21.0-32.0) mmol/L 28.8 Anion Gap (3-11) mmol/L 7.2 BUN (7-18) mg/dL 9 Creatinine (0.55-1.02) mg/dL 0.7 Est GFR (CKD-EPI 2020) (mL/min/1.73m2) 126.11 Glucose (74-106) mg/dL 96 Calcium (8.5-10.1) mg/dL 9.2 Magnesium (1.8-2.4) mg/dL 1.9 Total Bilirubin (0.2-1.0) mg/dL 0.5 AST (15-37) U/L 21 ALT (14-59) U/L 50 Alkaline Phosphatase (46-116) U/L 35 L C-Reactive Protein (<or=0.5) mg/dL 0.63 H Total Protein (6.4-8.2) g/dL 7.8 Albumin (3.4-5.0) g/dL 4.2 Urine Color (Yellow) Yellow Urine Clarity (Clear) Sl Cloudy Urine pH (5-8) 7.0 Ur Specific Albers (1.005-1.025) 1.020 Urine Protein (Neg-Trace) mg/dL Trace Urine Ketones (Negative) mg/dL Negative Urine Blood (Negative) Negative Urine Nitrite (Negative) Negative Urine Bilirubin (Negative) Negative Urine Urobilinogen (Up to 0.2) mg/dL 0.2 Ur Leukocyte Esterase (Negative) Negative Urine Glucose (Negative) mg/dL Negative Range/Units 10/05/23 14:12 WBC (4.4-10.8) 10^3/uL RBC (3.93-5.22) 10^6/uL Hgb (11.2-15.7) g/dL Hct (36.0-46.0) % MCV (80-95) fL MCH (27.0-33.0) pg MCHC (32.0-36.0) % RDW (11.7-14.6) % Plt Count (130-400) 10^3/uL MPV (8.0-11.0) fL Immature Gran % Neutrophils % Lymphocytes % Monocytes % Eosinophils % Basophils % Nucleated RBC % (0.0-0.3) % Absolute Neutrophils (1.2-6.7) 10^3/uL Absolute Lymphocytes (1.2-3.4) 10^3/uL Absolute Monocytes (0.1-0.8) 10^3/uL Absolute Eosinophils (0.0-0.7) 10^3/uL Absolute Basophils (0.0-0.2) 10^3/uL ESR (0-20) mm/hr VBG Lactate 0.9 Sodium (136-145) mmol/L Potassium (3.5-5.1) mmol/L Chloride (98-107) mmol/L Carbon Dioxide (21.0-32.0) mmol/L Anion Gap (3-11) mmol/L BUN (7-18) mg/dL Creatinine (0.55-1.02) mg/dL Est GFR (CKD-EPI 2020) (mL/min/1.73m2) Glucose (74-106) mg/dL Calcium (8.5-10.1) mg/dL Magnesium (1.8-2.4) mg/dL Total Bilirubin (0.2-1.0) mg/dL AST (15-37) U/L ALT (14-59) U/L Alkaline Phosphatase (46-116) U/L C-Reactive Protein (<or=0.5) mg/dL Total Protein (6.4-8.2) g/dL Albumin (3.4-5.0) g/dL Urine Color (Yellow) Urine Clarity (Clear) Urine pH (5-8) Ur Specific Albers (1.005-1.025) Urine Protein (Neg-Trace) mg/dL Urine Ketones (Negative) mg/dL Urine Blood (Negative) Urine Nitrite (Negative) Urine Bilirubin (Negative) Urine Urobilinogen (Up to 0.2) mg/dL Ur Leukocyte Esterase (Negative) Urine Glucose (Negative) mg/dL Quality:SDOH Health Related Social Needs: No Data to Display PFSH All Active Problems (Updated 10/05/23 @ 15:26 by RIKY Judge) Gastroenteritis (Acute) Encounter for initial prescription of transdermal patch hormonal contraceptive device (Acute) Encounter for IUD removal (Acute) Intrauterine device surveillance (Acute) Maternal varicella, non-immune (Acute) Posttraumatic stress disorder (Acute) History of migraine (Acute) Depressed (Acute) Cannabis abuse (Acute) Medical History (Updated 10/05/23 @ 15:26 by RIKY Judge) Group B streptococcal carriage complicating Hematuria Mild anemia History of gestational hypertension Laceration of labia minora Exercise-induced asthma Attention deficit disorder with hyperactivity RAD (reactive airway disease) Allergic rhinitis, unspecified Mood disorder due to known physiological condition with depressive features Subacute thyroiditis Sleep disturbance Headache Seasonal allergies Suicidal ideation Dizziness Asthma Bipolar disorder Surgical History History of tonsillectomy Family History Paternal Grandfather Diabetes Maternal Grandfather Heart disease mi w/ double bypass Hypertension Mother Hypothyroid Social History Smoking/Tobacco Use Status: Current every day Tobacco Type: cigarettes Smoking risk assessment performed?: Yes Alcohol Intake: never Drug use: Daily Substance use type: marijuana Counseling provided: treatment program Details: nightly marijuana use Housing: condominium Sexually active: Yes Do you feel safe at home: Yes Do you feel safe in your relationship?: Yes Additional Social history: Apartment issues -hole in ceiling with black mold state came to visit today Female Reproductive History Menstrual Age of Menarche: 12 Duration of menses: 3-5 days control method: pills History History 2 3 Para 2 Hx # Term Pregnancies 2 Multiple births 0 Hx # Pregnancies 0 Ectopic pregnancies 0 AB induced 0 Hx Number of Living Children 2 AB spontaneous 1 Past Pregnancies Del. Date GA/Weeks # Preg Succ Route Wgt Sex Labor Lgth Anesth esia Location [facility] 08/30/19 39 No vaginal 2976.7 g Female 5 hr labor the day before scheduled induction for gHTN Soledad Rodney CNM 02/22/22 38 No Yes vaginal 3019.224 g Male 5 hours Helen Mcmullen CNM Delivery Date: 08/30/19 Last Updated by: Ros Fagan No meds in labor, stayed in tub. Nitrous for 1st degree lac repair. gHTN, BP improved after . Heavy bleeding per pt. Delivery Date: 02/22/22 Last Updated by: SONI Ellis;GBS positive, one dose PCN prior to delivery; Small second degree laceration and right labial laceration, repaired under local anesthesia Discharge Plan Disposition Patient Disposition: Home Condition: Stable Discharge Details Clinical Impression: Gastroenteritis Primary Care Provider: Lindsay Miranda V ED Provider: Alessandro Mccray Home Meds and New Rx's Prescriptions: Continued venlafaxine 75 mg capsule,extended release 24hr See Rx Instructions .ROUTE .COMPLEX Qty: 90 0RF Dose Instruction: TAKE ONE CAPSULE BY MOUTH EVERY DAY Rx Instructions: TAKE ONE CAPSULE BY MOUTH EVERY DAY L norgest/e.estradiol-e.estrad [Seasonique] 0.15 mg-30 mcg (84)/10 mcg (7) tablets,dose pack,3 month 1 tab PO DAILY Qty: 182 3RF albuterol sulfate [ProAir HFA] 200 PUFF HFA aerosol inhaler 2 puff Inhalation PRN PRN venlafaxine 37.5 mg capsule,extended release 24hr 37.5 mg PO DAILY Patient Comments: TAKE ONE CAPSULE BY MOUTH EVERY DAY WITH 75MG dicyclomine 20 mg tablet 20 mg PO QID Qty: 10 0RF prochlorperazine maleate [Compazine] 10 mg tablet 10 mg PO Q6H PRNQty: 14 0RF lidocaine 4 % cream 1 applic topical BID Qty: 28 0RF Discharge Instructions Instructions: Ondansetron (By mouth), Gastroenteritis (ED) Additional Instructions: You were seen in the emergency department for your likely gastroenteritis or viral stomach bug. We gave you IV fluids as well as Tylenol and ibuprofen through your IV as well as an antinausea medicine called Zofran which I am sending you home with 3 tablets, take 1 of these tablets dissolve under your tongue about 20 to 30 minutes before attempting p.o. intake, these are once every 8 hour tablets. Please try to slowly intake hydration and nutrition like capfuls of Gatorade every 5 to 10 minutes, bland foods like white rice, bread, other foods for diarrhea. Please return to the ED for worsening focal abdominal pain, fever, intractable nausea or vomiting, black or bloody stools. Referrals: Lindsay Miranda MD [Primary Care Provider] -
[2023-10-05] MEDS: Ondansetron 4 MG/2 ML VIAL IVP (13:40)
[2023-10-05] MEDS: Ketorolac 15 MG/ML VIAL IVP (13:41)
[2023-10-05] MEDS: ACETAMINOPHEN 1,000 MG/100 ML BTL 400 MG IVPB (13:43)
[2023-10-05] MEDS: Normal Saline 1,000 ML 1000 ML IV (13:44)
[2023-10-05 14:00] LABS: Abs Immature Grans 0.03 10^3/uL (0.0-0.06); Absolute Basophil Count 0.05 10^3/uL (0.0-0.2); Absolute Eosinophil Count 0.44 10^3/uL (0.0-0.7); Absolute Lymphocyte Count 0.74 10^3/uL (1.2-3.4); Absolute Monocyte Count 0.58 10^3/uL (0.1-0.8); Absolute Neutrophil Count 7.99 10^3/uL (1.2-6.7); Basophils % 0.5; Eosinophils % 4.5; HCT 40.2 % (36.0-46.0); HGB 13.1 g/dL (11.2-15.7); Immature Grans % 0.3; Lymphocytes % 7.5; MCH 27.7 pg (27.0-33.0); MCHC 32.6 % (32.0-36.0); MCV 85 fL (80-95); MPV 11.8 fL (8.0-11.0); Monocytes % 5.9; Neutrophils % 81.3; Platelet Count 224 10^3/uL (130-400); RBC 4.73 10^6/uL (3.93-5.22); RDW 12.8 % (11.7-14.6); RDW-SD 39.5 fL; WBC 9.83 10^3/uL (4.4-10.8)
[2023-10-05 14:02] LABS: ESR 5 mm/hr (0-20)
[2023-10-05 14:06] LABS: Bilirubin Negative (Negative); Blood Negative (Negative); Clarity Sl Cloudy (Clear); Glucose Negative (Negative); Ketones Negative (Negative); Leukocyte Esterase Negative (Negative); Nitrite Negative (Negative); Urobilinogen 0.2 mg/dL (Up to 0.2)
[2023-10-05 14:22] LABS: Lactate 0.9 mmol/L (0.6-1.4)
[2023-10-05 14:25] LABS: ALT 50 U/L (14-59); AST 21 U/L (15-37); Albumin 4.2 g/dL (3.4-5.0); Alkaline Phosphatase 35 U/L (46-116); Anion Gap 7.2 mmol/L (3-11); BUN 9 mg/dL (7-18); Bilirubin, Total 0.5 mg/dL (0.2-1.0); C-Reactive Protein 0.63 mg/dL (<or=0.5); CO2 28.8 mmol/L (21.0-32.0); CREATININE 0.7 mg/dL (0.55-1.02); Calcium 9.2 mg/dL (8.5-10.1); Chloride 106 mmol/L (98-107); Estimated GFR 126.11 (mL/min/1.73m2); Glucose 96 mg/dL (74-106); Magnesium 1.9 mg/dL (1.8-2.4); Potassium 4.1 mmol/L (3.5-5.1); Sodium 142 mmol/L (136-145); Total Protein 7.8 g/dL (6.4-8.2)
[2023-10-05] MEDS: Ondansetron O.D.T. 4 MG TABEF, 3 TABS/BTL PO (15:41)
[2023-10-05 15:43] VITALS: BP 121/79; BP 126/78; PULSE 72; PULSE 81; RESP 16; RESP 18; TEMP 36.1; O2SAT 97; O2SAT 98
[2023-10-05 16:59] LABS: Lipase 91 U/L (16-77)
== END 2023-10-05 15:47 | disposition home or self-care (01) ==
PROVIDERS: Emergency Provider Physician Assistant; PCP Family Medicine
DX: K52.9 Noninfective gastroenteritis and colitis, unspecified (principal); F17.210 Nicotine dependence, cigarettes, uncomplicated
CPT/HCPCS: 36415; 80053; 83690; 85652; 96361; 96374; 96375; 99284; 81003; 83605; 83735; 85025; 86140; 99283; J0131; J1885; J2405

== ENCOUNTER 2023-10-13 10:25 | Inpatient (IN) | payer MEDICAID, SELFPAY ==
[2023-10-13] VITALS (7 sets, daily range): BP systolic 113–132; BP diastolic 70–89; PULSE 76–98; RESP 12–19; TEMP 36.3–36.8; O2SAT 93–98
--- NOTE | 2023-10-13 10:45 | DI.CT_ITS ---
Exam(s) CT ABDOMEN PELVIS W EXAM: CT ABDOMEN PELVIS W CLINICAL HISTORY: LLQ pain TECHNIQUE: Imaging Protocol: Axial computed tomography images with coronal and sagittal reformatted images were created and reviewed. CONTRAST MATERIAL: Intravenous: Omnipaque 350 contrast volume:100 mL Oral: No COMPARISON: CT CT ABDOMEN PELVIS W from 11/13/2022 FINDINGS: ABDOMEN: Lung Bases: Normal where visualized. Liver: Normal density. No measurable mass. Portal, Superior Mesenteric, and Splenic Veins: Unremarkable. Gallbladder and Biliary Tract: No radiodense calculus or dilation. Pancreas: Normal density, no abnormal calcifications or inflammatory process. Spleen: Normal. Adrenals: No masses seen. Kidneys: Normal size, contour and axis. No radiodense stones or obstructive uropathy. No masses seen. Abdominal Aorta: Abdominal portion non-dilated. Bowel: No obstruction or bowel wall thickening. Appendix is unremarkable. The stomach is incompletely distended limiting evaluation. There is a short segment of an intussusception in the small bowel in the central abdomen (series 5, image 537). It measures less than 2 cm in length. (Series 6, images [id number]. There is no evidence of obstruction. Peritoneal Cavity: There is a trace amount of fluid in the cul-de-sac which is likely physiologic. N o free air. Lymph Nodes: Mildly prominent lymph nodes are seen in the mesentery which may represent adenitis. Bones: Within normal limits for the patient's age. Soft Tissues: Unremarkable. PELVIS: Bladder: Urinary bladder is nearly completely empty limiting evaluation. Reproductive Organs: Unremarkable as visualized. Lymph Nodes: Within normal limits. Bones: Within normal limits for the patient's age. IMPRESSION: 1. Short segment of a enteroenteric intussusception. It measures less than 2 cm in length. There is no evidence of obstruction. 2. Mildly prominent lymph nodes in the mesentery which can be seen with mesenteric adenitis. RADIATION DOSE DELIVERED: 1,085.57mGy.cm Total DLP DATA REPOSITORY: All CT scans at this facility are submitted to the National Radiology Data Registry (NRDR) Dose Index Registry (DIR) with the [employer] (A[employer]). RADIATION OPTIMIZATION: All CT scans at this facility use at least one of these dose optimization te chniques: automated exposure control; mA and/or kV adjustment per patient size (includes targeted exa ms where dose is matched to clinical indication); or iterative reconstruction.
--- NOTE | 2023-10-13 10:52 | W.ED.GENAD ---
Discharge Plan Disposition Patient Disposition: Admit to [facility] Discharge Details Clinical Impression: Intussusception Primary Care Provider: Lindsay Miranda V ED Provider: Oscar Belrtan Home Meds and New Rx's Prescriptions: No Action venlafaxine 75 mg capsule,extended release 24hr See Rx Instructions .ROUTE .COMPLEX Qty: 90 0RF Dose Instruction: TAKE ONE CAPSULE BY MOUTH EVERY DAY Rx Instructions: TAKE ONE CAPSULE BY MOUTH EVERY DAY L norgest/e.estradiol-e.estrad [Seasonique] 0.15 mg-30 mcg (84)/10 mcg (7) tablets,dose pack,3 month 1 tab PO DAILY Qty: 182 3RF albuterol sulfate [ProAir HFA] 200 PUFF HFA aerosol inhaler 2 puff Inhalation PRN PRN venlafaxine 37.5 mg capsule,extended release 24hr 37.5 mg PO DAILY Patient Comments: TAKE ONE CAPSULE BY MOUTH EVERY DAY WITH 75MG dicyclomine 20 mg tablet 20 mg PO QID Qty: 10 0RF prochlorperazine maleate [Compazine] 10 mg tablet 10 mg PO Q6H PRNQty: 14 0RF lidocaine 4 % cream 1 applic topical BID Qty: 28 0RF HPI General Mode of arrival: EMS. Date/Time Provider Initiated Documentation: 10/13/23 10:26. Limitations to Documentation: no limitations. Information obtained by: patient and RN notes reviewed. History of Present Illness 22 year old F presents to the emergency department with the chief complaint of Abdominal pain, described as moderate and severe, Quality is described as sharp, and is localized to the abdomen. Patient reports radiation to back. Patient started experiencing this hour(s) (2) and it has been constant. No relieving factors improve symptom(s), No exacerbating factors reported . Patient notes no other symptoms.. Patient did receive the following treatments prior to arrival, none Related Data Home Medications Medication Instructions Recorded Confirmed albuterol sulfate 90 mcg/actuation 2 puff inhalation PRN PRN 06/11/15 10/13/23 aerosol inhaler (ProAir HFA) venlafaxine 75 mg capsule,extended See Rx Instructions .Route 02/14/22 10/13/23 release 24 hr .COMPLEX #90 caps dicyclomine 20 mg tablet 20 mg PO QID #10 tabs 11/17/22 10/13/23 lidocaine 4 % topical cream 1 applic topical BID #28 grams 11/17/22 10/13/23 prochlorperazine maleate 10 mg 10 mg PO Q6H PRN #14 tabs 11/17/22 10/13/23 tablet (Compazine) venlafaxine 37.5 mg 37.5 mg PO DAILY 11/17/22 10/13/23 capsule,extended release 24 hr L norgest/E estradiol-E estrad 1 tab PO DAILY #182 dose pk 03/27/23 10/13/23 0.15 mg-30 mcg (84)/10 mcg(7) tabs,3mos (Seasonique) Previous Rx's Medication Instructions Recorded venlafaxine 75 mg capsule,extended See Rx Instructions .Route 02/14/22 release 24 hr .COMPLEX #90 caps dicyclomine 20 mg tablet 20 mg PO QID #10 tabs 11/17/22 lidocaine 4 % topical cream 1 applic topical BID #28 grams 11/17/22 prochlorperazine maleate 10 mg 10 mg PO Q6H PRN #14 tabs 11/17/22 tablet (Compazine) L norgest/E estradiol-E estrad 1 tab PO DAILY #182 dose pk 03/27/23 0.15 mg-30 mcg (84)/10 mcg(7) tabs,3mos (Seasonique) Allergies Allergy/AdvReac Type Severity Reaction Status Date / Time sertraline AdvReac Intermediate pt reports Verified 10/13/23 10:30 she got ugly black flies AdvReac Intermediate red and Uncoded 10/13/23 10:30 swollen cats AdvReac Intermediate sneezing Uncoded 10/13/23 10:30 a lot, runny nose General Stated Complaint: Abd Prob ETHAN: 3 Review of Systems Constitutional Constitutional: Denies chills, Denies fever(s) and Reports poor appetite Cardiovascular Cardiovascular: Denies chest pain and Denies dyspnea Respiratory Respiratory: Denies cough and Denies dyspnea Gastrointestinal Gastrointestinal: Reports as per HPI, Reports abdominal pain, Denies melena, Denies change in bowel habits, Denies constipation, Denies diarrhea, Denies nausea and Denies vomiting Genitourinary Genitourinary: Denies hematuria, Denies urinary incontinence, Denies urinary hesitancy and Denies urinary urgency Integumentary/Breasts Skin/Breast: Denies rash Exam Const General: cooperative Orientation: alert, awake and oriented x3 Resp Effort & Inspection: normal respiratory effort and able to speak in complete sentences Auscultation: clear to auscultation bilaterally Cardio Rate: regular rate Rhythm: regular rhythm Heart Sounds: S1 normal and S2 normal GI Palpation: soft, no hepatosplenomegaly, not firm, no guarding, no masses, no pulsatile masses, not rigid, no splenomegaly and tender in the LLQ; not at McBurney's point, Espino's sign negative and Rovsing's sign negative Auscultation: normal bowel sounds Back/Spine/Pelvis Back: CVA tenderness (Left-mild) Neuro General: patient alert, patient awake, patient oriented x3, gait normal and moves all extremities Course Vital Signs Vital signs: Vital Signs Temperature 36.3 C L 10/13/23 10:26 Pulse 98 H 10/13/23 10:26 Respiratory Rate 12 10/13/23 10:26 Blood Pressure 132/89 10/13/23 10:26 Pulse Oximetry 93 10/13/23 10:26 Temperature 36.3 C L 10/13/23 10:26 Pulse 82 10/13/23 10:45 Pulse 92 H 10/13/23 10:45 Respiratory Rate 19 10/13/23 10:45 Respiratory Effort Normal 10/13/23 10:32 Blood Pressure 114/75 10/13/23 10:45 Blood Pressure Mean 85 10/13/23 10:45 Blood Pressure Position Supine 10/13/23 10:26 Pulse Oximetry 97 10/13/23 10:45 Pain Level 10 10/13/23 10:26 Comment pt crying/tear on arrival 10/13/23 10:26 Medical Decision Making Patient presenting to the emergency department via EMS for chief complaint of left lower quadrant abdominal pain. Reports that she woke up this morning feeling fine, had normal bowel movement, then while sitting watching her children eat breakfast she all of a sudden started having severe stabbing left-sided abdominal pain radiating into her back. Patient denies any nausea vomiting, fever or chills, denies , does state history of colitis, denies all other associated symptoms. Physical exam positive for significant left-sided abdominal tenderness to palpation, normal active bowel sounds, and very mild left CVA tenderness, exam is otherwise unremarkable. Will plan on checking patient's labs, urine along with urine , and CT imaging of the abdomen. Pending results will give IV acetaminophen Reviewed patient's labs and CBC is nondiagnostic, CMP does show elevated AST ALT and slightly low alk phos otherwise no other findings noted. Urinalysis shows negative , high specific gravity ketones and small amount of bilirubin otherwise negative. Reviewed CT imaging along with radiologist interpretation that shows Short segment of a enteroenteric intussusception. It measures less than 2 cm in length. There is no evidence of obstruction. Along with mildly prominent lymph nodes in the mesentery which can be seen with mesenteric adenitis. Patient reassessed and continuing to have moderate discomfort. Patient given ketorolac Reassessed patient patient continues to have pain. Will contact general surgery for discussion of case. Discussed case with general surgeon who stated she would come in and evaluate patient for intussusception and consideration of admission due to continued discomfort. Plan to admit patient for observation after discussion of case with general surgeon. Patient agreeable to this plan of care Imaging Data Radiologic Study: Imaging: CT Scan Radiologist's impression: Exam(s) CT ABDOMEN PELVIS W EXAM: CT ABDOMEN PELVIS W CLINICAL HISTORY: LLQ pain TECHNIQUE: Imaging Protocol: Axial computed tomography images with coronal and sagittal reformatted images were created and reviewed. CONTRAST MATERIAL: Intravenous: Omnipaque 350 contrast volume:100 mL Oral: No COMPARISON: CT CT ABDOMEN PELVIS W from 11/13/2022 FINDINGS: ABDOMEN: Lung Bases: Normal where visualized. Liver: Normal density. No measurable mass. Portal, Superior Mesenteric, and Splenic Veins: Unremarkable. Gallbladder and Biliary Tract: No radiodense calculus or dilation. Pancreas: Normal density, no abnormal calcifications or inflammatory process. Spleen: Normal. Adrenals: No masses seen. Kidneys: Normal size, contour and axis. No radiodense stones or obstructive uropathy. No masses seen. Abdominal Aorta: Abdominal portion non-dilated. Bowel: No obstruction or bowel wall thickening. Appendix is unremarkable. The stomach is incompletely distended limiting evaluation. There is a short segment of an intussusception in the small bowel in the central abdomen (series 5, image 537). It measures less than 2 cm in length. (Series 6, images 24-26. There is no evidence of obstruction. Peritoneal Cavity: There is a trace amount of fluid in the cul-de-sac which is likely physiologic. No free air. Lymph Nodes: Mildly prominent lymph nodes are seen in the mesentery which may represent adenitis. Bones: Within normal limits for the patient's age. Soft Tissues: Unremarkable. PELVIS: Bladder: Urinary bladder is nearly completely empty limiting evaluation. Reproductive Organs: Unremarkable as visualized. Lymph Nodes: Within normal limits. Bones: Within normal limits for the patient's age. IMPRESSION: 1. Short segment of a enteroenteric intussusception. It measures less than 2 cm in length. There is no evidence of obstruction. 2. Mildly prominent lymph nodes in the mesentery which can be seen with mesenteric adenitis. Lab Data Lab results reviewed: Yes I reviewed the patient's lab results. Quality:SDOH Health Related Social Needs: No Data to Display PFSH All Active Problems Intussusception (Acute) Gastroenteritis (Acute) Encounter for initial prescription of transdermal patch hormonal contraceptive device (Acute) Encounter for IUD removal (Acute) Intrauterine device surveillance (Acute) Maternal varicella, non-immune (Acute) Posttraumatic stress disorder (Acute) History of migraine (Acute) Depressed (Acute) Cannabis abuse (Acute) Medical History Group B streptococcal carriage complicating Hematuria Mild anemia History of gestational hypertension Laceration of labia minora Exercise-induced asthma Attention deficit disorder with hyperactivity RAD (reactive airway disease) Allergic rhinitis, unspecified Mood disorder due to known physiological condition with depressive features Subacute thyroiditis Sleep disturbance Headache Seasonal allergies Suicidal ideation Dizziness Asthma Bipolar disorder Surgical History History of tonsillectomy Family History Paternal Grandfather Diabetes Maternal Grandfather Heart disease mi w/ double bypass Hypertension Mother Hypothyroid Social History Smoking/Tobacco Use Status: Former Tobacco Use Quit Date: 02/18/23 Smoking risk assessment performed?: Yes Alcohol Intake: never Drug use: Daily Substance use type: marijuana Counseling provided: treatment program Details: nightly marijuana use Housing: condominium Sexually active: Yes Do you feel safe at home: Yes Do you feel safe in your relationship?: Yes Additional Social history: Apartment issues -hole in ceiling with black mold state came to visit today Female Reproductive History Menstrual Age of Menarche: 12 Duration of menses: 3-5 days control method: pills History History 3 Para 2 Hx # Term Pregnancies 2 Multiple births 0 Hx # Pregnancies 0 Ectopic pregnancies 0 AB induced 0 Hx Number of Living Children 2 AB spontaneous 1 Past Pregnancies Del. Date GA/Weeks # Preg Succ Route Wgt Sex Labor Lgth Anesthesia Location Prov Complic 08/30/19 39 No vaginal 2976.7 g Female 5 hr labor the day before scheduled induction for gHTN Soledad Rodney CNM 02/22/22 38 No Yes vaginal 3019.224 g Male 5 hours ESTEBAN Aleman Delivery Date: 08/30/19 Last Updated by: Ros Fagan No meds in labor, stayed in tub. Nitrous for 1st degree lac repair. gHTN, BP improved after . Heavy bleeding per pt. Delivery Date: 02/22/22 Last Updated by: SONI Ellis;GBS positive, one dose PCN prior to delivery; Small second degree laceration and right labial laceration, repaired under local anesthesia PAWSS Have you Been Recently Intoxicated or Drunk Within the Last 30 days?: No Have you Ever Experienced Previous Episodes of Alcohol Withdrawal?: No Have you ever Experienced Withdrawal Seizures?: No Have you ever Experienced Delirium Tremens(DT)s?: No Have you ever undergone Alcohol Rehabilitation Treatment (i.e, inpt ot outpatient treatment programs)?: No Have you ever Experienced Blackouts?: No Have you ever Combined Alcohol with other Downers within the last 90 days?: No Have you ever Combined Alcohol with any other Substance of Abuse during the last 90 days?: No Positive Blood Alcohol level on Presentation? [PCS.BAL]: No Evidence of Increased Autonomic Activity (i.e. HR>120, tremor, sweating, agitation, nausea)?: No Result: 0
[2023-10-13] MEDS: ACETAMINOPHEN 1,000 MG/100 ML BTL 400 MG IVPB ×2 (10:55→18:11)
[2023-10-13 11:03] LABS: Abs Immature Grans 0.01 10^3/uL (0.0-0.06); Absolute Basophil Count 0.11 10^3/uL (0.0-0.2); Absolute Eosinophil Count 0.49 10^3/uL (0.0-0.7); Absolute Lymphocyte Count 2.19 10^3/uL (1.2-3.4); Absolute Monocyte Count 0.75 10^3/uL (0.1-0.8); Absolute Neutrophil Count 3.94 10^3/uL (1.2-6.7); Basophils % 1.5; Eosinophils % 6.5; HCT 40.8 % (36.0-46.0); HGB 13.7 g/dL (11.2-15.7); Immature Grans % 0.1; Lymphocytes % 29.2; MCH 27.6 pg (27.0-33.0); MCHC 33.6 % (32.0-36.0); MCV 82 fL (80-95); MPV 11.3 fL (8.0-11.0); Neutrophils % 52.7; Platelet Count 255 10^3/uL (130-400); RBC 4.97 10^6/uL (3.93-5.22); RDW 12.6 % (11.7-14.6); RDW-SD 37.8 fL; WBC 7.49 10^3/uL (4.4-10.8)
[2023-10-13 11:17] LABS: ALT 125 U/L (14-59); AST 95 U/L (15-37); Albumin 4.2 g/dL (3.4-5.0); Alkaline Phosphatase 43 U/L (46-116); Anion Gap 9.9 mmol/L (3-11); BUN 9 mg/dL (7-18); Bilirubin, Total 0.5 mg/dL (0.2-1.0); CO2 26.1 mmol/L (21.0-32.0); CREATININE 0.8 mg/dL (0.55-1.02); Chloride 102 mmol/L (98-107); Estimated GFR 107.44 (mL/min/1.73m2); Glucose 92 mg/dL (74-106); Lipase 21 U/L (16-77); Magnesium 1.9 mg/dL (1.8-2.4); Potassium 4.1 mmol/L (3.5-5.1); Sodium 138 mmol/L (136-145); Total Protein 7.8 g/dL (6.4-8.2)
[2023-10-13 12:35] LABS: Bilirubin Small (Negative); Blood Negative (Negative); Clarity Clear (Clear); Glucose Negative (Negative); Ketones 15 mg/dL (Negative); Leukocyte Esterase Negative (Negative); Nitrite Negative (Negative); Specific Gravity >= 1.030 (1.005-1.025); Urobilinogen 0.2 mg/dL (Up to 0.2); pH 5.5 (5-8)
[2023-10-13] MEDS: Normal Saline - Diluent 50 ML VIAL IJ (12:40)
[2023-10-13] MEDS: Omnipaque 350 MG/ML 500 ML BTL-Imaging package 100 ML IJ (12:42)
[2023-10-13] MEDS: Ketorolac 15 MG/ML VIAL IVP (13:15)
[2023-10-13] MEDS: MORPHine 4 MG/ML SYR IVP (15:04)
--- NOTE | 2023-10-13 15:13 | HPE_ITS ---
Date of service: 10/13/23 Time of Service: 15:13 Assessment and Plan Assessment and plan (1) Intussusception: Status: Acute Assessment and plan: 1.The patient is hemodynamically stable. CT scan of the abdomen pelvis suggestive of mesenteric adenitis and a less than 2 cm intussusception. The patient does report having a stomach virus last week. This could be a potential cause for mesenteric adenitis. The etiology for intussusception is unclear. The intussusception does not appear to be causing obstruction. It is unclear if the intussusception is transient in nature or if the intussusception may be due to inflamed lymph node or small bowel tumor. -We will admit the patient for observation. -Repeat imaging studies in the a.m. to determine if the intussusception is transient in nature or may require operative intervention -IV fluid resuscitation -N.p.o. - serial abdominal exams 2. Patient gives a vague history of being diagnosed with Crohn's colitis. Per the EMR she was diagnosed with colitis. She also complains of frequent diarrhea. The patient may need additional workup with endoscopy possibly as an outpatient. She has admits to poor diet. She will need nutritional counseling. History of Present Illness History of Present Illness Chief Complaint: Abdominal pain. Narrative: Patient is a 22-year-old female Who presents to the emergency department with complaints of acute onset of left lower quadrant abdominal pain. She denies any nausea, vomiting, diarrhea or constipation. She denies any blood in her stools or melanotic stools. Her last bowel movement was this morning. The patient describes the initial pain as severe. After receiving narcotic pain medication and IV fluids in the emergency department, she states her pain level is now 5. In the emergency department the patient had blood work performed. There is no evidence of leukocytosis. She had mild elevation of her transaminases. CT scan of the abdomen and pelvis demonstrated mesenteric adenitis and a less than 2 cm segment of small bowel intussusception in the central abdomen without evidence of obstruction. On physical examination the patient has generalized nonspecific tenderness. The patient states that last week she had a stomach bug. She complained of diarrhea. The patient also states that 5 months ago she had a bout of diarrhea for several days. She was evaluated in the emergency department. Per review of the EMR the CT scan of the abdomen was suggestive of colitis. And she was discharged with zofran. The patient states that she was told at that time that she may have Crohn's colitis. She followed up with her PCP. No further testing for inflammatory bowel disease was performed. She has not had a colonoscopy or any type of workup to confirm a Crohn's colitis. The patient states that since her last emergency department visit she gets intermittent bouts of diarrhea every few weeks. The patient denies any blood in her stools. She denies any family history of intestinal cancer or Crohn's disease or inflammatory bowel disease. She states that her father had 8 feet of his bowel removed at a young age. She does not know the details. It is also noted in her chart that the patient presented to emergency department with abdominal pain October 05, 2023. At that time laboratory work was normal. Imaging studies were not performed. She was diagnosed with gastroenteritis and discharged home. Review of Systems All systems reviewed & are unremarkable except as noted in HPI and below PFSH All Active Problems Intussusception (Acute) Gastroenteritis (Acute) Encounter for initial prescription of transdermal patch hormonal contraceptive device (Acute) Encounter for IUD removal (Acute) Intrauterine device surveillance (Acute) Maternal varicella, non-immune (Acute) Posttraumatic stress disorder (Acute) History of migraine (Acute) Depressed (Acute) Cannabis abuse (Acute) Medical History Group B streptococcal carriage complicating Hematuria Mild anemia History of gestational hypertension Laceration of labia minora Exercise-induced asthma Attention deficit disorder with hyperactivity RAD (reactive airway disease) Allergic rhinitis, unspecified Mood disorder due to known physiological condition with depressive features Subacute thyroiditis Sleep disturbance Headache Seasonal allergies Suicidal ideation Dizziness Asthma Bipolar disorder Surgical History History of tonsillectomy Family History Paternal Grandfather Diabetes Maternal Grandfather Heart disease mi w/ double bypass Hypertension Mother Hypothyroid Social History Smoking/Tobacco Use Status: Former Tobacco Use Quit Date: 02/18/23 Smoking risk assessment performed?: Yes Alcohol Intake: never Drug use: Daily Substance use type: marijuana Counseling provided: treatment program Details: nightly marijuana use Housing: condominium Sexually active: Yes Do you feel safe at home: Yes Do you feel safe in your relationship?: Yes Additional Social history: Apartment issues -hole in ceiling with black mold state came to visit today Female Reproductive History Menstrual Age of Menarche: 12 Duration of menses: 3-5 days control method: pills History History 2 3 Para 2 Hx # Term Pregnancies 2 Multiple births 0 Hx # Pregnancies 0 Ectopic pregnancies 0 AB induced 0 Hx Number of Living Children 2 AB spontaneous 1 Past Pregnancies Del. Date GA/Weeks # Preg Succ Route Wgt Sex Labor Lgth Anesth esia Location Prov Complic 08/30/19 39 No vaginal 2976.7 g Female 5 hr labor the day before scheduled induction for gHTN Soledad Rodney CNM 02/22/22 38 No Yes vaginal 3019.224 g Male 5 hours Helen Mcmullen CNM Delivery Date: 08/30/19 Last Updated by: Ros Fagan No meds in labor, stayed in tub. Nitrous for 1st degree lac repair. gHTN, BP improved after . Heavy bleeding per pt. Delivery Date: 02/22/22 Last Updated by: SONI Ellis;GBS positive, one dose PCN prior to delivery; Small second degree laceration and right labial laceration, repaired under local anesthesia Meds Allergies and Home Medications Allergies Allergy/AdvReac Type Severity Reaction Status Date / Time sertraline AdvReac Intermediate pt reports Verified 10/13/23 10:30 she got ugly black flies AdvReac Intermediate red and Uncoded 10/13/23 10:30 swollen cats AdvReac Intermediate sneezing Uncoded 10/13/23 10:30 a lot, runny nose Home Medications Medication Instructions Recorded Confirmed Type albuterol sulfate 90 mcg/actuation 2 puff inhalation PRN PRN 06/11/15 10/13/23 History aerosol inhaler (ProAir HFA) venlafaxine 75 mg capsule,extended See Rx Instructions .Route 02/14/22 10/13/23 Rx release 24 hr .COMPLEX #90 caps dicyclomine 20 mg tablet 20 mg PO QID #10 tabs 11/17/22 10/13/23 Rx lidocaine 4 % topical cream 1 applic topical BID #28 grams 11/17/22 10/13/23 Rx prochlorperazine maleate 10 mg 10 mg PO Q6H PRN #14 tabs 11/17/22 10/13/23 Rx tablet (Compazine) venlafaxine 37.5 mg 37.5 mg PO DAILY 11/17/22 10/13/23 History capsule,extended release 24 hr L norgest/E estradiol-E estrad 1 tab PO DAILY #182 dose pk 03/27/23 10/13/23 Rx 0.15 mg-30 mcg (84)/10 mcg(7) tabs,3mos (Seasonique) Exam Const General: cooperative and no acute distress Nutritional Appearance: overweight Orientation: alert, awake and oriented x3 Eyes General: appearance normal, both eyes and all related structures Sclera: sclerae normal Resp Effort & Inspection: normal respiratory effort and able to speak in complete sentences Auscultation: clear to auscultation bilaterally Cardio Jugular venous pressure: no JVD Rate: regular rate Rhythm: regular rhythm GI Inspection: normal to inspection and striae Palpation: soft, no guarding, no hernias, no masses and not rigid Percussion: normal to percussion Auscultation: normal bowel sounds Other: The abdomen was soft. The patient had generalized nonspecific tenderness greater in the left than the right. There is some rebound tenderness left lower quadrant Results Labs 10/13/23 10:34 10/13/23 10:34 Labs: Laboratory Results - last 24 hr 10/13/23 10/13/23 10:34 12:35 WBC 7.49 RBC 4.97 Hgb 13.7 Hct 40.8 MCV 82 MCH 27.6 MCHC 33.6 RDW 12.6 Plt Count 255 MPV 11.3 H Immature Gran % 0.1 Neutrophils % 52.7 Lymphocytes % 29.2 Monocytes % 10.0 Eosinophils % 6.5 Basophils % 1.5 Nucleated RBC % 0.0 Absolute Neutrophils 3.94 Absolute Lymphocytes 2.19 Absolute Monocytes 0.75 Absolute Eosinophils 0.49 Absolute Basophils 0.11 Sodium 138 Potassium 4.1 Chloride 102 Carbon Dioxide 26.1 Anion Gap 9.9 BUN 9 Creatinine 0.8 Est GFR (CKD-EPI 2020) 107.44 Glucose 92 Calcium 9.0 Magnesium 1.9 Total Bilirubin 0.5 AST 95 H ALT 125 H Alkaline Phosphatase 43 L Total Protein 7.8 Albumin 4.2 Lipase 21 Urine Color Yellow Urine Clarity Clear Urine pH 5.5 Ur Specific [place] >= 1.030 H Urine Protein Trace Urine Ketones 15 H Urine Blood Negative Urine Nitrite Negative Urine Bilirubin Small H Urine Urobilinogen 0.2 Ur Leukocyte Esterase Negative Urine Glucose Negative Last Vital Signs Temp 97.3 F L 10/13/23 10:26 Pulse 82 10/13/23 10:45 Resp 19 10/13/23 10:45 BP 114/75 10/13/23 10:45 Pulse Ox 97 10/13/23 10:45 PAWSS Have you Been Recently Intoxicated or Drunk Within the Last 30 days?: No Have you Ever Experienced Previous Episodes of Alcohol Withdrawal?: No Have you ever Experienced Withdrawal Seizures?: No Have you ever Experienced Delirium Tremens(DT)s?: No Have you ever undergone Alcohol Rehabilitation Treatment (i.e, inpt ot outpatient treatment programs)?: No Have you ever Experienced Blackouts?: No Have you ever Combined Alcohol with other Downers within the last 90 days?: No Have you ever Combined Alcohol with any other Substance of Abuse during the last 90 days?: No Positive Blood Alcohol level on Presentation? [PCS.BAL]: No Evidence of Increased Autonomic Activity (i.e. HR>120, tremor, sweating, agitation, nausea)?: No Result: 0 Time Spent Time spent with Patient: 40-54 minutes Time was spent: preparing to see the patient(eg.review tests), obtaining and/or reviewing separately otained hiistory, ordering medications,tests, procedures, referring, communicating with other health child care center assistant director, indepentently interpreting results and counseling the patient
[2023-10-13] MEDS: Normal Saline 1,000 ML 75 ML IV (17:30)
[2023-10-13] MEDS: MORPHine 2 MG/ML SYR IVP ×2 (19:05→23:51)
[2023-10-13] MEDS: FAMOTIDINE 20 MG in Normal Saline 100 ML 400 MG IVPB (20:15)
[2023-10-13] MEDS: Normal Saline Flush 10 ML SYR IVP (21:48)
[2023-10-13] MEDS: Ondansetron 4 MG/2 ML VIAL IVP (23:52)
[2023-10-14] MEDS: ACETAMINOPHEN 1,000 MG/100 ML BTL 400 MG IVPB ×2 (02:02→09:58)
[2023-10-14 05:40] LABS: Abs Immature Grans 0.01 10^3/uL (0.0-0.06); Absolute Basophil Count 0.09 10^3/uL (0.0-0.2); Absolute Eosinophil Count 0.46 10^3/uL (0.0-0.7); Absolute Lymphocyte Count 1.74 10^3/uL (1.2-3.4); Absolute Monocyte Count 0.59 10^3/uL (0.1-0.8); Absolute Neutrophil Count 3.28 10^3/uL (1.2-6.7); Basophils % 1.5; Eosinophils % 7.5; HCT 37.1 % (36.0-46.0); HGB 12.2 g/dL (11.2-15.7); Immature Grans % 0.2; Lymphocytes % 28.2; MCH 27.8 pg (27.0-33.0); MCHC 32.9 % (32.0-36.0); MCV 85 fL (80-95); MPV 11.4 fL (8.0-11.0); Monocytes % 9.6; Platelet Count 201 10^3/uL (130-400); RBC 4.39 10^6/uL (3.93-5.22); RDW 12.7 % (11.7-14.6); RDW-SD 39.2 fL; WBC 6.17 10^3/uL (4.4-10.8)
[2023-10-14 06:03] LABS: ALT 102 U/L (14-59); AST 58 U/L (15-37); Albumin 3.5 g/dL (3.4-5.0); Alkaline Phosphatase 37 U/L (46-116); Anion Gap 9.8 mmol/L (3-11); BUN 6 mg/dL (7-18); Bilirubin, Total 0.5 mg/dL (0.2-1.0); CO2 25.2 mmol/L (21.0-32.0); CREATININE 0.9 mg/dL (0.55-1.02); Calcium 8.7 mg/dL (8.5-10.1); Chloride 106 mmol/L (98-107); Estimated GFR 93.28 (mL/min/1.73m2); Glucose 90 mg/dL (74-106); Potassium 4.4 mmol/L (3.5-5.1); Sodium 141 mmol/L (136-145); Total Protein 6.6 g/dL (6.4-8.2)
[2023-10-14 07:32] VITALS: BP 113/74; PULSE 60; RESP 17; TEMP 36.5; O2SAT 98
[2023-10-14] MEDS: MORPHine 2 MG/ML SYR IVP ×2 (08:08→12:44)
[2023-10-14] MEDS: FAMOTIDINE 20 MG in Normal Saline 100 ML 400 MG IVPB (08:09)
[2023-10-14] MEDS: Normal Saline 1,000 ML 75 ML IV (08:09)
[2023-10-14] MEDS: Normal Saline Flush 10 ML SYR IVP (08:14)
[2023-10-14] MEDS: Venlafaxine 37.5 MG CAPCR PO (09:46)
[2023-10-14] MEDS: Venlafaxine 75 MG CAPCR PO (09:46)
--- NOTE | 2023-10-14 09:52 | PDOC.CMIN ---
Date of service: 10/14/23 Time of Service: 09:52 Care Management Initial Assmt Initial Assessment REASON FOR HOSPITALIZATION:: Instusseption Has patient been provided with info about the portal/API?: Yes Did the patient sign up for the portal?: Yes CODE STATUS:: Full Code INSURANCE COVERAGE / FINANCIAL ISSUES:: Medicaid PRIMARY CARE PHYSICIAN:: Lindsay Miranda POTENTIAL DISCHARGE NEEDS:: Nutrition consult, imaging. PATIENT/FAMILY EDUCATION NEEDS:: Review discharge instructions, discuss Ask Me Three. ANTICIPATED BARRIERS TO DISCHARGE:: None identified. TRANSPORTATION:: Via private vehicle with family. PLAN:: Mynor will return home when ready per MD, CM continues to follow. PFSH All Active Problems Intussusception (Acute) Gastroenteritis (Acute) Encounter for initial prescription of transdermal patch hormonal contraceptive device (Acute) Encounter for IUD removal (Acute) Intrauterine device surveillance (Acute) Maternal varicella, non-immune (Acute) Posttraumatic stress disorder (Acute) History of migraine (Acute) Depressed (Acute) Cannabis abuse (Acute) Medical History Group B streptococcal carriage complicating Hematuria Mild anemia History of gestational hypertension Laceration of labia minora Exercise-induced asthma Attention deficit disorder with hyperactivity RAD (reactive airway disease) Allergic rhinitis, unspecified Mood disorder due to known physiological condition with depressive features Subacute thyroiditis Sleep disturbance Headache Seasonal allergies Suicidal ideation Dizziness Asthma Bipolar disorder Surgical History History of tonsillectomy Family History Paternal Grandfather Diabetes Maternal Grandfather Heart disease mi w/ double bypass Hypertension Mother Hypothyroid Social History Smoking/Tobacco Use Status: Former Tobacco Use Quit Date: 02/18/23 Smoking risk assessment performed?: Yes Alcohol Intake: never Drug use: Daily Substance use type: marijuana Counseling provided: treatment program Details: nightly marijuana use Housing: condominium Sexually active: Yes Do you feel safe at home: Yes Do you feel safe in your relationship?: Yes Additional Social history: Apartment issues -hole in ceiling with black mold state came to visit today Female Reproductive History Menstrual Age of Menarche: 12 Duration of menses: 3-5 days control method: pills History History 3 Para 2 Hx # Term Pregnancies 2 Multiple births 0 Hx # Pregnancies 0 Ectopic pregnancies 0 AB induced 0 Hx Number of Living Children 2 AB spontaneous 1 Past Pregnancies Del. Date GA/Weeks # Preg Succ Route Wgt Sex Labor Lgth Anesthesia Location Prov Complic 08/30/19 39 No vaginal 6 lb 9 oz Female 5 hr labor the day before scheduled induction for gHTN Soledad Rodney CNM 02/22/22 38 No Yes vaginal 6 lb 10.5 oz Male 5 hours ESTEBAN Aleman Delivery Date: 08/30/19 Last Updated by: Ros Fagan No meds in labor, stayed in tub. Nitrous for 1st degree lac repair. gHTN, BP improved after . Heavy bleeding per pt. Delivery Date: 02/22/22 Last Updated by: SONI Ellis;GBS positive, one dose PCN prior to delivery; Small second degree laceration and right labial laceration, repaired under local anesthesia SDOH(Care Management) Screening Will the Patient Participate in the Screening?: Yes Do you worry about having a steady place to live?: no Problems where you live: no known problems In the past 12 months, have you had to go without electric, gas, oil or water in your home?: no Have you or anyone in your house had to go without enough food to eat?: no Has lack of transportation kept you from medical appointments or from doing things needed for daily living?: no Has anyone in your support network made you feel unsafe for any reason?: no
--- NOTE | 2023-10-14 11:44 | DI.CT_ITS ---
Exam(s) CT ABDOMEN PELVIS WO EXAM: CT ABDOMEN PELVIS WO CLINICAL HISTORY: Intussusception. TECHNIQUE: Imaging Protocol: Axial computed tomography images with coronal and sagittal reformatted images were created and reviewed CONTRAST MATERIAL: Intravenous: none Oral: None COMPARISON: CT CT ABDOMEN PELVIS W from 10/13/2023 FINDINGS: VISUALIZED LUNG BASES: No nodules nor pleural effusions evident. ABDOMEN: There is no ascites in the upper abdomen. GI: The previously described short-segment midline small bowel intussusception is not evident on the present study and there is no evidence of small-bowel obstruction, free air, nor ascites. LIVER: There are no obvious focal hepatic lesions evident of this noninfused study. GALLBLADDER/BILIARY: There is contrast in the gallbladder lumen related to excretion of the intraveno us contrast injected 1 day prior. No evidence of acute gallbladder pathology. CBD not dilated. PANCREAS: No evidence of pancreatic mass nor dilatation of the pancreatic duct. SPLEEN: Spleen is not enlarged. No obvious intrasplenic lesions. ADRENALS: There are no significant adrenal masses. KIDNEYS:No cysts evident. No solid renal masses. No calculi nor hydronephrosis. . ABDOMINAL AORTA: Abdominal aorta is not enlarged. LYMPH NODES: There is no retroperitoneal nor paraaortic adenopathy. ABDOMINAL WALL: No evidence of significant anterior abdominal wall nor inguinal hernia. PELVIS: LYMPH NODES: There is no intrapelvic nor inguinal adenopathy. However, there are multiple slightly p rominent lymph nodes in the mesentery, mostly within the left side of the abdomen. These range up to 1 cm size. GI: No evidence of appendicitis.No evidence of sigmoid diverticulitis.Terminal ileum appears unremark able. URINARY BLADDER: Not distended. Contains some excreted contrast. REPRODUCTIVE: Uterus and ovaries appear age-appropriate. There is, however, small amount of free flu id in the pelvis between the superior wall the bladder and uterine fundus. OSSEOUS: No significant osseous lesions. No fractures. IMPRESSION: 1. There is contrast excretion from yesterday's contrast infused CT scan evident within the gallbladd er lumen and nondistended urinary bladder lumen. 2. The previously described short segment small bowel intussusception is not evident on the present s tudy. There is no evidence of bowel obstruction nor free air. 3. No evidence of appendicitis. 4. There are multiple slightly prominent lymph nodes in the central left mesentery, ranging up to 1 cm size. Spleen size is normal. There is a small amount of fluid in the pelvis as described above. No ovarian masses evident. RADIATION DOSE DELIVERED: 1,052.3mGy.cm Total DLP DATA REPOSITORY: All CT scans at this facility are submitted to the National Radiology Data Registry (NRDR) Dose Index Registry (DIR) with the [employer] (ACR). RADIATION OPTIMIZATION: All CT scans at this facility use at least one of these dose optimization te chniques: automated exposure control; mA and/or kV adjustment per patient size (includes targeted exa ms where dose is matched to clinical indication); or iterative reconstruction.
[2023-10-14] MEDS: Ondansetron 4 MG/2 ML VIAL IVP (12:03)
[2023-10-14 12:48] VITALS: BP 105/75; PULSE 68; RESP 18; TEMP 36.6; O2SAT 97
--- NOTE | 2023-10-14 12:52 | DI.VRAD_ITS ---
PROCEDURE INFORMATION: Exam: CT Abdomen And Pelvis Without Contrast Exam date and time: 10/14/2023 11:39 AM Age: 22 years old Clinical indication: Intussusception; no additional information provided. TECHNIQUE: Imaging protocol: Computed tomography of the abdomen and pelvis without contrast. Oral contrast was not administered. This limits assessment of bowel and mesentery. COMPARISON: CT ABDOMEN PELVIS W 10/13/2023 (NO REPORT AVAILABLE) FINDINGS: No obvious acute abnormality of the unenhanced liver, spleen, pancreas, adrenal glands, or kidneys. There is faint residual contrast within the renal collecting systems. Contrast in the gallbladder from hepatobiliary excretion. No biliary duct dilation or gallbladder wall thickening. No evidence of bowel obstruction. The appendix is normal caliber. Mildly prominent nodes throughout the central mesentery, likely reactive. Trace free fluid in the anterior pelvis is likely physiologic. IMPRESSION: 1. No evidence of bowel obstruction. 2. No evidence of acute appendicitis. Dictated and Authenticated by: Juwan Haji MD. Ordering:ANNE Galloway MD
[2023-10-14 15:23] VITALS: BP 113/81; PULSE 76; RESP 19; TEMP 36.8; O2SAT 98
--- NOTE | 2023-10-14 15:44 | W.PM.PROGNOT ---
Date of Service Date of service: 10/14/23 Time of Service: 10:00 Assessment and Plan Assessment and plan (1) Intussusception: Status: Acute Assessment and plan: repeat CT scan ordered and reviewed - there is no further evidence of intusseption, no small bowel obstruction, no intraabdominal pathology, there is mild mesenteric adenitis - no evidence on labwork of intraabdminal pathology. there is mild elevation of transaminase which has decreased since admission. there are no stones seen in the gallbladder -on recheck of the patient she was advised of CT scan findings. she states that she thinks morphine is making her nauseous. she has been tolerating ice chips. she stated that she desired discharge home. she will be discharged after she tolerates clear liquids. Subjective Subjective Interval history since last seen: patient seen and examined early this morning. she states that she feels worse and that she vomited overnight. per nursing the patient has been tolerating ice chips, jovial and asking for pain meds. no reports of vomiting Exam GI Inspection: normal to inspection Palpation: soft Other: nonspecific tenderness greater in the LLQ, active bowel sounds Objective Last Vital Signs Temp 98.2 F 10/14/23 15:23 Pulse 76 10/14/23 15:23 Resp 19 10/14/23 15:23 BP 113/81 10/14/23 15:23 Pulse Ox 98 10/14/23 15:23 Laboratory Results - last 24 hr 10/14/23 05:28 WBC 6.17 RBC 4.39 Hgb 12.2 Hct 37.1 MCV 85 MCH 27.8 MCHC 32.9 RDW 12.7 Plt Count 201 MPV 11.4 H Immature Gran % 0.2 Neutrophils % 53.0 Lymphocytes % 28.2 Monocytes % 9.6 Eosinophils % 7.5 Basophils % 1.5 Nucleated RBC % 0.0 Absolute Neutrophils 3.28 Absolute Lymphocytes 1.74 Absolute Monocytes 0.59 Absolute Eosinophils 0.46 Absolute Basophils 0.09 Sodium 141 Potassium 4.4 Chloride 106 Carbon Dioxide 25.2 Anion Gap 9.8 BUN 6 L Creatinine 0.9 Est GFR (CKD-EPI 2020) 93.28 Glucose 90 Calcium 8.7 Total Bilirubin 0.5 AST 58 H ALT 102 H Alkaline Phosphatase 37 L Total Protein 6.6 Albumin 3.5 PAWSS Have you Been Recently Intoxicated or Drunk Within the Last 30 days?: No Have you Ever Experienced Previous Episodes of Alcohol Withdrawal?: No Have you ever Experienced Withdrawal Seizures?: No Have you ever Experienced Delirium Tremens(DT)s?: No Have you ever undergone Alcohol Rehabilitation Treatment (i.e, inpt ot outpatient treatment programs)?: No Have you ever Experienced Blackouts?: No Have you ever Combined Alcohol with other Downers within the last 90 days?: No Have you ever Combined Alcohol with any other Substance of Abuse during the last 90 days?: No Positive Blood Alcohol level on Presentation? [PCS.BAL]: No Evidence of Increased Autonomic Activity (i.e. HR>120, tremor, sweating, agitation, nausea)?: No Result: 0 Time Spent with Patient Time Spent with Patient: 35-49 minutes Time was spent: preparing to see the patient(eg.review tests), obtaining and/or reviewing separately otained hiistory, ordering medications,tests, procedures, referring, communicating with other health manager of care and counseling the patient
--- NOTE | 2023-10-14 16:51 | DSE_ITS ---
Date of service: 10/14/23 Time of Service: 16:51 DS: Diagnosis Discharge Diagnosis (1) Intussusception: Status: Acute Discharge Plan Disposition Patient Disposition: Home Other Facility: home Condition: Stable Discharge Details Reason For Visit: Instusseption Admit Date/Time: 10/13/23 15:40 Admit Provider: Laverne Rivas Attending Provider: Laverne Rivas Primary Care Provider: Lindsay Miranda V Hospital Course Hospital Course: patient presented to the ED with complaints of acute LLQ abdominal pain. CT scan demonstrated incidental intusseption and mild mesenteric adenitis. she was admitted for observation. bloodwork was essentially normal except mild elevation in transaminases that decreased on repeat lab. there was no evidence of gallstones or cholecystitis. repeat CT scan did not demonstrate any abdominal pathology. previously seen intusseption was not seen. Patient desired discharge home. Home Meds and New Rx's Prescriptions: No Action venlafaxine 75 mg capsule,extended release 24hr See Rx Instructions .ROUTE .COMPLEX Qty: 90 0RF Dose Instruction: TAKE ONE CAPSULE BY MOUTH EVERY DAY Rx Instructions: TAKE ONE CAPSULE BY MOUTH EVERY DAY L norgest/e.estradiol-e.estrad [Seasonique] 0.15 mg-30 mcg (84)/10 mcg (7) tablets,dose pack,3 month 1 tab PO DAILY Qty: 182 3RF albuterol sulfate [ProAir HFA] 200 PUFF HFA aerosol inhaler 2 puff Inhalation PRN PRN venlafaxine 37.5 mg capsule,extended release 24hr 37.5 mg PO DAILY Patient Comments: TAKE ONE CAPSULE BY MOUTH EVERY DAY WITH 75MG dicyclomine 20 mg tablet 20 mg PO QID Qty: 10 0RF prochlorperazine maleate [Compazine] 10 mg tablet 10 mg PO Q6H PRNQty: 14 0RF lidocaine 4 % cream 1 applic topical BID Qty: 28 0RF Discharge Instructions Activity:: Activity as Tolerated Activity:: Activity as Tolerated Diet:: As Tolerated Discharge Orders Discharge Orders: Discharge Order (Routine); Ordered 10/14/23 Ordered By: Laverne Rivas DS: Summary Summary Time spent discussing smoking cessation with patient: 3 to 10 minutes Time Spent with Patient providing and/or coordinating discharge services: Less than 30 minutes Status at Discharge Functional status at discharge: independent ambulation Overall status at discharge: patient is back to baseline Mental Status: mental status grossly normal Speech and Movement: speech and movement normal Mood: congruent mood Affect: normal affect Quality:SDOH Health Related Social Needs: No Data to Display Exam Psych Mental Status: mental status grossly normal Speech and Movement: speech and movement normal Mood: congruent mood Affect: normal affect DS: Data Vitals/I&O Vitals and I&O: Vital Signs Temperature 98.2 F 10/14/23 15:23 Temperature Source Tympanic 10/14/23 15:23 Pulse 76 10/14/23 15:23 Pulse Rhythm Regular 10/14/23 15:00 Pulse 92 H 10/13/23 10:45 Respiratory Rate 19 10/14/23 15:23 Respiratory Effort Normal 10/14/23 15:00 Respiratory Depth Normal 10/14/23 15:00 Respiratory Pattern Normal 10/14/23 15:00 Blood Pressure 113/81 10/14/23 15:23 Blood Pressure Mean 85 10/13/23 10:45 Blood Pressure Position Supine 10/13/23 10:26 Pulse Oximetry 98 10/14/23 15:23 Oxygen Delivery Method Room Air 10/14/23 15:23 Oxygen Flow Rate 0 10/14/23 15:23 Pain Level 0 10/14/23 15:23 Comment pt crying/tear on arrival 10/13/23 10:26 Intake & Output 10/13/23 10/14/23 10/14/23 23:59 11:59 23:59 Intake Total 212 / 322 1322 / 1969.75 648.75 / 1969.75 Output Total 300 / 300 100 / 100 Balance - 1322 / 1870.75 548.75 / 1870.75 Intake: IV 212 / 322 132 / 1969.75 648.75 / 1969.75 Output: Urine 300 / 300 Emesis 100 / 100 Other: Urine Color Yellow Urine Appearance Cloudy Cloudy Cloudy Urine Odor Normal Emesis Description Retching Bile Voiding Methods Toilet Toilet Data Completed and Pending Labs on day of discharge: Labs from last 24 hours 10/14/23 05:28 WBC 6.17 RBC 4.39 Hgb 12.2 Hct 37.1 MCV 85 MCH 27.8 MCHC 32.9 RDW 12.7 Plt Count 201 MPV 11.4 H Immature Gran % 0.2 Neutrophils % 53.0 Lymphocytes % 28.2 Monocytes % 9.6 Eosinophils % 7.5 Basophils % 1.5 Nucleated RBC % 0.0 Absolute Neutrophils 3.28 Absolute Lymphocytes 1.74 Absolute Monocytes 0.59 Absolute Eosinophils 0.46 Absolute Basophils 0.09 Sodium 141 Potassium 4.4 Chloride 106 Carbon Dioxide 25.2 Anion Gap 9.8 BUN 6 L Creatinine 0.9 Est GFR (CKD-EPI 2020) 93.28 Glucose 90 Calcium 8.7 Total Bilirubin 0.5 AST 58 H ALT 102 H Alkaline Phosphatase 37 L Total Protein 6.6 Albumin 3.5 PFSH All Active Problems Intussusception (Acute) Gastroenteritis (Acute) Encounter for initial prescription of transdermal patch hormonal contraceptive device (Acute) Encounter for IUD removal (Acute) Intrauterine device surveillance (Acute) Maternal varicella, non-immune (Acute) Posttraumatic stress disorder (Acute) History of migraine (Acute) Depressed (Acute) Cannabis abuse (Acute) Medical History Group B streptococcal carriage complicating Hematuria Mild anemia History of gestational hypertension Laceration of labia minora Exercise-induced asthma Attention deficit disorder with hyperactivity RAD (reactive airway disease) Allergic rhinitis, unspecified Mood disorder due to known physiological condition with depressive features Subacute thyroiditis Sleep disturbance Headache Seasonal allergies Suicidal ideation Dizziness Asthma Bipolar disorder Surgical History History of tonsillectomy Family History Paternal Grandfather Diabetes Maternal Grandfather Heart disease mi w/ double bypass Hypertension Mother Hypothyroid Social History Smoking/Tobacco Use Status: Former Tobacco Use Quit Date: 02/18/23 Smoking risk assessment performed?: Yes Alcohol Intake: never Drug use: Daily Substance use type: marijuana Counseling provided: treatment program Details: nightly marijuana use Housing: condominium Sexually active: Yes Do you feel safe at home: Yes Do you feel safe in your relationship?: Yes Additional Social history: Apartment issues -hole in ceiling with black mold state came to visit today Female Reproductive History Menstrual Age of Menarche: 12 Duration of menses: 3-5 days control method: pills History History 3 Para 2 Hx # Term Pregnancies 2 Multiple births 0 Hx # Pregnancies 0 Ectopic pregnancies 0 AB induced 0 Hx Number of Living Children 2 AB spontaneous 1 Past Pregnancies Del. Date GA/Weeks # Preg Succ Route Wgt Sex Labor Lgth Anesth esia Location [facility] 08/30/19 39 No vaginal 2976.7 g Female 5 hr labor the day before scheduled induction for gHTN Soledad Rodney CNM 02/22/22 38 No Yes vaginal 3019.224 g Male 5 hours Helen Mcmullen CNM Delivery Date: 08/30/19 Last Updated by: Ros Fagan No meds in labor, stayed in tub. Nitrous for 1st degree lac repair. gHTN, BP improved after . Heavy bleeding per pt. Delivery Date: 02/22/22 Last Updated by: SONI Ellis;GBS positive, one dose PCN prior to delivery; Small second degree laceration and right labial laceration, repaired under local anesthesia Time Spent with Patient Time Spent with Patient: <45 minutes Time was spent: preparing to see the patient(eg.review tests) and obtaining and/or reviewing separately [facility]3]luciana
== END 2023-10-14 18:48 | disposition home or self-care (01) | DRG 394 ==
LOC: ER 16:34 → MS 16:55
PROVIDERS: Admitting Provider Surgery; Emergency Provider Nurse Practitioner Family; PCP Family Medicine; Visit Provider Surgery
DX: I88.0 Nonspecific mesenteric lymphadenitis (principal); K56.1 Intussusception; D64.9 Anemia, unspecified; J45.990 Exercise induced bronchospasm; F31.9 Bipolar disorder, unspecified; Z87.891 Personal history of nicotine dependence
CPT/HCPCS: 00123; 36415; 80053; 81025; 83690; 96374; 96375; 99285; 74176; 74177; 81003; 83735; 85025; J0131; J1885; J2270; J2405

== ENCOUNTER 2023-10-16 10:02 | Observation (INO) | payer MEDICAID, SELFPAY ==
[2023-10-16 10:05] VITALS: BP 154/88; PULSE 97; RESP 18; TEMP 37.1; O2SAT 96
--- NOTE | 2023-10-16 10:21 | ED.GENADUL_ITS ---
Discharge Plan Discharge Details Chief Complaint: Abd Prob Primary Care Provider: Lindsay Miranda V ED Provider: Stephanie Austin Home Meds and New Rx's Prescriptions: No Action venlafaxine 75 mg capsule,extended release 24hr See Rx Instructions .ROUTE .COMPLEX Qty: 90 0RF Dose Instruction: TAKE ONE CAPSULE BY MOUTH EVERY DAY Rx Instructions: TAKE ONE CAPSULE BY MOUTH EVERY DAY L norgest/e.estradiol-e.estrad [Seasonique] 0.15 mg-30 mcg (84)/10 mcg (7) tablets,dose pack,3 month 1 tab PO DAILY Qty: 182 3RF albuterol sulfate [ProAir HFA] 200 PUFF HFA aerosol inhaler 2 puff Inhalation PRN PRN venlafaxine 37.5 mg capsule,extended release 24hr 37.5 mg PO DAILY Patient Comments: TAKE ONE CAPSULE BY MOUTH EVERY DAY WITH 75MG HPI General Date/Time Provider Initiated Documentation: 10/16/23 10:03 . HPI Narrative: Mynor is a 22-year-old female with history of colitis and recently diagnosed intussusception who presents to the emergency department today for evaluation of continued left lower quadrant abdominal pain with new onset of diarrhea with severe pain during episodes of diarrhea. She reports that she was seen in the ED on Monday for LLQ pain that started that day, admitted for diagnosis of intussusception. She requested to be discharged on Monday because she was worried about her babies at home and wants to be home with him. She says that she has had constant nausea since onset, has been able to take p.o. fluids without difficulty but is unable to eat. She had a normal bowel movement this weekend, with sudden onset of 5 episodes of watery diarrhea today. No black/tarry stools, fever/chills, vomiting, urinary symptoms. No history of abdominal surgeries. She called her PCP today, was told to come to the emergency department for evaluation. Related Data Home Medications Medication Instructions Recorded Confirmed albuterol sulfate 90 mcg/actuation 2 puff inhalation PRN PRN 06/11/15 10/16/23 aerosol inhaler (ProAir HFA) venlafaxine 75 mg capsule,extended See Rx Instructions .Route 02/14/22 10/16/23 release 24 hr .COMPLEX #90 caps venlafaxine 37.5 mg 37.5 mg PO DAILY 11/17/22 10/16/23 capsule,extended release 24 hr L norgest/E estradiol-E estrad 1 tab PO DAILY #182 dose pk 03/27/23 10/16/23 0.15 mg-30 mcg (84)/10 mcg(7) tabs,3mos (Seasonique) Previous Rx's Medication Instructions Recorded venlafaxine 75 mg capsule,extended See Rx Instructions .Route 02/14/22 release 24 hr .COMPLEX #90 caps L norgest/E estradiol-E estrad 1 tab PO DAILY #182 dose pk 03/27/23 0.15 mg-30 mcg (84)/10 mcg(7) tabs,3mos (Seasonique) Allergies Allergy/AdvReac Type Severity Reaction Status Date / Time sertraline AdvReac Intermediate pt reports Verified 10/16/23 12:11 she got ugly black flies AdvReac Intermediate red and Uncoded 10/16/23 12:11 swollen cats AdvReac Intermediate sneezing Uncoded 10/16/23 12:11 a lot, runny nose General Stated Complaint: Abd Prob ETHAN: 3 Exam Const General: cooperative, healthy appearing and no acute distress HENMT Mouth: moist mucous membranes Resp Effort & Inspection: normal respiratory effort and able to speak in complete sentences Auscultation: clear to auscultation bilaterally Cardio Rate: regular rate Rhythm: regular rhythm GI Inspection: normal to inspection Palpation: soft and tender in the epigastrum, in the LLQ (greatest here), in the RLQ, in the LUQ, in the RUQ, periumbilically and suprapubicly Auscultation: hypoactive bowel sounds Course Vital Signs Vital signs: Vital Signs Temperature 37.1 C 10/16/23 10:05 Pulse 97 H 10/16/23 10:05 Respiratory Rate 18 10/16/23 10:05 Blood Pressure 154/88 H 10/16/23 10:05 Pulse Oximetry 96 10/16/23 10:05 Temperature 37.1 C 10/16/23 10:05 Temperature Source Tympanic 10/16/23 10:05 Pulse 97 H 10/16/23 10:05 Respiratory Rate 18 10/16/23 10:05 Blood Pressure 154/88 H 10/16/23 10:05 Blood Pressure Position Sitting 10/16/23 10:05 Pulse Oximetry 96 10/16/23 10:05 Oxygen Delivery Method Room Air 10/16/23 10:05 Oxygen Flow Rate 0 10/16/23 10:05 Lab/Test Results Lab/Test Results: Laboratory Tests Range/Units 10/16/23 10/16/23 10:18 10:26 WBC (4.4-10.8) 10^3/uL 7.67 RBC (3.93-5.22) 10^6/uL 4.88 Hgb (11.2-15.7) g/dL 13.5 Hct (36.0-46.0) % 40.5 MCV (80-95) fL 83 MCH (27.0-33.0) pg 27.7 MCHC (32.0-36.0) % 33.3 RDW (11.7-14.6) % 12.8 Plt Count (130-400) 10^3/uL 246 MPV (8.0-11.0) fL 11.1 H Immature Gran % 0.4 Neutrophils % 56.2 Lymphocytes % 27.5 Monocytes % 9.1 Eosinophils % 5.6 Basophils % 1.2 Nucleated RBC % (0.0-0.3) % 0.0 Absolute Neutrophils (1.2-6.7) 10^3/uL 4.31 Absolute Lymphocytes (1.2-3.4) 10^3/uL 2.11 Absolute Monocytes (0.1-0.8) 10^3/uL 0.70 Absolute Eosinophils (0.0-0.7) 10^3/uL 0.43 Absolute Basophils (0.0-0.2) 10^3/uL 0.09 Sodium (136-145) mmol/L 139 Potassium (3.5-5.1) mmol/L 4.3 Chloride (98-107) mmol/L 102 Carbon Dioxide (21.0-32.0) mmol/L 26.6 Anion Gap (3-11) mmol/L 10.4 BUN (7-18) mg/dL 9 Creatinine (0.55-1.02) mg/dL 0.8 Est GFR (CKD-EPI 2020) (mL/min/1.73m2) 107.44 Glucose (74-106) mg/dL 95 Calcium (8.5-10.1) mg/dL 9.9 Total Bilirubin (0.2-1.0) mg/dL 0.3 AST (15-37) U/L 67 H ALT (14-59) U/L 112 H Alkaline Phosphatase (46-116) U/L 43 L Total Protein (6.4-8.2) g/dL 8.0 Albumin (3.4-5.0) g/dL 4.3 Urine Color (Yellow) Yellow Urine Clarity (Clear) Clear Urine pH (5-8) 7.0 Ur Specific [place] (1.005-1.025) 1.020 Urine Protein (Negative) mg/dL Negative Urine Ketones (Negative) mg/dL Negative Urine Blood (Negative) Negative Urine Nitrite (Negative) Negative Urine Bilirubin (Negative) Negative Urine Urobilinogen (Up to 0.2) mg/dL 0.2 Ur Leukocyte Esterase (Negative) Negative Urine Glucose (Negative) mg/dL Negative Medical Decision Making Mynor is a 22-year-old female with history of colitis and recently diagnosed intussusception who presents to the emergency department today for evaluation of continued left lower quadrant abdominal pain with new onset of diarrhea with severe pain during episodes of diarrhea. She reports that she was seen in the ED on Monday for LLQ pain that started that day, admitted for diagnosis of intussusception. She requested to be discharged on Monday because she was worried about her babies at home and wants to be home with him. She says that she has had constant nausea since onset, has been able to take p.o. fluids without difficulty but is unable to eat. She had a normal bowel movement this weekend, with sudden onset of 5 episodes of watery diarrhea today. No black/tarry stools, fever/chills, vomiting, urinary symptoms. No history of abdominal surgeries. She called her PCP today, was told to come to the emergency department for evaluation. Physical exam remarkable for diffuse tenderness to palpation in all quadrants of the abdomen, worse in the left lower quadrant. Slightly hypoactive bowel sounds. Abdomen is soft, nondistended, no rigidity, guarding, or ecchymosis. Moist mucous membranes. Easy work of breathing, lung sounds clear bilaterally. Normal heart sounds. Patient is in no acute distress, declines pain medications at this time. DDx includes but is not limited to continued intussusception, colitis, viral enteritis, dehydration, electrolyte imbalance I independently interpreted the following tests: CBC and CMP reassuring, though AST/ALT/alk phos all elevated (slightly increased from previous). UA unremarkable. While in the emergency department Mynor was maintained at n.p.o. status, IV fluids running at 125 an hour. Tylenol given for discomfort via IV. I reviewed ED visit and surgical consult notes from 10/13/2023 and 10/14/2023. 10:30: Discussed case with Dr. Rivas, general surgeon. She is familiar with patient, evaluated her while in the hospital. She recommends repeat CT a bdomen/pelvis with contrast to further evaluate. Will follow-up with labs and imaging results. 13:30: Reviewed CT results with Dr. Rivas, general surgeon. She is currently going to into a case in the OR, but would like to follow-up with radiology to evaluate patient to determine disposition, admission is likely. Quality:SDOH Health Related Social Needs: Health related social needs inadequate housing PFSH All Active Problems (Updated 10/15/23 @ 00:03 by SANDRA COLEMAN) Gastroenteritis (Acute) Encounter for initial prescription of transdermal patch hormonal contraceptive device (Acute) Encounter for IUD removal (Acute) Intrauterine device surveillance (Acute) Maternal varicella, non-immune (Acute) Posttraumatic stress disorder (Acute) History of migraine (Acute) Depressed (Acute) Cannabis abuse (Acute) Medical History Group B streptococcal carriage complicating Hematuria Mild anemia History of gestational hypertension Laceration of labia minora Exercise-induced asthma Attention deficit disorder with hyperactivity RAD (reactive airway disease) Allergic rhinitis, unspecified Mood disorder due to known physiological condition with depressive features Subacute thyroiditis Sleep disturbance Headache Seasonal allergies Suicidal ideation Dizziness Asthma Bipolar disorder Surgical History History of tonsillectomy Family History Paternal Grandfather Diabetes Maternal Grandfather Heart disease mi w/ double bypass Hypertension Mother Hypothyroid Social History Smoking/Tobacco Use Status: Former Tobacco Use Quit Date: 02/18/23 Smoking risk assessment performed?: Yes Alcohol Intake: never Drug use: Daily Substance use type: marijuana Counseling provided: treatment program Details: nightly marijuana use Housing: condominium Sexually active: Yes Do you feel safe at home: Yes Do you feel safe in your relationship?: Yes Female Reproductive History Menstrual Age of Menarche: 12 Duration of menses: 3-5 days control method: pills History History 3 Para 2 Hx # Term Pregnancies 2 Multiple births 0 Hx # Pregnancies 0 Ectopic pregnancies 0 AB induced 0 Hx Number of Living Children 2 AB spontaneous 1 Past Pregnancies Del. Date GA/Weeks # Preg Succ Route Wgt Sex Labor Lgth Anesth esia Location Prov Complic 08/30/19 39 No vaginal 2976.7 g Female 5 hr labor the day before scheduled induction for gHTN Soledad Rodney CNM 02/22/22 38 No Yes vaginal 3019.224 g Male 5 hours Helen Mcmullen CNM Delivery Date: 08/30/19 Last Updated by: Ros Fagan No meds in labor, stayed in tub. Nitrous for 1st degree lac repair. gHTN, BP improved after . Heavy bleeding per pt. Delivery Date: 02/22/22 Last Updated by: SONI Ellis;GBS positive, one dose PCN prior to delivery; Small second degree laceration and right labial laceration, repaired under local anesthesia Sign Out Sign Out Data: Sign Out Comment: Mynor is a 22-year-old female presents to the emergency department today for continued left lower quadrant pain, now with diarrhea. She reports that pain started on Monday, was seen in the emergency department at that time and diagnosed with likely intussusception. She was admitted to the MedSurg unit, evaluated by general surgeon Dr. Rivas, left the following day because she wanted to go home. Today she reports she had worsening of abdominal pain, accompanied by 5+ episodes of watery diarrhea with significant pain, described like her insides were coming out. Labs reassuring. CT scan remarkable for subtle short-segment small bowel intussusception with free fluid in abdomen. Awaiting consult from Dr Rivas to determine disposition. Last updated by Stephanie Austin at 10/16/23 15:31
[2023-10-16 10:35] LABS: Abs Immature Grans 0.03 10^3/uL (0.0-0.06); Absolute Basophil Count 0.09 10^3/uL (0.0-0.2); Absolute Eosinophil Count 0.43 10^3/uL (0.0-0.7); Absolute Lymphocyte Count 2.11 10^3/uL (1.2-3.4); Absolute Neutrophil Count 4.31 10^3/uL (1.2-6.7); Basophils % 1.2; Eosinophils % 5.6; HCT 40.5 % (36.0-46.0); HGB 13.5 g/dL (11.2-15.7); Immature Grans % 0.4; Lymphocytes % 27.5; MCH 27.7 pg (27.0-33.0); MCHC 33.3 % (32.0-36.0); MCV 83 fL (80-95); MPV 11.1 fL (8.0-11.0); Monocytes % 9.1; Neutrophils % 56.2; Platelet Count 246 10^3/uL (130-400); RBC 4.88 10^6/uL (3.93-5.22); RDW 12.8 % (11.7-14.6); RDW-SD 38.5 fL; WBC 7.67 10^3/uL (4.4-10.8)
[2023-10-16] MEDS: Normal Saline 1,000 ML 125 ML IV (10:42)
[2023-10-16 10:53] LABS: ALT 112 U/L (14-59); AST 67 U/L (15-37); Albumin 4.3 g/dL (3.4-5.0); Alkaline Phosphatase 43 U/L (46-116); Anion Gap 10.4 mmol/L (3-11); BUN 9 mg/dL (7-18); Bilirubin, Total 0.3 mg/dL (0.2-1.0); CO2 26.6 mmol/L (21.0-32.0); CREATININE 0.8 mg/dL (0.55-1.02); Calcium 9.9 mg/dL (8.5-10.1); Chloride 102 mmol/L (98-107); Estimated GFR 107.44 (mL/min/1.73m2); Glucose 95 mg/dL (74-106); Potassium 4.3 mmol/L (3.5-5.1); Sodium 139 mmol/L (136-145)
[2023-10-16 11:27] LABS: Bilirubin Negative (Negative); Blood Negative (Negative); Clarity Clear (Clear); Glucose Negative (Negative); Ketones Negative (Negative); Leukocyte Esterase Negative (Negative); Nitrite Negative (Negative); Urobilinogen 0.2 mg/dL (Up to 0.2)
[2023-10-16] MEDS: Omnipaque 350 MG/ML 500 ML BTL-Imaging package 100 ML IJ (12:00)
--- NOTE | 2023-10-16 12:02 | DI.CT_ITS ---
Exam(s) CT ABDOMEN PELVIS W EXAM: CT ABDOMEN PELVIS W CLINICAL HISTORY: LLQ pain with diarrhea, diagnosed intuss.. TECHNIQUE: Imaging Protocol: Axial computed tomography images with coronal and sagittal reformatted images were created and reviewed CONTRAST MATERIAL: Intravenous: Omnipaque-350 100cc Oral: None COMPARISON: CT CT ABDOMEN PELVIS W from 10/13/[address] ABDOMEN PELVIS WO from 10/14/2023 FINDINGS: VISUALIZED LUNG BASES: No nodules nor pleural effusions evident. ABDOMEN: The small amount of ascitic fluid in the dependent aspect of the pelvis appears unchanged. There is no ascitic fluid in the upper abdomen. GI: Stomach and duodenum appear unremarkable. There is a subtle short segment jejunal intussusceptio n evident on the coronal images. No high-grade bowel obstruction but there does appear to be a mild transition point in this region. There are prominent mesenteric lymph nodes also evident in central/ left left side of the abdominal mesentery, measuring up to 1.2 cm size. There are also minimally pro minent diameter mid level small bowel loops. These measure up to 2 cm which is within normal limits but enlarged when compared to the jejunal loops above this level. There also appears to be a mild me senteric swirl in left side of the abdomen. The most distal small bowel loops exhibit normal diamete r. The colon is mostly collapsed from just above the cecum to the rectum. LIVER: There are no focal hepatic lesions evident. No dilated intrahepatic ducts. GALLBLADDER/BILIARY: No obvious gallbladder pathology. CBD is not dilated. PANCREAS: No evidence of pancreatic mass nor dilatation of the pancreatic duct. SPLEEN: Spleen is not enlarged. No obvious intrasplenic lesions. Splenic and portal veins are paten t. ADRENALS: There are no significant adrenal masses. KIDNEYS:No cysts evident. No solid renal masses. No calculi nor hydronephrosis.. ABDOMINAL AORTA: Abdominal aorta is not enlarged. LYMPH NODES:There is no retroperitoneal nor paraaortic adenopathy. ABDOMINAL WALL: No evidence of significant anterior abdominal wall nor inguinal hernia PELVIS: GI: No evidence of appendicitis.No evidence of sigmoid diverticulitis. LYMPH NODES: There is no intrapelvic nor inguinal adenopathy. REPRODUCTIVE: Uterus and adnexal regions unremarkable. URINARY BLADDER: No calculi nor obvious masses evident OSSEOUS: No fractures and no significant osseous lesions. IMPRESSION: 1. There are multiple slightly prominent lymph nodes in the central left side of the mesentery measur ing up to 1.2 cm size. 2. There is also a subtle short-segment small bowel intussusception in the upper left abdomen involvi ng jejunal loop, best seen on the coronal images (series 6/images 35-40. Mild transition point. Mor e distal small bowel loops measure approximately 1 cm diameter. The right-side of the large bowel ap pears unremarkable, as does the appendix. Beyond the hepatic flexure the colon is collapsed to the l evel of the rectum. 3. Small amount of free fluid in the dependent aspect of the pelvis which may or may not be related t o the above findings. Possibly may be related to female physiologic. RADIATION DOSE DELIVERED: 1,117.5mGy.cm Total DLP DATA REPOSITORY: All CT scans at this facility are submitted to the National Radiology Data Registry (NRDR) Dose Index Registry (DIR) with the [employer] (ACR). RADIATION OPTIMIZATION: All CT scans at this facility use at least one of these dose optimization te chniques: automated exposure control; mA and/or kV adjustment per patient size (includes targeted exa ms where dose is matched to clinical indication); or iterative reconstruction.
[2023-10-16 14:16] VITALS: BP 127/77; PULSE 70; RESP 16; O2SAT 100
[2023-10-16] MEDS: ACETAMINOPHEN 1,000 MG/100 ML BTL 400 MG (14:43)
--- NOTE | 2023-10-16 17:30 | HPE_ITS ---
Date of service: 10/16/23 Time of Service: 17:31 Assessment and Plan Assessment and plan (1) Intussusception of jejunum: Status: Acute Assessment and plan: The patient is hemodynamically stable. She has no evidence of an acute surgical abdomen or bowel obstruction. The patient's films were discussed at length with the radiologist. The finding of intussusception is very subtle. The questionable intussusception was seen in the left upper quadrant of the abdomen however, the patient complains of left lower quadrant abdominal pain. The recommendation was made for small bowel follow-through study to determine if the patient truly has intussusception with a lead point or if this is just a transient finding. Mesenteric adenitis is seen on the CT scan and may be a reason for her pain. The patient was given the option for discharge however she opted to stay for the small bowel follow- through due to issues with getting a ride for outpatient workup and she is concerned about recurrence of pain. History of Present Illness History of Present Illness Chief Complaint: Abdominal pain and diarrhea N arrative: The patient is a 22-year-old female who presents to the emergency department with complaints of abdominal pain and diarrhea that started yesterday. The patient was seen and admitted to the hospital on October 13, 2023 with complaints of left lower quadrant abdominal pain, nausea and vomiting. On physical examination the patient had left lower quadrant tenderness. Blood work was essentially normal except for mildly elevated transaminases. CT CAT scan was suggestive of intussusception and mesenteric adenitis. The patient was admitted to the hospital for pain control. Repeat CT scan the following morning did not demonstrate intussusception. The patient states did that she felt okay and desired discharge home. The patient now reports returns to emergency department today with complaints of acute onset of left lower quadrant abdominal pain and diarrhea that started last evening. The patient states that the pain is constant however does come and go in waves. She denies any blood in her stools. She reports 5-6 episodes of diarrhea prior to presentation to the emergency department. In the emergency department the patient did not have any bowel movements. The patient denies any vomiting. Patient's blood work was essentially unremarkable. CT scan was suggestive of possibly a subtle intussusception in the left upper quadrant of the abdomen without evidence of obstruction. Mesenteric adenitis was also present. On physical examination there is minimal tenderness. Review of Systems All systems reviewed & are unremarkable except as noted in HPI and below PFSH All Active Problems (Updated 10/16/23 @ 17:37 by Laverne Rivas DO) Intussusception of jejunum (Acute) Gastroenteritis (Acute) Encounter for initial prescription of transdermal patch hormonal contraceptive device (Acute) Encounter for IUD removal (Acute) Intrauterine device surveillance (Acute) Maternal varicella, non-immune (Acute) Posttraumatic stress disorder (Acute) History of migraine (Acute) Depressed (Acute) Cannabis abuse (Acute) Medical History Group B streptococcal carriage complicating Hematuria Mild anemia History of gestational hypertension Laceration of labia minora Exercise-induced asthma Attention deficit disorder with hyperactivity RAD (reactive airway disease) Allergic rhinitis, unspecified Mood disorder due to known physiological condition with depressive features Subacute thyroiditis Sleep disturbance Headache Seasonal allergies Suicidal ideation Dizziness Asthma Bipolar disorder Surgical History History of tonsillectomy Family History Paternal Grandfather Diabetes Maternal Grandfather Heart disease mi w/ double bypass Hypertension Mother Hypothyroid Social History Smoking/Tobacco Use Status: Former Tobacco Use Quit Date: 02/18/23 Smoking risk assessment performed?: Yes Alcohol Intake: never Drug use: Daily Substance use type: marijuana Counseling provided: treatment program Details: nightly marijuana use Housing: condominium Sexually active: Yes Do you feel safe at home: Yes Do you feel safe in your relationship?: Yes Female Reproductive History Menstrual Age of Menarche: 12 Duration of menses: 3-5 days control method: pills History History 2 3 Para 2 Hx # Term Pregnancies 2 Multiple births 0 Hx # Pregnancies 0 Ectopic pregnancies 0 AB induced 0 Hx Number of Living Children 2 AB spontaneous 1 Past Pregnancies Del. Date GA/Weeks # Preg Succ Route Wgt Sex Labor Lgth Anesth esia Location [facility] 08/30/19 39 No vaginal 2976.7 g Female 5 hr labor the day before scheduled induction for gHTN Soledad Rodney CNM 02/22/22 38 No Yes vaginal 3019.224 g Male 5 hours Helen Mcmullen CNM Delivery Date: 08/30/19 Last Updated by: Ros Fagan No meds in labor, stayed in tub. Nitrous for 1st degree lac repair. gHTN, BP improved after . Heavy bleeding per pt. Delivery Date: 02/22/22 Last Updated by: SONI Ellis;GBS positive, one dose PCN prior to delivery; Small second degree laceration and right labial laceration, repaired under local anesthesia Meds Allergies and Home Medications Allergies Allergy/AdvReac Type Severity Reaction Status Date / Time sertraline AdvReac Intermediate pt reports Verified 10/16/23 12:11 she got ugly black flies AdvReac Intermediate red and Uncoded 10/16/23 12:11 swollen cats AdvReac Intermediate sneezing Uncoded 10/16/23 12:11 a lot, runny nose Home Medications Medication Instructions Recorded Confirmed Type albuterol sulfate 90 mcg/actuation 2 puff inhalation PRN PRN 06/11/15 10/16/23 History aerosol inhaler (ProAir HFA) venlafaxine 75 mg capsule,extended See Rx Instructions .Route 02/14/22 10/16/23 Rx release 24 hr .COMPLEX #90 caps venlafaxine 37.5 mg 37.5 mg PO DAILY 11/17/22 10/16/23 History capsule,extended release 24 hr L norgest/E estradiol-E estrad 1 tab PO DAILY #182 dose pk 03/27/23 10/16/23 Rx 0.15 mg-30 mcg (84)/10 mcg(7) tabs,3mos (Seasonique) Exam Const General: cooperative, comfortable and no acute distress Nutritional Appearance: well nourished Orientation: alert, awake and oriented x3 Eyes General: appearance normal, both eyes and all related structures Sclera: sclerae normal Resp Effort & Inspection: normal respiratory effort and able to speak in complete sentences Auscultation: clear to auscultation bilaterally GI Inspection: normal to inspection Palpation: soft Auscultation: hypoactive bowel sounds Other: No tenderness elicited with palpation, percussion or rebound Results Labs 10/16/23 10:18 10/16/23 10:18 Labs: Laboratory Results - last 24 hr 10/16/23 10/16/23 10:18 10:26 WBC 7.67 RBC 4.88 Hgb 13.5 Hct 40.5 MCV 83 MCH 27.7 MCHC 33.3 RDW 12.8 Plt Count 246 MPV 11.1 H Immature Gran % 0.4 Neutrophils % 56.2 Lymphocytes % 27.5 Monocytes % 9.1 Eosinophils % 5.6 Basophils % 1.2 Nucleated RBC % 0.0 Absolute Neutrophils 4.31 Absolute Lymphocytes 2.11 Absolute Monocytes 0.70 Absolute Eosinophils 0.43 Absolute Basophils 0.09 Sodium 139 Potassium 4.3 Chloride 102 Carbon Dioxide 26.6 Anion Gap 10.4 BUN 9 Creatinine 0.8 Est GFR (CKD-EPI 2020) 107.44 Glucose 95 Calcium 9.9 Total Bilirubin 0.3 AST 67 H ALT 112 H Alkaline Phosphatase 43 L Total Protein 8.0 Albumin 4.3 Urine Color Yellow Urine Clarity Clear Urine pH 7.0 Ur Specific [place] 1.020 Urine Protein Negative Urine Ketones Negative Urine Blood Negative Urine Nitrite Negative Urine Bilirubin Negative Urine Urobilinogen 0.2 Ur Leukocyte Esterase Negative Urine Glucose Negative Last Vital Signs Temp 98.8 F 10/16/23 10:05 Pulse 70 10/16/23 14:16 Resp 16 10/16/23 14:16 BP 127/77 10/16/23 14:16 Pulse Ox 100 10/16/23 14:16 Time Spent Time spent with Patient: 55-74 minutes Time was spent: preparing to see the patient(eg.review tests), obtaining and/or reviewing separately otained hiistory, ordering medications,tests, procedures, referring, communicating with other health manager respiratory care, indepentently interpreting results, counseling the patient and care coordination
[2023-10-16 18:08] VITALS: BP 107/72; PULSE 62; RESP 16; O2SAT 100
[2023-10-16] MEDS: Ondansetron 4 MG/2 ML VIAL IVP (18:09)
[2023-10-16 18:24] VITALS: BP 136/91; PULSE 69; RESP 22; TEMP 36.9; O2SAT 95
[2023-10-16] MEDS: Normal Saline 1,000 ML 75 ML IV (19:51)
[2023-10-16] MEDS: Ketorolac 15 MG/ML VIAL IVP (20:37)
[2023-10-16] MEDS: Normal Saline Flush 10 ML SYR IVP (20:38)
[2023-10-16 23:04] VITALS: BP 114/73; PULSE 69; RESP 20; TEMP 36.2; O2SAT 96
[2023-10-17] MEDS: Ketorolac 15 MG/ML VIAL IVP (06:47)
[2023-10-17] MEDS: Normal Saline 1,000 ML 75 ML IV (06:47)
[2023-10-17 07:17] VITALS: BP 112/77; PULSE 61; RESP 18; TEMP 36.7; O2SAT 99
[2023-10-17 07:38] LABS: ALT 81 U/L (14-59); AST 39 U/L (15-37); Albumin 3.6 g/dL (3.4-5.0); Alkaline Phosphatase 33 U/L (46-116); Anion Gap 11.7 mmol/L (3-11); BUN 5 mg/dL (7-18); Bilirubin, Total 0.5 mg/dL (0.2-1.0); CO2 24.3 mmol/L (21.0-32.0); CREATININE 0.8 mg/dL (0.55-1.02); Calcium 8.8 mg/dL (8.5-10.1); Chloride 107 mmol/L (98-107); Estimated GFR 107.44 (mL/min/1.73m2); Glucose 89 mg/dL (74-106); Potassium 3.9 mmol/L (3.5-5.1); Sodium 143 mmol/L (136-145); Total Protein 6.7 g/dL (6.4-8.2)
[2023-10-17] MEDS: Normal Saline Flush 10 ML SYR IVP (08:02)
[2023-10-17] MEDS: Barium Sulfate 60% W/V 355 ML BTL PO (09:09)
--- NOTE | 2023-10-17 09:50 | PDOC.CMIN ---
Date of service: 10/17/23 Time of Service: 09:50 Care Management Initial Assmt Initial Assessment REASON FOR HOSPITALIZATION:: Intussusception of jejunum PREVIOUS FUNCTIONAL STATUS/SOCIAL/FAMILY SUPPORTS:: Mynor lives in [facility] with her two young children, who are two and four. Her mother lives locally and is her main support. 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 She is independent at baseline. CURRENT FUNCTIONAL STATUS:: Mynor was sitting up in bed when CM met with her. She was pleasant and engaged well in conversation. She stated that she saw the surgeon, who is planning to discharge her home. She stated that per MD, she will need to call her PCP for a referral for a colonoscopy outpatient. She is comfortable making this call. She stated that she has a ride coming to get her; she does not feel that she requires any services in the community at this time. CM will continue to follow. ADVANCE DIRECTIVES:: Not on file. Has patient been provided with info about the portal/API?: Yes Did the patient sign up for the portal?: No CODE STATUS:: Full Code INSURANCE COVERAGE / FINANCIAL ISSUES:: [employer] CURRENT HOME/COMMUNITY SERVICES/EQUIPMENT:: None. PRIMARY CARE PHYSICIAN:: Lindsay Miranda POTENTIAL DISCHARGE NEEDS:: Follow up appointments. PATIENT/FAMILY EDUCATION NEEDS:: Review discharge instructions and limitations, discussion of self care needs including ask me three. ANTICIPATED BARRIERS TO DISCHARGE:: None identified. TRANSPORTATION:: Via private vehicle by family. PLAN:: Anticipate Mynor will return home once medically cleared. She will be driven home via private vehicle by family. She will follow up with her PCP and discharge plan of care. CM will continue to follow. PFSH All Active Problems Intussusception of jejunum (Acute) Gastroenteritis (Acute) Encounter for initial prescription of transdermal patch hormonal contraceptive device (Acute) Encounter for IUD removal (Acute) Intrauterine device surveillance (Acute) Maternal varicella, non-immune (Acute) Posttraumatic stress disorder (Acute) History of migraine (Acute) Depressed (Acute) Cannabis abuse (Acute) Medical History Group B streptococcal carriage complicating Hematuria Mild anemia History of gestational hypertension Laceration of labia minora Exercise-induced asthma Attention deficit disorder with hyperactivity RAD (reactive airway disease) Allergic rhinitis, unspecified Mood disorder due to known physiological condition with depressive features Subacute thyroiditis Sleep disturbance Headache Seasonal allergies Suicidal ideation Dizziness Asthma Bipolar disorder Surgical History History of tonsillectomy Family History Paternal Grandfather Diabetes Maternal Grandfather Heart disease mi w/ double bypass Hypertension Mother Hypothyroid Social History Smoking/Tobacco Use Status: Former Tobacco Use Quit Date: 02/18/23 Smoking risk assessment performed?: Yes Alcohol Intake: never Drug use: Daily Substance use type: marijuana Counseling provided: treatment program Details: nightly marijuana use Housing: apartment Sexually active: Yes Do you feel safe at home: Yes Do you feel safe in your relationship?: Yes Female Reproductive History Menstrual Age of Menarche: 12 Duration of menses: 3-5 days control method: pills History History 3 Para 2 Hx # Term Pregnancies 2 Multiple births 0 Hx # Pregnancies 0 Ectopic pregnancies 0 AB induced 0 Hx Number of Living Children 2 AB spontaneous 1 Past Pregnancies Del. Date GA/Weeks # Preg Succ Route Wgt Sex Labor Lgth Anesthesia Location [facility] 08/30/19 39 No vaginal 2976.7 g Female 5 hr labor the day before scheduled induction for gHTN Soledad Rodney CNM 02/22/22 38 No Yes vaginal 3019.224 g Male 5 hours ESTEBAN Aleman Delivery Date: 08/30/19 Last Updated by: Ros Fagan No meds in labor, stayed in tub. Nitrous for 1st degree lac repair. gHTN, BP improved after . Heavy bleeding per pt. Delivery Date: 02/22/22 Last Updated by: SONI Ellis;GBS positive, one dose PCN prior to delivery; Small second degree laceration and right labial laceration, repaired under local anesthesia SDOH(Care Management) Screening Will the Patient Participate in the Screening?: Yes Do you worry about having a steady place to live?: yes Problems where you live: pests such as bugs, ants or mice In the past 12 months, have you had to go without electric, gas, oil or water in your home?: no Have you or anyone in your house had to go without enough food to eat?: no Has lack of transportation kept you from medical appointments or from doing things needed for daily living?: no Has anyone in your support network made you feel unsafe for any reason?: no Health Related Social Needs Health related social needs: inadequate housing(Z59.1) and housing instability, housed, with risk of homelessness(Z59.811)
--- NOTE | 2023-10-17 10:59 | DI.RAD_ITS ---
Exam(s) RF SMALL BOWEL SERIES EXAM: RF SMALL BOWEL SERIES CLINICAL HISTORY: abdominal pain, intusseption TECHNIQUE: 2D and realtime digital imaging was performed. CONTRAST MATERIAL: Oral water soluble contrast was administered. COMPARISON: CT CT ABDOMEN PELVIS W from 10/16/2023 FINDINGS: The supervisor assembly and packing view of the abdomen shows a normal bowel gas pattern. No dilated bowel loops. The patient was unable to tolerate drinking the oral barium so water-soluble contrast was administer ed. Approximately 200 cc were consumed. Gastric and duodenal contours are normal. The small bowel demonstrates no structural abnormalities i ncluding structure, dilation, adhesion, or mass. No evidence of intussusception. The terminal ileum is identified and appears unremarkable. . . . Normal transit time of 30 minutes. IMPRESSION: Normal small bowel. No evidence of intussusception. RADIATION DOSE DELIVERED: henry Loza=14.6 mGy
[2023-10-17] MEDS: Omnipaque 350 MG/ML 100 ML BTL PO ×2 (11:02→11:03)
[2023-10-17] MEDS: Omnipaque 350 MG/ML 50 ML BTL PO (11:03)
[2023-10-17] MEDS: Breeza Beverage 473 ML BTL PO ×2 (11:07→11:08)
[2023-10-17] MEDS: Ondansetron 4 MG/2 ML VIAL IVP (11:35)
[2023-10-17] MEDS: ACETAMINOPHEN 1,000 MG/100 ML BTL 400 MG IVPB (11:35)
--- NOTE | 2023-10-17 14:36 | DSE_ITS ---
Date of service: 10/17/23 Time of Service: 14:36 DS: Diagnosis Discharge Diagnosis (1) Intussusception of jejunum: Status: Acute Asessment and Plan: Small bowel follow-through study today does not show any evidence of intussusception or bowel obstruction Discharge Plan Disposition Other Facility: Home Condition: Stable Condition: Improving Discharge Details Reason For Visit: Abdominal pain, Diarrhea Admit Date/Time: 10/16/23 17:24 Admit Provider: Laverne Rivas Attending Provider: Laverne Rivas Primary Care Provider: Lindsay Miranda V Hospital Course Hospital Course: This patient is a 22-year-old female who presents to the hospital with acute onset of left lower quadrant abdominal pain and diarrhea. CT scan of the abdomen emergency department was suggestive of possible subtle intussusception. CT scan was also suggestive of mesenteric adenitis. The patient was recently admitted for similar symptoms. . The patient was admitted to the hospital for observation and small bowel follow-through study. The patient proceeded to have small bowel follow-through study in the morning. It did not demonstrate any evidence of intussusception or small bowel obstruction. On physical examination the patient's abdomen was soft and nontender. She complained of 1 loose stool after the small bowel series study. Most likely related to the Gastrografin. The patient did not have any surgical issues that required further workup or hospital admission. The patient desired discharge home. She was counseled on eating a healthier diet and importance of hydration. Stool studies were collected and will be sent to lab. Patient was also advised to have outpatient workup for her chronic complaints of abdominal pain and diarrhea that started last year. Home Meds and New Rx's Prescriptions: No Action venlafaxine 75 mg capsule,extended release 24hr See Rx Instructions .ROUTE .COMPLEX Qty: 90 0RF Dose Instruction: TAKE ONE CAPSULE BY MOUTH EVERY DAY Rx Instructions: TAKE ONE CAPSULE BY MOUTH EVERY DAY L norgest/e.estradiol-e.estrad [Seasonique] 0.15 mg-30 mcg (84)/10 mcg (7) tablets,dose pack,3 month 1 tab PO DAILY Qty: 182 3RF albuterol sulfate [ProAir HFA] 200 PUFF HFA aerosol inhaler 2 puff Inhalation PRN PRN venlafaxine 37.5 mg capsule,extended release 24hr 37.5 mg PO DAILY Patient Comments: TAKE ONE CAPSULE BY MOUTH EVERY DAY WITH 75MG Discharge Instructions Instructions: Acute Diarrhea (ED) Referrals: Natty Henderson DO [OSTEOPATHIC DOCTOR] - Activity:: Activity as Tolerated Diet:: As Tolerated DS: Summary Summary Time spent discussing smoking cessation with patient: 3 to 10 minutes Time Spent with Patient providing and/or coordinating discharge services: Less than 30 minutes Status at Discharge Functional status at discharge: independent ambulation Overall status at discharge: patient is back to baseline Mental Status: mental status grossly normal Speech and Movement: speech and movement normal Mood: congruent mood Affect: normal affect Quality:SDOH Health Related Social Needs: Health related social needs inadequate housing, risk o f homeless Referrals and interventions: patient has rat problem Exam Resp Effort & Inspection: normal respiratory effort Auscultation: clear to auscultation bilaterally GI Inspection: normal to inspection Palpation: soft Other: The abdomen is soft was nontender normoactive bowel sounds were auscultated. There are no masses or hernias appreciated. Skin General skin exam: no rashes or lesions noted Psych Mental Status: mental status grossly normal Speech and Movement: speech and movement normal Mood: congruent mood Affect: normal affect DS: Data Vitals/I&O Vitals and I&O: Vital Signs Temperature 98.1 F 10/17/23 07:17 Temperature Source Tympanic 10/17/23 07:17 Pulse 61 10/17/23 07:17 Pulse Rhythm Regular 10/17/23 07:50 Respiratory Rate 18 10/17/23 07:17 Respiratory Effort Normal, Non-Labored 10/17/23 07:50 Respiratory Depth Normal 10/17/23 07:50 Respiratory Pattern Normal 10/17/23 07:50 Blood Pressure 112/77 10/17/23 07:17 Blood Pressure Position Sitting 10/16/23 10:05 Pulse Oximetry 99 10/17/23 07:17 Oxygen Delivery Method Room Air 10/17/23 07:17 Oxygen Flow Rate 0 10/17/23 07:17 Pain Level 8 10/17/23 11:35 Intake & Output 10/16/23 10/17/23 10/17/23 23:59 11:59 23:59 Intake Total 1010 / 1020 840 / 840 Balance 1010 / 1020 840 / 840 Weight 82.871 kg Intake: IV 1010 / 1020 840 / 840 Other: Urine Color Yellow Urine Appearance Clear Stool Size Large Stool Characteristics Liquid Voiding Methods Toilet Data Completed and Pending Labs on day of discharge: Labs from last 24 hours 10/17/23 10/17/23 12:00 06:34 Sodium 143 Potassium 3.9 Chloride 107 Carbon Dioxide 24.3 Anion Gap 11.7 H BUN 5 L Creatinine 0.8 Est GFR (CKD-EPI 2020) 107.44 Glucose 89 Calcium 8.8 Total Bilirubin 0.5 AST 39 H ALT 81 H Alkaline Phosphatase 33 L Total Protein 6.7 Albumin 3.6 Stool Campylobacter PCR Pending Stool Salmonella PCR Pending Stool Shigella PCR Pending Shiga Toxin (PCR) Pending [facility] All Active Problems Intussusception of jejunum (Acute) Gastroenteritis (Acute) Encounter for initial prescription of transdermal patch hormonal contraceptive device (Acute) Encounter for IUD removal (Acute) Intrauterine device surveillance (Acute) Maternal varicella, non-immune (Acute) Posttraumatic stress disorder (Acute) History of migraine (Acute) Depressed (Acute) Cannabis abuse (Acute) Medical History Group B streptococcal carriage complicating Hematuria Mild anemia History of gestational hypertension Laceration of labia minora Exercise-induced asthma Attention deficit disorder with hyperactivity RAD (reactive airway disease) Allergic rhinitis, unspecified Mood disorder due to known physiological condition with depressive features Subacute thyroiditis Sleep disturbance Headache Seasonal allergies Suicidal ideation Dizziness Asthma Bipolar disorder Surgical History History of tonsillectomy Family History Paternal Grandfather Diabetes Maternal Grandfather Heart disease mi w/ double bypass Hypertension Mother Hypothyroid Social History Smoking/Tobacco Use Status: Former Tobacco Use Quit Date: 02/18/23 Smoking risk assessment performed?: Yes Alcohol Intake: never Drug use: Daily Substance use type: marijuana Counseling provided: treatment program Details: nightly marijuana use Housing: apartment Sexually active: Yes Do you feel safe at home: Yes Do you feel safe in your relationship?: Yes Female Reproductive History Menstrual Age of Menarche: 12 Duration of menses: 3-5 days control method: pills History History 3 Para 2 Hx # Term Pregnancies 2 Multiple births 0 Hx # Pregnancies 0 Ectopic pregnancies 0 AB induced 0 Hx Number of Living Children 2 AB spontaneous 1 Past Pregnancies Del. Date GA/Weeks # Preg Succ Route Wgt Sex Labor Lgth Anesth esia Location [facility] 08/30/19 39 No vaginal 2976.7 g Female 5 hr labor the day before scheduled induction for gHTN Soledad Rodney CNM 02/22/22 38 No Yes vaginal 3019.224 g Male 5 hours Helen Mcmullen CNM Delivery Date: 08/30/19 Last Updated by: Ros Fagan No meds in labor, stayed in tub. Nitrous for 1st degree lac repair. gHTN, BP improved after . Heavy bleeding per pt. Delivery Date: 02/22/22 Last Updated by: SONI Ellis;GBS positive, one dose PCN prior to delivery; Small second degree laceration and right labial laceration, repaired under local anesthesia Time Spent with Patient Time Spent with Patient: <45 minutes Time was spent: preparing to see the patient(eg.review tests), obtaining and/or reviewing separately otained hiistory, ordering medications,tests, procedures, referring, communicating with other health home care rn and counseling the patient
--- NOTE | 2023-10-17 15:54 | CMDISCH_ITS ---
Date of service: 10/17/23 Time of Service: 15:54 LACE Index Scoring Tool Questions: Length of Stay (in days): 1 Was the patient admitted via the E.D.?: Yes E.D. Visits: 2 Answers: Total Score: 6 Risk of Readmission: Low Risk Care Management Discharge Plan Reason for Hospitalization: Intussusception of jejunum Discharge Plan: Mynor will return home with no new services. Her mother will drive her home via private vehicle when ready. She will follow up with her PCP, surgical services, and her discharge plan of care. She is happy to be going home. Patient/Family Education Needs: Review discharge instructions and limitations, discussion of self care needs including ask me three. SDOH Health Related Social Needs: Health related social needs inadequate housing, risk o f homeless Health related social needs: inadequate housing(Z59.1) and housing instability, housed, with risk of homelessness(Z59.811) Referrals and interventions: patient has rat problem
[2023-10-18 10:55] LABS: Campylobacter PCR Negative (Negative); Salmonella PCR Negative (Negative); Shiga Toxin PCR Negative (Negative); Shigella/Enteroinvasive Ecoli Negative (Negative)
== END 2023-10-17 15:40 | disposition home or self-care (01) ==
LOC: ER 15:57 → MS 18:22
PROVIDERS: Nurse Practitioner Family; Admitting Provider Surgery; Emergency Provider Physician Assistant; PCP Family Medicine; Visit Provider Surgery
DX: I88.0 Nonspecific mesenteric lymphadenitis (principal); R10.32 Left lower quadrant pain; F43.10 Post-traumatic stress disorder, unspecified; G43.909 Migraine, unspecified, not intractable, without status migrainosus; F12.10 Cannabis abuse, uncomplicated; F32.A Depression, unspecified; R19.7 Diarrhea, unspecified
CPT/HCPCS: 00123; 36415; 80053; 81025; 87505; 96361; 96374; 99285; 74177; 74250; 81003; 82270; 85025; G0378; J0131; J1885; J2405; J3490; Q9967

== ENCOUNTER 2023-11-23 19:38 | Emergency (ER) | payer MEDICAID, SELFPAY ==
[2023-11-23 19:41] VITALS: BP 132/84; PULSE 73; RESP 16; TEMP 36.6; O2SAT 95
--- NOTE | 2023-11-23 19:45 | DI.CT_ITS ---
Exam(s) CT HEAD FACIAL WO EXAM: CT HEAD FACIAL WO CLINICAL HISTORY: trauma to right head/face. TECHNIQUE: Imaging Protocol: Axial computed tomography images with coronal and sagittal reformatted images were created and reviewed COMPARISON: No exams were available for comparison FINDINGS: BRAIN: There are no skull fractures nor fluid in the visualized paranasal sinuses. There is no evidence of intracranial hemorrhage, mass effect, or shift of midline structures. There are no extra-axial fluid collections. The ventricles are not enlarged or shifted and there is no blo od within the ventricular system nor within the basal cisterns. MAXILLOFACIAL CT SCAN: There is no evidence of facial fractures. There is mild mucosal thickening but no fluid levels evide nt in the maxillary sinuses. Other paranasal sinuses are unremarkable as are the mastoid air cells. There is no evidence of nasal bone fracture. There is no evidence of orbital blowout fracture. Orbits unremarkable. IMPRESSION: No acute intracranial findings on this noninfused CT scan of the brain. No evidence of facial bone fractures nor orbital fractures. RADIATION DOSE DELIVERED: Total DLP DATA REPOSITORY: All CT scans at this facility are submitted to the National Radiology Data Registry (NRDR) Dose Index Registry (DIR) with the [employer] (ACR). RADIATION OPTIMIZATION: All CT scans at this facility use at least one of these dose optimization te chniques: automated exposure control; mA and/or kV adjustment per patient size (includes targeted exa ms where dose is matched to clinical indication); or iterative reconstruction.
--- NOTE | 2023-11-23 19:49 | ED.GENADUL_ITS ---
Discharge Plan Disposition Patient Disposition: Home Condition: Stable Discharge Details Clinical Impression: Blunt head trauma, Contusion of face Primary Care Provider: Lindsay Miranda V ED Provider: Matt Green Home Meds and New Rx's Prescriptions: Continued venlafaxine 75 mg capsule,extended release 24hr See Rx Instructions .ROUTE .COMPLEX Qty: 90 0RF Dose Instruction: TAKE ONE CAPSULE BY MOUTH EVERY DAY Rx Instructions: TAKE ONE CAPSULE BY MOUTH EVERY DAY L norgest/e.estradiol-e.estrad [Seasonique] 0.15 mg-30 mcg (84)/10 mcg (7) tablets,dose pack,3 month 1 tab PO DAILY Qty: 182 3RF albuterol sulfate [ProAir HFA] 200 PUFF HFA aerosol inhaler 2 puff Inhalation PRN PRN venlafaxine 37.5 mg capsule,extended release 24hr 37.5 mg PO DAILY Patient Comments: TAKE ONE CAPSULE BY MOUTH EVERY DAY WITH 75MG Discharge Instructions Additional Instructions: Your imaging did not show concerning findings at this time If still the symptoms in a week follow-up with your primary care provider If you feel more ill, have severe worsening pain or new symptoms such as difficulty breathing return to the emergency department for reevaluation HPI General Mode of arrival: ambulatory . Date/Time Provider Initiated Documentation: 11/23/23 19:39 . Limitations to Documentation: no limitations . Information obtained by: patient . History of Present Illness 23 year old F presents to the emergency department with the chief complaint of right sided head and facial pain, described as moderate, Quality is described as aching, and is localized to the head and face. Patient reports no radiation. Patient started experiencing this hour(s) (1) and it has been constant. No relieving factors improve symptom(s), No exacerbating factors reported . Patient notes denies chest pain, fever/chills and shortness of breath. Patient did receive the following treatments prior to arrival, none Related Data Home Medications Medication Instructions Recorded Confirmed albuterol sulfate 90 mcg/actuation 2 puff inhalation PRN PRN 06/11/15 10/16/23 aerosol inhaler (ProAir HFA) venlafaxine 75 mg capsule,extended See Rx Instructions .Route 02/14/22 10/16/23 release 24 hr .COMPLEX #90 caps venlafaxine 37.5 mg 37.5 mg PO DAILY 11/17/22 10/16/23 capsule,extended release 24 hr L norgest/E estradiol-E estrad 1 tab PO DAILY #182 dose pk 03/27/23 10/16/23 0.15 mg-30 mcg (84)/10 mcg(7) tabs,3mos (Seasonique) Previous Rx's Medication Instructions Recorded venlafaxine 75 mg capsule,extended See Rx Instructions .Route 02/14/22 release 24 hr .COMPLEX #90 caps L norgest/E estradiol-E estrad 1 tab PO DAILY #182 dose pk 03/27/23 0.15 mg-30 mcg (84)/10 mcg(7) tabs,3mos (Seasonique) Allergies Allergy/AdvReac Type Severity Reaction Status Date / Time sertraline AdvReac Intermediate pt reports Verified 10/16/23 12:11 she got ugly black flies AdvReac Intermediate red and Uncoded 10/16/23 12:11 swollen cats AdvReac Intermediate sneezing Uncoded 10/16/23 12:11 a lot, runny nose General Stated Complaint: EyeProblem ETHAN: 4 Review of Systems All systems reviewed & are unremarkable except as noted in HPI and below Constitutional Constitutional: Denies chills, Denies fever(s) and Denies weakness Eyes Eyes: Denies loss of vision Cardiovascular Cardiovascular: Denies chest pain and Denies dyspnea Respiratory Respiratory: Denies cough and Denies dyspnea Gastrointestinal Gastrointestinal: Denies abdominal pain, Reports nausea and Denies vomiting Musculoskeletal Musculoskeletal: Denies joint swelling Neurologic Neurologic: Denies loss of vision and Denies weakness Exam Const General: no acute distress Orientation: alert HENMT Head: normal to inspection Ears: external ears normal General nose exam: external nose normal Mouth: moist mucous membranes Eyes General: appearance normal, both eyes and all related structures Alignment and Position: alignment normal Periorbital: periorbital findings normal Conjunctivae: conjunctivae normal Cornea: corneas normal Pupils: PERRL EOM: EOM intact bilaterally Neck Neck: normal visual inspection, full ROM and nontender Resp Effort & Inspection: normal respiratory effort and able to speak in complete sentences Cardio Rate: regular rate Skin General skin exam: no rashes or lesions noted Neuro General: patient alert and patient oriented x3 Extrem General: normal to inspection Psych Mental Status: mental status grossly normal Course Vital Signs Vital signs: Vital Signs Temperature 36.6 C 11/23/23 19:41 Pulse 73 11/23/23 19:41 Respiratory Rate 16 11/23/23 19:41 Blood Pressure 132/84 11/23/23 19:41 Pulse Oximetry 95 11/23/23 19:41 Temperature 36.6 C 11/23/23 19:41 Pulse 73 11/23/23 19:41 Respiratory Rate 16 11/23/23 19:41 Respiratory Effort Normal 11/23/23 19:43 Blood Pressure 132/84 11/23/23 19:41 Pulse Oximetry 95 11/23/23 19:41 Medical Decision Making 23-year-old female comes in with right-sided facial and head pain after her she was playing with her son on the floor and he landed on top of her head causing her head to hit the tile floor. Denies loss of consciousness has had right- sided head pain and right zygomatic arch pain since so came here for evaluation. Denies any vomiting but has had nausea. She is alert and oriented x 4 and ambulatory on arrival. She had no significant traumatic findings of the head on exam. No periorbital swelling, extraocular motions are intact bilaterally, pupils are equal and reactive to light, the eye this himself appear normal. Does have tenderness over the zygomatic arch, suspect contusion versus concussion will obtain CT of the head and facial bones to evaluate for fracture and less likely TBI. She has no midline C-spine tenderness and full range of motion of her neck without any pain so do not feel imaging of her C-spine indicated and has no pain elsewhere to warrant other imaging. Imaging unremarkable, patient stable and has no new pain elsewhere. She is stable for discharge, advised to follow-up with her primary care provider and return precautions given Differential Diagnosis Differential Diagnosis: Contusion, fracture Imaging Data Radiologic Study: Attestation: I personally reviewed and interpreted this imaging study as follows: Imaging: CT Scan Radiologist's impression: No acute findings on head or face CT Quality:SDOH Health Related Social Needs: Health related social needs inadequate housing, risk o f homeless PFSH All Active Problems (Updated 11/23/23 @ 19:52 by Matt Green MD) Contusion of face (Acute) Blunt head trauma (Acute) Gastroenteritis (Acute) Encounter for initial prescription of transdermal patch hormonal contraceptive device (Acute) Encounter for IUD removal (Acute) Intrauterine device surveillance (Acute) Maternal varicella, non-immune (Acute) Posttraumatic stress disorder (Acute) History of migraine (Acute) Depressed (Acute) Cannabis abuse (Acute) Medical History Group B streptococcal carriage complicating Hematuria Mild anemia History of gestational hypertension Laceration of labia minora Exercise-induced asthma Attention deficit disorder with hyperactivity RAD (reactive airway disease) Allergic rhinitis, unspecified Mood disorder due to known physiological condition with depressive features Subacute thyroiditis Sleep disturbance Headache Seasonal allergies Suicidal ideation Dizziness Asthma Bipolar disorder Surgical History History of tonsillectomy Family History Paternal Grandfather Diabetes Maternal Grandfather Heart disease mi w/ double bypass Hypertension Mother Hypothyroid Social History Smoking/Tobacco Use Status: Former Tobacco Use Quit Date: 02/18/23 Smoking risk assessment performed?: Yes Alcohol Intake: never Drug use: Daily Substance use type: marijuana Counseling provided: treatment program Details: nightly marijuana use Housing: apartment Sexually active: Yes Do you feel safe at home: Yes Do you feel safe in your relationship?: Yes Female Reproductive History Menstrual Age of Menarche: 12 Duration of menses: 3-5 days control method: pills History History 3 Para 2 Hx # Term Pregnancies 2 Multiple births 0 Hx # Pregnancies 0 Ectopic pregnancies 0 AB induced 0 Hx Number of Living Children 2 AB spontaneous 1 Past Pregnancies Del. Date GA/Weeks # Preg Succ Route Wgt Sex Labor Lgth Anesth esia Location Prov [facility] 08/30/19 39 No vaginal 2976.7 g Female 5 hr labor the day before scheduled induction for gHTN Soledad Rodney CNM 02/22/22 38 No Yes vaginal 3019.224 g Male 5 hours Helen Mcmullen CNM Delivery Date: 08/30/19 Last Updated by: Ros Fagan No meds in labor, stayed in tub. Nitrous for 1st degree lac repair. gHTN, BP improved after . Heavy bleeding per pt. Delivery Date: 02/22/22 Last Updated by: SONI Ellis;GBS positive, one dose PCN prior to delivery; Small second degree laceration and right labial laceration, repaired under local anesthesia
[2023-11-23] MEDS: Ondansetron O.D.T. 4 MG TABEF PO (20:40)
[2023-11-23] MEDS: Ibuprofen 600 MG TAB PO (20:40)
--- NOTE | 2023-11-23 21:03 | DI.VRAD_ITS ---
PROCEDURE INFORMATION: Exam: CT Head Without Contrast Exam date and time: 11/23/2023 8:23 PM Age: 23 years old Clinical indication: Injury or trauma; Other: Trauma to right head/face TECHNIQUE: Imaging protocol: Computed tomography of the head without contrast. Total images: 1722 COMPARISON: US OB f/u facial/lvot/rvotdd 04/08/2019 12:34 PM FINDINGS: Brain: No intra or extra axial bleed. No edema or mass effect. The central lazo structures and cortical ribbon are maintained. Cerebral ventricles: No significant hydrocephalus. Basal cisterns are patent. Paranasal sinuses: Mild maxillary sinus mucosal disease. Mastoid air cells: No mastoid effusion. Bones/joints: No significant finding. Soft tissues: Unremarkable. IMPRESSION: No acute intracranial abnormality/bleed. PROCEDURE INFORMATION: Exam: CT Maxillofacial Without Contrast Exam date and time: 11/23/2023 8:23 PM Age: 23 years old Clinical indication: Injury or trauma; Other: Trauma to right head/face TECHNIQUE: Imaging protocol: Computed tomography of the face without contrast. COMPARISON: US OB f/u facial/lvot/rvotdd 04/08/2019 12:34 PM FINDINGS: Orbital cavities: Orbital contents are unremarkable. Bones/joints: No acute fracture or bony destruction. Paranasal sinuses: Minimal mucosal thickening maxillary sinuses. No sinus fluid level. Soft tissues: Unremarkable. IMPRESSION: No maxillofacial fracture. Dictated and Authenticated by: David Burnham MD. Ordering:MILLER Gutierrez MD
== END 2023-11-23 21:08 | disposition home or self-care (01) ==
PROVIDERS: Emergency Provider Emergency Medicine; PCP Family Medicine
DX: S09.8XXA Other specified injuries of head, initial encounter (principal); S00.83XA Contusion of other part of head, initial encounter; Z87.891 Personal history of nicotine dependence; W22.8XXA Striking against or struck by other objects, initial encounter; Y93.83 Activity, rough housing and horseplay; Y92.018 Other place in single-family (private) house as the place of occurrence of the external cause
CPT/HCPCS: 99284; 70450; 70486

== ENCOUNTER 2024-01-18 12:40 | Emergency (ER) | payer MEDICAID, SELFPAY ==
[2024-01-18 12:42] VITALS: BP 146/111; PULSE 72; RESP 18; TEMP 36.7; O2SAT 100
--- NOTE | 2024-01-18 12:45 | DI.RAD_ITS ---
Exam(s) XR FINGER RT INDEX EXAM: XR FINGER RT INDEX CLINICAL HISTORY: crushed in car door. TECHNIQUE: 2D digital imaging was performed of the right finger. Three views were obtained. PA/AP, oblique, and lateral views were obtained. COMPARISON: No exams were available for comparison FINDINGS: BONES: No acute fracture is present. No bony destructive lesion is seen. JOINTS: No dislocation present. SOFT TISSUE: Normal. IMPRESSION: No evidence of acute fracture, dislocation, or subluxation. DATA REPOSITORY: RADIATION DOSE DELIVERED:
--- NOTE | 2024-01-18 12:47 | ED.GENADUL_ITS ---
Discharge Plan Disposition Patient Disposition: Home Condition: Good Discharge Details Clinical Impression: Crush injury to finger, Abrasion of finger Primary Care Provider: Lindsay Miranda V ED Provider: Marcy Encarnacion Home Meds and New Rx's Prescriptions: Continued L norgest/e.estradiol-e.estrad [Seasonique] 0.15 mg-30 mcg (84)/10 mcg (7) tablets,dose pack,3 month 1 tab PO DAILY Qty: 182 3RF albuterol sulfate [ProAir HFA] 200 PUFF HFA aerosol inhaler 2 puff Inhalation PRN PRN venlafaxine 37.5 mg capsule,extended release 24hr 37.5 mg PO DAILY Patient Comments: TAKE ONE CAPSULE BY MOUTH EVERY DAY WITH 75MG venlafaxine 75 mg capsule,extended release 24hr 75 mg PO DAILY Rx Instructions: TAKE ONE CAPSULE BY MOUTH EVERY DAY Discharge Instructions Instructions: Crush Injury (ED) Additional Instructions: X-rays reassuring here today. No evidence of fracture or dislocation. Due to the swelling and pain, I cannot assist ligaments in the finger. Please follow- up with your primary care in the next 1 to 2 weeks for reevaluation and assessment of this. Please encourage rest, ice, elevation. Tylenol and ibuprofen as needed for discomfort. Please continue splinting while pain persist. Please monitor abrasion for signs of infection including redness, warmth, drainage, increased pain, fever/chills. Keep wound clean, dry and covered. Wash with running water and soap. If you develop any new or worsening symptoms please seek care urgently once again. Referrals: Lindsay Miranda MD [Primary Care Provider] - [facility] General Date/Time Provider Initiated Documentation: 01/18/24 12:46 . Limitations to Documentation: no limitations . Information obtained by: patient and RN notes reviewed . History of Present Illness 23 year old F presents to the emergency department with the chief complaint of right index finger pain, described as severe, Quality is described as burning and aching, and is localized to the right and upper extremity. Patient reports no radiation. Patient started experiencing this minute(s) and it has been constant. Immobilization improves symptom(s), Movement worsens symptoms . Patient notes no other symptoms.. Patient did receive the following treatments prior to arrival, none Related Data Home Medications Medication Instructions Recorded Confirmed albuterol sulfate 90 mcg/actuation 2 puff inhalation PRN PRN 10/22/15 05/30/24 aerosol inhaler (ProAir HFA) venlafaxine 37.5 mg 37.5 mg PO DAILY 11/17/22 01/18/24 capsule,extended release 24 hr L norgest/E estradiol-E estrad 1 tab PO DAILY #182 dose pk 03/27/23 01/18/24 0.15 mg-30 mcg (84)/10 mcg(7) tabs,3mos (ique) venlafaxine 75 mg capsule,extended 75 mg PO DAILY 01/18/24 01/18/24 release 24 hr Previous Rx's Medication Instructions Recorded L norgest/E estradiol-E estrad 1 tab PO DAILY #182 dose pk 03/27/23 0.15 mg-30 mcg (84)/10 mcg(7) tabs,3mos (Seasonique) Allergies Allergy/AdvReac Type Severity Reaction Status Date / Time sertraline AdvReac Intermediate pt reports Verified 01/18/24 12:45 she got ugly black flies AdvReac Intermediate red and Uncoded 01/18/24 12:45 swollen cats AdvReac Intermediate sneezing Uncoded 01/18/24 12:45 a lot, runny nose General Stated Complaint: Orthopedic ETHAN: 4 Review of Systems Constitutional Constitutional: Reports as per HPI and Denies fever(s) Cardiovascular Cardiovascular: Reports as per HPI Respiratory Respiratory: Reports as per HPI and Denies cough Musculoskeletal Musculoskeletal: Reports as per HPI and Denies tingling Integumentary/Breasts Skin/Breast: Reports as per HPI Neurologic Neurologic: Reports as per HPI, Denies tingling and Denies paresthesias Exam Const General: cooperative, healthy appearing, comfortable, no acute distress, well developed and well groomed Nutritional Appearance: average body habitus and well nourished Orientation: alert and awake Resp Effort & Inspection: normal respiratory effort, able to speak in complete sentences and no respiratory distress Cardio Rate: regular rate Rhythm: regular rhythm Skin General skin exam: ecchymosis (over right index DIP) Trauma: abrasion (small abrasion dorsal aspect right index finger at the DIP joint) and no lacerations Neuro General: patient alert and patient awake Cognition: normal cognition Speech: speech normal Gait: normal gait Motor: muscle tone normal throughout Sensory Exam: no sensory deficits noted Extrem Hand/finger images: 2 1. Area of injury. Patient has ecchymosis and a small abrasion on the dorsal side of the hand. Small area of redness on the palmar side. Range of motion is not able to be assessed secondary to pain. Patient does have sensation intact. No ecchymosis under the nailbed itself. No pain or evidence of trauma at the PIP or proximal to this. She is 2+ distal pulses. No obvious deformities appreciated. Course Vital Signs Vital signs: Vital Signs Temperature 36.7 C 01/18/24 12:42 Pulse 72 01/18/24 12:42 Respiratory Rate 18 01/18/24 12:42 Blood Pressure 146/111 H 01/18/24 12:42 Pulse Oximetry 100 01/18/24 12:42 Temperature 36.7 C 01/18/24 12:42 Temperature Source Temporal Artery Scan 01/18/24 12:42 Pulse 72 01/18/24 12:42 Respiratory Rate 18 01/18/24 12:42 Blood Pressure 146/111 H 01/18/24 12:42 Pulse Oximetry 100 01/18/24 12:42 Oxygen Delivery Method Room Air 01/18/24 12:42 Oxygen Flow Rate 0 01/18/24 12:42 Medical Decision Making Patient is pleasant 23-year-old [id number]-[id number] female presenting today with chief complaint of right index finger injury. She reports that prior to arrival she accidentally shut the DIP in the car door. Denies other injury at time of the incident. States that there are some tingling but denies any numbness. Denies . Unknown tetanus status. On exam, patient appears nontoxic. She is splinting her finger with the other hand. She has some ecchymosis and small abrasion over the DIP joint at the base of the right index nail. The nail itself does not appear to be involved, no ecchymosis under the nail bed. Sensation is intact distal to the wound. She has no pain at the PIP or MCP joint. She does have limited range of motion associated with pain at the DIP joint. Will give Tylenol and ibuprofen to help with discomfort. Patient denies status will obtain a urine test at a limits of caution. Will obtain x-ray to evaluate for any bony abnormalities. Will have the patient soak and clean the finger. Tetanus was last administered in 2021, patient is up-to-date. FINDINGS: BONES: No acute fracture is present. No bony destructive lesion is seen. JOINTS: No dislocation present. SOFT TISSUE: Normal. IMPRESSION: No evidence of acute fracture, dislocation, or subluxation. Discussed the findings with the patient. Encouraged rest, ice, elevation. Tylenol and ibuprofen as needed for discomfort. Will fit with brace to help with discomfort during healing process. Wound was cleansed, dressing applied and splint applied. Given her acute discomfort, a appropriate ligamentous exam was not able to be performed, advised that she should have this completed by her primary care in the next 1 to 2 weeks for reevaluation. Return precautions were discussed. All questions and concerns were addressed and she is in agreement this plan. Quality:SDOH Health Related Social Needs: 2 Health related social needs inadequate housing, risk o f homeless PFSH All Active Problems (Updated 01/18/24 @ 13:48 by RIKY Bowie) Abrasion of finger (Acute) Crush injury to finger (Acute) Gastroenteritis (Acute) Encounter for initial prescription of transdermal patch hormonal contraceptive device (Acute) Encounter for IUD removal (Acute) Intrauterine device surveillance (Acute) Maternal varicella, non-immune (Acute) Posttraumatic stress disorder (Acute) History of migraine (Acute) Depressed (Acute) Cannabis abuse (Acute) Medical History Group B streptococcal carriage complicating Hematuria Mild anemia History of gestational hypertension Laceration of labia minora Exercise-induced asthma Attention deficit disorder with hyperactivity RAD (reactive airway disease) Allergic rhinitis, unspecified Mood disorder due to known physiological condition with depressive features Subacute thyroiditis Sleep disturbance Headache Seasonal allergies Suicidal ideation Dizziness Asthma Bipolar disorder Surgical History History of tonsillectomy Family History Paternal Grandfather Diabetes Maternal Grandfather Heart disease mi w/ double bypass Hypertension Mother Hypothyroid Social History Smoking/Tobacco Use Status: Former Tobacco Use Quit Date: 02/18/23 Smoking risk assessment performed?: Yes Alcohol Intake: never Drug use: Daily Substance use type: marijuana Counseling provided: treatment program Details: nightly marijuana use Housing: apartment Sexually active: Yes Do you feel safe at home: Yes Do you feel safe in your relationship?: Yes Female Reproductive History Menstrual Age of Menarche: 12 Duration of menses: 3-5 days control method: pills History History 2 3 Para 2 Hx # Term Pregnancies 2 Multiple births 0 Hx # Pregnancies 0 Ectopic pregnancies 0 AB induced 0 Hx Number of Living Children 2 AB spontaneous 1 Past Pregnancies Del. Date GA/Weeks # Preg Succ Route Wgt Sex Labor Lgth Anesth esia Location Prov Compl 08/30/19 39 No vaginal 2976.7 g Female 5 hr labor the day before scheduled induction for gHTN Soledad Rodney CNM 02/22/22 38 No Yes vaginal 3019.224 g Male 5 hours Helen Mcmullen CNM Delivery Date: 08/30/19 Last Updated by: Ros Fagan No meds in labor, stayed in tub. Nitrous for 1st degree lac repair. gHTN, BP improved after . Heavy bleeding per pt. Delivery Date: 02/22/22 Last Updated by: SONI Ellis;GBS positive, one dose PCN prior to delivery; Small second degree laceration and right labial laceration, repaired under local anesthesia
[2024-01-18] MEDS: Acetaminophen 325 MG TAB 650 MG PO (12:55)
[2024-01-18] MEDS: Ibuprofen 600 MG TAB PO (12:55)
--- NOTE | 2024-01-18 13:06 | NUR.NOTE ---
Nursing Note: Patient refused to give a POC test before having imaging. Patient signed a form
[2024-01-18 14:04] VITALS: BP 124/76; PULSE 77; RESP 18; O2SAT 100
== END 2024-01-18 14:06 | disposition home or self-care (01) ==
PROVIDERS: Emergency Provider Physician Assistant; PCP Family Medicine
DX: S67.21XA Crushing injury of right hand, initial encounter (principal); S60.410A Abrasion of right index finger, initial encounter; W23.0XXA Caught, crushed, jammed, or pinched between moving objects, initial encounter; Z59.10 Inadequate housing, unspecified
CPT/HCPCS: 29130; 99283; 73140

== ENCOUNTER 2024-04-25 11:15 | Outpatient (REF) | payer MEDICAID, SELFPAY ==
--- OUTSIDE RECORDS SUMMARY | 2024-04-25 11:20 | XMS_ITS | Encounter Summary ---
Author Organization [facility] Address [address] [place] [address] Care Team Providers Care Financial Counselor Name Role Phone Lindsay Miranda MD Primary Care Provider [phone] Encounter Details Date Type Department Care Team (Late st Contact Info) Description 05/13/2020 Lab Requisition [facility] Pathology & Laboratory Medicine - [address] [id number] Outr Resulting Lab, Provider Social History Tobacco Use Types Packs/Day Years Used Date Smoking Tobacco: Never Assessed Interpersonal Safety Answer Date Record ed Physically Hurt Never 03/23/2020 Verbally Threaten Not on file 03/23/2020 Sex and Gender Information Value Date Recorded Sex Assigned at Not on file Gender Identity Not on file Sexual Orientation Not on file documented as of this encounter Plan of Treatment Not on file documented as of this encounter Procedures Procedure Name Priority Date/Time Associated Diagnosis Comments HIV 1/2 ANTIGEN AND ANTIBODY, 4TH GENERATION Routine 05/12/2020 11:00 EDT documented in this encounter Results * HIV 1/2 ANTIGEN AND ANTIBODY, 4TH GENERATION (05/12/2020 11:00 EDT) HIV 1 and 2 Antibody/p24 Antigen, 4th Generation Negative Negative 05/14/2020 11:48 EDT [facility] Comment: If acute HIV-1 infection is suspected in a high risk ??patient, submit plasma specimen for HIV-1 RNA quantitation test. Fourth Generation assay performed on the Siemens Jaxtraur. Blood VENOUS BLOOD / Unknown 05/12/2020 11:00 EDT 05/13/2020 17:10 EDT Provider Outr Resulting Lab IMMUNOLOGY A ND SEROLOGY ORDERABLES [facility] [address] [place] [address] documented in this encounter Visit Diagnoses Not on filedocumented in this encounter Care Teams Financial Counselor Relationship Specialty Start Date End Date Lindsay Miranda MD [address] [place] [address] PCP - General 05/21/18 documented as of this encounter
--- OUTSIDE RECORDS SUMMARY | 2024-04-25 11:20 | XMS_ITS | Referral Summary ---
Author Organization [facility] Address [address] [place] [address] Care Team Providers Care Meter Readers Supervisor Name Role Phone Lindsay Miranda MD Primary Care Provider [phone] Social History Tobacco Use Types Packs/Day Years Used Date Smoking Tobacco: Never Assessed Interpersonal Safety Answer Date Record ed Physically Hurt Never 03/23/2020 Verbally Threaten Not on file 03/23/2020 Sex and Gender Information Value Date Recorded Sex Assigned at Not on file Gender Identity Not on file Sexual Orientation Not on file Plan of Treatment Not on file Procedures Procedure Name Priority Date/Time Associated Diagnosis Comments HEPATITIS C AB W REFLEX TO HCV RNA BY PCR Routine 08/09/2021 8:22 EST from Last 3 Months or Most Recently Relevant to Health Maintenance Results * HEPATITIS C AB W REFLEX TO HCV RNA BY PCR (08/09/2021 8:22 EST) Hep C Antibody Negative Negative 08/10/2021 11:04 EST [facility] Blood VENOUS BLOOD / Unknown 08/09/2021 8:22 EST 08/09/2021 16:30 EST Provider Outr Resulting Lab CHEMISTRY & BLOOD GAS ORDERABLES [facility] [address] [place] [address] from Last 3 Months or Most Recently Relevant to Health Maintenance Care Teams Meter Readers Supervisor Relationship Specialty Start Date End Date Lindsay Miranda MD [address] [place] [address] PCP - General 05/21/18
--- OUTSIDE RECORDS SUMMARY | 2024-04-25 11:20 | XMS_ITS | Encounter Summary ---
Author Organization [facility] Address [address] [place] [address] Care Team Providers Care Elevator Constructor Name Role Phone Lindsay Miranda MD Primary Care Provider [phone] Encounter Details Date Type Department Care Team (Late st Contact Info) Description 10/17/2023 Lab Requisition [facility] Pathology & Laboratory Medicine - [address] [address] Outr Resulting Lab, Provider Social History Tobacco [...] Procedure Name Priority Date/Time Associated Diagnosis Comments FECAL BACTERIAL PATHOGENS BY PCR Routine 10/17/2023 12:00 EST documented in this encounter Results * FECAL BACTERIAL PATHOGENS BY PCR (10/17/2023 12:00 EST) Salmonella PCR Negative Negative 10/18/2023 10:50 EST [facility] Shigella/Enteroin vasive E. coli Negative Negative 10/18/2023 10:50 EST [facility] HN LAB CAMPYLOBACTER PCR Negative Negative 10/18/2023 10:50 EST [facility] Shiga Toxin PCR Negative Negative 10:50 EST [facility] Feces SPECIMEN FROM RECTUM / Unknown 10/17/2023 12:00 EST 10/17/2023 21:15 EST Provider Outr Resulting Lab MICROBIOLOGY - GENERAL ORDERABLES [facility] [address] [place] [id number] documented in this encounter Visit Diagnoses Not on filedocumented in this encounter Care Teams Elevator Constructor Relationship Specialty Start Date End Date Lindsay Miranda MD [address] [place] [address] PCP - General 05/21/18 documented as of this encounter
--- OUTSIDE RECORDS SUMMARY | 2024-04-25 11:20 | XMS_ITS | Encounter Summary ---
Author Organization [facility] Address [address] [place] [address] Care Team Providers Care Bean Sprout Laborer Name Role Phone Lindsay Miranda MD Primary Care Provider [phone] Encounter Details Date Type Department Care Team (Late st Contact Info) Description 07/15/2020 Lab Requisition [facility] Pathology & Laboratory Medicine - [facility] [address] [place] [address] Outr Resulting Lab, Provider Social History Tobacco [...] on file documented as of this encounter Visit Diagnoses Not on filedocumented in this encounter Care Teams Bean Sprout Laborer Relationship Specialty Start Date End Date Lindsay Miranda MD [address] [place] [address] PCP - General 05/21/18 documented as of this encounter
--- OUTSIDE RECORDS SUMMARY | 2024-04-25 11:20 | XMS_ITS | Encounter Summary ---
Author Organization [facility] Address [address] [place] [address] Care Team Providers Care Silverware Cleaner Name Role Phone Lindsay Miranda MD Primary Care Provider [phone] Encounter Details Date Type Department Care Team (Late st Contact Info) Description 05/13/2020 Lab Requisition [facility] Pathology & Laboratory Medicine - [address] [phone] Outr Resulting Lab, Provider Social History Tobacco [...] REFLEX TO HCV RNA BY PCR Routine 05/12/2020 11:00 EDT documented in this encounter Results * HEPATITIS C AB W REFLEX TO HCV RNA BY PCR (05/12/2020 11:00 EDT) Hep C Antibody Negative Negative 05/14/2020 12:[address] [facility] Blood VENOUS BLOOD / Unknown 05/12/2020 11:00 EDT 05/13/2020 17:10 EDT Provider Outr Resulting Lab CHEMISTRY & BLOOD GAS ORDERABLES [facility] [address] [place] [address] documented in this encounter Visit Diagnoses Not on filedocumented in this encounter Care Teams Silverware Cleaner Relationship Specialty Start Date End Date Lindsay Miranda MD [address] [place] [address] PCP - General 05/21/18 documented as of this encounter
--- OUTSIDE RECORDS SUMMARY | 2024-04-25 11:20 | XMS_ITS | Encounter Summary ---
Author Organization [facility] Address [address] [place] [address] Care Team Providers Care Tankerman Name Role Phone Lindsay Miranda MD Primary Care Provider [phone] Encounter Details Date Type Department Care Team (Late st Contact Info) Description 05/13/2020 Lab Requisition [facility] Pathology & Laboratory Medicine - [address] [address] Outr Resulting Lab, Provider Social History Tobacco [...] Procedure Name Priority Date/Time Associated Diagnosis Comments SYPHILIS SEROLOGY Routine 05/12/2020 11: 00 EDT documented in this encounter Results * SYPHILIS SEROLOGY (05/12/2020 11:00 EDT) Syphilis Serology Negative Negative 05/14/2020 17:39 EDT [facility] Blood VENOUS BLOOD / Unknown 05/12/2020 11:00 EDT 05/13/2020 17:10 EDT Provider Outr Resulting Lab IMMUNOLOGY A ND SEROLOGY ORDERABLES [facility] [address] [place] [address] documented in this encounter Visit Diagnoses Not on filedocumented in this encounter Care Teams Tankerman Relationship Specialty Start Date End Date Lindsay Miranda MD [address] [place] [address] PCP - General 05/21/18 documented as of this encounter
--- OUTSIDE RECORDS SUMMARY | 2024-04-25 11:20 | XMS_ITS | Encounter Summary ---
Author Organization [facility] Address [address] [place] [address] Care Team Providers Care Detail Manager Name Role Phone Lindsay Miranda MD Primary Care Provider Encounter Details Date Type Department Care Team (Late st Contact Info) Description 08/03/2020 Lab Requisition [facility] Pathology & Laboratory Medicine - [address] [address] Outr Resulting Lab, Provider Social History Tobacco [...] Procedure Name Priority Date/Time Associated Diagnosis Comments ZZCOVID-19 TEST [facility] PCR Today 08/03/2020 13:40 EST COVID-19 TESTING Routine 08/03/2020 13:4 0 EST documented in this encounter Results * COVID-19 TEST [facility] PCR (08/03/2020 13:40 EST) Swab ENTIRE NASOPHARYNX / Unknown 08/03/2020 13:40 EST 08/03/2020 20:22 EST Provider Outr Resulting Lab MICROBIOLOGY - GENERAL ORDERABLES [facility] [address] [place] [address] * COVID-19 TESTING (08/03/2020 13:40 EST) COVID-19 rt-PCR Result Negative Negative 08/03/2020 23:53 EST [facility] Comment: This test has not been FDA cleared or approved. This test has been authorized by FDA under an EUA for use by authorized laboratories. This test has been authorized only for detection of nucleic acid from 2019-nCoV, not for any other viruses or pathogens. This test is only authorized for the duration of the declaration that circumstances exist justifying the authorization of emergency use of in vitro diagnostic tests for detection and/or diagnosis of 2019-nCoV under section 564(b)(1) of Act, 21 U.S.C ?? 360bbb-3(b) (1), unless the authorization is terminated or revoked sooner. Negative results do not preclude 2019-nCoV infection and should not be used as the sole basis for treatment or other patient management decisions. Negative results must be combined with clinical observations, patient history, and epidemiological information. Performed on the Semantraher Fusion instrument Performing Lab [place] [facility] 08/03/2020 23:53 EST [facility] Swab 08/03/2020 13:4 0 EST 08/03/2020 20:22 EST Provider Outr Resulting Lab MICROBIOLOGY - GENERAL ORDERABLES [facility] [address] [place] [address] documented in this encounter Visit Diagnoses Not on filedocumented in this encounter Care Teams Detail Manager Relationship Specialty Start Date End Date Lindsay Miranda MD [address] [place] [address] PCP - General 05/21/18 documented as of this encounter
--- OUTSIDE RECORDS SUMMARY | 2024-04-25 11:20 | XMS_ITS | Encounter Summary ---
Author Organization [facility] Address [address] [place] [address] Care Team Providers Care Rotating Equipment Specialist Name Role Phone Lindsay Miranda MD Primary Care Provider [phone] Encounter Details Date Type Department Care Team (Late st Contact Info) Description 08/09/2021 Lab Requisition [facility] Pathology & Laboratory Medicine - [address] [phone] Outr Resulting Lab, Provider Social History Tobacco [...] RNA BY PCR Routine 08/09/2021 8:22 EST HEPATITIS B SURFACE ANTIGEN Routine 08/09/2021 8:22 EST documented in this encounter Results * HEPATITIS B SURFACE ANTIGEN (08/09/2021 8:22 EST) Hep B Surface Ag Negative Negative 08/10/2021 10:27 EST [facility] Blood VENOUS BLOOD / Unknown 08/09/2021 8:22 EST 08/09/2021 16:30 EST Provider Outr Resulting Lab CHEMISTRY & BLOOD GAS ORDERABLES Performing Organization Address City/[facility]/ZIP Co de Phone Number [facility] [address] [place] [address] * HEPATITIS C AB W REFLEX TO HCV RNA BY PCR (08/09/2021 8:22 EST) Hep C Antibody Negative Negative 08/10/2021 11:04 EST [facility] Blood VENOUS BLOOD / Unknown 08/09/2021 8:22 EST 08/09/2021 16:30 EST Provider Outr Resulting Lab CHEMISTRY & BLOOD GAS ORDERABLES Performing Organization Address [facility] Co de Phone Number [facility] [address] [place] [address] documented in this encounter Visit Diagnoses Not on filedocumented in this encounter Care Teams Rotating Equipment Specialist Relationship Specialty Start Date End Date Lindsay Miranda MD [address] [place] [address] PCP - General 05/21/18 documented as of this encounter
--- OUTSIDE RECORDS SUMMARY | 2024-04-25 11:20 | XMS_ITS | Encounter Summary ---
Author Organization [facility] Address [address] [place] [address] Care Team Providers Care Lead Inspector Name Role Phone Lindsay Miranda MD Primary Care Provider [phone] Encounter Details Date Type Department Care Team (Late st Contact Info) Description 08/09/2021 Lab Requisition [facility] Pathology & Laboratory Medicine - [facility] [address] [place], [place] [address] Outr Resulting Lab, Provider Social History Tobacco [...] Procedure Name Priority Date/Time Associated Diagnosis Comments RUBELLA IGG ANTIBODY Routine 08/09/2021 8:22 EST VARICELLA IGG ANTIBODY Routine 08/09/2021 8:22 EST documented in this encounter Results * VARICELLA IGG ANTIBODY (08/09/2021 8:22 EST) Varicella IgG Ab Negative See Note 08/10/2021 9:38 EST [facility] Comment:Absence of detectabl e Varicella Zoster virus IgG antibodies. A negative result generally indicates no detectable antibody, but does not rule out acute infection. If VZV exposure is suspected, a second sample should be collected and tested no less than one or two weeks later. Blood VENOUS BLOOD / Unknown 08/09/2021 8:22 EST 08/09/2021 16:30 EST Provider Outr Resulting Lab IMMUNOLOGY A ND SEROLOGY ORDERABLES Performing Organization Address City/[facility] Co de Phone Number [facility] [address] [place] [address] * RUBELLA IGG ANTIBODY (08/09/2021 8:22 EST) Rubella IgG Ab Positive See Note 08/10/2021 9:43 EST [facility] Comment:Positive for IgG ant ibodies to Rubella virus. Blood VENOUS BLOOD / Unknown 08/09/2021 8:22 EST 08/09/2021 16:30 EST Provider Outr Resulting Lab CHEMISTRY & BLOOD GAS ORDERABLES Performing Organization Address [facility] de Phone Number [facility] [address] [place] [address] documented in this encounter Visit Diagnoses Not on filedocumented in this encounter Care Teams Lead Inspector Relationship Specialty Start Date End Date Lindsay Miranda MD [address] [place] [address] PCP - General 05/21/18 documented as of this encounter
--- OUTSIDE RECORDS SUMMARY | 2024-04-25 11:20 | XMS_ITS | Encounter Summary ---
Author Organization [facility] Address [address] [place] [address] Care Team Providers Care Physician Office Specialist Name Role Phone Lindsay Miranda MD Primary Care Provider Encounter Details Date Type Department Care Team (Late st Contact Info) Description 08/03/2021 Lab Requisition [facility] Pathology & Laboratory Medicine - [address] [phone] Outr Resulting Lab, Provider Social History Tobacco [...] Procedure Name Priority Date/Time Associated Diagnosis Comments CHLAMYDIA/N. GONORRHOEAE AMPLIFIED NUCLEIC ACID Routine 08/02/2021 13:30 EST documented in this encounter Results * CHLAMYDIA/N. GONORRHOEAE AMPLIFIED RNA (08/02/2021 13:30 EST) Neisseria gonorrhoeae Result Negative Negative 08/05/2021 11:05 EST [facility] Chlamydia trachomatis Result Negative Negative 08/05/2021 11:05 EST [facility] Swab ENTIRE ENDOCERVIX / Unknown 08/02/2021 13:30 EST 08/03/2021 22:35 EST Provider Outr Resulting Lab MICROBIOLOGY - GENERAL ORDERABLES [facility] [address] [place] [address] documented in this encounter Visit Diagnoses Not on filedocumented in this encounter Care Teams Physician Office Specialist Relationship Specialty Start Date End Date Lindsay Miranda MD [address] [place] [address] PCP - General 05/21/18 documented as of this encounter
--- OUTSIDE RECORDS SUMMARY | 2024-04-25 11:20 | XMS_ITS | Encounter Summary ---
Author Organization [facility] Address [address] [place] [address] Care Team Providers Care Occupational Therapy Assistant Name Role Phone Lindsay Miranda MD Primary Care Provider [phone] Encounter Details Date Type Department Care Team (Late st Contact Info) Description 05/13/2020 Lab Requisition [facility] Pathology & Laboratory Medicine - [address] [address] Outr Resulting Lab, Provider Social History Tobacco [...] Comments CHLAMYDIA/N. GONORRHOEAE AMPLIFIED NUCLEIC ACID Routine 05/12/2020 11:00 EDT documented in this encounter Results * CHLAMYDIA/N. GONORRHOEAE AMPLIFIED RNA (05/12/2020 11:00 EDT) Neisseria gonorrhoeae Result Negative Negative 05/14/2020 15:[address] [facility] Chlamydia trachomatis Result Negative Negative 05/14/2020 15:[address] [facility] Swab ENTIRE WALL OF CERVIX / Unknown 05/12/2020 11:00 EDT 05/13/2020 16:55 EDT Provider Outr Resulting Lab MICROBIOLOGY - GENERAL ORDERABLES [facility] [address] [place] [address] documented in this encounter Visit Diagnoses Not on filedocumented in this encounter Care Teams Occupational Therapy Assistant Relationship Specialty Start Date End Date Lindsay Miranda MD [address] [place] [address] PCP - General 05/21/18 documented as of this encounter
--- OUTSIDE RECORDS SUMMARY | 2024-04-25 11:20 | XMS_ITS | Encounter Summary ---
Author Organization [facility] Address [address] [place] [address] Care Team Providers Care Slat Basket Maker Machine Name Role Phone Lindsay Miranda MD Primary Care Provider [phone] Encounter Details Date Type Department Care Team (Late st Contact Info) Description 09/12/2020 Lab Requisition [facility] Pathology & Laboratory Medicine - [address] [address] Outr Resulting Lab, Provider Social History Tobacco [...] Comments CHLAMYDIA/N. GONORRHOEAE AMPLIFIED NUCLEIC ACID Routine 09/11/2020 13:10 EST documented in this encounter Results * CHLAMYDIA/N. GONORRHOEAE AMPLIFIED RNA (09/11/2020 13:10 EST) Neisseria gonorrhoeae Result Negative Negative 09/14/2020 14:21 EST [facility] Chlamydia trachomatis Result Negative Negative 09/14/2020 14:21 EST [facility] Swab ENTIRE ENDOCERVIX / Unknown 09/11/2020 13:10 EST 09/13/2020 18:08 EST Provider Outr Resulting Lab MICROBIOLOGY - GENERAL ORDERABLES [facility] [address] [place] [address] documented in this encounter Visit Diagnoses Not on filedocumented in this encounter Care Teams Slat Basket Maker Machine Relationship Specialty Start Date End Date Lindsay Miranda MD [address] [place] [address] PCP - General 05/21/18 documented as of this encounter
--- OUTSIDE RECORDS SUMMARY | 2024-04-25 11:20 | XMS_ITS | Clinical Summary ---
Author Organization [facility] Address [address] [place] [address] Care Team Providers Care First Cook Name Role Phone Lindsay Miranda MD Primary Care Provider [phone] Social History Tobacco Use Types Packs/Day Years Used Date Smoking Tobacco: Never Assessed Interpersonal Safety Answer Date Record ed Physically Hurt Never 03/23/2020 Verbally Threaten Not on file 03/23/2020 Sex and Gender Information Value Date Recorded Sex Assigned at Not on file Gender Identity Not on file Sexual Orientation Not on file Plan of Treatment Health Maintenance Due Date Last Done Comments Hepatitis B Vaccine (1 of 3 - 19+ 3-dose series) 2020 COVID-19 Vaccine (2022- season) 2024 Hepatitis C Screen Completed 08/09/2021, 05/12/2020 Procedures Procedure Name Priority Date/Time Associated Diagnosis Comments HEPATITIS C AB W REFLEX TO HCV RNA BY PCR Routine 08/09/2021 8:22 EST from Last 3 Months or Most Recently Relevant to Health Maintenance Results * HEPATITIS C AB W REFLEX TO HCV RNA BY PCR (08/09/2021 8:22 EST) Hep C Antibody Negative Negative 08/10/2021 11:04 EST [facility] Blood VENOUS BLOOD / Unknown 08/09/2021 8:22 EST 08/09/2021 16:30 EST Provider Outr Resulting Lab CHEMISTRY & BLOOD GAS ORDERABLES [facility] [address] [place] [address] from Last 3 Months or Most Recently Relevant to Health Maintenance Care Teams First Cook Relationship Specialty Start Date End Date Lindsay Miranda MD [address] [place] [address] PCP - General 05/21/18
--- OUTSIDE RECORDS SUMMARY | 2024-04-25 11:20 | XMS_ITS | Encounter Summary ---
Author Organization [facility] Address [address] [place] [address] Care Team Providers Care Sql Server Dba Name Role Phone Lindsay Miranda MD Primary Care Provider [phone] Encounter Details Date Type Department Care Team (Late st Contact Info) Description 08/09/2021 Lab Requisition [facility] Pathology & Laboratory Medicine - [address] [address] Outr Resulting Lab, Provider Social History Tobacco [...] 1/2 ANTIGEN AND ANTIBODY, 4TH GENERATION Routine 08/09/2021 8:22 EST documented in this encounter Results * HIV 1/2 ANTIGEN AND ANTIBODY, 4TH GENERATION (08/09/2021 8:22 EST) HIV 1 and 2 Antibody/p24 Antigen, 4th Generation Negative Negative 08/10/2021 10:40 EST [facility] Comment:If acute HIV-1 infec tion is suspected in a high risk patient, submit plasma specimen for HIV-1 RNA quantitation test. Blood VENOUS BLOOD / Unknown 08/09/2021 8:22 EST 08/09/2021 16:30 EST Narrative [facility] - 08/10/2021 10:40 EST Fourth Generation assay performed on the Siemens Centaur XPT. Provider Outr Resulting Lab IMMUNOLOGY A ND SEROLOGY ORDERABLES [facility] [address] [place] [address] documented in this encounter Visit Diagnoses Not on filedocumented in this encounter Care Teams Sql Server Dba Relationship Specialty Start Date End Date Lindsay Miranda MD [address] [place] [address] PCP - General 05/21/18 documented as of this encounter
--- OUTSIDE RECORDS SUMMARY | 2024-04-25 11:21 | XMS_ITS | Encounter Summary ---
Author Organization [facility] Address [address] [place] [address] Care Team Providers Care Cheese Tester Name Role Phone Lindsay Miranda MD Primary Care Provider [phone] Encounter Details Date Type Department Care Team (Late st Contact Info) Description 07/10/2019 Lab Requisition [facility] Pathology & Laboratory Medicine - [address] [address] Unknown, Provider, Social History Tobacco Use Types Packs/Day Years Used Date Smoking Tobacco: Never Assessed Sex and Gender Information Value Date Recorded Sex Assigned at Not on file Gender Identity Not on file Sexual Orientation Not on file documented as of this encounter Plan of Treatment Not on file documented as of this encounter Procedures Procedure Name Priority Date/Time Associated Diagnosis Comments CHLAMYDIA/N. GONORRHOEAE AMPLIFIED NUCLEIC ACID Routine 07/10/2019 13:36 EST documented in this encounter Results * CHLAMYDIA/N. GONORRHOEAE AMPLIFIED RNA (07/10/2019 13:36 EST) Neisseria gonorrhoeae Result Negative Negative 07/11/2019 14:31 EST [facility] Chlamydia trachomatis Result Negative Negative 07/11/2019 14:31 EST [facility] ZZUNByron 07/10/2019 13:3 6 EST 07/10/2019 21:53 EST Provider Unknown MICROBIOLOGY - GENER AL ORDERABLES [facility] [address] [place] [address] documented in this encounter Visit Diagnoses Not on filedocumented in this encounter Care Teams Cheese Tester Relationship Specialty Start Date End Date Lindsay Miranda MD [address] [place] [address] PCP - General 05/21/18 documented as of this encounter
--- OUTSIDE RECORDS SUMMARY | 2024-04-25 11:21 | XMS_ITS | Encounter Summary ---
Author Organization [facility] Address [address] [place] [address] Care Team Providers Care Survey Supervisor Name Role Phone Unavailable Primary Care Provider Unavailabl e Encounter Details Date Type Department Care Team (Latest Contact Info) Description 05/17/2018 16:09 EDT - 05/17/2018 23:59 EDT Hospital Encounter [address] [address] Unknown, Provider, Discharge Disposition: Home or Self Care Social History Tobacco Use Types Packs/Day Years Used Date Smoking Tobacco: Never Assessed Sex and Gender Information Value Date Recorded Sex Assigned at Not on file Gender Identity Not on file Sexual Orientation Not on file documented as of this encounter Discharge Disposition Disposition Code Departure Means Destination Home or Self Custodial documented in this encounter Plan of Treatment Not on file documented as of this encounter Visit Diagnoses Not on filedocumented in this encounter
--- OUTSIDE RECORDS SUMMARY | 2024-04-25 11:21 | XMS_ITS | Encounter Summary ---
Author Organization [facility] Address [facility] [place] [address] Care Team Providers Care Senior Clinical Data Manager Name Role Phone Lindsay Miranda MD Primary Care Provider [phone] Reason for Visit * Reason Comments Establish Care * Consultation (Routine) - Closed Specialty Diagnoses / Procedures Referred By Anibal khanna Referred To Contact Pediatric Endocrinology Diagnoses thyroiditis Lindsay Miranda MD [address] [place] [address] [facility] Pedi Endo [address] [place] [address] Referral ID Status Reason Start Date Expiration Date V isits Requested Visits Authorized [id number] Closed Consult, Test & Treat Connection [facility] 05/26/2017 05/26/2018 1 1 Encounter Details Date Type Department Care Team (Latest Contact Info) Description 06/27/2017 1:00 PM EST Office Visit [place] [address] Carmel Menjivar MD [facility] [place] [address] Abnormal thyroid blood test Social History Tobacco Use Types Packs/Day Years Used Date Smoking Tobacco: Passive Smo ke Exposure - Never Smoker Smokeless Tobacco: Never Sex and Gender Information Value Date Recorded Sex Assigned at Not on file Gender Identity Not on file Sexual Orientation Not on file documented as of this encounter Last Filed Vital Signs Vital Sign Reading Time Taken Comments Blood Pressure 137/66 06/27/2017 1:49 PM EST Pulse 73 06/27/2017 1:49 PM EST Temperature - - Respiratory Rate - - Oxygen Saturation - - Inhaled Oxygen Concentration - - Weight 73 kg (160 lb 15 oz) 06/27/2017 1:[address] Height 156.5 cm (5' 1.61) 06/27/2017 1:49 PM ES T Body Mass Index 29.81 06/27/2017 1:49 PM EST Body Mass Index Percentile 95.75% 06/27/2017 1:4 9 PM EST Growth Chart: [facility] (Girls, 2- 20 Years) documented in this encounter Progress Notes * Carmel Menjivar MD - 06/27/2017 1:00 PM EST Patient ID: Mynor Oreilly is a 16 y.o. 7 m.o. female Family arrived 40 minutes late to a 60 min late HPI I have been requested to see Mynor Oreilly in consultation for abnormal thyroid function tests by Dr. Lindsay Miranda MD. I have reviewed pertinent past records, labs, imaging and consults. Mynor is here with mom today. Thyroid function studies were performed due to concerns of weight gain, depressed, mark. Thyroid function studies performed on found: 05/18/17 TSH 3.31 uiu/mL (0.516-4.13) FT4 1.6 ng/dL (0.78-1.34) PCP growth charts indicate normal GV Thyroid US 06/05/17 Normal US; mildly enlarged LN in neck bilaterally Thyroid ROS [] Yes [x] No Constipation [] Yes [x] No Diarrhea [x] Yes [] No Heat/cold intolerance --runs cold [] Yes [x] No Change in hair texture or amount --hair falls out all the time [] Yes [x] No Change in skin texture [] Yes [x] No Change in energy level [x] Yes [] No Change in appetite--down recently [] Yes [x] No Change in sleep pattern/duration--has trouble falling asleep. Used to take melatonin There is family history of thyroid disease--mom has bela thyroiditis. She is on LT4 for 10 years. Mynor Oreilly past medical history is unremarkable. Review of Systems Constitutional: Negative. HENT: Negative. Eyes: Negative. Respiratory: Negative. Cardiovascular: Negative. Gastrointestinal: Negative. Endocrine: Menarche 12 yo Musculoskeletal: Negative. PMH: History reviewed. No pertinent past medical history. Weight: 8 lb 5 oz Gestation: FT Maternal drug/alcohol/smoking: none Development: hit all milestones, no concerns Hospitalizations: none PSH: History reviewed. No pertinent surgical history. IMMUNIZATIONS: utd Family History: Mother's Height 5'3 Age of Menarche Father's Height 5'10 Timing of Puberty Additional Family History: History reviewed. No pertinent family history. SOCIAL HISTORY: Lives with: Mom, dad Mom's occupation: [employer] Dad's occupation: [employer] Grade in school: 10th grade, poor/ave academic performance Extracurricular Activities: dance MEDICATION REVIEW: No current outpatient prescriptions on file. No Known Allergies Objective: BP 137/66 Pulse 73 Ht 156.5 cm (5' 1.61) Wt 73 kg (160 lb 15 oz) LMP (LMP Unknown) BMI 29.81 kg/m2 --> Blood pressure percentiles are >99 % systolic and 53 % diastolic based on NHBPEP's 4th Report. Blood pressure percentile targets: 90: 123/79, 95: 127/83, 99 + 5 mmH/96. --> 96 %ile based on CDC 2-20 Years BMI-for-age data using vitals from 06/27/2017. --> No LMP recorded (lmp unknown). Growth velocity: Physical Exam Constitutional: She appears well-developed and well-nourished. No distress. HENT: Head: Normocephalic. Eyes: EOM are normal. Neck: Neck supple. No thyromegaly present. Cardiovascular: Normal rate, normal heart sounds and intact distal pulses. No murmur heard. Pulmonary/Chest: Effort normal and breath sounds normal. No respiratory distress. Abdominal: Soft. Bowel sounds are normal. She exhibits no distension. Musculoskeletal: Normal range of motion. Neurological: She is alert. She has normal reflexes. Skin: Skin is warm. Psychiatric: She has a normal mood and affect. Assessment and Plan: Mildly abnormal thyroid function tests Mynor is here due to mildly elevated FT4 flagged on routine lab she had done at PCP. I do not believe she has a truly elevated FT4, as the reference ranged noted on the labs is more of an adult reference range, and will tolerate levels higher than this in adolescents and children. She is clinically asymptomatic. I would like repeat TSH and FT4 today, along with TPO and TG Ab, as her mom has bela thyroiditis. We discussed that the majority of children with + antibody do not develop overt hypothyroidism, but we can be aware of any increased risk in the future. Follow up can be prn. Carmel Menjivar MD Attending Physician Pediatric Endocrinology [facility] Office: [phone] [place] Office: [phone] Pager ID [phone] documented in this encounter Plan of Treatment Not on file documented as of this encounter Procedures Procedure Name Priority Date/Time Associated Diagnosis Comments THYROGLOBULIN ANTIBODY Routine 7 2:43 PM EST Abnormal thyroid blood test THYROID PEROXIDASE ANTIBODY Routine 06/27/2017 2:43 PM EST Abnormal thyroid blood test TSH Routine 06/27/2017 2:43 PM EST Abnormal thyroid blood test T4, FREE Routine 06/27/2017 2:43 PM EST Abnormal thyroid blood test documented in this encounter Results * Thyroglobulin Antibody (06/27/2017 2:43 PM EST) Thyroglob Ab <20.0 0.0 - 40.0 IU/mL [facility] Comment: Assay performed is the DPC Immulite Tg-Ab immunometric assay. (Cutoff for TgAb negativity is <20 IU/ml) Blood specimen (specimen) 06/27/2017 2:43 PM EST 06/27/2017 2:47 PM EST Narrative Resulting Agency Comment Spec In Lab Carmel Menjivar MD LAB SEND OUT OR DERABLES Performing Organization Address [facility] Co de Phone Number [facility] [place] [address] * Thyroid peroxidase antibody (06/27/2017 2:43 PM EST) Thyroperoxidase Ab <10 <=34 IU/mL [facility] Blood specimen (specimen) 06/27/2017 2:43 PM EST 06/27/2017 2:47 PM EST Narrative Resulting Agency Comment Spec In Lab Carmel Menjivar MD IMMUNOLOGY ORDE RABLES Performing Organization Address [facility] de Phone Number [facility] [place] [address] * TSH (06/27/2017 2:43 PM EST) Thyroid Stimulating Hormone 3.26 0.27 - 4.20 mlU/ML [facility] Blood specimen (specimen) 06/27/2017 2:43 PM EST 06/27/2017 2:47 PM EST Narrative Resulting Agency Comment Spec In Lab Carmel Menjivar MD CHEMISTRY ORDER JAMAL Performing Organization Address [facility] Co de Phone Number [facility] [place] [address] * T4, free (06/27/2017 2:43 PM EST) Free T4 1.21 0.93 - 1.70 ng/dL [facility] Blood specimen (specimen) 06/27/2017 2:43 PM EST 06/27/2017 2:47 PM EST Narrative Resulting Agency Comment Spec In Lab Carmel Menjivar MD CHEMISTRY ORDER JAMAL Performing Organization Address City/[facility] Co de Phone Number [facility] [place] [address] documented in this encounter Visit Diagnoses Diagnosis Abnormal thyroid blood test Nonspecific abnormal results of thyroid function study documented in this encounter Care Teams Senior Clinical Data Manager Relationship Specialty Start Date End Date Lindsay Miranda MD [address] [place] [address] PCP - General Family Medicine 05/25/17 documented as of this encounter
--- OUTSIDE RECORDS SUMMARY | 2024-04-25 11:21 | XMS_ITS | Encounter Summary ---
Author Organization [facility] [place] [address] Care Team Providers Care Scooping Machine Tender Name Role Phone Lindsay Miranda MD Primary Care Provider [phone] Encounter Details Date Type Department Care Team (Late st Contact Info) Description 11/05/2020 Notes Only [place] [address] John Dominique PA [facility] [place] [address] Social History Tobacco Use Types Packs/Day Years Used Date Smoking Tobacco: Passive Smo ke Exposure - Never Smoker Smokeless Tobacco: Never Sex and Gender Information Value Date Recorded Sex Assigned at Not on file Gender Identity Not on file Sexual Orientation Not on file documented as of this encounter Progress Notes * John Dominique PA - 11/05/2020 10:51 AM EDT Patient was scheduled for an appointment with [facility]. Arrived at 8:20 am for 8:00 appointment. Left the waiting room around 9:00 am and thus was not able to evaluated. John Dominique PA-C Oral-Maxillofacial Surgery 11/05/2020 Supervising physician: Luisito Hoff MD, DMD documented in this encounter Plan of Treatment Not on file documented as of this encounter Visit Diagnoses Not on filedocumented in this encounter Care Teams Scooping Machine Tender Relationship Specialty Start Date End Date Lindsay Miranda MD [address] [place] [address] PCP - General Family Medicine 05/25/17 documented as of this encounter
--- OUTSIDE RECORDS SUMMARY | 2024-04-25 11:21 | XMS_ITS | Encounter Summary ---
Author Organization [facility] Address [address] [place] [address] Care Team Providers Care Software Development Engineer Name Role Phone Lindsay Miranda MD Primary Care Provider [phone] Encounter Details Date Type Department Care Team (Late st Contact Info) Description 01/07/2020 Lab Requisition [facility] Pathology & Laboratory Medicine - [address] [address] Amber Estrada MD [address] [place] [id number] Encounter for other general examination Social History Tobacco Use Types Packs/Day Years Used Date Smoking Tobacco: Never Assessed Sex and Gender Information Value Date Recorded Sex Assigned at Not on file Gender Identity Not on file Sexual Orientation Not on file documented as of this encounter Plan of Treatment Not on file documented as of this encounter Procedures Procedure Name Priority Date/Time Associated Diagnosis Comments SURGICAL PATHOLOGY Today 01/07/2020 8: 45 EDT Encounter for other general examination documented in this encounter Results * SURGICAL PATHOLOGY (01/07/2020 8:45 EDT) Final Diagnosis A. SKIN OF CHEST, RIGHT, EXCISIONAL BIOPSY: - Predominantly intradermal compound nevus. B. SKIN OF CHEST, LEFT, SHAVE BIOPSY: - Predominantly intradermal compound nevus. 01/08/2020 10:58 EDT [facility] at 1058 Attestation By the signature below, the attending physician certifies that they have 1) personally conducted a gross and/or microscopic examination of the described specimen(s), and/or personally interpreted the results of laboratory testing of the described specimen(s), and 2) personally rendered or confirmed the above diagnosis. 01/08/2020 10:58 [facility] at 1058 Clinical History Chest skin lesions x2 01/08/2020 10:58 [facility] Gross Description A. Received in formalin labelled with proper patient identification (initials S, A) and right chest skin lesion is an unoriented elliptical skin excision (1.5 x 0.7 cm and is excised to depth of 0.4 cm). There is a central catherine-brown fleshy papule (0.9 x 0.6 cm). The surgical margin is. The specimen is serially sectioned and submitted entirely as tips, reverse en face, in A1 and central sections in A2. B. Received in formalin labelled with proper patient identification (initials S, A) and left chest skin lesion is a shave biopsy of a lazo-brown slightly raised macule (0.6 x 0.5 x 0.2 cm). The specimen is inked, bisected and submitted B1. 01/07/2020 16:30 01/08/2020 10:58 [facility] Scanned Images 01/08/2020 10:58 T [facility] Tissue TISSUE SPECIMEN FROM SKIN / Unknown 01/07/2020 8:45 EDT 01/07/2020 16:24 EDT Tissue specimen (specimen) SPECIMEN FROM SKIN / Unknown 01/07/2020 8:45 EDT 01/07/2020 16:24 EDT Amber Estrada MD PATHOLOGY ORDERABLES [facility] [address] [place] [address] documented in this encounter Visit Diagnoses Diagnosis Encounter for other general examination documented in this encounter Care Teams Software Development Engineer Relationship Specialty Start Date End Date Lindsay Miranda MD [address] [place] [id number] PCP - General 05/21/18 documented as of this encounter
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
--- OUTSIDE RECORDS SUMMARY | 2024-04-25 11:21 | XMS_ITS | Encounter Summary ---
Author Organization [facility] Address [address] [place] [address] Care Team Providers Care Director Style Name Role Phone Unknown, Provider Primary Care Provider [phone] Encounter Details Date Type Department Care Team (Late st Contact Info) Description 05/17/2018 Results Only [facility] [phone] Rolly Stanton, [address] [place] [address] Social History Tobacco Use Types Packs/Day Years Used Date Smoking Tobacco: Never Assessed Sex and Gender Information Value Date Recorded Sex Assigned at Not on file Gender Identity Not on file Sexual Orientation Not on file documented as of this encounter Plan of Treatment Not on file documented as of this encounter Procedures Procedure Name Priority Date/Time Associated Diagnosis Comments SURGICAL PATHOLOGY Routine 05/17/2018 7:27 EDT documented in this encounter Results * SURGICAL PATHOLOGY (05/17/2018 7:27 EDT) Pathology Report: SURGICAL PATHOLOGY REPORT Reports generated via electronic interface contain original data; however they are lacking the format of the original report. Caution should be taken when reading/interpret ing unformatted reports. Name: ? MYNOR MEDINA ? Accession #: ? [id number] ? : ? 2000 (Age: 17) ??F ? Collect Date: ? 05/17/2018 ? Location: ? [facility] ? Receive Date: ? 05/18/2018 ? Provider: ROLLY STANTON DO Copy to: RAJESH ANGEL MD ? Final Pathologic Diagnosis: A. ??PALATINE TONSIL, RIGHT, TONSILLECTOMY: - Grossly consistent with resected tonsil (clinical history of chronic tonsillitis). ??Gross only. B. ??PALATINE TONSIL, LEFT, TONSILLECTOMY: - Grossly consistent with resected tonsil (clinical history of chronic tonsillitis). ??Gross only. Document reviewed and electronically signed by: NEO MOBLEY MD Report ??Date: 05/22/2018 10:50 By the signature above, the attending physician certifies that he/she has personally conducted a gross and/or microscopic examination of the described specimens and rendered or confirmed the above diagnosis. Specimen(s) Received: A. ??Right tonsil B. ??Left tonsil Clinical History: Chronic tonsillitis; clinical diagnosis code: ??J35.01, J31.2, B37.0 Gross Description: A. ?Received in formalin labelled with proper patient identification (initials S, A) and right tonsil is an ovoid tonsil, 3.0 x 2.0 x 1.9 cm. The mucosal surface is nonulcerated. Sections show solid catherine-lazo cut surfaces. No tissue is submitted, gross examination only. B. ?Received in formalin labelled with proper patient identification (initials S, A) and left tonsil is a focally fragmented ovoid tonsil, 3.9 x 2.0 x 2.0 cm. The mucosal surface is nonulcerated. Sections show focally prominent crypts with minimal semisolid material. No tissue is submitted, gross examination only. RIKY Gilman (ASCP) 05/21/2018 12:01 PM End of Report [facility] 05/17/2018 7:27 EDT 05/18/2018 7:27 EDT Rolly Stanton DO PATHOLOGY ORDER JAMAL [facility] [address] [place] [address] documented in this encounter Visit Diagnoses Not on filedocumented in this encounter Care Teams Director Style Relationship Specialty Start Date End Date Unknown, Provider, PCP - General 05/19/18 05/20/18 documented as of this encounter
--- OUTSIDE RECORDS SUMMARY | 2024-04-25 11:21 | XMS_ITS | Encounter Summary ---
Author Organization [facility] [place] [address] Care Team Providers Care Cellophane Press Operator Name Role Phone Lindsay Miranda MD Primary Care Provider [phone] Reason for Visit * Reason Onset Date Comments Results 06/28/2017 Encounter Details Date Type Department Care Team (Late st Contact Info) Description 06/28/2017 Telephone Pediatric [place] [address] Carmel Menjivar MD [facility] DR PEDIATR[place] [address] Results Social History Tobacco Use Types Packs/Day Years Used Date Smoking Tobacco: Passive Smo ke Exposure - Never Smoker Smokeless Tobacco: Never Sex and Gender Information Value Date Recorded Sex Assigned at Not on file Gender Identity Not on file Sexual Orientation Not on file documented as of this encounter Miscellaneous Notes * Telephone Encounter - Rachel Randle RN - 06/29/2017 8:50 AM EST Left detailed message on family vm. * Telephone Encounter - Carmel Menjivar MD - 06/28/2017 2:07 PM EST Component Latest Ref Rng & Units 06/27/2017 Free T4 0.93 - 1.70 ng/dL 1.21 TSH 0.27 - 4.20 mlU/ML 3.26 Thyroperox Ab <=34 IU/mL <10 Thyroglob Ab 0.0 - 40.0 IU/mL <20.0 Please inform family that repeat thyroid levels are normal and the markers for bela are negative. Thank you! documented in this encounter Plan of Treatment Not on file documented as of this encounter Visit Diagnoses Not on filedocumented in this encounter Care Teams Cellophane Press Operator Relationship Specialty Start Date End Date Lindsay Miranda MD [address] [place] [address] PCP - General Family Medicine 05/25/17 documented as of this encounter
--- OUTSIDE RECORDS SUMMARY | 2024-04-25 11:21 | XMS_ITS | Encounter Summary ---
Author Organization [facility] [place] [address] Care Team Providers Care Marketing/Sales Person Name Role Phone Lindsay Miranda MD Primary Care Provider [phone] Encounter Details Date Type Department Care Team (Latest Contact Info) Description 11/20/2020 11:00 AM EDT TH Visit (TeleHealth) [place] [address] John Dominique PA [facility] [place] [address] Impacted third molar tooth Social History Tobacco Use Types Packs/Day Years Used Date Smoking Tobacco: Passive Smo ke Exposure - Never Smoker Smokeless Tobacco: Never Sex and Gender Information Value Date Recorded Sex Assigned at Not on file Gender Identity Not on file Sexual Orientation Not on file documented as of this encounter Progress Notes * John Dominique PA - 11/20/2020 11:00 AM EDT Patient was scheduled for an 11 AM telehealth appointment. I was logged into the Zoom meeting priorto this. Given she had not joined the meeting at 11:05 I called her cell phone. She answered, reports that she needed to get baby ready and unfortunately this was not a good time. We came to an agreement to reschedule. I will message our schedulers to reschedule her telehealth consult appointment regarding her third molars. [facility] Oral-Maxillofacial Surgery 11/20/2020 Supervising physician: Luisito Hoff MD, DMD documented in this encounter Plan of Treatment Not on file documented as of this encounter Visit Diagnoses Diagnosis Impacted third molar tooth Disturbances in tooth eruption documented in this encounter Care Teams Marketing/Sales Person Relationship Specialty Start Date End Date Lindsay Miranda MD [address] [place] [address] PCP - General Family Medicine 05/25/17 documented as of this encounter
--- OUTSIDE RECORDS SUMMARY | 2024-04-25 11:21 | XMS_ITS | Encounter Summary ---
Author Organization [facility] Address [facility] [place] [address] Care Team Providers Care Quality Assurance Clerk Name Role Phone Lindsay Miranda MD Primary Care Provider [phone] Reason for Visit * Consultation (Routine) - Closed Specialty Diagnoses / Procedures Referred By Contact Referred To Contact Maxillofacial Surgery Diagnoses Needs extraction of all 4 WT Jd Petty, DMD [address] [place] [address] Shayne Farr MD [facility] [place] [address] Referral ID Status Reason Start Date Expiration Date Visits Re quested Visits Authorized [id number] Closed 11/08/2018 11/08/2019 1 1 Encounter Details Date Type Department Care Team (Late st Contact Info) Description 02/05/2019 4:00 PM EDT Office Visit [place] [address] Shayne Farr MD [facility] DR RICKS [place] [address] Impacted third molar tooth Social History Tobacco [...] Sign Reading Time Taken Comments Blood Pressure - - Pulse - - Temperature - - Respiratory Rate - - Oxygen Saturation - - Inhaled Oxygen Concentration - - Weight 62.1 kg (137 lb) 02/05/2019 4:19 PM EDT Height 157.5 cm (5' 2) 02/05/2019 4:19 PM EDT Body Mass Index 25.06 02/05/2019 4:19 PM EDT Body Mass Index Percentile 83.93% 02/05/2019 4:1 9 PM EDT Growth Chart: [facility] (Girls, 2- 20 Years) documented in this encounter Progress Notes * Shayne Farr MD - 02/05/2019 4:00 PM EDT Mynor Oreilly is a 18 y.o. female who presents for consultation regarding impacted wisdom teeth. This request is from Dr. Petty Present History: ?? Was previously having tooth pain ?? Reports grinding teeth, which may have been the source of pain - occurs bilaterally. ?? Has not undergone orthodontics ?? 10 weeks - being seen at [facility] ?? Had tonsils removed in April Pertinent Medical History: ??? ondansetron (ZOFRAN) 4 mg Tablet ??? venlafaxine (EFFEXOR-XR) 75 mg Capsule, Sust. Release 24 hr ??? topiramate (TOPAMAX) 50 mg Tablet ??? topiramate (TOPAMAX) 100 mg Tablet ??? prazosin (MINIPRESS) 2 mg Capsule ??? DEBLITANE 0.35 mg Tablet Allergies Allergen Reactions ??? Sertraline Clinical Examination: Mynor is well nourished, well developed and in no acute distress with no facial asymmetry and no cervical lymphadenopathy. Detailed examination of the facial musculature, lips, tongue, floor of mouth, buccal mucosa, hard and soft palate, oropharynx, dentition, occlusion and temporomandibular joint function and range of motion was performed. Maxillary and mandibular vestibules were examined and bimanual palpation of thefloor of the mouth followed. Abnormal and pertinent findings include: ?? Class I molar relationship ?? No crossbites ?? Midlines are on target ?? Excellent occlusion ?? Third molars neither palpable or visible transorally ?? Insufficient space for normal eruption of third molars ?? Dorsal and ventral aspect of tongue unremarkable ?? Palatal mucosa WNL ?? No cervical adenopathy Radiographic Examination: Well mineralized mandible and maxilla with four complete bony impacted third molars. The root apices of the lower third molars are proximate to the inferior alveolar nerves. Impression: Four complete bony impacted wisdom teeth. Plan: Patient is and wisdom teeth are asymptomatic. Therefore we recommend waiting until after to proceed with extraction. Encouraged to call if any symptoms develop before then. Her brother has thirds out 2 yrs ago. Thirty minutes was spent with the patient greater than 25 of which involved the direct review of the findings on clinical and radiographic exam as well as a discussion of the risks and anticipated benefits of the proposed surgical intervention. The possibility of bleeding, infection, injury to adjacent teeth, nerves and sinuses was reviewed with specific attention to inferior alveolar and lingualnerves and the potential for tongue and/or lip paresthesia. Persistent opening or fistula to the maxillary sinus was also discussed. Mynor Oreilly was given the opportunity to ask questions regarding the findings on clinical and radiographic examination and the recommended treatment. Radiographs were reviewed with the patient andher mother; instructions were given to call us if any questions arise. Preoperative and postoperative management was also discussed with specific attention to post operative alteration of diet and physical activity and the proper use of analgesics. Jessy Meehan RN, have performed the documentation for this encounter in the presence of andacting as a scribe for SHAYNE FARR MD. * Randa Helm - 02/05/2019 4:00 PM EDT error documented in this encounter Plan of Treatment Not on file documented as of this encounter Visit Diagnoses Diagnosis Impacted third molar tooth Disturbances in tooth eruption documented in this encounter Care Teams Quality Assurance Clerk Relationship Specialty Start Date End Date Lindsay Miranda MD [address] [place] [address] PCP - General Family Medicine 05/25/17 documented as of this encounter
--- OUTSIDE RECORDS SUMMARY | 2024-04-25 11:21 | XMS_ITS | Encounter Summary ---
Author Organization [facility] Address [address] [place] [address] Care Team Providers Care Engraver Lettering Name Role Phone Lindsay Miranda MD Primary Care Provider [phone] Encounter Details Date Type Department Care Team (Late st Contact Info) Description 01/03/2020 Lab Requisition [facility] Pathology & Laboratory Medicine - [facility] [address] [place] [address] Outr Resulting Lab, Provider Social History Tobacco [...] Procedure Name Priority Date/Time Associated Diagnosis Comments DO NOT ORDER STANDALONE - BROAD COVID TEST Today 01/03/2020 11:16 EDT COVID-19 TESTING Routine 01/03/2020 11:1 6 EDT documented in this encounter Results * DO NOT ORDER STANDALONE - BROAD COVID TEST (01/03/2020 11:16 EDT) COVID-19 rt-PCR Result NEGATIVE Negative 01/04/2020 11:40 EDT [facility] Comment: 2019-novel Coronavirus (2019-nCoV) not detected by the qRT-PCR assay. Consider testing for other respiratory viruses or re-collecting for 2019-nCoV testing. Note: Optimum timing for peak viral levels during infections caused by 2019-nCoV have not been determined. Collection of multiple specimens from the same patient may be necessary to detect the virus. Limitations Positive results are indicative of active infection with SARS-CoV-2 but do not rule out bacterial infection or co-infection with other viruses. The agent detected may not be the definite cause of disease. In addition, detection of viral RNA may not indicate the presence of infectious virus or that SARS-CoV-2 is the causative agent for clinical symptoms. Negative results do not preclude SARS-CoV-2 infection and should not be used as the sole basis for patient management decisions. Negative results must be combined with clinical observations, patient history, and epidemiological information. False negative results may also occur if amplification inhibitors are present in the specimen or if inadequate numbers of organisms are present in the specimen. Optimum specimen types and timing for peak viral levels during infections caused by SARS-CoV-2 have not been fully determined. Collection of multiple specimens (types and time points) from the same patient may be necessary to detect the virus. The test was validated for use with upper respiratory specimens obtained via nasopharyngeal or oropharyngeal swabs in VTM, UTM, M4, M5, M6, saline, and MTM media. The performance of this test has not been established for other specimens. Specimens collected using other FDA recommended Specimen Collection Materials listed in the FDA COVID-19 Diagnostic Technologies communication (November 14, 2019) are processed with the caveat that they were not all validated for use with this test and the result must be interpreted in this context. Furthermore, a false negative results may occur if a specimen is improperly collected, transported or handled. If the virus mutates in the RT-PCR target region, SARS-CoV-2 may not be detected or may be detected less predictably. Inhibitors or other types of interference may produce a false negative result. An interference study evaluating the effect of common cold medications was not performed. This test is not FDA-cleared but its performance characteristics were established by our CLIA-certified, CAP-accredited, high complexity laboratory in accordance with CLIA regulations, College of [place] [employer] (CAP) guidelines (Nov 07, 2019), and FDA guidance (Oct 19, 2019). This test is only for use under the Food and Drug Administration's Emergency Use Authorization. Swab ENTIRE NASOPHARYNX / Unknown 01/03/2020 11:16 EDT 01/03/2020 15:20 EDT Provider Outr Resulting Lab MICROBIOLOGY - GENERAL ORDERABLES [facility] [place], [place] * COVID-19 TESTING (01/03/2020 11:16 EDT) COVID-19 rt-PCR Result NEGATIVE Negative 01/04/2020 14:18 EDT [facility] Comment: 2019-novel Coronavirus (2019-nCoV) not detected by the qRT-PCR assay. Consider testing for other respiratory viruses or re-collecting for 2019-nCoV testing. Note: Optimum timing for peak viral levels during infections caused by 2019-nCoV have not been determined. Collection of multiple specimens from the same patient may be necessary to detect the virus. Limitations Positive results are indicative of active infection with SARS-CoV-2 but do not rule out bacterial infection or co-infection with other viruses. The agent detected may not be the definite cause of disease. In addition, detection of viral RNA may not indicate the presence of infectious virus or that SARS-CoV-2 is the causative agent for clinical symptoms. Negative results do not preclude SARS-CoV-2 infection and should not be used as the sole basis for patient management decisions. Negative results must be combined with clinical observations, patient history, and epidemiological information. False negative results may also occur if amplification inhibitors are present in the specimen or if inadequate numbers of organisms are present in the specimen. Optimum specimen types and timing for peak viral levels during infections caused by SARS-CoV-2 have not been fully determined. Collection of multiple specimens (types and time points) from the same patient may be necessary to detect the virus. The test was validated for use with upper respiratory specimens obtained via nasopharyngeal or oropharyngeal swabs in VTM, UTM, M4, M5, M6, saline, and MTM media. The performance of this test has not been established for other specimens. Specimens collected using other FDA recommended Specimen Collection Materials listed in the FDA COVID-19 [employer] communication (November 14, 2019) are processed with the caveat that they were not all validated for use with this test and the result must be interpreted in this context. Furthermore, a false negative results may occur if a specimen is improperly collected, transported or handled. If the virus mutates in the RT-PCR target region, SARS-CoV-2 may not be detected or may be detected less predictably. Inhibitors or other types of interference may produce a false negative result. An interference study evaluating the effect of common cold medications was not performed. This test is not FDA-cleared but its performance characteristics were established by our CLIA-certified, CAP-accredited, high complexity laboratory in accordance with CLIA regulations, [employer] of [place] [employer] (CAP) guidelines (Nov 07, 2019), and FDA guidance (Oct 19, 2019). This test is only for use under the Food and Drug Administration's Emergency Use Authorization. Performing Lab [facility] 01/04/2020 14:18 EDT [facility] Swab ENTIRE NASOPHARYNX / Unknown 01/03/2020 11:16 EDT 01/03/2020 15:20 EDT Provider Outr Resulting Lab MICROBIOLOGY - GENERAL ORDERABLES [facility] [address] [place] [address] [facility] [place], [place] documented in this encounter Visit Diagnoses Not on filedocumented in this encounter Care Teams Engraver Lettering Relationship Specialty Start Date End Date Lindsay Miranda MD [address] [place] [address] PCP - General 05/21/18 documented as of this encounter
--- OUTSIDE RECORDS SUMMARY | 2024-04-25 11:21 | XMS_ITS | Encounter Summary ---
[place] [address] Care Team Providers Care Metal Fabricator Apprentice Name Role Phone Lindsay Miranda MD Primary Care Provider Encounter Details Date Type Department Care Team (Late st Contact Info) Description 11/10/2020 Telephone [place] [address] Liana Flanagan Social History Tobacco Use Types Packs/Day Years Used Date Smoking Tobacco: Passive Smo ke Exposure - Never Smoker Smokeless Tobacco: Never Sex and Gender Information Value Date Recorded Sex Assigned at Not on file Gender Identity Not on file Sexual Orientation Not on file documented as of this encounter Miscellaneous Notes * Telephone Encounter - Liana Flanagan - 11/10/2020 8:33 AM EDT LVM for patient to call [facility] at [phone]. I would like to discuss rescheduling 11/05/20 apt as a tele health apt with John. Patient needs to be set up with a [employer] account. documented in this encounter Plan of Treatment Not on file documented as of this encounter Visit Diagnoses Not on filedocumented in this encounter Care Teams Metal Fabricator Apprentice Relationship Specialty Start Date End Date Lindsay Miranda MD [address] [place] [address] PCP - General Family Medicine 05/25/17 documented as of this encounter
--- OUTSIDE RECORDS SUMMARY | 2024-04-25 11:21 | XMS_ITS | Encounter Summary ---
Author Organization [facility] Address [address] [place] [address] Care Team Providers Care Mine Equipment Design Engineer Name Role Phone Lindsay Miranda MD Primary Care Provider [phone] Encounter Details Date Type Department Care Team (Late st Contact Info) Description 01/09/2020 Lab Requisition [facility] Pathology & Laboratory Medicine - [address] [id number] Outr Resulting Lab, Provider Social History Tobacco [...] Comments CHLAMYDIA/N. GONORRHOEAE AMPLIFIED NUCLEIC ACID Routine 01/08/2020 11:50 EDT documented in this encounter Results * CHLAMYDIA/N. GONORRHOEAE AMPLIFIED RNA (01/08/2020 11:50 EDT) Neisseria gonorrhoeae Result Negative Negative 01/10/2020 14:40 EDT [facility] Chlamydia trachomatis Result Negative Negative 01/10/2020 14:40 EDT [facility] Swab ENTIRE WALL OF CERVIX / Unknown 01/08/2020 11:50 EDT 01/09/2020 16:59 EDT Provider Outr Resulting Lab MICROBIOLOGY - GENERAL ORDERABLES [facility] [address] [place] [address] documented in this encounter Visit Diagnoses Not on filedocumented in this encounter Care Teams Mine Equipment Design Engineer Relationship Specialty Start Date End Date Lindsay Miranda MD [address] [place] [address] PCP - General 05/21/18 documented as of this encounter
[2024-04-26 23:26] LABS: Campylobacter PCR Negative (Negative); Salmonella PCR Negative (Negative); Shiga Toxin PCR Negative (Negative); Shigella/Enteroinvasive Ecoli Negative (Negative)
== END 2024-04-25 11:16 | disposition home or self-care (01) ==
LOC: LBN 11:15
PROVIDERS: PCP Family Medicine; Visit Provider Physician Assistant Medical
DX: R19.7 Diarrhea, unspecified (principal)
CPT/HCPCS: 87493; 87505; 87177

== ENCOUNTER 2024-04-30 12:51 | Outpatient (CLI) | payer MEDICAID, SELFPAY ==
--- NOTE | 2024-04-30 | DI.CT_ITS ---
Exam(s) CT ABDOMEN PELVIS W EXAM: CT ABDOMEN PELVIS W CLINICAL HISTORY: ABD PAIN R10.9 SEVERAL WEEKS H/O DIARRHEA, WORSE RLQ. TECHNIQUE: Imaging Protocol: Axial computed tomography images with coronal and sagittal reformatted images were created and reviewed CONTRAST MATERIAL: Intravenous: Omnipaque 350 Contrast volume:100 ml Oral: yes / COMPARISON: CT CT ABDOMEN PELVIS W from 10/16/2023 FINDINGS: ABDOMEN and PELVIS: Lung Bases: No acute findings. Liver: Normal density. No suspicious mass. Gallbladder and biliary tract: No radiodense calculus. No biliary dilation. Pancreas: Normal density. No abnormal calcifications or inflammatory process. No evidence of mass. Spleen: Normal. Kidneys: Normal size, contour and axis. No radiodense stones. No obstructive uropathy. No suspicious masses seen. Adrenal glands: No masses seen. Vasculature: Abdominal aorta non-dilated. Soft tissues: Unremarkable. Bladder: No gross wall thickening. No calculi.No focal mass. Bowel: No obstruction. No bowel wall thickening. Normal quantity of stool. Appendix normal. Peritoneal cavity: No ascites. No focal collection. No mesenteric inflammatory response. Bones: Unremarkable for age. Reproductive organs: Unremarkable. Lymph nodes: No pathologically enlarged lymph nodes. IMPRESSION:: No acute abnormality in the abdomen or pelvis. RADIATION DOSE DELIVERED: 409.53mGy.cm Total DLP DATA REPOSITORY: All CT scans at this facility are submitted to the National Radiology Data Registry (NRDR) Dose Index Registry (DIR) with the [place] [employer] (ACR). RADIATION OPTIMIZATION: All CT scans at this facility use at least one of these dose optimization te chniques: automated exposure control; mA and/or kV adjustment per patient size (includes targeted exa ms where dose is matched to clinical indication); or iterative reconstruction.
[2024-04-30] MEDS: Breeza Beverage 473 ML BTL PO ×2 (10:56→10:57)
[2024-04-30] MEDS: Omnipaque 350 MG/ML 50 ML BTL PO (10:57)
[2024-04-30 11:25] LABS: Abs Immature Grans 0.02 10^3/uL (0.0-0.06); Absolute Eosinophil Count 0.55 10^3/uL (0.0-0.7); Absolute Lymphocyte Count 2.18 10^3/uL (1.2-3.4); Absolute Monocyte Count 0.49 10^3/uL (0.1-0.8); Basophils % 1.2 %; Eosinophils % 6.8 %; HCT 38.3 % (36.0-46.0); HGB 12.5 g/dL (11.2-15.7); Immature Grans % 0.2 %; Lymphocytes % 27.1 %; MCH 28.9 pg (27.0-33.0); MCHC 32.6 % (32.0-36.0); MCV 89 fL (80-95); MPV 11.6 fL (8.0-11.0); Monocytes % 6.1 %; Neutrophils % 58.6 %; Platelet Count 220 10^3/uL (130-400); RBC 4.33 10^6/uL (3.93-5.22); RDW 12.6 % (11.7-14.6); RDW-SD 41.1 fL; WBC 8.04 10^3/uL (4.4-10.8)
[2024-04-30 11:47] LABS: ALT 40 U/L (14-59); AST 24 U/L (15-37); Albumin 3.9 g/dL (3.4-5.0); Alkaline Phosphatase 33 U/L (46-116); Anion Gap 9.7 mmol/L (3-11); BUN 7 mg/dL (7-18); Bilirubin, Total 0.24 mg/dL (0.2-1.0); CO2 28.3 mmol/L (21.0-32.0); CREATININE 0.9 mg/dL (0.55-1.02); Calcium 8.6 mg/dL (8.5-10.1); Chloride 102 mmol/L (98-107); Glucose 93 mg/dL (74-106); Potassium 3.4 mmol/L (3.5-5.1); Sodium 140 mmol/L (136-145); Total Protein 7.5 g/dL (6.4-8.2)
[2024-04-30 13:03] LABS: C-Reactive Protein < 0.50 mg/dL (<or=0.5)
[2024-04-30] MEDS: Omnipaque 350 MG/ML 100 ML BTL IJ (13:08)
== END 2024-04-30 13:11 ==
LOC: DI 12:51
PROVIDERS: PCP Family Medicine; Visit Provider Family Medicine
DX: R10.9 Unspecified abdominal pain (principal)
CPT/HCPCS: 36415; 80053; 74177; 85025; 86140; J3490; Q9967

== ENCOUNTER 2024-05-03 20:36 | Emergency (ER) | payer MEDICAID, SELFPAY ==
--- OUTSIDE RECORDS SUMMARY | 2024-05-03 20:48 | XMS_ITS | Referral Summary ---
Author Organization [facility] Address [address] [place] [address] Care Team Providers Care Cut And Print Machine Operator Name Role Phone Lindsay Miranda MD Primary Care Provider [phone] Encounters Date Type Department Care Team Description 04/26/2024 Lab Requisition [facility] Pathology & Laboratory Medicine - [facility] [address] [place] [address] Outr Resulting Lab, Provider from Last 3 Months Social History Tobacco Use Types Packs/Day Years [...] Comments FECAL BACTERIAL PATHOGENS BY PCR Routine 04/25/2024 14:45 EDT HEPATITIS C AB W REFLEX TO HCV RNA BY PCR Routine 08/09/2021 8:22 EST from Last 3 Months or Most Recently Relevant to Health Maintenance Results * FECAL BACTERIAL PATHOGENS BY PCR (04/25/2024 14:45 EDT) Salmonella PCR Negative Negative 04/26/2024 23:22 EDT [facility] Shigella/Enteroin vasive E. coli Negative Negative 04/26/2024 23:22 EDT [facility] HN LAB CAMPYLOBACTER PCR Negative Negative 04/26/2024 23:22 EDT [facility] Shiga Toxin PCR Negative Negative 23:22 EDT [facility] Feces SPECIMEN FROM RECTUM / Unknown 04/25/2024 14:45 EDT 04/26/2024 19:00 EDT Provider Outr Resulting Lab MICROBIOLOGY - GENERAL ORDERABLES Performing Organization Address City/[facility]/ZIP Co de Phone Number [facility] [address] [place] [address] * HEPATITIS C AB W REFLEX TO HCV RNA BY PCR (08/09/2021 8:22 EST) Hep C Antibody Negative Negative 08/10/2021 11:04 EST [facility] Blood VENOUS BLOOD / Unknown 08/09/2021 8:22 EST 08/09/2021 16:30 EST Provider Outr Resulting Lab CHEMISTRY & BLOOD GAS ORDERABLES Performing Organization Address City/[facility]/ZIP Co de Phone Number [facility] [address] [place] [address] from Last 3 Months or Most Recently Relevant to Health Maintenance Care Teams Cut And Print Machine Operator Relationship Specialty Start Date End Date Lindsay Miranda MD [address] [place] [address] PCP - General 05/21/18
--- OUTSIDE RECORDS SUMMARY | 2024-05-03 20:48 | XMS_ITS | Encounter Summary ---
Author Organization [facility] Address [address] [place] [address] Care Team Providers Care Product Analyst Name Role Phone Lindsay Miranda MD Primary Care Provider [phone] Encounter Details Date Type Department Care Team (Late st Contact Info) Description 09/12/2020 Lab Requisition [facility] Pathology & Laboratory Medicine - [address] [address] Outr Resulting Lab, Provider Social History Tobacco [...] gonorrhoeae Result Negative Negative 09/14/2020 14:21 EST [facility] Chlamydia trachomatis Result Negative Negative 09/14/2020 14:21 EST [facility] Swab ENTIRE ENDOCERVIX / Unknown 09/11/2020 13:10 EST 09/13/2020 18:08 EST Provider Outr Resulting Lab MICROBIOLOGY - GENERAL ORDERABLES [facility] [address] [place] [address] documented in this encounter Visit Diagnoses Not on filedocumented in this encounter Care Teams Product Analyst Relationship Specialty Start Date End Date Lindsay Miranda MD [address] [place] [address] PCP - General 05/21/18 documented as of this encounter
--- OUTSIDE RECORDS SUMMARY | 2024-05-03 20:48 | XMS_ITS | Encounter Summary ---
Author Organization [facility] Address [address] [place] [address] Care Team Providers Care Neurology Teacher Name Role Phone Lindsay Miranda MD Primary Care Provider [phone] Encounter Details Date Type Department Care Team (Late st Contact Info) Description 08/03/2021 Lab Requisition [facility] Pathology & Laboratory Medicine - [address] [id number] Outr Resulting Lab, Provider Social History Tobacco [...] gonorrhoeae Result Negative Negative 08/05/2021 11:05 EST [facility] Chlamydia trachomatis Result Negative Negative 08/05/2021 11:05 EST [facility] Swab ENTIRE ENDOCERVIX / Unknown 08/02/2021 13:30 EST 08/03/2021 22:35 EST Provider Outr Resulting Lab MICROBIOLOGY - GENERAL ORDERABLES [facility] [address] [place] [address] documented in this encounter Visit Diagnoses Not on filedocumented in this encounter Care Teams Neurology Teacher Relationship Specialty Start Date End Date Lindsay Miranda MD [address] [place] [address] PCP - General 05/21/18 documented as of this encounter
--- OUTSIDE RECORDS SUMMARY | 2024-05-03 20:48 | XMS_ITS | Encounter Summary ---
Author Organization [facility] Address [address] [place] [address] Care Team Providers Care Design Engineering Technician Name Role Phone Lindsay Miranda MD Primary Care Provider [phone] Encounter Details Date Type Department Care Team (Late st Contact Info) Description 10/17/2023 Lab Requisition [facility] Pathology & Laboratory Medicine - [address] [address] Outr Resulting Lab, Provider Social History Tobacco [...] Salmonella PCR Negative Negative 10/18/2023 10:50 EST [facility] Shigella/Enteroin vasive E. coli Negative Negative 10/18/2023 10:50 EST [facility] HN LAB CAMPYLOBACTER PCR Negative Negative 10/18/2023 10:50 EST [facility] Shiga Toxin PCR Negative Negative 10:50 EST [facility] Feces SPECIMEN FROM RECTUM / Unknown 10/17/2023 12:00 EST 10/17/2023 21:15 EST Provider Outr Resulting Lab MICROBIOLOGY - GENERAL ORDERABLES [facility] [address] [place] [phone] documented in this encounter Visit Diagnoses Not on filedocumented in this encounter Care Teams Design Engineering Technician Relationship Specialty Start Date End Date Lindsay Miranda MD [address] [place] [address] PCP - General 05/21/18 documented as of this encounter
--- OUTSIDE RECORDS SUMMARY | 2024-05-03 20:48 | XMS_ITS | Encounter Summary ---
Author Organization [facility] Address [address] [place] [address] Care Team Providers Care Carcass Trimmer Name Role Phone Lindsay Miranda MD Primary Care Provider [phone] Encounter Details Date Type Department Care Team (Late st Contact Info) Description 04/26/2024 Lab Requisition [facility] Pathology & Laboratory Medicine - [address] [address] Outr Resulting Lab, Provider Social History Tobacco [...] PATHOGENS BY PCR Routine 04/25/2024 14:45 EDT documented in this encounter Results * FECAL BACTERIAL PATHOGENS BY PCR (04/25/2024 14:45 EDT) Salmonella PCR Negative Negative 04/26/2024 23:22 EDT [facility] Shigella/Enteroin vasive E. coli Negative Negative 04/26/2024 23:22 EDT [facility] HN LAB CAMPYLOBACTER PCR Negative Negative 04/26/2024 23:22 EDT [facility] Shiga Toxin PCR Negative Negative 23:22 EDT [facility] Feces SPECIMEN FROM RECTUM / Unknown 04/25/2024 14:45 EDT 04/26/2024 19:00 EDT Provider Outr Resulting Lab MICROBIOLOGY - GENERAL ORDERABLES [facility] [address] [place], [place] [id number] documented in this encounter Visit Diagnoses Not on filedocumented in this encounter Care Teams Carcass Trimmer Relationship Specialty Start Date End Date Lindsay Miranda MD [address] [place] [address] PCP - General 05/21/18 documented as of this encounter
--- OUTSIDE RECORDS SUMMARY | 2024-05-03 20:48 | XMS_ITS | Encounter Summary ---
Author Organization [facility] Address [address] [place] [address] Care Team Providers Care Measurement Technician Name Role Phone Lindsay Miranda MD Primary Care Provider [phone] Encounter Details Date Type Department Care Team (Late st Contact Info) Description 08/09/2021 Lab Requisition [facility] Pathology & Laboratory Medicine - [address] [address] Outr Resulting Lab, Provider Social History Tobacco [...] Surface Ag Negative Negative 08/10/2021 10:27 EST [facility] Blood VENOUS BLOOD / Unknown 08/09/2021 8:22 EST 08/09/2021 16:30 EST Provider Outr Resulting Lab CHEMISTRY & BLOOD GAS ORDERABLES Performing Organization Address City/[facility]/ZIP Co de Phone Number [facility] [address] [place] [address] * HEPATITIS C AB W REFLEX TO HCV RNA BY PCR (08/09/2021 8:22 EST) Hep C Antibody Negative Negative 08/10/2021 11:04 EST [facility] Blood VENOUS BLOOD / Unknown 08/09/2021 8:22 EST 08/09/2021 16:30 EST Provider Outr Resulting Lab CHEMISTRY & BLOOD GAS ORDERABLES Performing Organization Address [facility] Co de Phone Number [facility] [address] [place] [address] documented in this encounter Visit Diagnoses Not on filedocumented in this encounter Care Teams Measurement Technician Relationship Specialty Start Date End Date Lindsay Miranda MD [address] [place] [address] PCP - General 05/21/18 documented as of this encounter
--- OUTSIDE RECORDS SUMMARY | 2024-05-03 20:48 | XMS_ITS | Encounter Summary ---
Author Organization [facility] Address [address] [place] [address] Care Team Providers Care Cargo Agent Name Role Phone Lindsay Miranda MD Primary Care Provider [phone] Encounter Details Date Type Department Care Team (Late st Contact Info) Description 08/09/2021 Lab Requisition [facility] Pathology & Laboratory Medicine - [facility] [address] [place], [place] [address] Outr Resulting Lab, Provider Social History Tobacco [...] Ab Negative See Note 08/10/2021 9:38 EST [facility] Comment:Absence of detectabl e [...] A ND SEROLOGY ORDERABLES Performing Organization Address City/[facility] Co de Phone Number [facility] [address] [place] [address] * RUBELLA IGG ANTIBODY (08/09/2021 8:22 EST) Rubella IgG Ab Positive See Note 08/10/2021 9:43 EST [facility] Comment:Positive for IgG ant ibodies to Rubella virus. Blood VENOUS BLOOD / Unknown 08/09/2021 8:22 EST 08/09/2021 16:30 EST Provider Outr Resulting Lab CHEMISTRY & BLOOD GAS ORDERABLES Performing Organization Address [facility] de Phone Number [facility] [address] [place] [address] documented in this encounter Visit Diagnoses Not on filedocumented in this encounter Care Teams Cargo Agent Relationship Specialty Start Date End Date Lindsay Miranda MD [address] [place] [address] PCP - General 05/21/18 documented as of this encounter
--- OUTSIDE RECORDS SUMMARY | 2024-05-03 20:48 | XMS_ITS | Clinical Summary ---
Author Organization [facility] Address [address] [place] [address] Care Team Providers Care Agricultural Crop Farm Manager Name Role Phone Lindsay Miranda MD Primary Care Provider [phone] Encounters Date Type Department Care Team Description 04/26/2024 Lab Requisition [facility] Pathology & Laboratory Medicine - [facility] [address] [place] [address] Outr Resulting Lab, Provider from Last 3 [...] - 19+ 3-dose series) 2020 COVID-19 Vaccine ( season) 2024 Hepatitis C Screen Completed 08/09/2021, [...] Salmonella PCR Negative Negative 04/26/2024 23:22 EDT [facility] Shigella/Enteroin vasive E. coli Negative Negative 04/26/2024 23:22 EDT [facility] HN LAB CAMPYLOBACTER PCR Negative Negative 04/26/2024 23:22 EDT [facility] Shiga Toxin PCR Negative Negative 23:22 EDT [facility] Feces SPECIMEN FROM RECTUM / Unknown 04/25/2024 14:45 EDT 04/26/2024 19:00 EDT Provider Outr Resulting Lab MICROBIOLOGY - GENERAL ORDERABLES [facility] [address] [place] [address] * HEPATITIS C AB W REFLEX TO HCV RNA BY PCR (08/09/2021 8:22 EST) Hep C Antibody Negative Negative 08/10/2021 11:04 EST [facility] Blood VENOUS BLOOD / Unknown 08/09/2021 8:22 EST 08/09/2021 16:30 EST Provider Outr Resulting Lab CHEMISTRY & BLOOD GAS ORDERABLES [facility] [address] [place] [address] from Last 3 Months or Most Recently Relevant to Health Maintenance Care Teams Agricultural Crop Farm Manager Relationship Specialty Start Date End Date Lindsay Miranda MD [address] [place] [address] PCP - General 05/21/18
--- OUTSIDE RECORDS SUMMARY | 2024-05-03 20:48 | XMS_ITS | Encounter Summary ---
Author Organization [facility] Address [address] [place] [address] Care Team Providers Care Machine Bookkeeper Name Role Phone Lindsay Miranda MD Primary Care Provider [phone] Encounter Details Date Type Department Care Team (Late st Contact Info) Description 08/09/2021 Lab Requisition [facility] Pathology & Laboratory Medicine - [address] [phone] Outr Resulting Lab, Provider Social History Tobacco [...] 4th Generation Negative Negative 08/10/2021 10:40 EST [facility] Comment:If acute HIV-1 infec tion is suspected in a high risk patient, submit plasma specimen for HIV-1 RNA quantitation test. Blood VENOUS BLOOD / Unknown 08/09/2021 8:22 EST 08/09/2021 16:30 EST Narrative [facility] - 08/10/2021 10:40 EST Fourth Generation assay performed on the Siemens Centaur XPT. Provider Outr Resulting Lab IMMUNOLOGY A ND SEROLOGY ORDERABLES [facility] [address] [place] [address] documented in this encounter Visit Diagnoses Not on filedocumented in this encounter Care Teams Machine Bookkeeper Relationship Specialty Start Date End Date Lindsay Miranda MD [address] [place] [address] PCP - General 05/21/18 documented as of this encounter
[2024-05-03 20:49] VITALS: BP 140/96; PULSE 87; RESP 18; O2SAT 98
--- OUTSIDE RECORDS SUMMARY | 2024-05-03 20:49 | XMS_ITS | Encounter Summary ---
Author Organization [facility] Address [address] [place] [address] Care Team Providers Care Envelope Fold Operator Name Role Phone Lindsay Miranda MD Primary Care Provider [phone] Encounter Details Date Type Department Care Team (Late st Contact Info) Description 05/13/2020 Lab Requisition [facility] Pathology & Laboratory Medicine - [address] [address] Outr Resulting Lab, Provider Social History Tobacco [...] 4th Generation Negative Negative 05/14/2020 11:48 EDT [facility] Comment: If acute HIV-1 infection is suspected in a high risk ??patient, submit plasma specimen for HIV-1 RNA quantitation test. Fourth Generation assay performed on the Siemens Kinamik Data Integrityaur. Blood VENOUS BLOOD / Unknown 05/12/2020 11:00 EDT 05/13/2020 17:10 EDT Provider Outr Resulting Lab IMMUNOLOGY A ND SEROLOGY ORDERABLES [facility] [address] [place] [address] documented in this encounter Visit Diagnoses Not on filedocumented in this encounter Care Teams Envelope Fold Operator Relationship Specialty Start Date End Date Lindsay Miranda MD [address] [place] [address] PCP - General 05/21/18 documented as of this encounter
--- OUTSIDE RECORDS SUMMARY | 2024-05-03 20:49 | XMS_ITS | Encounter Summary ---
Author Organization [facility] [place] [address] Care Team Providers Care Accounting Generalist Name Role Phone Lindsay Miranda MD Primary Care Provider [phone] Encounter Details Date Type Department Care Team (Late st Contact Info) Description 11/05/2020 Notes Only [place] [address] John Dominique PA [facility] [place] [address] Social History Tobacco Use Types Packs/Day Years [...] Patient was scheduled for an appointment with [facility]. Arrived at 8:20 am for 8:00 appointment. Left the waiting room around 9:00 am and thus was not able to evaluated. John Dominique PA-C Oral-Maxillofacial Surgery 11/05/2020 Supervising physician: Luisito Hoff MD, DMD documented in this encounter Plan of Treatment Not on file documented as of this encounter Visit Diagnoses Not on filedocumented in this encounter Care Teams Accounting Generalist Relationship Specialty Start Date End Date Lindsay Miranda MD [address] [place] [address] PCP - General Family Medicine 05/25/17 documented as of this encounter
--- OUTSIDE RECORDS SUMMARY | 2024-05-03 20:49 | XMS_ITS | Encounter Summary ---
Author Organization [facility] [place] [address] Care Team Providers Care Topology Teacher Name Role Phone Lindsay Miranda MD Primary Care Provider [phone] Encounter Details Date Type Department Care Team (Latest Contact Info) Description 11/20/2020 11:00 AM EDT TH Visit (TeleHealth) Maxillofacial [place] [address] [facility] DR MAXILLOFACIAL [place] [address] Impacted third molar tooth Social History Tobacco [...] eruption documented in this encounter Care Teams Topology Teacher Relationship Specialty Start Date End Date Lindsay Miranda MD [address] [place] [address] PCP - General Family Medicine 05/25/17 documented as of this encounter
--- OUTSIDE RECORDS SUMMARY | 2024-05-03 20:49 | XMS_ITS | Encounter Summary ---
Author Organization [facility] Address [facility] [place] [address] Care Team Providers Care Message And Delivery Service Pricer Name Role Phone Lindsay Miranda MD Primary Care Provider [phone] Reason for Visit * Consultation (Routine) - Closed Specialty Diagnoses / Procedures Referred By Contact Referred To Contact Maxillofacial Surgery Diagnoses Needs extraction of all [address] WT J[address] Petty, DMD [address] [place] [address] Shayne Farr MD [facility] ORAL [place] [address] Referral ID Status Reason Start Date Expiration Date Visits Re quested Visits Authorized [id number] Closed 11/08/2018 11/08/2019 1 1 Encounter Details Date Type Department Care Team (Late st Contact Info) Description 02/05/2019 4:00 PM EDT Office Visit [place] [address] Shayne Farr MD [facility] DR RICKS AND [place] [address] Impacted third molar tooth Social [...] 02/05/2019 4:1 9 PM EDT Growth Chart: [facility] (Girls, 2- 20 Years) documented in this [...] ?? 10 weeks - being seen at [facility] ?? Had tonsils removed in April [...] eruption documented in this encounter Care Teams Message And Delivery Service Pricer Relationship Specialty Start Date End Date Lindasy Miranda MD [address] [place] [address] PCP - General Family Medicine 05/25/17 documented as of this encounter
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
--- OUTSIDE RECORDS SUMMARY | 2024-05-03 20:49 | XMS_ITS | Encounter Summary ---
[place] [address] Care Team Providers Care Bottling Line Operator Name Role Phone Lindsay Miranda MD Primary Care Provider [phone] Encounter Details Date Type Department Care Team (Late st Contact Info) Description 11/10/2020 Telephone [place] [address] Liana Flanagan Social History Tobacco Use Types [...] AM EDT LVM for patient to call [facility] at [phone]. I would like to discuss rescheduling 11/05/20 apt as a tele health apt with John. Patient needs to be set up with a [employer] account. documented in this encounter Plan of Treatment Not on file documented as of this encounter Visit Diagnoses Not on filedocumented in this encounter Care Teams Bottling Line Operator Relationship Specialty Start Date End Date Lindsay Miranda MD [address] [place] [address] PCP - General Family Medicine 05/25/17 documented as of this encounter
--- OUTSIDE RECORDS SUMMARY | 2024-05-03 20:49 | XMS_ITS | Encounter Summary ---
Author Organization [facility] Address [address] [place] [address] Care Team Providers Care Positive Printer Operator Name Role Phone Lindsay Miranda MD Primary Care Provider [phone] Encounter Details Date Type Department Care Team (Late st Contact Info) Description 05/13/2020 Lab Requisition [facility] Pathology & Laboratory Medicine - [address] [address] Outr Resulting Lab, Provider Social History Tobacco [...] gonorrhoeae Result Negative Negative 05/14/2020 15:05 EDT [facility] Chlamydia trachomatis Result Negative Negative 05/14/2020 15:05 EDT [facility] Swab ENTIRE WALL OF CERVIX / Unknown 05/12/2020 11:00 EDT 05/13/2020 16:55 EDT Provider Outr Resulting Lab MICROBIOLOGY - GENERAL ORDERABLES [facility] [address] [place] [address] documented in this encounter Visit Diagnoses Not on filedocumented in this encounter Care Teams Positive Printer Operator Relationship Specialty Start Date End Date Lindsay Miranda MD [address] [place] [address] PCP - General 05/21/18 documented as of this encounter
--- OUTSIDE RECORDS SUMMARY | 2024-05-03 20:49 | XMS_ITS | Encounter Summary ---
Author Organization [facility] Address [address] [place] [address] Care Team Providers Care Dashboard Developer Name Role Phone Lindsay Miranda MD Primary Care Provider [phone] Encounter Details Date Type Department Care Team (Late st Contact Info) Description 08/03/2020 Lab Requisition [facility] Pathology & Laboratory Medicine - [address] [address] Outr Resulting Lab, Provider Social History Tobacco [...] Outr Resulting Lab MICROBIOLOGY - GENERAL ORDERABLES [facility] [address] [place] [address] * COVID-19 TESTING (08/03/2020 13:40 EST) COVID-19 rt-PCR Result Negative Negative 08/03/2020 23:53 EST [facility] Comment: This test has not [...] history, and epidemiological information. Performed on the [employer] Fusion instrument Performing Lab [place] [facility] Lab 08/03/2020 23:53 EST [facility] Swab 08/03/2020 13:4 0 EST 08/03/2020 20:22 EST Provider Outr Resulting Lab MICROBIOLOGY - GENERAL ORDERABLES [facility] [address] [place] [address] documented in this encounter Visit Diagnoses Not on filedocumented in this encounter Care Teams Dashboard Developer Relationship Specialty Start Date End Date Lindsay Miranda MD [address] [place] [address] PCP - General 05/21/18 documented as of this encounter
--- OUTSIDE RECORDS SUMMARY | 2024-05-03 20:49 | XMS_ITS | Encounter Summary ---
Author Organization [facility] Address [address] [place] [address] Care Team Providers Care Nailhead Setter Name Role Phone Lindsay Miranda MD Primary Care Provider [phone] Encounter Details Date Type Department Care Team (Late st Contact Info) Description 01/09/2020 Lab Requisition [facility] Pathology & Laboratory Medicine - [address] [id number] Outr Resulting Lab, Provider Social History Tobacco [...] gonorrhoeae Result Negative Negative 01/10/2020 14:40 EDT [facility] Chlamydia trachomatis Result Negative Negative 01/10/2020 14:40 EDT [facility] Swab ENTIRE WALL OF CERVIX / Unknown 01/08/2020 11:50 EDT 01/09/2020 16:59 EDT Provider Outr Resulting Lab MICROBIOLOGY - GENERAL ORDERABLES [facility] [address] [place] [address] documented in this encounter Visit Diagnoses Not on filedocumented in this encounter Care Teams Nailhead Setter Relationship Specialty Start Date End Date Lindsay Miranda MD [address] [place] [address] PCP - General 05/21/18 documented as of this encounter
--- OUTSIDE RECORDS SUMMARY | 2024-05-03 20:49 | XMS_ITS | Encounter Summary ---
Author Organization [facility] [place] [address] Care Team Providers Care Adult Crossing Guard Name Role Phone Lindsay Miranda MD Primary Care Provider [phone] Reason for Visit * Reason Onset Date Comments Results 06/28/2017 Encounter Details Date Type Department Care Team (Late st Contact Info) Description 06/28/2017 Telephone Pediatric [place] [address] Carmel Menjivar MD [facility] [address] [place] [address] Results Social History Tobacco Use Types Packs/Day [...] on filedocumented in this encounter Care Teams Adult Crossing Guard Relationship Specialty Start Date End Date Lindsay Miranda MD [address] [place] [address] PCP - General Family Medicine 05/25/17 documented as of this encounter
--- OUTSIDE RECORDS SUMMARY | 2024-05-03 20:49 | XMS_ITS | Encounter Summary ---
Author Organization [facility] Address [facility] [place] [address] Care Team Providers Care Senior Oracle Adf Developer Name Role Phone Lindsay Miranda MD Primary Care Provider [phone] Reason for Visit * Reason Comments Establish Care * Consultation (Routine) - Closed Specialty Diagnoses / Procedures Referred By Anibal khanna Referred To Contact Pediatric Endocrinology Diagnoses thyroiditis Lindsay Miranda MD [address] [place] [address] [facility] Pedi Endo [address] [place] [address] Referral ID Status Reason Start Date Expiration Date V isits Requested Visits Authorized [id number] Closed Consult, [facility] 05/26/2017 05/26/2018 1 1 Encounter Details Date Type Department Care Team (Latest Contact Info) Description 06/27/2017 1:00 PM EST Office Visit Pediatric [place] [address] Carmel Menjivar MD [facility] PEDI[place] [address] Abnormal thyroid blood test Social [...] 06/27/2017 1:4 9 PM EST Growth Chart: [facility] (Girls, 2- 20 Years) documented in [...] HISTORY: Lives with: Mom, dad Mom's occupation: [employer] Dad's occupation: [employer] Grade in school: 10th grade, poor/ave academic [...] Attending Physician Pediatric Endocrinology [facility] Office: [phone] [place] Office: [phone] Pager ID [phone] documented in this encounter Plan of Treatment [...] Thyroglob Ab <20.0 0.0 - 40.0 IU/mL [facility] Comment: Assay performed is the DPC Immulite Tg-Ab immunometric assay. (Cutoff for TgAb negativity is <20 IU/ml) Blood specimen (specimen) 06/27/2017 2:43 PM EST 06/27/2017 2:47 PM EST Narrative Resulting Agency Comment Spec In Lab Carmel Menjivar MD LAB SEND OUT OR DERABLES Performing Organization Address [facility] Co de Phone Number [facility] [place] [address] * Thyroid peroxidase antibody (06/27/2017 2:43 PM EST) Thyroperoxidase Ab <10 <=34 IU/mL [facility] Blood specimen (specimen) 06/27/2017 2:43 PM EST 06/27/2017 2:47 PM EST Narrative Resulting Agency Comment Spec In Lab Carmel Menjivar MD IMMUNOLOGY ORDE RABLES Performing Organization Address [facility] de Phone Number [facility] [place] [address] * TSH (06/27/2017 2:43 PM EST) Thyroid Stimulating Hormone 3.26 0.27 - 4.20 mlU/ML [facility] Blood specimen (specimen) 06/27/2017 2:43 PM EST 06/27/2017 2:47 PM EST Narrative Resulting Agency Comment Spec In Lab Carmel Menjivar MD CHEMISTRY ORDER JAMAL Performing Organization Address [facility] Co de Phone Number [facility] [place] [address] * T4, free (06/27/2017 2:43 PM EST) Free T4 1.21 0.93 - 1.70 ng/dL [facility] Blood specimen (specimen) 06/27/2017 2:43 PM EST 06/27/2017 2:47 PM EST Narrative Resulting Agency Comment Spec In Lab Carmel Menjivar MD CHEMISTRY ORDER JAMAL Performing Organization Address [facility] Co de Phone Number [facility] [place] [address] documented in this encounter Visit Diagnoses Diagnosis Abnormal thyroid blood test Nonspecific abnormal results of thyroid function study documented in this encounter Care Teams Senior Oracle Adf Developer Relationship Specialty Start Date End Date Lindsay Miranda MD [address] [place] [address] PCP - General Family Medicine 05/25/17 documented as of this encounter
--- OUTSIDE RECORDS SUMMARY | 2024-05-03 20:49 | XMS_ITS | Encounter Summary ---
Author Organization [facility] Address [address] [place] [address] Care Team Providers Care Starchmaker Name Role Phone Lindsay Miranda MD Primary Care Provider [phone] Encounter Details Date Type Department Care Team (Late st Contact Info) Description 07/15/2020 Lab Requisition [facility] Pathology & Laboratory Medicine - [facility] [address] [place] [address] Outr Resulting Lab, Provider Social History Tobacco [...] on filedocumented in this encounter Care Teams Starchmaker Relationship Specialty Start Date End Date Lindsay Miranda MD [address] [place] [address] PCP - General 05/21/18 documented as of this encounter
--- OUTSIDE RECORDS SUMMARY | 2024-05-03 20:49 | XMS_ITS | Encounter Summary ---
Author Organization [facility] Address [address] [place] [address] Care Team Providers Care Slide Developer Name Role Phone Lindsay Miranda MD Primary Care Provider [phone] Encounter Details Date Type Department Care Team (Late st Contact Info) Description 05/13/2020 Lab Requisition [facility] Pathology & Laboratory Medicine - [address] [address] Outr Resulting Lab, Provider Social History Tobacco [...] C Antibody Negative Negative 05/14/2020 12:05 EDT [facility] Blood VENOUS BLOOD / Unknown 05/12/2020 11:00 EDT 05/13/2020 17:10 EDT Provider Outr Resulting Lab CHEMISTRY & BLOOD GAS ORDERABLES [facility] [address] [place] [address] documented in this encounter Visit Diagnoses Not on filedocumented in this encounter Care Teams Slide Developer Relationship Specialty Start Date End Date Lindsay Miranda MD [address] [place] [address] PCP - General 05/21/18 documented as of this encounter
--- OUTSIDE RECORDS SUMMARY | 2024-05-03 20:49 | XMS_ITS | Encounter Summary ---
Author Organization [facility] Address [address] [place] [address] Care Team Providers Care Pumping Plant Operator Name Role Phone Lindsay Miranda MD Primary Care Provider [phone] Encounter Details Date Type Department Care Team (Late st Contact Info) Description 01/03/2020 Lab Requisition [facility] Pathology & Laboratory Medicine - [facility] [address] [place] [address] Outr Resulting Lab, Provider Social History Tobacco [...] rt-PCR Result NEGATIVE Negative 01/04/2020 11:40 EDT [facility] Comment: 2019-novel Coronavirus (2019-nCoV) not [...] in accordance with CLIA regulations, College of [place] [employer] (CAP) guidelines (Nov 07, 2019), and FDA guidance (Oct 19, 2019). This test is only for use under the Food and Drug Administration's Emergency Use Authorization. Swab ENTIRE NASOPHARYNX / Unknown 01/03/2020 11:16 EDT 01/03/2020 15:20 EDT Provider Outr Resulting Lab MICROBIOLOGY - GENERAL ORDERABLES [facility] [place] * COVID-19 TESTING (01/03/2020 11:16 EDT) COVID-19 rt-PCR Result NEGATIVE Negative 01/04/2020 14:18 EDT [facility] Comment: 2019-novel Coronavirus (2019-nCoV) not detected [...] in accordance with CLIA regulations, College of [place] [employer] (CAP) guidelines (Nov 07, 2019), and FDA guidance (Oct 19, 2019). This test is only for use under the Food and Drug Administration's Emergency Use Authorization. Performing Lab [facility] 01/04/2020 14:18 EDT [facility] Swab ENTIRE NASOPHARYNX / Unknown 01/03/2020 11:16 EDT 01/03/2020 15:20 EDT Provider Outr Resulting Lab MICROBIOLOGY - GENERAL ORDERABLES [facility] [address] [place] [address] [facility] [place], [place] documented in this encounter Visit Diagnoses Not on filedocumented in this encounter Care Teams Pumping Plant Operator Relationship Specialty Start Date End Date Lindsay Miranda MD [address] [place] [address] PCP - General 05/21/18 documented as of this encounter
--- OUTSIDE RECORDS SUMMARY | 2024-05-03 20:49 | XMS_ITS | Encounter Summary ---
Author Organization [facility] Address [address] [place] [address] Care Team Providers Care National Opelint Analyst Name Role Phone Unknown, Provider Primary Care Provider [phone] Encounter Details Date Type Department Care Team (Late st Contact Info) Description 05/17/2018 Results Only [facility] [phone] Rolly Stanton, [address] [place] [address] Social History Tobacco Use Types Packs/Day Years [...] ? MYNOR MEDINA ? Accession #: ? [id number] ? : ? 2000 (Age: 17) ??F [...] (ASCP) 05/21/2018 12:01 PM End of Report [facility] 05/17/2018 7:27 EDT 05/18/2018 7:27 EDT Rolly Stanton DO PATHOLOGY ORDER JAMAL [facility] [address] [place] [address] documented in this encounter Visit Diagnoses Not on filedocumented in this encounter Care Teams National Opelint Analyst Relationship Specialty Start Date End Date Unknown, Provider, PCP - General 05/19/18 05/20/18 documented as of this encounter
--- OUTSIDE RECORDS SUMMARY | 2024-05-03 20:49 | XMS_ITS | Encounter Summary ---
Author Organization [facility] Address [address] [place] [address] Care Team Providers Care Engineering Professionals Name Role Phone Unavailable Primary Care Provider Unavailabl e Encounter Details Date Type Department Care Team (Latest Contact Info) Description 05/17/2018 16:09 EDT - 05/17/2018 23:59 EDT Hospital Encounter [address] [address] Unknown, Provider, Discharge Disposition: Home or Self Care Social History Tobacco Use Types Packs/Day Years Used Date Smoking Tobacco: Never Assessed Sex and Gender Information Value Date Recorded Sex Assigned at Not on file Gender Identity Not on file Sexual Orientation Not on file documented as of this encounter Discharge Disposition Disposition Code Departure Means Destination Home or Self [facility] documented in this encounter Plan of Treatment Not on file documented as of this encounter Visit Diagnoses Not on filedocumented in this encounter
--- OUTSIDE RECORDS SUMMARY | 2024-05-03 20:49 | XMS_ITS | Encounter Summary ---
Author Organization [facility] Address [address] [place] [address] Care Team Providers Care Community Outreach Worker Name Role Phone Lindsay Miranda MD Primary Care Provider [phone] Encounter Details Date Type Department Care Team (Late st Contact Info) Description 01/07/2020 Lab Requisition [facility] Pathology & Laboratory Medicine - [address] [address] Amber Estrada MD [address] [place] [phone] Encounter for other general examination Social [...] Predominantly intradermal compound nevus. 01/08/2020 10:58 EDT [facility] at 1058 Attestation By the signature below, the attending physician certifies that they have 1) personally conducted a gross and/or microscopic examination of the described specimen(s), and/or personally interpreted the results of laboratory testing of the described specimen(s), and 2) personally rendered or confirmed the above diagnosis. 01/08/2020 10:58 [facility] at 1058 Clinical History Chest skin lesions x2 01/08/2020 10:58 [facility] Gross Description A. Received in [...] and submitted B1. 01/07/2020 16:30 01/08/2020 10:58 [facility] Scanned Images 01/08/2020 10:58 T [facility] Tissue TISSUE SPECIMEN FROM SKIN / Unknown 01/07/2020 8:45 EDT 01/07/2020 16:24 EDT Tissue specimen (specimen) SPECIMEN FROM SKIN / Unknown 01/07/2020 8:45 EDT 01/07/2020 16:24 EDT Amber Estrada MD PATHOLOGY ORDERABLES [facility] [address] [place] [address] documented in this encounter Visit Diagnoses Diagnosis Encounter for other general examination documented in this encounter Care Teams Community Outreach Worker Relationship Specialty Start Date End Date Lindsay Miranda MD [address] [place] [address] PCP - General 05/21/18 documented as of this encounter
--- OUTSIDE RECORDS SUMMARY | 2024-05-03 20:49 | XMS_ITS | Encounter Summary ---
Author Organization [facility] Address [address] [place] [address] Care Team Providers Care Fish Warden Name Role Phone Lindsay Miranda MD Primary Care Provider [phone] Encounter Details Date Type Department Care Team (Late st Contact Info) Description 05/13/2020 Lab Requisition [facility] Pathology & Laboratory Medicine - [address] [address] Outr Resulting Lab, Provider Social History Tobacco [...] Syphilis Serology Negative Negative 05/14/2020 17:39 EDT [facility] Blood VENOUS BLOOD / Unknown 05/12/2020 11:00 EDT 05/13/2020 17:10 EDT Provider Outr Resulting Lab IMMUNOLOGY A [place] SEROLOGY ORDERABLES [facility] [address] [place] [address] documented in this encounter Visit Diagnoses Not on filedocumented in this encounter Care Teams Fish Warden Relationship Specialty Start Date End Date Lindsay Miranda MD [address] [place] [address] PCP - General 05/21/18 documented as of this encounter
--- OUTSIDE RECORDS SUMMARY | 2024-05-03 20:49 | XMS_ITS | Encounter Summary ---
Author Organization [facility] Address [address] [place] [address] Care Team Providers Care Metal Reed Tuner Name Role Phone Lindsay Miranda MD Primary Care Provider [phone] Encounter Details Date Type Department Care Team (Late st Contact Info) Description 07/10/2019 Lab Requisition [facility] Pathology & Laboratory Medicine - [address] [address] Unknown, Provider, Social History Tobacco Use Types [...] gonorrhoeae Result Negative Negative 07/11/2019 14:31 EST [facility] Chlamydia trachomatis Result Negative Negative 07/11/2019 14:31 EST [facility] [id number] 07/10/2019 13:3 6 EST 07/10/2019 21:53 EST Provider Unknown MICROBIOLOGY - GENER AL ORDERABLES [facility] [address] [place] [address] documented in this encounter Visit Diagnoses Not on filedocumented in this encounter Care Teams Metal Reed Tuner Relationship Specialty Start Date End Date Lindsay Miranda MD [address] [place] [address] PCP - General 05/21/18 documented as of this encounter
--- NOTE | 2024-05-03 21:23 | W.ED.GENAD ---
Discharge Plan Disposition Patient Disposition: Home Condition: Improving Discharge Details Clinical Impression: Diarrhea Primary Care Provider: Lindsay Miranda V ED Provider: Dom Friedman Home Meds and New Rx's Prescriptions: New loperamide 2 mg capsule 2 mg PO Q6H PRN (Reason: loose stool) Qty: 10 0RF No Action albuterol sulfate [ProAir HFA] 200 PUFF HFA aerosol inhaler 2 puff Inhalation PRN PRN venlafaxine 75 mg capsule,extended release 24hr 75 mg PO DAILY Rx Instructions: TAKE ONE CAPSULE BY MOUTH EVERY DAY Discharge Instructions Instructions: Diarrhea, Adult ED Additional Instructions: Please follow-up with primary care physician and GI referral. Please return to the emergency department for any worsening symptoms HPI General Date/Time Provider Initiated Documentation: 05/03/24 21:02. HPI Narrative: 23-year-old female presents with 3 weeks of abdominal discomfort loose stool and nausea. Has had extensive blood work and imaging performed within the last couple of days negative for acute intra-abdominal pathology. Stool negative for Salmonella Campylobacter or E. coli. No recent travel. No new foods no new animal exposure no recent antibiotics. Unclear family history her however she endorses that her father had a portion of his intestines removed at some point in his life. Patient knows of no discrete diagnosis of celiac disease Crohn's inflammatory bowel or other GI pathologies. Patient endorses blood mixed with her stool this evening and blood when she wiped after having a bowel movement Related Data Home Medications ?Medication ?Instructions ?Recorded ?Confirmed albuterol sulfate 90 mcg/actuation 2 puff inhalation PRN PRN 06/11/15 05/03/24 aerosol inhaler (ProAir HFA) venlafaxine 75 mg capsule,extended 75 mg PO DAILY 01/18/24 05/03/24 release 24 hr loperamide 2 mg capsule 2 mg PO Q6H PRN loose stool #10 05/03/24 caps Previous Rx's ?Medication ?Instructions ?Recorded loperamide 2 mg capsule 2 mg PO Q6H PRN loose stool #10 05/03/24 caps Allergies Allergy/AdvReac Type Severity Reaction Status Date / Time sertraline AdvReac Intermediate pt reports Verified 05/03/24 20:52 she got ugly black flies AdvReac Intermediate red and Uncoded 05/03/24 20:52 swollen cats AdvReac Intermediate sneezing Uncoded 05/03/24 20:52 a lot, runny nose General Stated Complaint: Abd Prob ETHAN: 3 Exam Narrative Exam Narrative: Alert interactive nontoxic Moist mucous membranes tongue secretions Speaking full sentences no respiratory distress Abdomen soft nontender nondistended nonperitoneal no palpable mass Moving all extremities without deficit Course Vital Signs Vital signs: Vital Signs Pulse 87 05/03/24 20:49 Respiratory Rate 18 05/03/24 20:49 Blood Pressure 140/96 H 05/03/24 20:49 Pulse Oximetry 98 05/03/24 20:49 Pulse 87 05/03/24 20:49 Respiratory Rate 18 05/03/24 20:49 Respiratory Effort Normal 05/03/24 20:51 Blood Pressure 140/96 H 05/03/24 20:49 Blood Pressure Position Sitting 05/03/24 20:49 Pulse Oximetry 98 05/03/24 20:49 Oxygen Delivery Method Room Air 05/03/24 20:49 Oxygen Flow Rate 0 05/03/24 20:49 Medical Decision Making 23-year-old female presents with 3 weeks of abdominal discomfort loose stool and nausea. Has had extensive blood work and imaging performed within the last couple of days negative for acute intra-abdominal pathology. Stool negative for Salmonella Campylobacter or E. coli. No recent travel. No new foods no new animal exposure no recent antibiotics. Unclear family history her however she endorses that her father had a portion of his intestines removed at some point in his life. Patient knows of no discrete diagnosis of celiac disease Crohn's inflammatory bowel or other GI pathologies. Patient endorses blood mixed with her stool this evening and blood when she wiped after having a bowel movement. Patient nontoxic nonperitoneal. Appears well-hydrated. No active vomiting. Consider viral enterocolitis versus inflammatory bowel versus celiac disease versus infectious diarrhea such as Giardia or other ova parasite lower suspicion for C. difficile given low risk factors lower suspicion for malignancy given recent negative scan, discussed with patient at length the risks of repeat irradiation with CT imaging I would like to pursue basic labs fluid hydration loperamide Zofran if there is any sign of worsening clinical status or concerning laboratory values to consider further imaging patient in agreement. Will attempt to obtain repeat stool sample 22: 51 rest comfortably feeling much better after fluids and medication. No bowel movements nausea vomiting or diarrhea here in department. Patient be given GI referral for close follow-up given chronic diarrhea Quality:SDOH Health Related Social Needs: Health related social needs inadequate housing, risk of homeless PFSH All Active Problems (Updated 05/03/24 @ 22:52 by Dom Friedman MD) Diarrhea (Acute) Gastroenteritis (Acute) Encounter for initial prescription of transdermal patch hormonal contraceptive device (Acute) Encounter for IUD removal (Acute) Intrauterine device surveillance (Acute) Maternal varicella, non-immune (Acute) Posttraumatic stress disorder (Acute) History of migraine (Acute) Depressed (Acute) Cannabis abuse (Acute) Medical History Group B streptococcal carriage complicating Hematuria Mild anemia History of gestational hypertension Laceration of labia minora Exercise-induced asthma Attention deficit disorder with hyperactivity RAD (reactive airway disease) Allergic rhinitis, unspecified Mood disorder due to known physiological condition with depressive features Subacute thyroiditis Sleep disturbance Headache Seasonal allergies Suicidal ideation Dizziness Asthma Bipolar disorder Surgical History History of tonsillectomy Family History Paternal Grandfather Diabetes Maternal Grandfather Heart disease mi w/ double bypass Hypertension Mother Hypothyroid Social History Smoking/Tobacco Use Status: Former Tobacco Use Quit Date: 02/18/23 Smoking risk assessment performed?: Yes Alcohol Intake: never Drug use: Daily Substance use type: marijuana Counseling provided: treatment program Details: nightly marijuana use Housing: apartment Sexually active: Yes Do you feel safe at home: Yes Do you feel safe in your relationship?: Yes Female Reproductive History Menstrual Age of Menarche: 12 Duration of menses: 3-5 days control method: pills History History 3 Para 2 Hx # Term Pregnancies 2 Multiple births 0 Hx # Pregnancies 0 Ectopic pregnancies 0 AB induced 0 Hx Number of Living Children 2 AB spontaneous 1 Past Pregnancies Del. Date GA/Weeks # Preg Succ Route Wgt Sex Labor Lgth Anesthesia Location Prov [facility] 08/30/19 39 No vaginal 2976.7 g Female 5 hr labor the day before scheduled induction for gHTN Soledad Rodney CNM 02/22/22 38 No Yes vaginal 3019.224 g Male 5 hours ESTEBAN [place] Delivery Date: 08/30/19 Last Updated by: Ros Fagan No meds in labor, stayed in tub. Nitrous for 1st degree lac repair. gHTN, BP improved after . Heavy bleeding per pt. Delivery Date: 02/22/22 Last Updated by: SONI Ellis;GBS positive, one dose PCN prior to delivery; Small second degree laceration and right labial laceration, repaired under local anesthesia
[2024-05-03 21:35] LABS: Abs Immature Grans 0.05 10^3/uL (0.0-0.06); Absolute Basophil Count 0.09 10^3/uL (0.0-0.2); Absolute Eosinophil Count 0.78 10^3/uL (0.0-0.7); Absolute Lymphocyte Count 3.09 10^3/uL (1.2-3.4); Absolute Neutrophil Count 6.13 10^3/uL (1.2-6.7); Basophils % 0.8 %; Eosinophils % 7.1 %; HCT 36.7 % (36.0-46.0); HGB 12.1 g/dL (11.2-15.7); Immature Grans % 0.5 %; MCH 28.5 pg (27.0-33.0); MCV 87 fL (80-95); MPV 11.4 fL (8.0-11.0); Monocytes % 8.1 %; Neutrophils % 55.5 %; Platelet Count 231 10^3/uL (130-400); RBC 4.24 10^6/uL (3.93-5.22); RDW 12.8 % (11.7-14.6); WBC 11.05 10^3/uL (4.4-10.8)
[2024-05-03] MEDS: Normal Saline 1,000 ML 1000 ML IV (21:38)
[2024-05-03] MEDS: Ondansetron 4 MG/2 ML VIAL IVP (21:38)
[2024-05-03 21:54] LABS: ALT 98 U/L (14-59); AST 52 U/L (15-37); Albumin 3.8 g/dL (3.4-5.0); Alkaline Phosphatase 35 U/L (46-116); Anion Gap 6.7 mmol/L (3-11); BUN 6 mg/dL (7-18); Bilirubin, Total 0.23 mg/dL (0.2-1.0); CO2 28.3 mmol/L (21.0-32.0); CREATININE 0.9 mg/dL (0.55-1.02); Chloride 103 mmol/L (98-107); Glucose 97 mg/dL (74-106); Lipase 27 U/L (16-77); Sodium 138 mmol/L (136-145); Total Protein 7.5 g/dL (6.4-8.2)
[2024-05-03 22:15] LABS: Bilirubin Negative (Negative); Blood Negative (Negative); Clarity Clear (Clear); Glucose Negative (Negative); Ketones Negative (Negative); Leukocyte Esterase Negative (Negative); Nitrite Negative (Negative); Urobilinogen 0.2 mg/dL (Up to 0.2)
[2024-05-03 22:54] VITALS: TEMP 36.6
[2024-05-03] MEDS: Loperamide 2 MG CAP PO (23:12)
[2024-05-06 11:35] LABS: Hepatitis A Antibody IgM Negative (Negative); Hepatitis B Core Antibody Negative (Negative); Hepatitis B surface Ag Negative (Negative); Hepatitis C Ab w Rflx HCV PCR Negative (Negative)
== END 2024-05-03 23:12 | disposition home or self-care (01) ==
PROVIDERS: Emergency Provider Emergency Medicine; PCP Family Medicine
DX: R11.10 Vomiting, unspecified (principal); Z87.891 Personal history of nicotine dependence
CPT/HCPCS: 36415; 80053; 83690; 86704; 86709; 86803; 87340; 96374; 99284; 81003; 85025; 99283; J2405

== ENCOUNTER 2024-09-06 09:15 | Emergency (ER) | payer MEDICAID, SELFPAY ==
[2024-09-06 09:17] VITALS: BP 129/94; PULSE 103; RESP 16; TEMP 36.1; O2SAT 97
--- NOTE | 2024-09-06 09:46 | ED.GENADUL_ITS ---
Discharge Plan Disposition Patient Disposition: Home Condition: Stable Discharge Details Clinical Impression: Contusion of left forearm Primary Care Provider: Lindsay Miranda V ED Provider: Alessandro Mccray Home Meds and New Rx's Prescriptions: Continued L norgest/e.estradiol-e.estrad [Jaimiess] 0.15 mg-30 mcg (84)/10 mcg (7) tablets,dose pack,3 month 1 tab PO DAILY albuterol sulfate [ProAir HFA] 200 PUFF HFA aerosol inhaler 2 puff Inhalation PRN PRN venlafaxine 75 mg capsule,extended release 24hr 75 mg PO DAILY Rx Instructions: TAKE ONE CAPSULE BY MOUTH EVERY DAY Xifaxan 550 mg tablet 550 mg PO TID Patient Comments: TAKE ONE TABLET BY MOUTH THREE TIMES A DAY FOR 14 DAYS Discharge Instructions Instructions: Minor Contusion ED Additional Instructions: You were seen in the emergency department for the contusion of your left forearm, there is no fracture seen on x-ray, please rest, ice, compress and elevate the arm often. Please use therapeutic dosing of Tylenol (acetamenophen) & Advil (ibuprofen) in an alternating fashion as follows: Take 1000mg of Tylenol every 6 hours without missing doses- that is 4 times per day. Jail in between the Tylenol dosings, take 400-600mg of Advil also on a 6 hour schedule, that is also 4 times per day. The daily maximum dosing of Tylenol is 4000mg, and the daily maximum dosing of Advil is 2400mg. This is safe to do for weeks. Please note that some common cold medications & prescription pain medications may contain acetamenophen and you need to read OTC drug labels and factor that in to maximum daily dosings. Follow-up with orthopedics for persistent pain lasting longer than 2 weeks, return to the emergency department for signs of neurovascular compromise to the left hand. Referrals: Lindsay Miranda MD [Primary Care Provider] - Discharge Data Discharge Date/Time-TO BE ENTERED AT DEPARTURE: 09/06/24 11:04 HPI General Date/Time Provider Initiated Documentation: 09/06/24 09:38 . HPI Narrative: 23 year-old female presents to ED today by POV/ambulating with a chief complaint of L forearm bruise, trip & fall banging it on a railing with onset 2 days ago. Quality described as sorenress, focal to the bruised area at ulnar distal forearm, slight radiation to wrist, no radiation to complete numbness, gross swelling, deformity, elbow pain. Severity is described as severe. Palliating factors include OTC analgesics with some relief. Provoking factors include supi nation/pronation. Patient not anticoagulated. Related Data Home Medications ?Medication ?Instructions ?Recorded ?Confirmed albuterol sulfate 90 mcg/actuation 2 puff inhalation PRN PRN 06/11/15 09/06/24 aerosol inhaler (ProAir HFA) venlafaxine 75 mg capsule,extended 75 mg PO DAILY 01/18/24 09/06/24 release 24 hr L norgest/E estradiol-E estrad 1 tab PO DAILY 05/13/24 09/06/24 0.15 mg-30 mcg (84)/10 mcg(7) tabs,3mos (Jaimiess) rifaximin 550 mg tablet (Xifaxan) 550 mg PO TID 09/06/24 09/06/24 Allergies Allergy/AdvReac Type Severity Reaction Status Date / Time sertraline AdvReac Intermediate pt reports Verified 09/06/24 09:21 she got ugly black flies AdvReac Intermediate red and Uncoded 09/06/24 09:21 swollen cats AdvReac Intermediate sneezing Uncoded 09/06/24 09:21 a lot, runny nose General Stated Complaint: Orthopedic ETHAN: 4 Review of Systems All systems reviewed & are unremarkable except as noted in HPI and below Exam Narrative Exam Narrative: GENERAL APPEARANCE: Well-nourished, non-toxic, awake and alert, atraumatic, no acute distress. SKIN: Warm, pink, dry, intact, without rashes/lesions/ulcerations. HEAD: Normocephalic, atraumatic, normal hair distribution for gender/age. EYES: Normal conjunctiva, no exudates on lids/lashes. ENT: Nares patent, no circumoral cyanosis, no facial swelling NECK: Supple, trachea midline, painless cervical ROM. LUNGS/CHEST: Non-labored respirations, normal A/P diameter, symmetrical expansion, no chest wall deformity HEART (CV/PV): Regular rate, no peripheral edema, no JVD. ABDOMEN: Soft, non-distended, no guarding. MSK: Normal ROM, no swelling/deformity to bilateral UEs or LEs, moving all extremities without weakness, no cyanosis, spine midline without tenderness, normal curvature, minor 3 x 3 cm bruise to the left ulnar forearm with no instability or crepitus of the radius or ulna, able to supinate and pronate, left radial pulse 2+, superintendent automotive strength 5/5, brisk capillary refill, sensation intact, no anatomical snuffbox tenderness NEURO: Mental Status AAOx4 - alert to person, place, time, events No facial droop, no forehead involvement. Motor: No focal weakness - strength 5/5 in bilateral UEs and LEs, proximal and distal, symmetric. Sensory: sensation intact to light touch globally. Gait normal: patient ambulated without ataxia into ED room. PSYCH: euthymic, cooperative, pleasant, appropriate speech Course Vital Signs Vital signs: Vital Signs Temperature 36.1 C L 09/06/24 09:17 Pulse 103 H 09/06/24 09:17 Respiratory Rate 16 09/06/24 09:17 Blood Pressure 129/94 H 09/06/24 09:17 Pulse Oximetry 97 09/06/24 09:17 Temperature 36.1 C L 09/06/24 09:17 Temperature Source Temporal Artery Scan 09/06/24 09:17 Pulse 103 H 09/06/24 09:17 Respiratory Rate 16 09/06/24 09:17 Blood Pressure 129/94 H 09/06/24 09:17 Pulse Oximetry 97 09/06/24 09:17 Pain Level 8 09/06/24 09:23 Lab/Test Results Lab/Test Results: POC- Test(urine) Negative Medical Decision Making This dictation utilizes [id number] dictation software and may contain unedited grammatical errors. 23 year-old female presents to ED today by POV/ambulating with a chief complaint of L forearm bruise, trip & fall banging it on a railing with onset 2 days ago. Quality described as sorenress, focal to the bruised area at ulnar distal forearm, slight radiation to wrist, no radiation to complete numbness, gross swelling, deformity, elbow pain. Severity is described as severe. Palliating factors include OTC analgesics with some relief. Provoking factors include supination/pronation. Patients' medical history: Noncontributory. Family and social history: Noncontributory. Pertinent exam findings / vital signs include minor 3 x 3 cm bruise to the left ulnar forearm with no instability or crepitus of the radius or ulna, able to supinate and pronate, left radial pulse 2+, superintendent automotive strength 5/5, brisk capillary refill, sensation intact, no anatomical snuffbox tenderness. Differential / pathologies of concern include contusion, fracture. Diagnostic studies of: -XR left wrist and forearm-no acute fracture seen. Interventions of: -Recommend RICE therapy and Tylenol/ibuprofen. ED Course/Assessment/Plan: 23-year-old female presents by POV, 2 days ago she banged her left forearm on a railing having bruising and pain with movement. There is no fracture on x-ray, she likely has a significant contusion without evidence of neurovascular compromise or significant hematoma, counseled on RICE therapy and therapeutic dosing of Tylenol and ibuprofen. Findings not consistent with fracture or neurovascular compromise. Disposition of contusion of left forearm. Patient verbalized understanding of the plan and return to ED criteria and engaged in shared decision making. Medical Records Medical records reviewed: Yes I reviewed the patient's medical records. Imaging Data Radiologic Study: Attestation: I personally reviewed and interpreted this imaging study as follows: Imaging: X-Ray Radiologist's impression: Exam(s) XR WRIST LT COMP NAVICULAR XR FOREARM LT EXAM: XR FOREARM LT CLINICAL HISTORY: L forearm pain. TECHNIQUE: 2D digital imaging was performed. Two views of the forearm. Four views of the wrist COMPARISON: CR XR WRIST LT COMP NAVICULAR from 09/06/2024 FINDINGS: BONES: No acute fracture is present. No bony destructive lesion is seen. The portion of elbow and wrist joints are unremarkable. SOFT TISSUE: Normal. IMPRESSION: Unremarkable radiographs of the left forearm and left wrist. Quality:SDOH Health Related Social Needs: No Data to Display PFSH All Active Problems (Updated 09/06/24 @ 10:48 by RIKY Judge) Contusion of left forearm (Acute) Gastroenteritis (Acute) Encounter for initial prescription of transdermal patch hormonal contraceptive device (Acute) Encounter for IUD removal (Acute) Intrauterine device surveillance (Acute) Maternal varicella, non-immune (Acute) Posttraumatic stress disorder (Acute) History of migraine (Acute) Depressed (Acute) Cannabis abuse (Acute) Medical History Group B streptococcal carriage complicating Hematuria Mild anemia History of gestational hypertension Laceration of labia minora Exercise-induced asthma Attention deficit disorder with hyperactivity RAD (reactive airway disease) Allergic rhinitis, unspecified Mood disorder due to known physiological condition with depressive features Subacute thyroiditis Sleep disturbance Headache Seasonal allergies Suicidal ideation Dizziness Asthma Bipolar disorder Surgical History History of tonsillectomy Family History Paternal Grandfather Diabetes Maternal Grandfather Heart disease mi w/ double bypass Hypertension Mother Hypothyroid Social History Smoking/Tobacco Use Status: Former Tobacco Use Quit Date: 02/18/23 Smoking risk assessment performed?: Yes Alcohol Intake: never Drug use: Daily Substance use type: marijuana Counseling provided: treatment program Details: nightly marijuana use Housing: apartment Sexually active: Yes Do you feel safe at home: Yes Do you feel safe in your relationship?: Yes Female Reproductive History Menstrual Age of Menarche: 12 Duration of menses: 3-5 days control method: pills History History 3 Para 2 Hx # Term Pregnancies 2 Multiple births 0 Hx # Pregnancies 0 Ectopic pregnancies 0 AB induced 0 Hx Number of Living Children 2 AB spontaneous 1 Past Pregnancies Del. Date GA/Weeks # Preg Succ Route Wgt Sex Labor Lgth Anesth esia Location [facility] 08/30/19 39 No vaginal 2976.7 g Female 5 hr labor the day before scheduled induction for gHTN Soledad Rodney CNM 02/22/22 38 No Yes vaginal 3019.224 g Male 5 hours Helen Mcmullen CNM Delivery Date: 08/30/19 Last Updated by: Ros Fagan No meds in labor, stayed in tub. Nitrous for 1st degree lac repair. gHTN, BP improved after . Heavy bleeding per pt. Delivery Date: 02/22/22 Last Updated by: SONI Ellis;GBS positive, one dose PCN prior to delivery; Small second degree laceration and right labial laceration, repaired under local anesthesia
[2024-09-06 11:00] VITALS: BP 141/91; PULSE 72; RESP 18; O2SAT 96
[2024-09-06 11:03] VITALS: BP 141/91; PULSE 72; RESP 18; O2SAT 96
== END 2024-09-06 11:04 | disposition home or self-care (01) ==
PROVIDERS: Emergency Provider Physician Assistant; PCP Family Medicine
DX: S50.12XA Contusion of left forearm, initial encounter (principal); W19.XXXA Unspecified fall, initial encounter
CPT/HCPCS: 81025; 99284; 73090; 73110; 99283

== ENCOUNTER 2024-09-17 12:33 | Emergency (ER) | payer MEDICAID, SELFPAY ==
[2024-09-17 12:36] VITALS: BP 126/83; PULSE 112; RESP 20; TEMP 36.8; O2SAT 98
--- OUTSIDE RECORDS SUMMARY | 2024-09-17 12:58 | XMS_ITS | Referral Summary ---
Author Organization [facility] Address [address] [place] [address] Care Team Providers Care Mill Order Scheduler Name Role Phone Lindsay Miranda MD Primary Care Provider [phone] Social History Tobacco Use Types Packs/Day Years Used Date Smoking Tobacco: Never Assessed Interpersonal Safety Answer Date Record ed Physically Hurt Never 03/23/2020 Verbally Threaten Not on file 03/23/2020 Comments Unknown Sex and Gender Information Value Date Recorded Sex Assigned at Not on file Legal Sex Female 7:11 EDT Gender Identity Not on file Sexual Orientation [...] C Antibody Negative Negative 08/10/2021 11:04 EST [facility] Blood VENOUS BLOOD / Unknown 08/09/2021 8:22 EST 08/09/2021 16:30 EST us Provider Outr Resulting Lab CHEMISTRY & BLOOD GA S ORDERABLES Final Result [facility] [address] [place] [address] from Last 3 Months or Most Recently Relevant to Health Maintenance Insurance MEDICAID ACO [place] Care Teams Mill Order Scheduler Relationship Specialty Start Date End Date Lindsay Miranda MD [address] [place] [address] PCP - General 05/21/18
--- OUTSIDE RECORDS SUMMARY | 2024-09-17 12:58 | XMS_ITS | Encounter Summary ---
Author Organization [facility] Address [address] [place] [address] Care Team Providers Care Jacquard Card Lacer Name Role Phone Lindsay Miranda MD Primary Care Provider [phone] Encounter Details Date Type Department Care Team ([facility] st Contact Info) Description 08/09/2021 Lab Requisition [facility] Pathology & Laboratory Medicine - [facility] [address] [place] [address] Outr Resulting Lab, Provider Social History Tobacco [...] Surface Ag Negative Negative 08/10/2021 10:27 EST [facility] Blood VENOUS BLOOD / Unknown 08/09/2021 8:22 EST 08/09/2021 16:30 EST us Provider Outr Resulting Lab CHEMISTRY & BLOOD GA S ORDERABLES Final Result Performing Organization Address City/[facility]/ZIP Co de Phone Number [facility] [address] [place] [address] * HEPATITIS C AB W REFLEX TO HCV RNA BY PCR (08/09/2021 8:22 EST) Hep C Antibody Negative Negative 08/10/2021 11:04 EST [facility] Blood VENOUS BLOOD / Unknown 08/09/2021 8:22 EST 08/09/2021 16:30 EST us Provider Outr Resulting Lab CHEMISTRY & BLOOD GA S ORDERABLES Final Result Performing Organization Address [facility] Co de Phone Number [facility] [address] [place] [address] documented in this encounter Visit Diagnoses Not on filedocumented in this encounter Care Teams Jacquard Card Lacer Relationship Specialty Start Date End Date Lindsay Miranda MD [address] [place] [id number] PCP - General 05/21/18 documented as of this encounter
--- OUTSIDE RECORDS SUMMARY | 2024-09-17 12:58 | XMS_ITS | Encounter Summary ---
Author Organization [facility] Address [address] [place] [address] Care Team Providers Care Sql Server Developer Name Role Phone Lindsay Miranda MD Primary Care Provider [phone] Encounter Details Date Type Department Care Team ([facility] st Contact Info) Description 08/09/2021 Lab Requisition [facility] Pathology & Laboratory Medicine - [facility] [address] [place] [address] Outr Resulting Lab, Provider Social History Tobacco [...] Ab Negative See Note 08/10/2021 9:38 EST [facility] Comment:Absence of detectabl e Varicella Zoster virus IgG antibodies. A negative result generally indicates no detectable antibody, but does not rule out acute infection. If VZV exposure is suspected, a second sample should be collected and tested no less than one or two weeks later. Blood VENOUS BLOOD / Unknown 08/09/2021 8:22 EST 08/09/2021 16:30 EST us Provider Outr Resulting Lab IMMUNOLOGY AND SEROL OGY ORDERABLES Final Result Performing Organization Address [facility] Co de Phone Number [facility] [address] [place] [address] * RUBELLA IGG ANTIBODY (08/09/2021 8:22 EST) Rubella IgG Ab Positive See Note 08/10/2021 9:43 EST [facility] Comment:Positive for IgG ant ibodies to Rubella virus. Blood VENOUS BLOOD / Unknown 08/09/2021 8:22 EST 08/09/2021 16:30 EST us Provider Outr Resulting Lab CHEMISTRY & BLOOD GA S ORDERABLES Final Result Performing Organization Address [facility] de Phone Number [facility] [address] [place] [address] documented in this encounter Visit Diagnoses Not on filedocumented in this encounter Care Teams Sql Server Developer Relationship Specialty Start Date End Date Lindsay Miranda MD [address] [place] [address] PCP - General 05/21/18 documented as of this encounter
--- OUTSIDE RECORDS SUMMARY | 2024-09-17 12:58 | XMS_ITS | Encounter Summary ---
Author Organization [facility] Address [address] [place] [address] Care Team Providers Care Wrecker Operator Name Role Phone Lindsay Miranda MD Primary Care Provider [phone] Encounter Details Date Type Department Care Team (Late st Contact Info) Description 09/12/[address] [facility] Pathology & Laboratory Medicine - [facility] [address] [place] [address] Outr Resulting Lab, Provider Social History Tobacco [...] gonorrhoeae Result Negative Negative 09/14/2020 14:21 EST [facility] Chlamydia trachomatis Result Negative Negative 09/14/2020 14:21 EST [facility] Swab ENTIRE ENDOCERVIX / Unknown 09/11/2020 13:10 EST 09/13/2020 18:08 EST us Provider Outr Resulting Lab MICROBIOLOGY - GENER AL ORDERABLES Final Result [facility] [address] [place] [address] documented in this encounter Visit Diagnoses Not on filedocumented in this encounter Care Teams Wrecker Operator Relationship Specialty Start Date End Date Lindsay Miranda MD [address] [place] [address] PCP - General 05/21/18 documented as of this encounter
--- OUTSIDE RECORDS SUMMARY | 2024-09-17 12:58 | XMS_ITS | Clinical Summary ---
Author Organization [facility] Address [address] [place] [address] Care Team Providers Care City Driver Name Role Phone Lindsay Miranda MD Primary Care Provider [phone] Social History Tobacco Use Types Packs/Day Years [...] C Antibody Negative Negative 08/10/2021 11:04 EST [facility] Blood VENOUS BLOOD / Unknown 08/09/2021 8:22 EST 08/09/2021 16:30 EST us Provider Outr Resulting Lab CHEMISTRY & BLOOD GA S ORDERABLES Final Result [facility] [address] [place] [address] from Last 3 Months or Most Recently Relevant to Health Maintenance Insurance MEDICAID ACO [place] Care Teams City Driver Relationship Specialty Start Date End Date Lindsay Miranda MD [address] [place] [address] PCP - General 05/21/18
--- OUTSIDE RECORDS SUMMARY | 2024-09-17 12:58 | XMS_ITS | Encounter Summary ---
Author Organization [facility] Address [address] [place] [address] Care Team Providers Care Volunteer Assistant Name Role Phone Lindsay Miranda MD Primary Care Provider [phone] Encounter Details Date Type Department Care Team (Late st Contact Info) Description 05/04/2024 Lab Requisition [facility] Pathology & Laboratory Medicine - [facility] [address] [place] [address] Outr Resulting Lab, Provider Social History Tobacco [...] Procedure Name Priority Date/Time Associated Diagnosis Comments ACUTE HEPATITIS PROFILE Routine 05/03/2024 21:27 EDT documented in this encounter Results * ACUTE HEPATITIS PROFILE (05/03/2024 21:27 EDT) Hep B Surface Ag Negative Negative 05/06/2024 11:32 EDT [facility] Hep C Antibody Negative Negative 05/06/2024 11:32 EDT [facility] Hepatitis A Antibody, IgM Negative Negative 05/06/2024 11:32 EDT [facility] Comment:The results of this assay can be falsely lowered due to the consumption of Biotin. Hepatitis B Core Ab, Total Negative Negative 05/06/2024 11:32 EDT [facility] Blood VENOUS BLOOD / Unknown 05/03/2024 21:27 EDT 05/05/2024 7:15 EDT us Provider Outr Resulting Lab CHEMISTRY & BLOOD GA S ORDERABLES Final Result [facility] [address] [place] [address] documented in this encounter Visit Diagnoses Not on filedocumented in this encounter Care Teams Volunteer Assistant Relationship Specialty Start Date End Date Lindsay Miranda MD [address] [place] [address] PCP - General 05/21/18 documented as of this encounter
--- OUTSIDE RECORDS SUMMARY | 2024-09-17 12:58 | XMS_ITS | Encounter Summary ---
Author Organization [facility] Address [address] [place] [address] Care Team Providers Care Family Resource Management Professor Name Role Phone Lindsay Miranda MD Primary Care Provider [phone] Encounter Details Date Type Department Care Team (Late st Contact Info) Description 10/17/2023 Lab Requisition [facility] Pathology & Laboratory Medicine - [facility] [address] [place] [address] Outr Resulting Lab, Provider Social History Tobacco [...] Salmonella PCR Negative Negative 10/18/2023 10:50 EST [facility] Shigella/Enteroin vasive E. coli Negative Negative 10/18/2023 10:50 EST [facility] HN LAB CAMPYLOBACTER PCR Negative Negative 10/18/2023 10:50 EST [facility] Shiga Toxin PCR Negative Negative 10:50 EST [facility] Feces SPECIMEN FROM RECTUM / Unknown 10/17/2023 12:00 EST 10/17/2023 21:15 EST us Provider Outr Resulting Lab MICROBIOLOGY - GENER AL ORDERABLES Final Result [facility] [address] [place], [place] [id number] documented in this encounter Visit Diagnoses Not on filedocumented in this encounter Care Teams Family Resource Management Professor Relationship Specialty Start Date End Date Lindsay Miranda MD [address] [place] [address] PCP - General 05/21/18 documented as of this encounter
--- OUTSIDE RECORDS SUMMARY | 2024-09-17 12:58 | XMS_ITS | Encounter Summary ---
Author Organization [facility] Address [address] [place] [address] Care Team Providers Care Health Promotion Specialist Name Role Phone Lindsay Miranda MD Primary Care Provider [phone] Encounter Details Date Type Department Care Team ([facility] st Contact Info) Description 07/15/2020 Lab Requisition [facility] Pathology & Laboratory Medicine - [facility] [address] [place] [address] Outr Resulting Lab, Provider Social History Tobacco [...] on filedocumented in this encounter Care Teams Health Promotion Specialist Relationship Specialty Start Date End Date Lindsay Miranda MD [address] [place] [id number] PCP - General 05/21/18 documented as of this encounter
--- OUTSIDE RECORDS SUMMARY | 2024-09-17 12:58 | XMS_ITS | Encounter Summary ---
Author Organization [facility] Address [address] [place] [address] Care Team Providers Care Motion Picture Projectionist Apprentice Name Role Phone Lindsay Miranda MD Primary Care Provider [phone] Encounter Details Date Type Department Care Team (Late st Contact Info) Description 08/09/2021 Lab Requisition [facility] Pathology & Laboratory Medicine - [facility] [address] [place] [address] Outr Resulting Lab, Provider Social History Tobacco [...] 4th Generation Negative Negative 08/10/2021 10:40 EST [facility] Comment:If acute HIV-1 infec tion is suspected in a high risk patient, submit plasma specimen for HIV-1 RNA quantitation test. Blood VENOUS BLOOD / Unknown 08/09/2021 8:22 EST 08/09/2021 16:30 EST Narrative [facility] - 08/10/2021 10:40 EST Fourth Generation assay performed on the Siemens BioTrace Medicalaur XPT. us Provider Outr Resulting Lab IMMUNOLOGY AND SEROL OGY ORDERABLES Final Result [facility] [address] [place] [address] documented in this encounter Visit Diagnoses Not on filedocumented in this encounter Care Teams Motion Picture Projectionist Apprentice Relationship Specialty Start Date End Date Lindsay Miranda MD [address] [place] [address] PCP - General 05/21/18 documented as of this encounter
--- OUTSIDE RECORDS SUMMARY | 2024-09-17 12:58 | XMS_ITS | Encounter Summary ---
Author Organization [facility] Address [address] [place] [address] Care Team Providers Care Knitted Garment Finisher Name Role Phone Lindsay Miranda MD Primary Care Provider [phone] Encounter Details Date Type Department Care Team ([facility] st Contact Info) Description 08/03/2020 Lab Requisition [facility] Pathology & Laboratory Medicine - [address] [address] Outr Resulting Lab, Provider Social History Tobacco [...] Unknown 08/03/2020 13:40 EST 08/03/2020 20:22 EST us Provider Outr Resulting Lab MICROBIOLOGY - GENER AL ORDERABLES Final Result [facility] [address] [place] [address] * COVID-19 TESTING (08/03/2020 13:40 EST) COVID-19 rt-PCR Result Negative Negative 08/03/2020 23:[address] [facility] Comment: This test has [...] history, and epidemiological information. Performed on the Circlher Fusion instrument Performing Lab [place] [facility] Lab 08/03/2020 23:[address] [facility] Swab 08/03/2020 13:4 0 EST 08/03/2020 20:22 EST us Provider Outr Resulting Lab MICROBIOLOGY - GENER AL ORDERABLES Final Result [facility] [address] [place] [address] documented in this encounter Visit Diagnoses Not on filedocumented in this encounter Care Teams Knitted Garment Finisher Relationship Specialty Start Date End Date Lindsay Miranda MD [address] [place] [address] PCP - General 05/21/18 documented as of this encounter
--- OUTSIDE RECORDS SUMMARY | 2024-09-17 12:58 | XMS_ITS | Encounter Summary ---
Author Organization [facility] Address [address] [place] [address] Care Team Providers Care Archeology Professor Name Role Phone Lindsay Miranda MD Primary Care Provider [phone] Encounter Details Date Type Department Care Team (Late st Contact Info) Description 08/03/2021 Lab Requisition [facility] Pathology & Laboratory Medicine - [facility] [address] [place] [address] Outr Resulting Lab, Provider Social History Tobacco [...] gonorrhoeae Result Negative Negative 08/05/2021 11:05 EST [facility] Chlamydia trachomatis Result Negative Negative 08/05/2021 11:05 EST [facility] Swab ENTIRE ENDOCERVIX / Unknown 08/02/2021 13:30 EST 08/03/2021 22:35 EST us Provider Outr Resulting Lab MICROBIOLOGY - GENER AL ORDERABLES Final Result [facility] [address] [place] [address] documented in this encounter Visit Diagnoses Not on filedocumented in this encounter Care Teams Archeology Professor Relationship Specialty Start Date End Date Lindsay Miranda MD [address] [place] [address] PCP - General 05/21/18 documented as of this encounter
--- OUTSIDE RECORDS SUMMARY | 2024-09-17 12:58 | XMS_ITS | Encounter Summary ---
Author Organization [facility] Address [address] [place] [address] Care Team Providers Care Instrument Mechanics Supervisor Name Role Phone Lindsay Miranda MD Primary Care Provider [phone] Encounter Details Date Type Department Care Team (Late st Contact Info) Description 04/26/2024 Lab Requisition [facility] Pathology & Laboratory Medicine - [facility] [address] [place] [address] Outr Resulting Lab, Provider Social History Tobacco [...] Salmonella PCR Negative Negative 04/26/2024 23:22 EDT [facility] Shigella/Enteroin vasive E. coli Negative Negative 04/26/2024 23:22 EDT [facility] HN LAB CAMPYLOBACTER PCR Negative Negative 04/26/2024 23:22 EDT [facility] Shiga Toxin PCR Negative Negative 23:22 EDT [facility] Feces SPECIMEN FROM RECTUM / Unknown 04/25/2024 14:45 EDT 04/26/2024 19:00 EDT us Provider Outr Resulting Lab MICROBIOLOGY - GENER AL ORDERABLES Final Result [facility] [address] [place], [place] [id number] documented in this encounter Visit Diagnoses Not on filedocumented in this encounter Care Teams Instrument Mechanics Supervisor Relationship Specialty Start Date End Date Lindsay Miranda MD [address] [place] [address] PCP - General 05/21/18 documented as of this encounter
--- OUTSIDE RECORDS SUMMARY | 2024-09-17 12:59 | XMS_ITS | Encounter Summary ---
Author Organization [facility] Address [facility] [place] [address] Care Team Providers Care Franchise Specialist Name Role Phone Lindsay Miranda MD Primary Care Provider [phone] Reason for Visit * Reason Comments Establish Care * Consultation (Routine) - Closed Specialty Diagnoses / Procedures Referred By Anibal khanna Referred To Contact Pediatric Endocrinology Diagnoses thyroiditis Lindsay Miranda MD [address] [place] [address] [facility] Pedi Endo [address] [place] [address] Referral ID Status Reason Start Date Expiration Date V isits Requested Visits Authorized [id number] Closed Consult, Test & Treat [facility] 05/26/2017 05/26/2018 1 1 Encounter Details Date Type Department Care Team (Latest Contact Info) Description 06/27/2017 1:00 PM EST Office Visit [place] [address] Carmel Menjivar MD [facility] [place] [address] Abnormal thyroid blood test Social [...] 1:4 9 PM EST Growth Chart: [facility] (Girls, 2- 20 Years) documented in this [...] HISTORY: Lives with: Mom, dad Mom's occupation: [employer] Dad's occupation: [employer] Grade in school: 10th grade, poor/ave academic [...] Attending Physician Pediatric Endocrinology [facility] Office: [phone] [place] Office: [phone] Pager ID [phone] documented in this encounter Plan of Treatment [...] SEND OUT OR DERABLES Performing Organization Address [facility] Co de Phone Number [facility] [address] * Thyroid peroxidase antibody (06/27/2017 2:43 PM EST) Thyroperoxidase Ab <10 <=34 IU/mL [facility] Blood specimen (specimen) 06/27/2017 2:43 PM EST 06/27/2017 2:47 PM EST Narrative Resulting Agency Comment Spec In Lab Carmel Menjivar MD IMMUNOLOGY ORDE RABLES Performing Organization Address [facility] de Phone Number [facility] [place] [address] * TSH (06/27/2017 2:43 PM EST) Thyroid Stimulating Hormone 3.26 0.27 - 4.20 mlU/ML [facility] Blood specimen (specimen) 06/27/2017 2:43 PM EST 06/27/2017 2:47 PM EST Narrative Resulting Agency Comment Spec In Lab Cramel Menjivar MD CHEMISTRY ORDER JAMAL Performing Organization Address [facility] Co de Phone Number [facility] [place] [address] * T4, free (06/27/2017 2:43 PM EST) Free T4 1.21 0.93 - 1.70 ng/dL [facility] Blood specimen (specimen) 06/27/2017 2:43 PM EST 06/27/2017 2:47 PM EST Narrative Resulting Agency Comment Spec In Lab Carmel Menjivar MD CHEMISTRY ORDER JAMAL Performing Organization Address City/[facility] Co de Phone Number [facility] [place] [address] documented in this encounter Visit Diagnoses Diagnosis Abnormal thyroid blood test Nonspecific abnormal results of thyroid function study documented in this encounter Care Teams Franchise Specialist Relationship Specialty Start Date End Date Lindsay Miranda MD [address] [place] [address] PCP - General Family Medicine 05/25/17 documented as of this encounter
--- OUTSIDE RECORDS SUMMARY | 2024-09-17 12:59 | XMS_ITS | Encounter Summary ---
[place] [address] Care Team Providers Care Cremator Name Role Phone Lindsay Miranda MD Primary Care Provider [phone] Encounter Details Date Type Department Care Team (Late st Contact Info) Description 08/20/2024 Telephone [place] [address] Catarina Bruno Social History Tobacco Use Types Packs/Day Years Used Date Smoking Tobacco: Every Day Cigarettes Passive Smoke Exposure: Current Smokeless Tobacco: Never Alcohol Use Standard Drinks/Week Comments Not Currently 0 (1 standard drink = 0.6 oz pur e alcohol) Sex and Gender Information Value Date Recorded Sex Assigned at Not on file Gender Identity Not on file Sexual Orientation Not on file documented as of this encounter Miscellaneous Notes * Telephone Encounter - Catarina Bruno - 08/20/2024 2:00 PM EST Mynor Oreilly [id number] Diagnosis/Indication: Diarrhea, abdominal pain, bloating, r/o microscopic colitis, Crohn's/UC Please review patient chart to confirm if previous Endoscopy procedure was performed within system. If yes, take note of Anesthesia type used. If previous procedure found, and with MAC/propofol Anesthesia support was used, schedule this procedure with Anesthesia and skip the Anesthesia portion of questions. If not performed within system, not performed at all, or performed with IVCS, ask Anesthesia questions. SCHEDULING QUESTIONS (ask all patient these questions) Have you ever had a/an Colonoscopy before? No If yes, did you have any problems with the procedure (such as waking up during the procedure, pain or difficulties afterwards, etc.)? No What type of sedation was used: None (ASK ONLY FOR COLONOSCOPY PROCEDURES) Are you aware, or have you ever been told that you had a poor prep or failed prep with a previous colonoscopy? No If yes, assign the Extended MiraLAX Prep (ASK ONLY FOR COLONOSCOPY PROCEDURES) Do you have an ongoing history of constipation? (E.g., hard stools, >2 days without a bowel movement, straining or difficulty passing stool) No If yes, assign the Extended MiraLAX Prep Do you take any blood thinners or have you been diagnosed with a bleeding disorder that increases your risk of bleeding with procedures? No Do you have a Pacemaker or Defibrillator device? If yes, send pool message to Cardiology with patient information and date or procedure. No Do you have diabetes? If yes, call PCP/managing provider to discuss use of prep and any questions or concerns related to. No If yes, assign the Extended MiraLAX Prep Do you take any iron supplements or vitamins that contain iron? No Do you take a GLP-1 medication for diabetes and/or weight loss? All patients who say yes, regardless of procedure, must be on clear liquids day prior to procedure. If patient answers yes, you must note which medication and instruct to hold the medication prior to procedure for one dose. Brand names include Wegovy, Ozempic, Trulicity, Mounjaro, Zepbound, Rynelsus, Saxenda, Victoza, Byetta, Bydureon, Soliqua, Xultophy No Do you regularly take prescription opioid pain medications on a daily basis? (Includes oxycodone, Percocet, Suboxone, methadone, etc.) No If yes, assign the Extended MiraLAX Prep Do you have a preference regarding the gender of your provider? No ANESTHESIA QUESTIONS (YES to any question, please book with Anesthesia support) Have you ever been diagnosed with Pulmonary Hypertension and/or Congential Heart Disease? No Have you been diagnosed with A-Fib (atrial fibrillation) that is NOT being well controled with medications? No Have you ever had an allergic or adverse reaction to Fentanyl or Versed? No Have you had a problem with sedation or anesthesia? (Waking up during procedure, extreme confusion after, etc.) No Do you have a diagnosis of Obstructive Sleep Apnea that requires the use of a c- pap machine? No Do you use an oxygen tank at home? No Do you use a rescue inhaler more than twice per day? (COPD, severe asthma) No Do you experience breathing problems when you lay flat for a period of time? No Do you regularly take prescription opioid pain medications on a daily basis? (Includes oxycodone, Percocet, Suboxone, methadone, etc.) No SCHEDULING CONFIRMATIONS: Please note any and all parts of your conversation with the patient here. We offer all new patients an opportunity to have an appointment with one of our associate care providers to learn more about your upcoming procedure, ask questions and get answers. These appointmentsare offered via telehealth. Would you be interested in scheduling this appointment? (Only ask if NEW referral patient; skip this question if DH GI provider ordered the procedure.) No Is there any other information or concerns you would like to us to share with your care team in relation to your upcoming scheduled procedure? No You must have a responsible alliance party who will drive you to your procedure, stay on campus for the entire duration of your procedure, and drive you home from your procedure. Who will likely be your motor coach driver for the procedure? Mom or grandparent *Please Verify the height and weight, and adjust if height and/or weight have changed* Estimated body mass index is 25.06 kg/m?? as calculated from the following: Height as of 02/05/19: 157.5 cm (5' 2). Weight as of 02/05/19: 62.1 kg (137 lb). *Patient must be scheduled for Anesthesia support if BMI is 40 or above* Height: 5'2'' Weight: 157 BMI: 28.7 Age:23 y.o. documented in this encounter Plan of Treatment Not on file documented as of this encounter Visit Diagnoses Not on filedocumented in this encounter Care Teams Cremator Relationship Specialty Start Date End Date Lindsay Miranda MD [address] [place] [address] PCP - General Family Medicine 05/25/17 documented as of this encounter
--- OUTSIDE RECORDS SUMMARY | 2024-09-17 12:59 | XMS_ITS | Encounter Summary ---
Author Organization [facility] Address [address] [place] [address] Care Team Providers Care Wash Crew Person Name Role Phone Lindsay Miranda MD Primary Care Provider [phone] Encounter Details Date Type Department Care Team (Late st Contact Info) Description 07/10/2019 Lab Requisition [facility] Pathology & Laboratory Medicine - [address] [address] Unknown, Provider, Social History Tobacco Use Types Packs/Day Years Used Date Smoking Tobacco: Never Assessed Comments Unknown Sex and Gender Information Value [...] gonorrhoeae Result Negative Negative 07/11/2019 14:31 EST [facility] Chlamydia trachomatis Result Negative Negative 07/11/2019 14:31 EST [facility] ZZUNK 07/10/2019 13:3 6 EST 07/10/2019 21:53 EST us Provider Unknown MICROBIOLOGY - GENERAL ORDER JAMAL Final Result [facility] [address] [place] [address] documented in this encounter Visit Diagnoses Not on filedocumented in this encounter Care Teams Wash Crew Person Relationship Specialty Start Date End Date Lindsay Miranda MD [address] [place] [address] PCP - General 05/21/18 documented as of this encounter
--- OUTSIDE RECORDS SUMMARY | 2024-09-17 12:59 | XMS_ITS | Encounter Summary ---
Author Organization [facility] Address [address] [place] [address] Care Team Providers Care Marketing Communications Manager Name Role Phone Lindsay Miranda MD Primary Care Provider [phone] Encounter Details Date Type Department Care Team (Late st Contact Info) Description 01/09/2020 Lab Requisition [facility] Pathology & Laboratory Medicine - [address] [address] Outr Resulting Lab, Provider Social History Tobacco [...] gonorrhoeae Result Negative Negative 01/10/2020 14:[address] [facility] Chlamydia trachomatis Result Negative Negative 01/10/2020 14:[address] [facility] Swab ENTIRE WALL OF CERVIX / Unknown 01/08/2020 11:50 EDT 01/09/2020 16:59 EDT us Provider Outr Resulting Lab MICROBIOLOGY - GENER AL ORDERABLES Final Result Performing Organization Address City/State/[facility] Co de Phone Number [facility] [address] [place] [address] documented in this encounter Visit Diagnoses Not on filedocumented in this encounter Care Teams Marketing Communications Manager Relationship Specialty Start Date End Date Lindsay Miranda MD [address] [place] [address] PCP - General 05/21/18 documented as of this encounter
--- OUTSIDE RECORDS SUMMARY | 2024-09-17 12:59 | XMS_ITS | Encounter Summary ---
Author Organization [facility] Address [address] [place] [address] Care Team Providers Care Construction Rep Name Role Phone Lindsay Miranda MD Primary Care Provider [phone] Encounter Details Date Type Department Care Team (Late st Contact Info) Description 01/07/2020 Lab Requisition [facility] Pathology & Laboratory Medicine - [facility] [address] [place] [address] Amber Estrada MD [address] [place] [phone] Encounter for other general examination Social [...] Predominantly intradermal compound nevus. 01/08/2020 10:58 EDT [facility] at 1058 Attestation By the signature below, the attending physician certifies that they have 1) personally conducted a gross and/or microscopic examination of the described specimen(s), and/or personally interpreted the results of laboratory testing of the described specimen(s), and 2) personally rendered or confirmed the above diagnosis. 01/08/2020 10:58 [facility] at 1058 Clinical History Chest skin lesions x2 01/08/2020 10:58 [facility] Gross Description A. Received in [...] and submitted B1. 01/07/2020 16:30 01/08/2020 10:58 [facility] Scanned Images 01/08/2020 10:58 [facility] Tissue TISSUE SPECIMEN FROM SKIN / Unknown 01/07/2020 8:45 EDT 01/07/2020 16:24 EDT Tissue specimen (specimen) SPECIMEN FROM SKIN / Unknown 01/07/2020 8:45 EDT 01/07/2020 16:24 EDT us Amber Estrada MD PATHOLOGY ORDERABLES Final Resul t [facility] [address] [place] [address] documented in this encounter Visit Diagnoses Diagnosis Encounter for other general examination documented in this encounter Care Teams Construction Rep Relationship Specialty Start Date End Date Lindsay Miranda MD [address] [place] [address] PCP - General 05/21/18 documented as of this encounter
--- OUTSIDE RECORDS SUMMARY | 2024-09-17 12:59 | XMS_ITS | Encounter Summary ---
Author Organization [facility] Address [address] [place] [address] Care Team Providers Care Personal Assistant Name Role Phone Unknown, Provider Primary Care Provider Unava ilable Encounter Details Date Type Department Care Team (Late st Contact Info) Description 05/17/2018 Results Only [facility] [phone] Rolly Stanton, [address] [place], [place] [id number] Social History Tobacco Use Types Packs/Day Years [...] ? MYNOR MEDINA ? Accession #: ? [id number] ? : ? 2000 (Age: 17) ??F [...] is submitted, gross examination only. RIKY Gilman ([facility]) 05/21/2018 12:01 PM End of Report [facility] 05/17/2018 7:27 EDT 05/18/2018 7:27 EDT us Rolly Stanton DO PATHOLOGY ORDERABLES Fi nal Result [facility] [address] [place] [address] documented in this encounter Visit Diagnoses Not on filedocumented in this encounter Care Teams Personal Assistant Relationship Specialty Start Date End Date Unknown, Provider, PCP - General 05/19/18 05/20/18 documented as of this encounter
--- OUTSIDE RECORDS SUMMARY | 2024-09-17 12:59 | XMS_ITS | Encounter Summary ---
Author Organization [facility] Address [address] [place] [address] Care Team Providers Care Artificial Marble Worker Name Role Phone Lindsay Miranda MD Primary Care Provider [phone] Encounter Details Date Type Department Care Team (Late st Contact Info) Description 05/13/2020 Lab Requisition [facility] Pathology & Laboratory Medicine - [address] [address] Outr Resulting Lab, Provider Social History Tobacco [...] C Antibody Negative Negative 05/14/2020 12:05 EDT [facility] Blood VENOUS BLOOD / Unknown 05/12/2020 11:00 EDT 05/13/2020 17:10 EDT us Provider Outr Resulting Lab CHEMISTRY & BLOOD GA S ORDERABLES Final Result [facility] [address] [place] [address] documented in this encounter Visit Diagnoses Not on filedocumented in this encounter Care Teams Artificial Marble Worker Relationship Specialty Start Date End Date Lindsay Miranda MD [address] [place] [address] PCP - General 05/21/18 documented as of this encounter
--- OUTSIDE RECORDS SUMMARY | 2024-09-17 12:59 | XMS_ITS | Encounter Summary ---
[place] [address] Care Team Providers Care Soil Fertility Specialist Name Role Phone Lindsay Miranda MD Primary Care Provider [phone] Reason for Visit * Reason Onset Date Comments Prior Authorization 08/27/2024 rifAXIMin (X ifaxan) 550 mg tablet Encounter Details Date Type Department Care Team (Late st Contact Info) Description 08/27/2024 Telephone [place] [phone] Deven Coronado CMA Prior Authorization (rifAXIMin (Xifaxan) 550 mg tablet) Social History Tobacco Use Types Packs/Day Years Used Date Smoking Tobacco: Former Cigarettes Passive Smoke Exposure: Current Smokeless Tobacco: Current Comments:Vape Alcohol Use Standard Drinks/Week Comments Not Currently 0 (1 standard drink = 0.6 oz pur e alcohol) Sex and Gender Information Value Date Recorded Sex Assigned at Not on file Gender Identity Not on file Sexual Orientation Not on file documented as of this encounter Miscellaneous Notes * Telephone Encounter - Felipa Anaya CMA - 08/28/2024 7:00 PM ESTSummary: RIKY approved rifAXIMin (Xifaxan) 550 mg tablet Images from the original note were not included. PA Outcome: PA Approval Medication Prior Authorization for Primary Care Approved: rifAXIMin (Xifaxan) 550 mg tablet Start Date: 08/27/24 End Date: 09/02/24 Case/Reference #: [id number] Letter of approval will be scanned to media once received. Additional Notes: * Telephone Encounter - Deven Coronado CMA - 08/27/2024 8:40 AM EST Images from the original note were not included. PA Submitted Submitted Date: Date Submitted: 08/27/2024 Medication Prior Authorization Patient: Mynor Oreilly Patient : 2000 Insurance Company: [place] Medicaid Sent via: [employer]: [id number] Physician: Rebecca Shukla APRN Medication Requested: rifAXIMin (Xifaxan) 550 mg tablet Frequency/Sig: Take 1 tablet by mouth 3 times daily for 14 days. Disp: 42 tabs Refills: 0 Currently taking: no Diagnosis for this medication: K63.8219-[id number] Prior medications trialed in this patient: Additional Notes: 08/24/2024 Breath Test attached to PA via [facility] documented in this encounter Plan of Treatment Not on file documented as of this encounter Visit Diagnoses Not on filedocumented in this encounter Care Teams Soil Fertility Specialist Relationship Specialty Start Date End Date Lindsay Miranda MD [address] [place] [address] PCP - General Family Medicine 05/25/17 documented as of this encounter
--- OUTSIDE RECORDS SUMMARY | 2024-09-17 12:59 | XMS_ITS | Encounter Summary ---
[place] [address] Care Team Providers Care Financial Reporting Consultant Name Role Phone Lindsay Miranda MD Primary Care Provider [phone] Encounter Details Date Type Department Care Team (Late st Contact Info) Description 11/05/2020 Notes Only [place] [address] John Dominique PA Social History Tobacco Use Types Packs/Day Years [...] Patient was scheduled for an appointment with [facility]. Arrived at 8:20 am for 8:00 appointment. Left the waiting room around 9:00 am and thus was not able to evaluated. John Dominique PA-C Oral-Maxillofacial Surgery 11/05/2020 Supervising physician: Luisito Hoff MD, DMD documented in this encounter Plan of Treatment Not on file documented as of this encounter Visit Diagnoses Not on filedocumented in this encounter Care Teams Financial Reporting Consultant Relationship Specialty Start Date End Date Lindsay Miranda MD [address] [place] [address] PCP - General Family Medicine 05/25/17 documented as of this encounter
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
--- OUTSIDE RECORDS SUMMARY | 2024-09-17 12:59 | XMS_ITS | Encounter Summary ---
Author Organization [facility] [place] [address] Care Team Providers Care Pressure Tester Operator Name Role Phone Lindsay Miranda MD Primary Care Provider [phone] Encounter Details Date Type Department Care Team (Late st Contact Info) Description 08/26/2024 Orders [place] [address] Masters, Rebecca Marlow APRN [facility] [address] Social History Tobacco Use Types Packs/Day Years [...] on filedocumented in this encounter Care Teams Pressure Tester Operator Relationship Specialty Start Date End Date Lindsay Miranda MD [address] [place] [address] PCP - General Family Medicine 05/25/17 documented as of this encounter
--- OUTSIDE RECORDS SUMMARY | 2024-09-17 12:59 | XMS_ITS | Encounter Summary ---
Author Organization [facility] [place] [address] Care Team Providers Care Beet Worker Name Role Phone Lindsay Miranda MD Primary Care Provider [phone] Reason for Visit * Reason Onset Date Comments Results 06/28/2017 Encounter Details Date Type Department Care Team (Late st Contact Info) Description 06/28/2017 Telephone [place] [address] Carmel Menjivar MD [facility] DR PEDIATRIC [place] [address] Results Social History Tobacco Use Types Packs/Day [...] on filedocumented in this encounter Care Teams Beet Worker Relationship Specialty Start Date End Date Lindsay Miranda MD [address] [place] [address] PCP - General Family Medicine 05/25/17 documented as of this encounter
--- OUTSIDE RECORDS SUMMARY | 2024-09-17 12:59 | XMS_ITS | Encounter Summary ---
[place] [address] Care Team Providers Care Wire Brush Maker Name Role Phone Lindsay Miranda MD Primary Care Provider [phone] Reason for Referral * Consultation (Routine) - Authorized Specialty Diagnoses / Procedures Referred By Anibal khanna Referred To Contact Gastroenterology Diagnoses Gastrointestinal hemorrhage, unspecified gastrointestinal hemorrhage type ?GI BLEED Dom Friedman MD [address] [place] [id number] [facility] [address] [place] [id number] Referral ID Status Reason Start Date Expiration Date Visits Requested Visits Authorized [id number] Authorized Consult, Test & Treat PCP Updated and/or Approved 05/06/2024 11/03/2024 6 6 Encounter Details Date Type Department Care Team (Latest Contact Info) Description 05/21/2024 Transcribe Orders eDH Incoming Referrals [phone] Lindsay Miranda MD [address] [place], [place] [id number] Gastrointestinal hemorrhage, unspecified gastrointestinal hemorrhage type Social History Tobacco Use Types Packs/Day Years Used Date Smoking Tobacco: Passive Smo ke Exposure - Never Smoker Smokeless Tobacco: Never Sex and Gender Information Value Date Recorded Sex Assigned at Not on file Gender Identity Not on file Sexual Orientation Not on file documented as of this encounter Plan of Treatment Scheduled Referrals Name Type Priority Associated Diagnoses Orde r Schedule Referral to Gastroenterology Outpatient Referral Routine Gastrointestinal hemorrhage, unspecified gastrointestinal hemorrhage type Ordered: 05/21/2024 documented as of this encounter Visit Diagnoses Diagnosis Gastrointestinal hemorrhage, unspecified gastrointestinal hemorrhage type documented in this encounter Care Teams Wire Brush Maker Relationship Specialty Start Date End Date Lindsay Miranda MD [address] [place] [address] PCP - General Family Medicine 05/25/17 documented as of this encounter
--- OUTSIDE RECORDS SUMMARY | 2024-09-17 12:59 | XMS_ITS | Encounter Summary ---
Author Organization [facility] [place] [address] Care Team Providers Care Supervisor Cemetery Workers Name Role Phone Lindsay Miranda MD Primary Care Provider [phone] Encounter Details Date Type Department Care Team (Latest Contact Info) Description 08/24/2024 Travel Social History Tobacco Use Types Packs/Day Years [...] on filedocumented in this encounter Care Teams Supervisor Cemetery Workers Relationship Specialty Start Date End Date Lindsay Miranda MD [address] [place] [address] PCP - General Family Medicine 05/25/17 documented as of this encounter
--- OUTSIDE RECORDS SUMMARY | 2024-09-17 12:59 | XMS_ITS | Encounter Summary ---
[place] [address] Care Team Providers Care Log Deck Tender Name Role Phone Lindsay Miranda MD Primary Care Provider [phone] Encounter Details Date Type Department Care Team (Late st Contact Info) Description 11/10/2020 Telephone [place] [address] Liana Flanagan Social History Tobacco Use Types [...] AM EDT LVM for patient to call [facility] at [phone]. I would like to discuss rescheduling 11/05/20 apt as a tele health apt with John. Patient needs to be set up with a [facility] account. documented in this encounter Plan of Treatment Not on file documented as of this encounter Visit Diagnoses Not on filedocumented in this encounter Care Teams Log Deck Tender Relationship Specialty Start Date End Date Lindsay Miranda MD [address] [place] [address] PCP - General Family Medicine 05/25/17 documented as of this encounter
--- OUTSIDE RECORDS SUMMARY | 2024-09-17 12:59 | XMS_ITS | Encounter Summary ---
[place] [address] Care Team Providers Care Candy Separator Hard Name Role Phone Lindsay Miranda MD Primary Care Provider [phone] Encounter Details Date Type Department Care Team (Latest Contact Info) Description 11/20/2020 11:00 AM EDT TH Visit (TeleHealth) [place] [address] John Dominique PA Impacted third molar tooth Social History Tobacco [...] telehealth consult appointment regarding her third molars. John Dominique PA-C Oral-Maxillofacial Surgery 11/20/2020 Supervising physician: Luisito Hoff MD, DMD documented in this encounter Plan of Treatment Not on file documented as of this encounter Visit Diagnoses Diagnosis Impacted third molar tooth Disturbances in tooth eruption documented in this encounter Care Teams Candy Separator Hard Relationship Specialty Start Date End Date Lindsay Miranda MD [address] [place] [address] PCP - General Family Medicine 05/25/17 documented as of this encounter
--- OUTSIDE RECORDS SUMMARY | 2024-09-17 12:59 | XMS_ITS | Encounter Summary ---
Author Organization [facility] Address [address] [place] [address] Care Team Providers Care Automatic Serging Machine Operator Name Role Phone Unavailable Primary Care Provider Unavailabl e Encounter Details Date Type Department Care Team (Latest Contact Info) Description 05/17/2018 16:09 EDT - 05/17/2018 23:59 EDT Hospital Encounter [address] [address] Unknown, Provider, MD Discharge Disposition: Home or Self Care Social [...] Code Departure Means Destination Home or Self Retirement documented in this encounter Plan of Treatment Not on file documented as of this encounter Visit Diagnoses Not on filedocumented in this encounter
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
--- OUTSIDE RECORDS SUMMARY | 2024-09-17 12:59 | XMS_ITS | Encounter Summary ---
Author Organization [facility] Address [address] [place] [address] Care Team Providers Care Riveting Machine Operator Automatic Name Role Phone Lindsay Miranda MD Primary Care Provider [phone] Encounter Details Date Type Department Care Team (Late st Contact Info) Description 05/13/2020 Lab Requisition [facility] Pathology & Laboratory Medicine - [facility] [address] [place] [address] Outr Resulting Lab, Provider Social History Tobacco [...] gonorrhoeae Result Negative Negative 05/14/2020 15:05 EDT [facility] Chlamydia trachomatis Result Negative Negative 05/14/2020 15:05 EDT [facility] Swab ENTIRE WALL OF CERVIX / Unknown 05/12/2020 11:00 EDT 05/13/2020 16:55 EDT us Provider Outr Resulting Lab MICROBIOLOGY - GENER AL ORDERABLES Final Result [facility] [address] [place] [address] documented in this encounter Visit Diagnoses Not on filedocumented in this encounter Care Teams Riveting Machine Operator Automatic Relationship Specialty Start Date End Date Lindsay Miranda MD [address] [place] [address] PCP - General 05/21/18 documented as of this encounter
--- OUTSIDE RECORDS SUMMARY | 2024-09-17 12:59 | XMS_ITS | Encounter Summary ---
Author Organization [facility] [place] [address] Care Team Providers Care Mds Coordinator Name Role Phone Lindsay Miranda MD Primary Care Provider [phone] Reason for Visit * Diagnostic Test (Routine) - Closed Specialty Diagnoses / Procedures Referred By Anibal khanna Referred To Contact Gastroenterology Diagnoses Diarrhea, unspecified type Right lower quadrant abdominal pain Nausea and vomiting, unspecified vomiting type Flatulence Abdominal bloating HBT - lactulose - bloating Procedures Breath Hydrogen Test Masters, Rebecca Marlow APRN [facility] [place] [address] [facility] [place] [address] [place] [address] Referral ID Status Reason Start Date Expiration Date V isits Requested Visits Authorized [id number] Closed Consult, Test & Treat 07/03/2024 07/03/2025 1 1 Encounter Details Date Type Department Care Team (Latest Contact Info) Description 08/24/2024 8:00 AM EST Procedure visit Gastroenterology at [place] [phone] Diarrhea, unspecified type; Right lower quadrant abdominal pain; Nausea and vomiting, unspecified vomiting type; Flatulence; Abdominal bloating Social History Tobacco Use [...] as of this encounter Progress Notes * Laverne Cm PA - 08/24/2024 8:00 AM EST Gastroenterology Breath Test Report Patient: Mynor Oreilly Date Of : 2000 PCP: Lindsay Miranda MD Referring: Rebecca Shukla STUDY DATE: 08/24/2024 PROVIDER: RIKY Marquez INDICATION: bloating ppmH2 ppmCH4 CO2(f) Fasting Baseline 2 5 3.6/1.52 Administer sugar: Lactulose 10g with 90 mL H2O Sample Time ppmH2 ppmCH4 CO2(f) 90 min 70 10 4.0/1.37 Symptoms during the test: no Interpretation: Positive hydrogen breath test. Patient had excess production of methane which can be associated with constipation. Patient reported no symptoms during the test. Clinical interpretation is based on the Hydrogen and Methane-Based Breath Testing in Gastrointestinal Disorders: The [place] Consensus (Am J Gastroenterol 2017; 112(5):775-84. Apositive breath test is defined as a rise in hydrogen production >20 ppm compared to baseline within 90 minutes. Methane-positive is defined by at least 10 ppm production of methane. Signed, RIKY Marquez [place] [address] P: [phone] F: [phone] Copy: Rebecca Miranda MD documented in this encounter Plan of Treatment Not on file documented as of this encounter Visit Diagnoses Diagnosis Diarrhea, unspecified type Right lower quadrant abdominal pain Abdominal pain, right lower quadrant Nausea and vomiting, unspecified vomiting type Flatulence Flatulence, eructation, and gas pain Abdominal bloating Flatulence, eructation, and gas pain documented in this encounter Care Teams Mds Coordinator Relationship Specialty Start Date End Date Lindsay Miranda MD [address] [place] [address] PCP - General Family Medicine 05/25/17 documented as of this encounter
--- OUTSIDE RECORDS SUMMARY | 2024-09-17 12:59 | XMS_ITS | Encounter Summary ---
[place] [address] Care Team Providers Care Building Services Supervisor Name Role Phone Lindsay Miranda MD Primary Care Provider [phone] Encounter Details Date Type Department Care Team (Late st Contact Info) Description 07/03/2024 Telephone [place] [id number] Jamarcus Nguyen Social History Tobacco Use Types Packs/Day Years [...] encounter Miscellaneous Notes * Telephone Encounter - Jamarcus Nguyen - 07/03/2024 1:16 PM EST RAC letter sent with scheduling information for ordered testing. Pt needs: Labs HBT Colonoscopy * Telephone Encounter - Jamarcus Nguyen - 07/03/2024 1:15 PM EST ----- Message from Rebecca Shukla sent at 07/03/2024 10:31 AM EST ----- Please schedule: -Colonoscopy -Hydrogen breath test Rebecca Gamez documented in this encounter Plan of Treatment Not on file documented as of this encounter Visit Diagnoses Not on filedocumented in this encounter Care Teams Building Services Supervisor Relationship Specialty Start Date End Date Lindsay Miranda MD [address] [place] [address] PCP - General Family Medicine 05/25/17 documented as of this encounter
--- OUTSIDE RECORDS SUMMARY | 2024-09-17 12:59 | XMS_ITS | Encounter Summary ---
Author Organization [facility] Address [address] [place] [address] Care Team Providers Care Cashier Credit Name Role Phone Lindsay Miranda MD Primary Care Provider [phone] Encounter Details Date Type Department Care Team ([facility] st Contact Info) Description 01/03/2020 Lab Requisition [facility] Pathology & Laboratory Medicine - [facility] [address] [place] [address] Outr Resulting Lab, Provider Social History Tobacco [...] rt-PCR Result NEGATIVE Negative 01/04/2020 11:40 EDT [facility] Comment: 2019-novel Coronavirus (2019-nCoV) [...] in accordance with CLIA regulations, [employer] (CAP) guidelines (Nov 07, 2019), and FDA guidance (Oct 19, 2019). This test is only for use under the Food and Drug Administration's Emergency Use Authorization. Swab ENTIRE NASOPHARYNX / Unknown 01/03/2020 11:16 EDT 01/03/2020 15:20 EDT us Provider Outr Resulting Lab MICROBIOLOGY - GENER AL ORDERABLES Final Result [facility] [place] * COVID-19 TESTING (01/03/2020 11:16 EDT) Pathologist [facility] COVID-19 rt-PCR Result NEGATIVE Negative 01/04/2020 14:18 EDT [facility] Comment: 2019-novel Coronavirus (2019-nCoV) not detected [...] in accordance with CLIA regulations, [employer] (CAP) guidelines (Nov 07, 2019), and FDA guidance (Oct 19, 2019). This test is only for use under the Food and Drug Administration's Emergency Use Authorization. Performing Lab [facility] 01/04/2020 14:18 EDT [facility] Swab ENTIRE NASOPHARYNX / Unknown 01/03/2020 11:16 EDT 01/03/2020 15:20 EDT us Provider Outr Resulting Lab MICROBIOLOGY - GENER AL ORDERABLES Final Result [facility] [address] [place] [address] [facility] [place] documented in this encounter Visit Diagnoses Not on filedocumented in this encounter Care Teams Cashier Credit Relationship Specialty Start Date End Date Lindsay Miranda MD [address] [place] [address] PCP - General 05/21/18 documented as of this encounter
--- OUTSIDE RECORDS SUMMARY | 2024-09-17 12:59 | XMS_ITS | Encounter Summary ---
Author Organization [facility] Address [facility] [place] [address] Care Team Providers Care Slubber Hand Name Role Phone Lindsay Miranda MD Primary Care Provider [phone] Encounter Details Date Type Department Care Team (Latest Contact Info) Description 08/26/2024 7:22 AM EST - 08/26/2024 10:49 AM EST Hospital [place] [address] Kena Collado MD [facility] [place] [address] Diarrhea, unspecified type; Right lower quadrant abdominal pain; Nausea and vomiting, unspecified vomiting type; BRBPR (bright red blood per rectum); Flatulence; Abdominal bloating Discharge Disposition: Home Social History Tobacco Use Types Packs/Day Years [...] encounter Discharge Instructions * Discharge Instructions* [facility], RN - 08/26/2024 10:11 AM EST Colonoscopy: [...] occurs, please contact your Doctor. Please call [phone] before 8pm Mon-Fri with problems, questions or concerns. If you call after 8pm or on weekends, call the Hospital at [phone] and ask to speak to the Security Sme ammunition assembly i laborer and the owner operator tanker truck driver will contact that person for you. When should you call for help? Call 151 anytime you think you may need emergency [...] any problems. Where can you learn more? [email or web address] View your After Visit Summary and more online at [email or web address] If you would like to provide [...] cost to you. Content Version: 12.2 ?? [id number] [facility]. Care instructions adapted under license by [facility]. If you have questions about a medical condition or this instruction, always ask your healthcare professional. [facility] disclaims any warranty or liability for your use of this information. documented in this encounter Medications at Time of Discharge Medication Sig Dispensed Refills Start Date End Date ondansetron (ZOFRAN) 4 mg Tablet Take 4 mg by mouth every 8 hours as needed for Nausea. vitamin with dqbeayun-Ya-Upwr-FA Tablet Take by mouth. venlafaxine (EFFEXOR-XR) 75 [...] per rectum) Flatulence Abdominal bloating Colonoscopy, Biopsy (90649) 08/26/2024 9:34 AM EST Diarrhea, unspecified type Right lower quadrant abdominal pain Nausea and vomiting, unspecified vomiting type BRBPR (bright red blood per rectum) Flatulence Abdominal bloating COLONOSCOPY Routine 08/26/2024 9:27 AM EST documented in this encounter Results * Surgical Pathology (08/26/2024 9:55 AM EST) Case Report Surgical Pathology Report ? Case: [id number] ? Authorizing Provider: ??Kena Collado MD ?Collected: ? 08/26/2024 0955 ? Ordering Location: ? Gastroenterology at [facility] ?? Received: ?08/26/2024 1214 ? Pathologist: ? Nabeel Morales MD ? Specimen: ?Colon, Random, Biopsy ? 08/28/2024 4:[address] [facility] Final Diagnosis A. Colon, Random, Biopsy Non-targeted biopsy: - Colonic mucosa, negative for diagnostic abnormality. Cr-px 08/28/2024 4:[address] [facility] Clinical Information A. Colon, Random, Biopsy Rule out microscopic colitis 08/28/2024 4:[address] [facility] Gross Description A. Colon, Random, Biopsy. A - Labeled/Fixative: Colon, random biopsy, formalin. Quantity/Size: Multiple, averaging 0.3 cm. Tissue Description: Soft, catherine tissues. Sections/Processin g: Submitted in toto in 2 cassettes labeled A1-A2. shb 08/28/2024 4:[address] [facility] Result Note Routine 08/28/2024 4:06 PM EST [facility] Tissue (Colon, Random) 08/26/2024 9:55 AM EST 08/26/2024 12:14 PM EST Comment:Pre-op diagnosis: Diarrhea, abdominal pain, bloating, r/o microscopic colitis, Crohn's/UC Kena Collado MD PATHOLOGY/CYTOLOGY O RDERAANDI Performing Organization Address City/State/[facility] Co de Phone Number [facility] [place] [address] * COLONOSCOPY (08/26/2024 9:27 AM EST) COLONOSCOPY [facility] Endoscopy Procedure Date: 08/26/2024 9:27 AM ? Patient Name: Mynor Oreilly ? Date of : 2000 ? Age: 23 ? Order #: [id number] ? Instrument Name: [id number] ? Procedure: ? Colonoscopy Indications: ? Abdominal pain, Clinically ? significant diarrhea of unexplained ? origin Providers: ? Kena Collado MD, Michael ? Angeline Foster, ? Tub Tender Referring MD: ?Dom Zamoraatino Medicines: ? Fentanyl 200 micrograms IV, ? [...] ? was evaluated using the BBPS ? ([place] Bowel Preparation Scale) ? with scores of: [...] Procedure Code(s): ? --- Professional --- ? 50593, Colonoscopy, flexible; with ? biopsy, single or multiple CPT copyright 2022 [employer]. All rights reserved. The codes documented in this report are preliminary and upon concession attendant review may be revised to meet current [...] and gas pain documented in this encounter Active and Recently [...] Foster RN)0946 (Given - Provider: Matt Foster RN) [...] RN) documented in this encounter Care Teams Slubber Hand Relationship Specialty Start Date End Date Lindsay Miranda MD [address] [place] [address] PCP - General Family Medicine 05/25/17 documented as of this encounter
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
--- OUTSIDE RECORDS SUMMARY | 2024-09-17 12:59 | XMS_ITS | Encounter Summary ---
Author Organization [facility] Address [address] [place] [address] Care Team Providers Care Retort Fireman Name Role Phone Lindsay Miranda MD Primary Care Provider [phone] Encounter Details Date Type Department Care Team (Late st Contact Info) Description 05/13/2020 Lab Requisition [facility] Pathology & Laboratory Medicine - [address] [id number] Outr Resulting Lab, Provider Social History Tobacco [...] Syphilis Serology Negative Negative 05/14/2020 17:[address] [facility] Blood VENOUS BLOOD / Unknown 05/12/2020 11:00 EDT 05/13/2020 17:10 EDT us Provider Outr Resulting Lab IMMUNOLOGY AND SEROL OGY ORDERABLES Final Result [facility] [address] [place] [address] documented in this encounter Visit Diagnoses Not on filedocumented in this encounter Care Teams Retort Fireman Relationship Specialty Start Date End Date Lindsay Miranda MD [address] [place] [address] PCP - General 05/21/18 documented as of this encounter
--- OUTSIDE RECORDS SUMMARY | 2024-09-17 12:59 | XMS_ITS | Encounter Summary ---
Author Organization [facility] Address [facility] [place] [address] Care Team Providers Care Director Of Scout Work Name Role Phone Lindsay Miranda MD Primary Care Provider [phone] Reason for Visit * Consultation (Routine) - Closed Specialty Diagnoses / Procedures Referred By Contact Referred To Contact Maxillofacial Surgery Diagnoses Needs extraction of all 4 WT Jd Petty, DMD [address] [place] [address] Shayne Farr MD [facility] [place] [address] Referral ID Status Reason Start Date Expiration Date Visits Re quested Visits Authorized [id number] Closed 11/08/2018 11/08/2019 1 1 Encounter Details Date Type Department Care Team (Late st Contact Info) Description 02/05/2019 4:00 PM EDT Office Visit [place] [address] Shayne Farr MD [facility] DR RICKS AND [place]ILL[place] [address] Impacted third molar tooth Social [...] 02/05/2019 4:1 9 PM EDT Growth Chart: [facility] (Girls, 2- 20 Years) documented in [...] ?? 10 weeks - being seen at [facility] ?? Had tonsils removed in April Pertinent [...] eruption documented in this encounter Care Teams Director Of Scout Work Relationship Specialty Start Date End Date Lindsay Miranda MD [address] [place] [address] PCP - General Family Medicine 05/25/17 documented as of this encounter
--- OUTSIDE RECORDS SUMMARY | 2024-09-17 12:59 | XMS_ITS | Encounter Summary ---
Author Organization [facility] Address [address] [place] [address] Care Team Providers Care Ash Collector Name Role Phone Lindsay Miranda MD Primary Care Provider [phone] Encounter Details Date Type Department Care Team (Late st Contact Info) Description 05/13/2020 Lab Requisition [facility] Pathology & Laboratory Medicine - [facility] [address] [place] [address] Outr Resulting Lab, Provider Social History Tobacco [...] 4th Generation Negative Negative 05/14/2020 11:[address] [facility] Comment: If acute HIV-1 infection is suspected in a high risk ??patient, submit plasma specimen for HIV-1 RNA quantitation test. Fourth Generation assay performed on the Siemens [employer]. Blood VENOUS BLOOD / Unknown 05/12/2020 11:00 EDT 05/13/2020 17:10 EDT us Provider Outr Resulting Lab IMMUNOLOGY AND SEROL OGY ORDERABLES Final Result [facility] [address] [place] [address] documented in this encounter Visit Diagnoses Not on filedocumented in this encounter Care Teams Ash Collector Relationship Specialty Start Date End Date Lindsay Miranda MD [address] [place] [address] PCP - General 05/21/18 documented as of this encounter
== END 2024-09-17 13:45 | disposition left against medical advice (07) ==
PROVIDERS: PCP Family Medicine
DX: Z53.21 Procedure and treatment not carried out due to patient leaving prior to being seen by health care provider (principal)
CPT/HCPCS: 80053; 83690; 83735; 85025

== ENCOUNTER 2024-11-30 18:56 | Emergency (ER) | payer MEDICAID, SELFPAY ==
[2024-11-30 18:57] VITALS: BP 124/77; PULSE 101; RESP 18; TEMP 36.8; O2SAT 98
--- NOTE | 2024-11-30 19:07 | W.ED.GENAD ---
Discharge Plan Disposition Patient Disposition: Home Condition: Stable Discharge Details Clinical Impression: Lumbar paraspinal muscle spasm Primary Care Provider: Lindsay Miranda V ED Provider: Alessandro Mccray Home Meds and New Rx's Prescriptions: New ketorolac 10 mg tablet 10 mg PO QID PRNQty: 20 0RF Rx Instructions: maximum total duration of 5 days from all oral, intranasal, or parenteral formulations cyclobenzaprine 10 mg tablet 10 mg PO TID PRNQty: 30 0RF No Action albuterol sulfate [ProAir HFA] 200 PUFF HFA aerosol inhaler 2 puff Inhalation PRN PRN venlafaxine 75 mg capsule,extended release 24hr 75 mg PO DAILY Rx Instructions: TAKE ONE CAPSULE BY MOUTH EVERY DAY Discharge Instructions Instructions: Ketorolac (Systemic), Cyclobenzaprine, Muscle Spasm ED Additional Instructions: You were seen in the emergency department for your likely lumbar paraspinal muscle spasm while lifting your mom earlier today. Please take 1000 mg of Tylenol every 6 hours, group home between Tylenol dosings please take one of the prescribed 10 mg ketorolac's, apply heat and ice to the area, obtain [id number] lidocaine patches use these at night for 12 hours, use Voltaren gel as needed for anti-inflammatory effect, follow-up with physical therapy referral, perform gentle stretching exercises. Should you experience any bowel or urinary changes or numbness to the genitals please return to the emergency department at once especially with lower leg weakness. Stand Alone Forms: Physical Therapy Referral Referrals: Lindsay Miranda MD [Primary Care Provider] - Discharge Data Discharge Date/Time-TO BE ENTERED AT DEPARTURE: 11/30/24 20:45 HPI General Date/Time Provider Initiated Documentation: 11/30/24 19:03. HPI Narrative: 24 year-old female presents to ED today by POV/ambulating with a chief complaint of lower back pain with onset tonight after helping her mother up- lifting injury. Quality described as diffuse sharp lower back pain, no radiation to urinary/bowel changes, numbness to genitals, weakness/numbness to lower extremities, fever. Severity is described as severe. Palliating factors include nothing specific attempted. Provoking factors include nothing specific. Patient not anticoagulated. Related Data Home Medications ?Medication ?Instructions ?Recorded ?Confirmed albuterol sulfate 90 mcg/actuation 2 puff inhalation PRN PRN 10/22/15 04/12/25 aerosol inhaler (ProAir HFA) venlafaxine 75 mg capsule,extended 75 mg PO DAILY 01/18/24 11/30/24 release 24 hr cyclobenzaprine 10 mg tablet 10 mg PO TID PRN #30 tabs 11/30/24 ketorolac 10 mg tablet 10 mg PO QID PRN #20 tabs 11/30/24 Previous Rx's ?Medication ?Instructions ?Recorded cyclobenzaprine 10 mg tablet 10 mg PO TID PRN #30 tabs 11/30/24 ketorolac 10 mg tablet 10 mg PO QID PRN #20 tabs 11/30/24 Allergies Allergy/AdvReac Type Severity Reaction Status Date / Time sertraline AdvReac Intermediate pt reports Verified 11/30/24 19:01 she got ugly black flies AdvReac Intermediate red and Uncoded 11/30/24 19:01 swollen cats AdvReac Intermediate sneezing Uncoded 11/30/24 19:01 a lot, runny nose General Stated Complaint: Nk/Back Pain ETHAN: 4 Review of Systems All systems reviewed & are unremarkable except as noted in HPI and below Exam Narrative Exam Narrative: GENERAL APPEARANCE: Well-nourished, non-toxic, awake and alert, atraumatic, no acute distress. SKIN: Warm, pink, dry, intact, without rashes/lesions/ulcerations. HEAD: Normocephalic, atraumatic, normal hair distribution for gender/age. EYES: Normal conjunctiva, no exudates on lids/lashes. ENT: Nares patent, no circumoral cyanosis, no facial swelling NECK: Supple, trachea midline, painless cervical ROM. LUNGS/CHEST: Non-labored respirations, normal A/P diameter, symmetrical expansion, no chest wall deformity HEART (CV/PV): No peripheral edema, no JVD. ABDOMEN: Soft, non-distended, no guarding. MSK: Normal ROM, no swelling/deformity to bilateral UEs or LEs, moving all extremities without weakness, no cyanosis, spine midline with tenderness diffusely to lumbar area, most focal over bilateral SI joints, palpable paraspinal lumbar muscle tension, normal curvature. NEURO: Mental Status AAOx4 - alert to person, place, time, events No facial droop, no forehead involvement. Motor: No focal weakness - strength 5/5 in bilateral UEs and LEs, proximal and distal, symmetric. Sensory: sensation intact to light touch globally. Gait normal: patient ambulated without ataxia into ED room. PSYCH: euthymic, cooperative, pleasant, appropriate speech Course Vital Signs Vital signs: Vital Signs Temperature 36.8 C 11/30/24 18:57 Pulse 101 H 11/30/24 18:57 Respiratory Rate 18 11/30/24 18:57 Blood Pressure 124/77 11/30/24 18:57 Pulse Oximetry 98 11/30/24 18:57 Temperature 36.8 C 11/30/24 18:57 Temperature Source Oral 11/30/24 18:57 Pulse 101 H 11/30/24 18:57 Respiratory Rate 18 11/30/24 18:57 Blood Pressure 124/77 11/30/24 18:57 Pulse Oximetry 98 11/30/24 18:57 Oxygen Delivery Method Room Air 11/30/24 18:57 Oxygen Flow Rate 0 11/30/24 18:57 Medical Decision Making This dictation utilizes [id number] dictation software and may contain unedited grammatical errors. 24 year-old female presents to ED today by POV/ambulating with a chief complaint of lower back pain with onset tonight after helping her mother up- lifting injury. Quality described as diffuse sharp lower back pain, no radiation to urinary/bowel changes, numbness to genitals, weakness/numbness to lower extremities, fever. Severity is described as severe. Palliating factors include nothing specific attempted. Provoking factors include nothing specific. Patients' medical history: Noncontributory. Family and social history: Noncontributory. Pertinent exam findings / vital signs include diffuse lumbosacral tenderness most focal over bilateral SI joints, neurovascularly intact in bilateral lower extremities, palpable paraspinal lumbar muscle tension. Differential / pathologies of concern include lumbar strain, lumbar muscle spasm, not cauda equina. Diagnostic studies of: - None. Interventions of: - Acetaminophen, Toradol, 1 dose of Valium, Lidoderm patch with relief. ED Course/Assessment/Plan: 24-year-old otherwise healthy female was helping lift her mother up off the ground and suffered a lower back injury, no significant trauma, do not suspect cauda equina based on her history of physical, she achieved relief with treatment for lumbar muscle spasm, I counseled her on the need to follow-up with physical therapy, provided a outpatient prescription for cyclobenzaprine, recommend therapeutic dosing of Tylenol and ibuprofen, strict return criteria for any bowel or urinary changes especially with numbness to genitals or back pain with fever, weakness to lower extremities. Findings not consistent with cauda equina, neurovascular deficit to lower extremities, vertebral trauma. Disposition of lumbar paraspinal muscle spasm. Patient verbalized understanding of the plan and return to ED criteria and engaged in shared decision making. Medical Records Medical records reviewed: Yes I reviewed the patient's medical records. Quality:[facility] Health Related Social Needs: No Data to Display PFSH All Active Problems (Updated 11/30/24 @ 20:30 by RIKY Judge) Lumbar paraspinal muscle spasm (Acute) Gastroenteritis (Acute) Encounter for initial prescription of transdermal patch hormonal contraceptive device (Acute) Encounter for IUD removal (Acute) Intrauterine device surveillance (Acute) Maternal varicella, non-immune (Acute) Posttraumatic stress disorder (Acute) History of migraine (Acute) Depressed (Acute) Cannabis abuse (Acute) Medical History Group B streptococcal carriage complicating Hematuria Mild anemia History of gestational hypertension Laceration of labia minora Exercise-induced asthma Attention deficit disorder with hyperactivity RAD (reactive airway disease) Allergic rhinitis, unspecified Mood disorder due to known physiological condition with depressive features Subacute thyroiditis Sleep disturbance Headache Seasonal allergies Suicidal ideation Dizziness Asthma Bipolar disorder Surgical History History of tonsillectomy Family History Paternal Grandfather Diabetes Maternal Grandfather Heart disease mi w/ double bypass Hypertension Mother Hypothyroid Social History Smoking/Tobacco Use Status: Former Tobacco Use Quit Date: 02/18/23 Smoking risk assessment performed?: Yes Alcohol Intake: never Drug use: Daily Substance use type: marijuana Counseling provided: treatment program Details: nightly marijuana use Housing: apartment Sexually active: Yes Do you feel safe at home: Yes Do you feel safe in your relationship?: Yes Female Reproductive History Menstrual Age of Menarche: 12 Duration of menses: 3-5 days control method: pills History History 3 Para 2 Hx # Term Pregnancies 2 Multiple births 0 Hx # Pregnancies 0 Ectopic pregnancies 0 AB induced 0 Hx Number of Living Children 2 AB spontaneous 1 Past Pregnancies Del. Date GA/Weeks # Preg Succ Route Wgt Sex Labor Lgth Anesthesia Location Prov [facility] 08/30/19 39 No vaginal 2976.7 g Female 5 hr labor the day before scheduled induction for gHTN Soledad Rodney CNM 02/22/22 38 No Yes vaginal 3019.224 g Male 5 hours ESTEBAN Aleman Delivery Date: 08/30/19 Last Updated by: Ros Fagan No meds in labor, stayed in tub. Nitrous for 1st degree lac repair. gHTN, BP improved after . Heavy bleeding per pt. Delivery Date: 02/22/22 Last Updated by: SONI Ellis;GBS positive, one dose PCN prior to delivery; Small second degree laceration and right labial laceration, repaired under local anesthesia
[2024-11-30] MEDS: diazePAM 2 MG TAB PO (19:23)
[2024-11-30] MEDS: Acetaminophen 500 MG TAB 1000 MG PO (19:23)
[2024-11-30] MEDS: Ketorolac 30 MG/ML VIAL IM (19:23)
[2024-11-30] MEDS: Lidocaine 5% Patch 1 PATCH TP (19:24)
== END 2024-11-30 20:45 | disposition home or self-care (01) ==
LOC: ER 20:46
PROVIDERS: Emergency Provider Physician Assistant; PCP Family Medicine
DX: M54.50 Low back pain, unspecified (principal); M62.830 Muscle spasm of back; Z87.891 Personal history of nicotine dependence
CPT/HCPCS: 96372; 99284; 99283; J1885

== ENCOUNTER 2024-12-18 12:28 | Outpatient (CLI) | payer MEDICAID, SELFPAY ==
[2024-12-18 12:43] LABS: HCG Quant, Pregnancy 85 mIU/mL (1-3)
== END 2024-12-18 12:29 | disposition home or self-care (01) ==
LOC: LBO 12:28
PROVIDERS: PCP Family Medicine; Visit Provider Nurse Practitioner Women's Health
DX: Z32.01 Encounter for pregnancy test, result positive (principal)
CPT/HCPCS: 36415; 84702

== ENCOUNTER 2024-12-23 12:24 | Outpatient (CLI) | payer MEDICAID, SELFPAY ==
[2024-12-23 17:13] LABS: HCG Quant, Pregnancy 125 mIU/mL (1-3)
== END 2024-12-23 12:25 | disposition home or self-care (01) ==
LOC: LBO 12:24
PROVIDERS: PCP Family Medicine; Visit Provider Nurse Practitioner Women's Health
DX: Z32.01 Encounter for pregnancy test, result positive (principal)
CPT/HCPCS: 36415; 84702

== ENCOUNTER 2024-12-25 07:30 | Outpatient (CLI) | payer MEDICAID, SELFPAY ==
[2024-12-25 12:20] LABS: HCG Quant, Pregnancy 179 mIU/mL (1-3)
== END 2024-12-25 07:31 | disposition home or self-care (01) ==
LOC: LBO 07:30
PROVIDERS: Obstetrics & Gynecology; PCP Family Medicine; Visit Provider Nurse Practitioner Women's Health
DX: O03.9 Complete or unspecified spontaneous abortion without complication (principal)
CPT/HCPCS: 36415; 84702

== ENCOUNTER 2024-12-25 12:56 | Outpatient (CLI) | payer MEDICAID, SELFPAY ==
--- NOTE | 2024-12-25 12:45 | DI.US_ITS ---
Exam(s) US OB 1ST TRIMESTER EXAM: US OB 1ST TRIMESTER CLINICAL HISTORY: r/o ectopic, bleeding early , O20.9, wet reading, to [facility] after. COMPARISON: No exams were available for comparison TECHNIQUE: Transabdominal Transvaginal first trimester obstetrical ultrasound performed. FINDINGS: Pelvic Measurments Uterus: 7.3 x 3.6 x 4.4 cm Rt Ovary: 2.3 x 1.4 x 1.8 cm Lt Ovary: 2.5 x 1.8 x 2.3 cm Small ovoid area of fluid within the endometrial cavity, near the fundus measuring 3 by 2 by 4 millim eters. This could represent a very early gestational sac versus fluid. No acute topic is identified. There is no free fluid in the cul-de-sac. IMPRESSION: Question of a very early gestational sac versus fluid. No evidence of ectopic . DATA REPOSITORY:
== END 2024-12-25 13:16 ==
LOC: DI 12:56
PROVIDERS: PCP Family Medicine; Visit Provider Nurse Practitioner Women's Health
DX: O20.9 Hemorrhage in early pregnancy, unspecified (principal)
CPT/HCPCS: 76801

== ENCOUNTER 2024-12-31 13:52 | Emergency (ER) | payer MEDICAID, SELFPAY ==
[2024-12-31 14:14] VITALS: BP 115/69; PULSE 81; RESP 18; TEMP 36.6; O2SAT 98
[2024-12-31 14:41] LABS: Bilirubin Negative (Negative); Blood Large (Negative); Clarity Clear (Clear); Glucose Negative (Negative); Ketones Negative (Negative); Leukocyte Esterase Negative (Negative); Nitrite Negative (Negative); Urobilinogen 0.2 mg/dL (Up to 0.2)
[2024-12-31 15:02] LABS: Bacteria Negative HPF (Negative); C & S Indicated? No; Casts Negative LPF (Negative); Crystals Negative HPF (Negative); Epithelial Cells Moderate HPF (Negative); Mucus Negative (Negative); Other Cells Few Renal (Negative); RBC 20-50 HPF (0-2)
[2024-12-31 15:10] LABS: Abs Immature Grans 0.02 10^3/uL (0.0-0.06); Absolute Basophil Count 0.07 10^3/uL (0.0-0.2); Absolute Eosinophil Count 0.56 10^3/uL (0.0-0.7); Absolute Lymphocyte Count 1.73 10^3/uL (1.2-3.4); Absolute Monocyte Count 0.84 10^3/uL (0.1-0.8); Absolute Neutrophil Count 4.37 10^3/uL (1.2-6.7); Basophils % 0.9 %; Eosinophils % 7.4 %; HCT 35.8 % (36.0-46.0); HGB 11.8 g/dL (11.2-15.7); Immature Grans % 0.3 %; Lymphocytes % 22.8 %; MCH 28.9 pg (27.0-33.0); MCV 88 fL (80-95); MPV 11.2 fL (8.0-11.0); Monocytes % 11.1 %; Neutrophils % 57.5 %; Platelet Count 225 10^3/uL (130-400); RBC 4.09 10^6/uL (3.93-5.22); RDW 12.5 % (11.7-14.6); WBC 7.59 10^3/uL (4.4-10.8)
--- NOTE | 2024-12-31 15:16 | W.ED.GENAD ---
Discharge Plan Disposition Patient Disposition: Home Condition: Stable Discharge Details Clinical Impression: SAB (spontaneous ), Vaginal bleeding Primary Care Provider: Lindsay Miranda V ED Provider: Bernadine Stoddard Home Meds and New Rx's Prescriptions: No Action mifepristone 200 mg tablet 200 mg PO ONCE Qty: 1 0RF Rx Instructions: as a single dose misoprostol 200 mcg tablet 200 mcg PO ONCE Qty: 4 0RF albuterol sulfate [ProAir HFA] 200 PUFF HFA aerosol inhaler 2 puff Inhalation PRN PRN venlafaxine 75 mg capsule,extended release 24hr 75 mg PO DAILY Rx Instructions: TAKE ONE CAPSULE BY MOUTH EVERY DAY ketorolac 10 mg tablet 10 mg PO QID PRNQty: 20 0RF Rx Instructions: maximum total duration of 5 days from all oral, intranasal, or parenteral formulations cyclobenzaprine 10 mg tablet 10 mg PO TID PRNQty: 30 0RF Discharge Instructions Instructions: Loss (Miscarriage) ED Additional Instructions: You were seen in the ED for vaginal bleeding after a miscarriage. In our department you do full physical examination performed, had an ultrasound and pelvic exam that were reassuring, and had laboratory studies that did not show severe anemia. Your hormone is still decreasing and you should follow-up at your scheduled CHANGE NUMBER OPERATOR appointment tomorrow. Come back to the emergency department if you develop change in responsiveness or loss of consciousness, have a sudden or severe increase in your bleeding where you are saturating 1 pad per hour for more than 2 hours in a row. Thank you for allowing us to be part of your care. Discharge Data Discharge Date/Time-TO BE ENTERED AT DEPARTURE: 12/31/24 17:23 HPI General Mode of arrival: ambulatory. Date/Time Provider Initiated Documentation: 12/31/24 14:40. Limitations to Documentation: no limitations. HPI Narrative: HISTORY OF PRESENT ILLNESS The patient presents for evaluation of ongoing vaginal bleeding after a miscarriage. She is a G4, P2 patient who otherwise has a history of PTSD, bipolar disorder, and migraine. The patient had a positive test and experienced a decline in her beta quant and vaginal bleeding concerning for spontaneous miscarriage. She was prescribed misoprostol on the eighth for evacuation of uterine contents. Since then, she has been experiencing heavy bleeding, necessitating the use of a pad every 2 hours. She reports only one instance of clotting, which was minimal. The bleeding is accompanied by bilateral lower abdominal pain, nausea, and difficulty maintaining hydration. Her appetite has been significantly reduced, and she has been unable to sleep. She was informed that her was estimated to be between 3 to 5 weeks gestation. From a mental and emotional standpoint, she is better but feels mentally exhausted. Despite the support of her boyfriend, she feels misunderstood in terms of the severity of her pain. She attempted to manage her pain with ibuprofen but discontinued its use 3 days ago due to lack of efficacy. She has no history of abdominal surgery or pelvic examinations in the emergency room. She is uncertain about the need for a RhoGAM injection. Her obstetric history includes vaginal deliveries, as well as a previous miscarriage in 2020. Related Data Home Medications ?Medication ?Instructions ?Recorded ?Confirmed albuterol sulfate 90 mcg/actuation 2 puff inhalation PRN PRN 06/11/15 12/25/24 aerosol inhaler (ProAir HFA) venlafaxine 75 mg capsule,extended 75 mg PO DAILY 01/18/24 12/25/24 release 24 hr cyclobenzaprine 10 mg tablet 10 mg PO TID PRN #30 tabs 11/30/24 12/25/24 ketorolac 10 mg tablet 10 mg PO QID PRN #20 tabs 11/30/24 12/25/24 mifepristone 200 mg tablet 200 mg PO ONCE #1 tab 12/25/24 12/25/24 misoprostol 200 mcg tablet 200 mcg PO ONCE #4 tabs 12/25/24 12/25/24 Previous Rx's ?Medication ?Instructions ?Recorded cyclobenzaprine 10 mg tablet 10 mg PO TID PRN #30 tabs 11/30/24 ketorolac 10 mg tablet 10 mg PO QID PRN #20 tabs 11/30/24 mifepristone 200 mg tablet 200 mg PO ONCE #1 tab 12/25/24 misoprostol 200 mcg tablet 200 mcg PO ONCE #4 tabs 12/25/24 Allergies Allergy/AdvReac Type Severity Reaction Status Date / Time sertraline AdvReac Intermediate pt reports Verified 12/31/24 14:17 she got ugly black flies AdvReac Intermediate red and Uncoded 12/31/24 14:17 swollen cats AdvReac Intermediate sneezing Uncoded 12/31/24 14:17 a lot, runny nose General Stated Complaint: CHANGE NUMBER OPERATOR ETHAN: 3 Exam Narrative Exam Narrative: Gen: Awake and alert, in no apparent distress HEENT: Non-icteric sclera Neck: Supple Lungs: No apparent respiratory distress, normal respiratory effort. CV: Appears well perfused Abdomen: Non-distended, soft, nontender to palpation without rigidity, rebound, or guarding : Supervised by RYAN Iglesias, normal external female genitalia, with a closed cervical os and scant dark red blood in the vaginal vault. No cervical motion tenderness or visible clots, no tenderness or masses with bimanual examination. MSK: Moves 4 extremities without apparent limitation in ROM Skin: Visualized skin without rashes, cyanosis. Neuro: Normal Gait, no obvious focal deficits or facial asymmetry. Speaks in full, clear sentences. Psych: Appropriate for situation. Course Vital Signs Vital signs: Vital Signs Temperature 36.6 C 12/31/24 14:14 Pulse 81 12/31/24 14:14 Respiratory Rate 18 12/31/24 14:14 Blood Pressure 115/69 12/31/24 14:14 Pulse Oximetry 98 12/31/24 14:14 Temperature 36.6 C 12/31/24 14:14 Temperature Source Oral 12/31/24 14:14 Pulse 81 12/31/24 14:14 Respiratory Rate 18 12/31/24 14:14 Blood Pressure 115/69 12/31/24 14:14 Pulse Oximetry 98 12/31/24 14:14 Oxygen Delivery Method Room Air 12/31/24 14:14 Oxygen Flow Rate 0 12/31/24 14:14 Lab/Test Results Lab/Test Results: Laboratory Tests Range/Units 12/31/24 12/31/24 14:24 14:52 WBC (4.4-10.8) 10^3/uL 7.59 RBC (3.93-5.22) 10^6/uL 4.09 Hgb (11.2-15.7) g/dL 11.8 Hct (36.0-46.0) % 35.8 L MCV (80-95) fL 88 MCH (27.0-33.0) pg 28.9 MCHC (32.0-36.0) % 33.0 RDW (11.7-14.6) % 12.5 Plt Count (130-400) 10^3/uL 225 MPV (8.0-11.0) fL 11.2 H Immature Gran % % 0.3 Neutrophils % % 57.5 Lymphocytes % % 22.8 Monocytes % % 11.1 Eosinophils % % 7.4 Basophils % % 0.9 Nucleated RBC % (0.0-0.3) % 0.0 Absolute Neutrophils (1.2-6.7) 10^3/uL 4.37 Absolute Lymphocytes (1.2-3.4) 10^3/uL 1.73 Absolute Monocytes (0.1-0.8) 10^3/uL 0.84 H Absolute Eosinophils (0.0-0.7) 10^3/uL 0.56 Absolute Basophils (0.0-0.2) 10^3/uL 0.07 Magnesium Cancelled Urine Color (Yellow) Yellow Urine Clarity (Clear) Clear Urine pH (5-8) 6.0 Ur Specific [place] (1.005-1.025) 1.010 Urine Protein (Neg-Trace) mg/dL Trace Urine Ketones (Negative) mg/dL Negative Urine Blood (Negative) Large H Urine Nitrite (Negative) Negative Urine Bilirubin (Negative) Negative Urine Urobilinogen (Up to 0.2) mg/dL 0.2 Ur Leukocyte Esterase (Negative) Negative Urine RBC (0-2) HPF 20-50 H Urine WBC (0-5) HPF 3-5 Ur Epithelial Cells (Negative) HPF Moderate Urine Crystals (Negative) HPF Negative Urine Bacteria (Negative) HPF Negative Urine Casts (Negative) LPF Negative Urine Mucus (Negative) Negative Urine Other (Negative) Few Renal Ur Culture Indicated? No Urine Glucose (Negative) mg/dL Negative POC- Test(urine) Positive Medical Decision Making This is a 24-year-old female patient presenting for evaluation of vaginal bleeding after spontaneous . Differential includes but is not limited to retained products of conception, incomplete , completed miscarriage. No evidence of fever, hemodynamic instability to suggest septic , patient is without cervical motion tenderness or reported vaginal discharge to suggest pelvic inflammatory disease or TOA. I considered anemia, metabolic and electrolyte derangements. My bedside ultrasound shows no significant intrauterine contents or free fluid in the pelvis to suggest perforation or ectopic , we will obtain laboratory studies to include CBC, CMP, magnesium, beta quant, and will consult CHANGE NUMBER OPERATOR. -I independently interpreted the laboratory studies, which show no significant leukocytosis, anemia, or thrombocytopenia. The chemistry panel is without evidence of electrolyte abnormality, kidney dysfunction, or liver injury. Patient is Rh+, and her beta quant is 132, which is downtrending compared to priors. She did have a urinalysis with large blood and no evidence for infection. I consulted Dr. Persaud and discussed this patient's case, who feels that it is reasonable for this patient to continue monitoring her bleeding, which is scant at this time, and follow-up in clinic tomorrow. The patient understands this follow-up plan as well as the return precautions for heavy vaginal bleeding. At this time, the patient has had a full medical evaluation and is safe for discharge to home. They are hemodynamically stable, ambulatory, and tolerating PO. They are understanding of the follow-up plan and return precautions. They left our facility without incident. Clinical Impression: - Miscarriage - Vaginal bleeding MDM Components Evaluation: - Number of Differential Diagnoses or Management Options: Miscarriage - Amount and Complexity of Data Reviewed: Pelvic exam, ultrasound, laboratory tests - Risk of Complication and Morbidity or Mortality: Moderate due to heavy bleeding and pain Bernadine Stoddard MD Patient consented to the use of DIYA for this patient encounter. Medical Records Medical records reviewed: Yes I reviewed the patient's medical records. Lab Data Lab results reviewed: Yes I reviewed the patient's lab results. Quality:SDOH Health Related Social Needs: No Data to Display PFSH All Active Problems (Updated 12/31/24 @ 17:13 by Bernadine Stoddard MD) Vaginal bleeding (Acute) SAB (spontaneous ) (Acute) Bipolar disorder (Chronic) Gastroenteritis (Acute) Posttraumatic stress disorder (Acute) History of migraine (Acute) Depressed (Acute) Cannabis abuse (Acute) Medical History (Updated 12/31/24 @ 17:13 by Bernadine Stoddard MD) Hematuria Mild anemia Exercise-induced asthma Attention deficit disorder with hyperactivity RAD (reactive airway disease) Allergic rhinitis, unspecified Mood disorder due to known physiological condition with depressive features Subacute thyroiditis Sleep disturbance Headache Seasonal allergies Suicidal ideation Dizziness Asthma Surgical History History of tonsillectomy Family History Paternal Grandfather Diabetes Maternal Grandfather Heart disease mi w/ double bypass Hypertension Mother Hypothyroid Social History Smoking/Tobacco Use Status: Former Tobacco Use Quit Date: 02/18/23 Smoking risk assessment performed?: Yes Alcohol Intake: never Drug use: Daily Substance use type: marijuana Counseling provided: treatment program Details: nightly marijuana use Housing: apartment Sexually active: Yes Do you feel safe at home: Yes Do you feel safe in your relationship?: Yes Female Reproductive History Menstrual Age of Menarche: 12 Duration of menses: 3-5 days control method: none History History 3 Para 2 Hx # Term Pregnancies 2 Multiple births 0 Hx # Pregnancies 0 Ectopic pregnancies 0 AB induced 0 Hx Number of Living Children 2 AB spontaneous 1 Past Pregnancies Del. Date GA/Weeks # Preg Succ Route Wgt Sex Labor Lgth Anesthesia Location [facility] [place] 08/30/19 39 No vaginal 2976.7 g Female 5 hr labor the day before scheduled induction for gHTN Soledad Rodney CNM 02/22/22 38 No Yes vaginal 3019.224 g Male 5 hours ESTEBAN Aleman Delivery Date: 08/30/19 Last Updated by: Ros Fagan No meds in labor, stayed in tub. Nitrous for 1st degree lac repair. gHTN, BP improved after . Heavy bleeding per pt. Delivery Date: 02/22/22 Last Updated by: SONI Ellis;GBS positive, one dose PCN prior to delivery; Small second degree laceration and right labial laceration, repaired under local anesthesia POCUS Exam (ED) Limited OB Exam DATE OF EXAM:: 12/31/24 TIME OF EXAM:: 15:00 PROVIDER THAT PERFORMED THE STUDY: Bernadine Stoddard IS THIS A REPEAT EXAM DURING THIS ENCOUNTER: No Type of Exam: Pelvic OB Trans Abdominal REASON FOR EXAM: Vaginal Bleeding VISUALIZED STRUCTURES: Uterus PERTINENT FINDINGS/IMPRESSION: No apparent abnormalities and No apparent IUP; No free fluid Exam Complete.
[2024-12-31 16:53] LABS: ALT 38 U/L (14-59); AST 21 U/L (15-37); Albumin 3.9 g/dL (3.4-5.0); Alkaline Phosphatase 38 U/L (46-116); Anion Gap 6.4 mmol/L (3-11); BUN 7 mg/dL (7-18); Bilirubin, Total 0.3 mg/dL (0.2-1.0); CO2 27.6 mmol/L (21.0-32.0); CREATININE 0.7 mg/dL (0.55-1.02); Calcium 8.6 mg/dL (8.5-10.1); Chloride 105 mmol/L (98-107); Estimated GFR 124.55 (mL/min/1.73m2); Glucose 80 mg/dL (74-106); HCG Quant, Pregnancy 132 mIU/mL (1-3); Magnesium 2.1 mg/dL (1.8-2.4); Potassium 3.9 mmol/L (3.5-5.1); Sodium 139 mmol/L (136-145); Total Protein 7.2 g/dL (6.4-8.2)
[2024-12-31 17:22] VITALS: BP 102/77; PULSE 59; RESP 12; TEMP 36.8; O2SAT 98
== END 2024-12-31 17:23 | disposition home or self-care (01) ==
PROVIDERS: Emergency Provider Emergency Medicine; PCP Family Medicine
DX: O03.9 Complete or unspecified spontaneous abortion without complication (principal); N93.8 Other specified abnormal uterine and vaginal bleeding
CPT/HCPCS: 99283; 99284; 81025; 36415; 76815; 80053; 86850; 86900; 86901; 81003; 81015; 83735; 84702; 85025

== ENCOUNTER 2025-01-08 16:03 | Outpatient (REF) | payer MEDICAID, SELFPAY ==
[2025-01-10 12:25] LABS: Chlamydia Result Negative (Negative); GC Result Negative (Negative)
== END 2025-01-08 16:04 | disposition home or self-care (01) ==
LOC: LBN 16:03
PROVIDERS: PCP Family Medicine; Visit Provider Obstetrics & Gynecology
DX: O03.9 Complete or unspecified spontaneous abortion without complication (principal)
CPT/HCPCS: 87491; 87591

== ENCOUNTER 2025-01-08 16:51 | Outpatient (CLI) | payer MEDICAID, SELFPAY ==
[2025-01-08 16:46] LABS: HCG Quant, Pregnancy 57 mIU/mL (1-3)
== END 2025-01-08 16:52 | disposition home or self-care (01) ==
LOC: LBO 16:51
PROVIDERS: PCP Family Medicine; Visit Provider Obstetrics & Gynecology
DX: O03.9 Complete or unspecified spontaneous abortion without complication (principal)
CPT/HCPCS: 36415; 84702

== ENCOUNTER 2025-04-28 17:14 | Emergency (ER) | payer MEDICAID, SELFPAY ==
[2025-04-28 17:18] VITALS: BP 137/89; PULSE 92; RESP 18; TEMP 36.7; O2SAT 96
--- NOTE | 2025-04-28 17:53 | DI.RAD_ITS ---
Exam(s) XR HAND RT COMPLETE EXAM: XR HAND RT COMPLETE CLINICAL HISTORY: right hand pain s/p hitting hand on dogs head. TECHNIQUE: 2D digital imaging was performed. Three views. COMPARISON: CR XR FINGER RT INDEX from 01/18/2024 FINDINGS: BONES: No acute fracture is present. No bony destructive lesion is seen. JOINTS: No dislocation present. SOFT TISSUE: Soft tissue swelling over the dorsum of the hand. IMPRESSION: Soft tissue swelling. No evidence of fracture or foreign body. DATA REPOSITORY: RADIATION DOSE DELIVERED:
--- NOTE | 2025-04-28 18:30 | W.ED.GENAD ---
Discharge Plan Disposition Patient Disposition: Home Condition: Stable Discharge Details Clinical Impression: Contusion of hand, right Primary Care Provider: Lindsay Miranda V ED Provider: Matt Green Home Meds and New Rx's Prescriptions: Continued albuterol sulfate [ProAir HFA] 200 PUFF HFA aerosol inhaler 2 puff Inhalation PRN PRN venlafaxine 75 mg capsule,extended release 24hr 75 mg PO DAILY Rx Instructions: TAKE ONE CAPSULE BY MOUTH EVERY DAY ketorolac 10 mg tablet 10 mg PO QID PRNQty: 20 0RF Rx Instructions: maximum total duration of 5 days from all oral, intranasal, or parenteral formulations cyclobenzaprine 10 mg tablet 10 mg PO TID PRNQty: 30 0RF Discharge Instructions Additional Instructions: Your x-ray did not show any broken bones. You can take 1000 mg of acetaminophen and 600 mg of ibuprofen every 6 hours as needed. Do not appointment within 1 week follow-up primary care provider. If you feel more ill, or have severe worsening pain return to emergency department for reevaluation. HPI General Mode of arrival: ambulatory. Date/Time Provider Initiated Documentation: 04/28/25 17:22. Limitations to Documentation: no limitations. Information obtained by: patient. History of Present Illness 24 year old F presents to the emergency department with the chief complaint of right hand pain s/p dog's head hitting it, described as moderate, Quality is described as aching, Patient started experiencing this hour(s) (1) and it has been constant. No relieving factors improve symptom(s), No exacerbating factors reported . Patient notes no other symptoms.. Patient did receive the following treatments prior to arrival, none Related Data Home Medications ?Medication ?Instructions ?Recorded ?Confirmed albuterol sulfate 90 mcg/actuation 2 puff inhalation PRN PRN 06/11/15 04/28/25 aerosol inhaler (ProAir HFA) venlafaxine 75 mg capsule,extended 75 mg PO DAILY 01/18/24 04/28/25 release 24 hr cyclobenzaprine 10 mg tablet 10 mg PO TID PRN #30 tabs 11/30/24 04/28/25 ketorolac 10 mg tablet 10 mg PO QID PRN #20 tabs 11/30/24 04/28/25 Previous Rx's ?Medication ?Instructions ?Recorded cyclobenzaprine 10 mg tablet 10 mg PO TID PRN #30 tabs 11/30/24 ketorolac 10 mg tablet 10 mg PO QID PRN #20 tabs 11/30/24 Allergies Allergy/AdvReac Type Severity Reaction Status Date / Time sertraline AdvReac Intermediate pt reports Verified 04/28/25 17:19 she got ugly black flies AdvReac Intermediate red and Uncoded 04/28/25 17:19 swollen cats AdvReac Intermediate sneezing Uncoded 04/28/25 17:19 a lot, runny nose General Stated Complaint: Orthopedic ETHAN: 4 Review of Systems All systems reviewed & are unremarkable except as noted in HPI and below Constitutional Constitutional: Denies weakness Musculoskeletal Musculoskeletal: Reports other (right hand pain ) Neurologic Neurologic: Denies weakness Exam Const General: no acute distress Orientation: alert HENMT Head: normal to inspection Ears: external ears normal General nose exam: external nose normal Mouth: moist mucous membranes Eyes General: appearance normal, both eyes and all related structures Neck Neck: normal visual inspection Resp Effort & Inspection: normal respiratory effort and able to speak in complete sentences Cardio Rate: regular rate Skin General skin exam: no rashes or lesions noted Neuro General: patient alert and patient oriented x3 Extrem General: full ROM and capillary refill normal Psych Mental Status: mental status grossly normal Course Vital Signs Vital signs: Vital Signs Temperature 36.7 C 04/28/25 17:18 Pulse 92 H 04/28/25 17:18 Respiratory Rate 18 04/28/25 17:18 Blood Pressure 137/89 04/28/25 17:18 Pulse Oximetry 96 04/28/25 17:18 Temperature 36.7 C 04/28/25 17:18 Pulse 92 H 04/28/25 17:18 Respiratory Rate 18 04/28/25 17:18 Blood Pressure 137/89 04/28/25 17:18 Pulse Oximetry 96 04/28/25 17:18 Medical Decision Making 24-year-old female comes in after she says she was trying to get collar on her at the pool when he went to sit back in hit the back of her right hand. She did not fall or sustain other injuries. She has pain in the back of her right hand so came in for evaluation. She had x-rays done prior to my exam which did not show any acute findings. She does have bruising of the back of her right hand. She has full range of motion of her fingers with intact sensation and cap refill. She has no tenderness in the wrist with full range of motion. I suspect hand contusion. She will follow-up with her PCP if not improving and return precautions given Differential Diagnosis Differential Diagnosis: Fracture, contusion PFSH All Active Problems (Updated 04/28/25 @ 18:34 by Matt Green MD) Contusion of hand, right (Acute) Bipolar disorder (Chronic) Posttraumatic stress disorder (Acute) Depressed (Acute) Cannabis abuse (Acute) Medical History (Updated 04/28/25 @ 18:34 by Matt Green MD) Presence of Mirena IUD History of migraine Mild anemia Exercise-induced asthma Attention deficit disorder with hyperactivity Subacute thyroiditis Sleep disturbance Seasonal allergies Suicidal ideation Dizziness Surgical History History of tonsillectomy Family History Paternal Grandfather Diabetes Maternal Grandfather Heart disease mi w/ double bypass Hypertension Mother Hypothyroid Social History Smoking/Tobacco Use Status: Former Tobacco Use Quit Date: 02/18/23 Smoking risk assessment performed?: Yes Alcohol Intake: never Drug use: Daily Substance use type: marijuana Counseling provided: treatment program Details: nightly marijuana use Housing: apartment Sexually active: Yes Do you feel safe at home: Yes Do you feel safe in your relationship?: Yes Female Reproductive History Menstrual Age of Menarche: 12 Duration of menses: 3-5 days control method: none History History 3 Para 2 Hx # Term Pregnancies 2 Multiple births 0 Hx # Pregnancies 0 Ectopic pregnancies 0 AB induced 0 Hx Number of Living Children 2 AB spontaneous 1 Past Pregnancies Del. Date GA/Weeks # Preg Succ Route Wgt Sex Labor Lgth Anesthesia Location Prov Complic 08/30/19 39 No vaginal 2976.7 g Female 5 hr labor the day before scheduled induction for gHTN Soledad Rodney CNM 02/22/22 38 No Yes vaginal 3019.224 g Male 5 hours ESTEBAN Aleman 12/25/24 5 No Delivery Date: 08/30/19 Last Updated by: Ros Fagan No meds in labor, stayed in tub. Nitrous for 1st degree lac repair. gHTN, BP improved after . Heavy bleeding per pt. Delivery Date: 02/22/22 Last Updated by: SONI Ellis;GBS positive, one dose PCN prior to delivery; Small second degree laceration and right labial laceration, repaired under local anesthesia Delivery Date: 12/25/24 Last Updated by: Maria L Davila MD [facility]
== END 2025-04-28 18:45 | disposition home or self-care (01) ==
PROVIDERS: Emergency Provider Emergency Medicine; PCP Family Medicine
DX: S60.221A Contusion of right hand, initial encounter (principal); X58.XXXA Exposure to other specified factors, initial encounter
CPT/HCPCS: 99283 ×2; 73130

== ENCOUNTER 2025-05-19 18:22 | Emergency (ER) | payer MEDICAID, SELFPAY ==
[2025-05-19 18:54] VITALS: BP 110/74; PULSE 102; RESP 20; TEMP 37
[2025-05-19 19:44] LABS: Glucose Negative (Negative)
[2025-05-19 19:54] LABS: RBC 0-2 HPF (0-2)
[2025-05-19 19:58] LABS: C & S Indicated? No
[2025-05-19 20:04] VITALS: RESP 16
[2025-05-19] MEDS: Ibuprofen 600 MG TAB PO (20:11)
[2025-05-19] MEDS: Doxycycline Hyclate 100 MG CAP PO (20:11)
--- NOTE | 2025-05-19 20:25 | ED.GENADUL_ITS ---
Discharge Plan Disposition Patient Disposition: Home Condition: Good Discharge Details Clinical Impression: Abscess Primary Care Provider: Lindsay Miranda V ED Provider: Stephanie Austin Home Meds and New Rx's Prescriptions: New doxycycline hyclate 100 mg capsule 100 mg PO BID Qty: 14 0RF No Action albuterol sulfate [ProAir HFA] 200 PUFF HFA aerosol inhaler 2 puff Inhalation PRN PRN venlafaxine 75 mg capsule,extended release 24hr 75 mg PO DAILY Rx Instructions: TAKE ONE CAPSULE BY MOUTH EVERY DAY ketorolac 10 mg tablet 10 mg PO QID PRNQty: 20 0RF Rx Instructions: maximum total duration of 5 days from all oral, intranasal, or parenteral formulations cyclobenzaprine 10 mg tablet 10 mg PO TID PRNQty: 30 0RF Discharge Instructions Instructions: Doxycycline Additional Instructions: Please call surgical specialty center first thing in the morning to schedule a reassessment in the next couple of days. You are being treated for early abscess/cellulitis with doxycycline. Please take the full course as prescribed. I recommend that you take probiotics while taking this medication to prevent antibiotic associated diarrhea. Do not take within 1 hour of calcium containing products. I strongly recommend you use warm compresses for 15 to 20 minutes at a time 4-5 times a day as discussed. You may use Tylenol 650 mg every 6 hours and ibuprofen 600 mg every 8 hours for discomfort as needed. Wear loose, nonconstrictive clothing. Do not squeeze at the abscess. I recommend washing gently with antibacterial soap and water to the immediate area only. Wash your hands after touching the area. Return to emergency care if develop new fever/chills, inability to urinate, or if you are very worried and need to be rechecked again immediately Referrals: [facility] [Provider Group] HPI General Date/Time Provider Initiated Documentation: 05/19/25 18:55 . HPI Narrative: Mynor is a 24-year-old female presents to the emergency department today for evaluation of painful abscess on her labia. She reports she first noticed a reddened painful area to her left labia after shaving and then going for a walk. Painful red bump progressively increasing in size, described as a sharp pain. Says it has not come to a head or started draining. Denies associated fever/chills, nausea/vomiting, abdominal pain, change in bowel or bladder function, internal vaginal pain/bumps, or unusual vaginal discharge. Denies history of MRSA or previous abscesses. Related Data Home Medications ?Medication ?Instructions ?Recorded ?Confirmed albuterol sulfate 90 mcg/actuation 2 puff inhalation P RN PRN 06/11/15 05/19/25 aerosol inhaler (ProAir HFA) venlafaxine 75 mg capsule,extended 75 mg PO DAILY 12/2105/19/25 release 24 hr cyclobenzaprine 10 mg tablet 10 mg PO TID PRN #30 tabs 11/30/24 05/19/25 ketorolac 10 mg tablet 10 mg PO QID PRN #20 tabs 05/19/25 doxycycline hyclate 100 mg capsule 100 mg PO BID #14 c aps 05/19/25 Previous Rx's ?Medication ?Instructions ?Recorded cyclobenzaprine 10 mg tablet 10 mg PO TID PRN #30 tabs 11/30/24 ketorolac 10 mg tablet 10 mg PO QID PRN #20 tabs doxycycline hyclate 100 mg capsule 100 mg PO BID #14 c aps 05/19/25 Allergies Allergy/AdvReac Type Severity Reaction Status Date / Time sertraline AdvReac Intermediate pt reports Verified 05/19/25 19:01 she got ugly black flies AdvReac Intermediate red and Uncoded 05/19/25 19:01 swollen cats AdvReac Intermediate sneezing Uncoded 05/19/25 19:01 a lot, runny nose 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 Vital signs: Within normal limits. GI: Abdomen is soft, nondistended, nontender to palpation Genitourinary: Large (approximately 3 cm in diameter area) tender, erythematous, indurated area on right superior labia. Exam performed with female infusion nurse at bedside Lymphatic: Non-tender lymph nodes in groin. Extremities: Full painless range of motion to legs Skin: Warm and dry, no rash. Psychiatric: Normal. Course Vital Signs Vital signs: Vital Signs Temperature 37.0 C 05/19/25 18:54 Pulse 102 H 05/19/25 18:54 Respiratory Rate 20 05/19/25 18:54 Blood Pressure 110/74 05/19/25 18:54 Temperature 37.0 C 05/19/25 18:54 Temperature Source Oral 05/19/25 18:54 Pulse 102 H 05/19/25 18:54 Respiratory Rate 16 05/19/25 20:04 Respiratory Effort Normal, Non-Labored 05/19/25 20:04 Respiratory Depth Normal 05/19/25 20:04 Respiratory Pattern Normal 05/19/25 20:04 Blood Pressure 110/74 05/19/25 18:54 Oxygen Delivery Method Room Air 05/19/25 18:54 Oxygen Flow Rate 0 05/19/25 18:54 Pain Level 9 05/19/25 18:54 Lab/Test Results Lab/Test Results: Laboratory Tests Range/Units 05/19/25 19:33 Urine Color (Yellow) Yellow Urine Clarity (Clear) Clear Urine pH (5-8) 6.5 Ur Specific [place] (1.005-1.025) 1.020 Urine Protein (Neg-Trace) mg/dL Negative Urine Ketones (Negative) mg/dL Negative Urine Blood (Negative) Small H Urine Nitrite (Negative) Negative Urine Bilirubin (Negative) Negative Urine Urobilinogen (Up to 0.2) mg/dL 0.2 Ur Leukocyte Esterase (Negative) Small H Urine RBC (0-2) HPF 0-2 Urine WBC (0-5) HPF 5-10 Ur Epithelial Cells (Negative) HPF Moderate Urine Crystals (Negative) HPF Few Amorphous Urine Bacteria (Negative) HPF Few Urine Casts (Negative) LPF Negative Urine Mucus (Negative) Negative Ur Culture Indicated? No Urine Glucose (Negative) mg/dL Negative Procedure Abscess Drainage Provider that performed the procedure: Stephanie Villa Medical Decision Making Initial Assessment: 24-year-old female with painful, progressively enlarging red bump on labia for 3 days. No systemic symptoms concerning for sepsis, patient does not meet SIRS criteria. Indication for blood work at this time. ED Course: Ultrasound performed to assess abscess for fluid collection; POCUS revealed a very small fluid collection approximately 0.25 cm in size, would not benefit from drainage at this time. Final Assessment: Labial abscess with surrounding cellulitis While in the emergency department Mynor received first dose of doxycycline and ibuprofen for discomfort. Initiated treatment with doxycycline. Reviewed discharge instructions with patient, including referral to women's wellness for further management/evaluation, warm compresses, use of antibiotics, and symptomatic management. She voiced agreement with plan of care Patient consented to the use of DIYA PFSH All Active Problems (Updated 05/19/25 @ 20:32 by Stephanie Villa) Abscess (Acute) Contusion of hand, right (Acute) Bipolar disorder (Chronic) Posttraumatic stress disorder (Acute) Depressed (Acute) Cannabis abuse (Acute) Medical History (Updated 05/19/25 @ 20:32 by Stephanie Villa) Presence of Mirena IUD History of migraine Mild anemia Exercise-induced asthma Attention deficit disorder with hyperactivity Subacute thyroiditis Sleep disturbance Seasonal allergies Suicidal ideation Dizziness Surgical History History of tonsillectomy Family History Paternal Grandfather Diabetes Maternal Grandfather Heart disease mi w/ double bypass Hypertension Mother Hypothyroid Social History Smoking/Tobacco Use Status: Former Tobacco Use Quit Date: 02/18/23 Smoking risk assessment performed?: Yes Alcohol Intake: current Alcohol Intake frequency: a few times a month Alcohol type: wine Drug use: Daily Substance use type: marijuana Counseling provided: treatment program Details: nightly marijuana use Housing: apartment Sexually active: Yes Do you feel safe at home: Yes Do you feel safe in your relationship?: Yes Female Reproductive History Menstrual Age of Menarche: 12 Duration of menses: 3-5 days control method: none History History 3 Para 2 Hx # Term Pregnancies 2 Multiple births 0 Hx # Pregnancies 0 Ectopic pregnancies 0 AB induced 0 Hx Number of Living Children 2 AB spontaneous 1 Past Pregnancies Del. Date GA/Weeks # Preg Succ Route Wgt Sex Labor Lgth Anesth esia Location [facility] 08/30/19 39 No vaginal 2976.7 g Female 5 hr labor the day before scheduled induction for gHTN Soledad Rodney CNM 02/22/22 38 No Yes vaginal 3019.224 g Male 5 hours Helen Mcmullen CNM 12/25/24 5 No Delivery Date: 08/30/19 Last Updated by: Ros Fagan No meds in labor, stayed in tub. Nitrous for 1st degree lac repair. gHTN, BP improved after . Heavy bleeding per pt. Delivery Date: 02/22/22 Last Updated by: SONI Ellis;GBS positive, one dose PCN prior to delivery; Small second degree laceration and right labial laceration, repaired under local anesthesia Delivery Date: 12/25/24 Last Updated by: MD MARIO Alegre [facility] Have you Been Recently Intoxicated or Drunk Within the Last 30 days?: No Have you Ever Experienced Previous Episodes of Alcohol Withdrawal?: No Have you ever Experienced Withdrawal Seizures?: No Have you ever Experienced Delirium Tremens(DT)s?: No Have you ever undergone Alcohol Rehabilitation Treatment (i.e, inpt ot outpatien t treatment programs)?: No Have you ever Experienced Blackouts?: No Have you ever Combined Alcohol with other Downers within the last 90 days?: No Have you ever Combined Alcohol with any other Substance of Abuse during the last 90 days?: No Positive Blood Alcohol level on Presentation? [PCS.BAL]: No Evidence of Increased Autonomic Activity (i.e. HR>120, tremor, sweating, agitation, nausea)?: No Result: 0 POCUS Exam (ED) Limited Soft Tissue Exam DATE OF EXAM: 05/19/25 TIME OF EXAM: 20:00 PROVIDER THAT PERFORMED THE STUDY: Stephanie Villa LOCATION OF EXAM: Groin/left side REASON FOR EXAM: Abscess PERTINENT FINDINGS/IMPRESSION: Cellulitis L labia , Cobblestoning small amount of cobblestoning, c/w cellulitis and Fluid collection very small fluid collection (0.25 cm), not able to be drained . Exam Complete DIFFERENTIAL DIAGNOSES: drainable abscess vs early abscess vs cellulitis
[2025-05-19 20:44] VITALS: PULSE 87; RESP 18; O2SAT 100
== END 2025-05-19 20:47 | disposition home or self-care (01) ==
PROVIDERS: Emergency Provider Nurse Practitioner Family; PCP Family Medicine
DX: N76.4 Abscess of vulva (principal)
CPT/HCPCS: 99284; 99283; 76882; 81003; 81015

== ENCOUNTER 2025-05-22 10:56 | Outpatient (REF) | payer MEDICAID, SELFPAY ==
[2025-05-23 11:11] LABS: Chlamydia Result Negative (Negative); GC Result Negative (Negative)
== END 2025-05-22 10:57 | disposition home or self-care (01) ==
LOC: LBN 10:56
PROVIDERS: PCP Family Medicine; Visit Provider Obstetrics & Gynecology
DX: Z11.3 Encounter for screening for infections with a predominantly sexual mode of transmission (principal)
CPT/HCPCS: 87491; 87591

== ENCOUNTER 2025-06-30 11:30 | Emergency (ER) | payer MEDICAID, SELFPAY ==
[2025-06-30 11:32] VITALS: BP 110/74; PULSE 94; RESP 18; TEMP 36.6; O2SAT 95
--- NOTE | 2025-06-30 12:06 | W.ED.GENAD ---
Discharge Plan Disposition Patient Disposition: Home Condition: Stable Discharge Details Clinical Impression: Cellulitis of left ring finger Primary Care Provider: Lindsay Miranda V ED Provider: Alessandro Mccray Home Meds and New Rx's Prescriptions: New sulfamethoxazole-trimethoprim 800-160 mg tablet 1 tab PO BID 7 Days Qty: 14 0RF mupirocin [Centany] 2 % ointment 1 applic topical BID Qty: 15 0RF No Action Mirena 21 mcg/24hr (up to 8 yrs) 52 mg intrauterine device 1 device intrauterine ONCE Rx Instructions: as a single dose fluconazole 150 mg tablet 150 mg PO Q3D 0 Days Qty: 2 0RF albuterol sulfate [ProAir HFA] 200 PUFF HFA aerosol inhaler 2 puff Inhalation PRN PRN venlafaxine 75 mg capsule,extended release 24hr 75 mg PO DAILY Rx Instructions: TAKE ONE CAPSULE BY MOUTH EVERY DAY ketorolac 10 mg tablet 10 mg PO QID PRNQty: 20 0RF Rx Instructions: maximum total duration of 5 days from all oral, intranasal, or parenteral formulations cyclobenzaprine 10 mg tablet 10 mg PO TID PRNQty: 30 0RF Discharge Instructions Instructions: Sulfamethoxazole and Trimethoprim, Mupirocin, Cellulitis (Skin Infection), Adult ED Additional Instructions: You were seen in the emergency department for the cellulitis of your left ring finger, there is no apparent collection of pus to drain, I have sent a prescription for a topical prescription strength antibiotic that fights MRSA called mupirocin, apply this as directed. Take the prescribed Bactrim antibiotic as directed and take Tylenol and ibuprofen and perform hot compresses as we discussed. Please return for any red streaking up the arm, worsening despite treatment, fever or any other emergent concerns. Stand Alone Forms: Portal Information Referrals: Lindsay Miranda MD [Primary Care Provider, Medicine] Discharge Data Discharge Date/Time-TO BE ENTERED AT DEPARTURE: 06/30/25 12:38 HPI General Date/Time Provider Initiated Documentation: 06/30/25 11:42. HPI Narrative: 24 year-old female presents to ED today by POV/ambulating with a chief complaint of possible finger infection of ring finger of left hand with onset over the past few days. Quality described as throbbing, no radiation to drainage of pus, fever, red streaking up the hand, swelling of the finger pad. Severity is described as moderate. Palliating factors include soaks and hydrogen peroxide. Provoking factors include certain movements. Patient not anticoagulated. Related Data Home Medications Medication Instructions Recorded Confirmed albuterol sulfate 90 mcg/actuation 2 puff inhalation PRN PRN 06/11/15 06/30/25 aerosol inhaler (ProAir HFA) venlafaxine 75 mg capsule,extended 75 mg PO DAILY 01/18/24 06/30/25 release 24 hr cyclobenzaprine 10 mg tablet 10 mg PO TID PRN #30 tabs 11/30/24 06/30/25 ketorolac 10 mg tablet 10 mg PO QID PRN #20 tabs 11/30/24 06/30/25 fluconazole 150 mg tablet 150 mg PO Q3D 2 doses #2 tabs 05/22/25 06/30/25 levonorgestrel (Mirena) 1 device intrauterine ONCE 05/22/25 06/30/25 mupirocin 2 % topical ointment 1 applic topical BID #15 grams 06/30/[address] ([facility]) sulfamethoxazole 800 1 tab PO BID 7 days #14 tabs 06/30/25 mg-trimethoprim 160 mg tablet Previous Rx's Medication Instructions Recorded cyclobenzaprine 10 mg tablet 10 mg PO TID PRN #30 tabs 11/30/24 ketorolac 10 mg tablet 10 mg PO QID PRN #20 tabs 11/30/24 fluconazole 150 mg tablet 150 mg PO Q3D 2 doses #2 tabs 05/22/25 mupirocin 2 % topical ointment 1 applic topical BID #15 grams 06/30/25 ([facility]) sulfamethoxazole 800 1 tab PO BID 7 days #14 tabs 06/30/25 mg-trimethoprim 160 mg tablet Allergies Allergy/AdvReac Type Severity Reaction Status Date / Time sertraline AdvReac Intermediate pt reports Verified 06/30/25 11:41 she got ugly black flies AdvReac Intermediate red and Uncoded 06/30/25 11:41 swollen cats AdvReac Intermediate sneezing Uncoded 06/30/25 11:41 a lot, runny nose General Stated Complaint: Cellulitis ETHAN: 4 Review of Systems All systems reviewed & are unremarkable except as noted in HPI and below Exam Narrative Exam Narrative: GENERAL APPEARANCE: Well-nourished, non-toxic, awake and alert, atraumatic, no acute distress. SKIN: Warm, pink, dry, intact, mild erythema to the nail fold of the left ring finger, no purulent drainage seen or pocket to drain, no lymphadenitis, no felon, sensation intact with brisk capillary refill, left radial pulse 2+ HEAD: Normocephalic, atraumatic, normal hair distribution for gender/age. EYES: Normal conjunctiva, no exudates on lids/lashes. ENT: Nares patent, no circumoral cyanosis, no facial swelling NECK: Supple, trachea midline, painless cervical ROM. LUNGS/CHEST: Non-labored respirations, normal A/P diameter, symmetrical expansion, no chest wall deformity HEART (CV/PV): Regular rate, no peripheral edema, no JVD. ABDOMEN: Soft, non-distended, no guarding. MSK: Normal ROM, no swelling/deformity to bilateral UEs or LEs, moving all extremities without weakness, no cyanosis, spine midline without tenderness, normal curvature. NEURO: Mental Status AAOx4 - alert to person, place, time, events No facial droop, no forehead involvement. Motor: No focal weakness - strength 5/5 in bilateral UEs and LEs, proximal and distal, symmetric. Sensory: sensation intact to light touch globally. Gait normal: patient ambulated without ataxia into ED room. PSYCH: euthymic, cooperative, pleasant, appropriate speech Course Vital Signs Vital signs: Vital Signs Temperature 36.6 C 06/30/25 11:32 Pulse 94 H 06/30/25 11:32 Respiratory Rate 18 06/30/25 11:32 Blood Pressure 110/74 06/30/25 11:32 Pulse Oximetry 95 06/30/25 11:32 Temperature 36.6 C 06/30/25 11:32 Temperature Source Oral 06/30/25 11:32 Pulse 94 H 06/30/25 11:32 Respiratory Rate 18 06/30/25 11:32 Blood Pressure 110/74 06/30/25 11:32 Blood Pressure Position Sitting 06/30/25 11:32 Pulse Oximetry 95 06/30/25 11:32 Oxygen Delivery Method Room Air 06/30/25 11:32 Oxygen Flow Rate 0 06/30/25 11:32 Pain Level 10 06/30/25 11:32 Medical Decision Making This dictation utilizes [id number] dictation software and may contain unedited grammatical errors. 24 year-old female presents to ED today by POV/ambulating with a chief complaint of possible finger infection of ring finger of left hand with onset over the past few days. Quality described as throbbing, no radiation to drainage of pus, fever, red streaking up the hand, swelling of the finger pad. Severity is described as moderate. Palliating factors include soaks and hydrogen peroxide. Provoking factors include certain movements. Patients' medical history: Noncontributory. Family and social history: Noncontributory. Pertinent exam findings / vital signs include mild erythema to the nail fold of the left ring finger, no purulent drainage seen or pocket to drain, no lymphadenitis, no felon, sensation intact with brisk capillary refill, left radial pulse 2+. Differential / pathologies of concern include paronychia, cellulitis. Diagnostic studies of: - None. Interventions of: - Rx for Bactrim and mupirocin. ED Course/Assessment/Plan: 24-year-old female presents with cellulitis of the nail fold without an obvious pocket of pus to drain, she was started on Bactrim as well as mupirocin recommend continuing hot compresses, return for any signs of worsening infection. Findings not consistent with drainable paronychia. Disposition of cellulitis of left ring finger. Patient verbalized understanding of the plan and return to ED criteria and engaged in shared decision making. Medical Records Medical records reviewed: Yes I reviewed the patient's medical records. PFSH All Active Problems (Updated 06/30/25 @ 12:09 by RIKY Judge) Cellulitis of left ring finger (Acute) Screening examination for STI (Acute) Bipolar disorder (Chronic) Posttraumatic stress disorder (Acute) Depressed (Acute) Cannabis abuse (Acute) Medical History Presence of Mirena IUD History of migraine Mild anemia Exercise-induced asthma Attention deficit disorder with hyperactivity Subacute thyroiditis Sleep disturbance Seasonal allergies Suicidal ideation Dizziness Surgical History History of tonsillectomy Family History Paternal Grandfather Diabetes Maternal Grandfather Heart disease mi w/ double bypass Hypertension Mother Hypothyroid Social History Smoking/Tobacco Use Status: Current every day Tobacco Type: e-cigarettes Smoking risk assessment performed?: Yes Alcohol Intake: current Alcohol Intake frequency: a few times a month Alcohol type: wine Drug use: Daily Substance use type: marijuana Counseling provided: treatment program Details: nightly marijuana use Housing: apartment Sexually active: Yes Do you feel safe at home: Yes Do you feel safe in your relationship?: Yes Female Reproductive History Menstrual Age of Menarche: 12 Duration of menses: 3-5 days control method: none History History 3 Para 2 Hx # Term Pregnancies 2 Multiple births 0 Hx # Pregnancies 0 Ectopic pregnancies 0 AB induced 0 Hx Number of Living Children 2 AB spontaneous 1 Past Pregnancies Del. Date GA/Weeks # Preg Succ Route Wgt Sex Labor Lgth Anesthesia Location [facility] 08/30/19 39 No vaginal 2976.7 g Female 5 hr labor the day before scheduled induction for gHTN Soledad Rodney, [facility] 02/22/22 38 No Yes vaginal 3019.224 g Male 5 hours [facility], [facility] 12/25/24 5 No Delivery Date: 08/30/19 Last Updated by: Ros Fagan No meds in labor, stayed in tub. Nitrous for 1st degree lac repair. gHTN, BP improved after . Heavy bleeding per pt. Delivery Date: 02/22/22 Last Updated by: SONI Ellis;GBS positive, one dose PCN prior to delivery; Small second degree laceration and right labial laceration, repaired under local anesthesia Delivery Date: 12/25/24 Last Updated by: Maria L Davila MD SAB PAWSS Have you Been Recently Intoxicated or Drunk Within the Last 30 days?: No Have you Ever Experienced Previous Episodes of Alcohol Withdrawal?: No Have you ever Experienced Withdrawal Seizures?: No Have you ever Experienced Delirium Tremens(DT)s?: No Have you ever undergone Alcohol Rehabilitation Treatment (i.e, inpt ot outpatient treatment programs)?: No Have you ever Experienced Blackouts?: No Have you ever Combined Alcohol with other Downers within the last 90 days?: No Have you ever Combined Alcohol with any other Substance of Abuse during the last 90 days?: No Positive Blood Alcohol level on Presentation? [PCS.BAL]: No Evidence of Increased Autonomic Activity (i.e. HR>120, tremor, sweating, agitation, nausea)?: No Result: 0
== END 2025-06-30 12:38 | disposition home or self-care (01) ==
PROVIDERS: Emergency Provider Physician Assistant; PCP Family Medicine
DX: L03.012 Cellulitis of left finger (principal)
CPT/HCPCS: 99283 ×2